=== PATIENT | male | born 1960 | race American Indian/Alaskan Native ===

== ENCOUNTER 2016-11-05 12:40 | Inpatient (IN) | payer OTHER ==
[2016-11-05 13:12] LABS: Eosinophils % (Auto) 2.8 % (0.0-4.3); Hematocrit 44.9 % (35.5-45.6); Hemoglobin 15.5 gm/dl (11.8-15.2); Mean Corpuscular HGB Conc 35 % (32-34); Mean Corpuscular Hemoglobin 35 pg (28-32); Mean Corpuscular Volume 101 fl (84-94); Platelet Count 139 K/mm3 (140-440); Red Blood Count 4.46 M/mm3 (3.65-5.03); Red Cell Distribution Width 11.9 % (13.2-15.2); White Blood Count 6.1 K/mm3 (4.5-11.0)
[2016-11-05 13:34] LABS: Blood Urea Nitrogen 5 mg/dL (9-20); Calcium 7.8 mg/dL (8.4-10.2); Carbon Dioxide 25 mmol/L (22-30); Chloride 99.2 mmol/L (98-107); Glucose 81 mg/dL (75-100); Potassium 4.5 mmol/L (3.6-5.0); Sodium 139 mmol/L (137-145)
[2016-11-05] MEDS ORDERED: NITRO-BID 2% TP ONE (13:55)
[2016-11-05] MEDS ORDERED: ZOFRAN IV ONE (13:55)
[2016-11-05] MEDS ORDERED: MORPHINE IV ONE (13:55)
[2016-11-05 13:56] LABS: Anion Gap 19 mmol/L
--- NOTE | 2016-11-05 14:02 | Emergency Department Report ---
HPI - General Chief Complaint: Chest Pain Time Seen by Provider: 11/05/16 13:47 - HPI HPI: Room 3 The patient is a 56-year-old male presenting with a chief complaint of chest pain. The patient states this afternoon he developed substernal chest pain that was sharp in nature. Patient denies shortness of breath, nausea/vomiting or diaphoresis. The patient gives his pain a score of 7/10. The patient states he never had a stress test or cardiac catheterization Location: Substernal chest Duration: Constant times hours Quality: Sharp Severity: 7/10 Modifying factors: [see above] Context: [see above] Mode of transportation: [not driving] ED Past Medical Hx - Past Medical History Previous Medical History?: Yes Hx COPD: Yes Additional medical history: snake bite - Surgical History Past Surgical History?: No Additional Surgical History: Right knee surgery/tendon repair - Family History Family history: no significant - Social History Smoking Status: Current Every Day Smoker Substance Use Type: None (denies illicit drug use), Alcohol (2-3 beers daily) - Medications Home Medications: Home Medications Medication Instructions Recorded Confirmed Last Taken Type ALBUTEROL Inhaler 2 inhalation PO DAILY PRN 11/05/16 11/05/16 Unknown History Combivent Inhaler 1 puff PO DAILY 11/05/16 11/05/16 Unknown History ED Review of Systems ROS: Stated complaint: CHEST PAIN Other details as noted in HPI Comment: All other systems reviewed and negative Constitutional: denies: chills, fever Eyes: denies: eye pain, eye discharge, vision change ENT: denies: ear pain, throat pain Respiratory: denies: cough, shortness of breath, wheezing Cardiovascular: chest pain. denies: palpitations Endocrine: no symptoms reported Gastrointestinal: denies: abdominal pain, nausea, diarrhea Genitourinary: denies: urgency, dysuria Musculoskeletal: denies: back pain, joint swelling, arthralgia Skin: denies: rash, lesions Neurological: denies: headache, weakness, paresthesias Psychiatric: denies: anxiety, depression Hematological/Lymphatic: denies: easy bleeding, easy bruising Physical Exam - Physical Exam Vital Signs: Vital Signs 11/05/16 11/05/16 12:49 13:13 Temperature 98.4 F Pulse Rate 98 H Respiratory 18 18 Rate Blood Pressure 128/84 O2 Sat by Pulse 99 91 Oximetry Physical Exam: GENERAL: The patient is well-developed male lying on stretcher not appear to be in acute distress. [] HEENT: Normocephalic. Atraumatic. Extraocular motions are intact. Patient has moist mucous membranes. NECK: Supple. Trachea midline CHEST/LUNGS: Clear to auscultation. There is no respiratory distress noted. HEART/CARDIOVASCULAR: Regular. There is no tachycardia. There is no gallop rub or murmur. ABDOMEN: Abdomen is soft, nontender. Patient has normal bowel sounds. There is no abdominal distention. SKIN: There is no rash. There is no edema. There is no diaphoresis. NEURO: The patient is awake, alert, and oriented. The patient is cooperative. The patient has normal speech MUSCULOSKELETAL: There is no evidence of acute injury. ED Course Vital Signs 11/05/16 11/05/16 12:49 13:13 Temperature 98.4 F Pulse Rate 98 H Respiratory 18 18 Rate Blood Pressure 128/84 O2 Sat by Pulse 99 91 Oximetry ED Medical Decision Making - Lab Data Result diagrams: 11/05/16 13:03 11/05/16 13:03 Laboratory Tests 11/05/16 11/05/16 11/05/16 13:03 13:03 13:03 WBC 6.1 RBC 4.46 Hgb 15.5 H Hct 44.9 MCV 101 H MCH 35 H MCHC 35 H RDW 11.9 L Plt Count 139 L Lymph % (Auto) 41.8 H [place] % (Auto) 8.4 H Eos % (Auto) 2.8 Baso % (Auto) 1.0 Lymph # 2.6 [place] # 0.5 Eos # 0.2 Baso # 0.1 Seg Neutrophils % 46.0 Seg Neutrophils # 2.8 Sodium 139 Potassium 4.5 Chloride 99.2 Carbon Dioxide 25 Anion Gap 19 BUN 5 L Creatinine 0.5 L Estimated GFR > 60 BUN/Creatinine Ratio 10.00 Glucose 81 Calcium 7.8 L Total Creatine Kinase 62 CK-MB (CK-2) < 1.0 CK-MB (CK-2) Rel Index 1.6 Troponin T < 0.010 11/05/16 15:44 WBC RBC Hgb Hct MCV MCH MCHC RDW Plt Count Lymph % (Auto) [place] % (Auto) Eos % (Auto) Baso % (Auto) Lymph # [place] # Eos # Baso # Seg Neutrophils % Seg Neutrophils # Sodium Potassium Chloride Carbon Dioxide Anion Gap BUN Creatinine Estimated GFR BUN/Creatinine Ratio Glucose Calcium Total Creatine Kinase CK-MB (CK-2) CK-MB (CK-2) Rel Index Troponin T < 0.010 - EKG Data -: EKG Interpreted by Me EKG shows normal: sinus rhythm Rate: normal - EKG Data When compared to previous EKG there are: previous EKG unavailable - Radiology Data Radiology results: image reviewed (chest x-ray) interpreted by me: Chest x-ray-no focal infiltrates, no pneumothorax - Differential Diagnosis ACS, GERD, pericarditis Critical care attestation.: If time is entered above; I have spent that time in minutes in the direct care of this critically ill patient, excluding procedure time. ED Disposition Clinical Impression: Chest pain Disposition: OP ADMITTED IP TO THIS HOSP Is pt being admited?: Yes Does the pt Need Aspirin: Yes Condition: Fair Instructions: Chest Pain (ED) Time of Disposition: 17:00
--- NOTE | 2016-11-05 14:06 | Admit Criteria Form ---
Admission Criteria Documentation: CHEST PAIN Clinical Indications for Admission to Inpatient Care (Place 'X' for any and all applicable criteria): Admission is indicated for chest pain and ANY ONE of the following(1)(2)(3)(4)(5 ): [ ]I. Angina with acute coronary syndrome (Also use Myocardial Infarction or Angina guideline) [ ]II. Hemodynamic instability [X ]III. Angina needing acute intervention as indicated by ALL of the following (11)(12): [X ]a) Unstable angina is present as indicated by angina that is ANY ONE of the following: [X ]i) New onset [ ]ii) Nocturnal [ ]iii) Prolonged at rest [ ]iv) Progressive [X ]b) Angina warrants acute intervention as indicated by ANY ONE of the following: [ ]i) Recurrent angina (e.g, not responding as previously to treatment) [X ]ii) Angina at rest or with low-level activities despite initial medical therapy [ ]iii) New or presumably new ST-segment depression on ECG [ ]iv) Signs or symptoms of heart failure (eg, dyspnea, pulmonary edema) [ ]v) New or worsening mitral regurgitation [ ]vi) Hemodynamic instability [ ]vii) Dangerous arrhythmia (eg, sustained ventricular tachycardia) [ ]viii) History of percutaneous coronary intervention within 6 months [ ]ix) History of coronary artery bypass graft surgery [ ]x) ANDREW risk score of 2 or greater[A] [ ]xi) History of Diabetes(14) [ ]xii) High-risk cardiac ischemia findings on noninvasive testing (e.g, echocardiogram, treadmill testing, nuclear scan) [ ]xiii) Chronic renal insufficiency (ie, estimated GFR less than 60 mL/min/1.732m) [ ]xiv) Left ventricular ejection fraction less than 40% [ ]IV. Evidence of CO (eg, cardiac biomarkers positive, ST-segment elevation on ECG) also use Myocardial Infarction Criteria Form. [ ]V. Pulmonary edema [ ]. Respiratory distress [ ]VII. Chest pain indicative of serious diagnosis other than coronary artery disease (eg, aortic dissection) [ ]VIII. Contraindications and/or Inappropriate clinical situations for Observational Care in patients with Chest Pain, when ANY ONE of the following is required: [ ]a) Patient with risk factor for pulmonary embolism, acute coronary syndrome and myocardial infarction (18) [ ]b) Patient with Pulmonary embolism require an average LOS of 4.3 days, therefore emergency department observation management is inappropriate 18,23 [ ]c) Painful condition/s in the elderly, have the highest rate of recidivism after emergency department observation management (10.8%) 20,21,22 [ ]d) Elevated cardiac biomarker requires intensive and exhaustive care (19) [ ]IX. General contraindications and/or Inappropriate clinical situations for Observational Care in patients with Chest Pain, when ANY ONE of the following is required: [ ]a) Prediction of prolongation of LOS based on ANY ONE of the following may be considered as a contraindication for observational care 2, 3, 4, 5, 6, 7, 8, 9, 10, 11 [ ]i) Age > 65 yrs. [ ]ii) Patient arriving by ambulance [ ]iii) Patient with high acuity [ ]iv) Patient requiring vital sign monitoring [ ]v) Patient on IV medication [ ]b) Systolic blood pressures 180mmHg 3,12 [ ]c) Patient with altered mental status including delirium and other alteration of consciousness, (3) [ ]d) Patient whose discharge disposition will be to a care home home or rehabilitation home should not be managed in Emergency Department Observation Unit. CMS rule requires 3 days hospital stay before such placement. 3,13 [ ]e) Patient with failure to thrive due to broad array of etiologies 3,16,17 [ ]f) Inability to ambulate 3,14 Extended stay beyond goal length of stay may be needed for (1)(28): [ ]a) Specific condition diagnosed after evaluation (eg, pulmonary embolism, aortic dissection) [ ]b) Unstable angina [ ]c) Continued suspicion of acute coronary syndrome with inability to complete needed cardiac evaluation (eg, patient clinically unable to undergo stress testing) [ ]d) Myocardial infarction (Contents from ANGINA and CHEST PAIN clinical indications for admission to inpatient care have been integrated in this form) The original [employer] content created by [employer] has been revised. The portions of the content which have been revised are identified through the use of italic text or in bold, and [facility] has neither reviewed nor approved the modified material. All other unmodified content is copyright [employer]. Please see references footnoted in the original [facility] edition 2016 Admission Criteria Met: Yes
--- NOTE | 2016-11-05 14:56 | XRay Report ---
AP CHEST: HISTORY: Chest pain. FINDINGS: There is mild hyperinflation. The lungs are clear, otherwise. No pleural effusion or pneumothorax. Normal heart and mediastinal structures. Normal bony thorax. IMPRESSION: Mild hyperinflation. No acute process.
[2016-11-05 15:00] LABS: Creatine Kinase MB < 1.0 ng/mL (0.0-4.0)
[2016-11-05 15:01] LABS: Creatine Kinase 62 units/L (55-170)
--- NOTE | 2016-11-05 17:36 | History and Physical Report ---
History of Present Illness Date of examination: 11/05/16 Date of admission: 11/05/16 Chief complaint: chest pain History of present illness: Patient is 56-year-old with history of COPD. He presents with chest pain for 1 day. Chest pain is midsternal, sharp pain, 8 out of 10 in intensity, with no radiation. Pain gets worse on exertion. He denies any shortness of breath. He had nausea yesterday but no vomiting. Emergency department initial troponin was normal. Will admit to rule out acute coronary syndrome. Also of note, he drinks 2-3 beers(24 Oz) a day and his last drink was this morning. Will order CIWA protocol in case he goes into alcohol withdrawal. Past History Past Medical History: COPD Past Surgical History: Other (right knee surgery, left foot surgery) Social history: single, smoking (Smokes 1 pack cigarettes a day), alcohol abuse (Drinks 2-3 beers a day(24 oz each)), full code Family history: diabetes Medications and Allergies Allergies Allergy/AdvReac Type Severity Reaction Status Date / Time Cephalosporins Allergy Anaphylaxis Verified 11/05/16 12:56 Home Medications Medication Instructions Recorded Confirmed Last Taken Type ALBUTEROL Inhaler 2 inhalation PO DAILY PRN 11/05/16 11/05/16 Unknown History Combivent Inhaler 1 puff PO DAILY 11/05/16 11/05/16 Unknown History Review of Systems All systems: negative (fever, no shortness of breath, no cough, no abdominal pain, no headaches. All other systems reviewed and are negative) Exam - Constitutional Vitals: Temp Pulse Resp BP Pulse Ox 98.4 F 98 H 18 128/84 91 11/05/16 12:49 11/05/16 12:49 11/05/16 13:13 11/05/16 12:49 11/05/16 13:13 General appearance: Present: no acute distress - EENT Eyes: Present: PERRL, EOM intact ENT: hearing intact, clear oral mucosa - Neck Neck: Present: supple, normal ROM - Respiratory Respiratory effort: normal Respiratory: bilateral: CTA, negative: diminished, rales, rhonchi, wheezing - Cardiovascular Rhythm: regular Heart Sounds: Present: S1 & S2 (S1 and S2 regular, no murmurs rubs or gallops) - Extremities Extremities: no ischemia, No edema, normal temperature, normal color - Abdominal General gastrointestinal: Present: soft, non-tender, non-distended, normal bowel sounds - Integumentary Integumentary: Present: clear, warm, dry - Musculoskeletal Musculoskeletal: strength equal bilaterally - Psychiatric Psychiatric: appropriate mood/affect - Neurologic Neurologic: moves all extremities, other (awake alert oriented 3, normal speech , no focal neurologic signs) Results - Labs CBC & Chem 7: 11/05/16 13:03 11/05/16 13:03 Labs: Abnormal lab results 11/05/16 11/05/16 Range/Units 13:03 13:03 Hgb 15.5 H (11.8-15.2) gm/dl MCV 101 H (84-94) fl MCH 35 H (28-32) pg MCHC 35 H (32-34) % RDW 11.9 L (13.2-15.2) % Plt Count 139 L (140-440) K/mm3 Lymph % (Auto) 41.8 H (13.4-35.0) % [place] % (Auto) 8.4 H (0.0-7.3) % BUN 5 L (9-20) mg/dL Creatinine 0.5 L (0.8-1.5) mg/dL Calcium 7.8 L (8.4-10.2) mg/dL Assessment and Plan Chest pain. Admit to telemetry to rule out acute coronary syndrome. Aspirin 325 mg by mouth daily. Initial Troponin negative. Obtain 2 more sets. Obtain stress test in the morning. COPD. This is stable. No shortness of breath, no acute exacerbation. Albuterol prn. Thrombocytopenia. Likely secondary to alcohol use Alcohol abuse. He drinks 2-3 beers a day. [place] protocol DVT prophylaxis with SCDs only. Chemical prophylaxis not done because of thrombocytopenia with platelets of 139.. Full CODE STATUS
[2016-11-05] MEDS ORDERED: ZOFRAN IV PRN (17:37)
[2016-11-05] MEDS ORDERED: MILK OF MAGNESIA PO PRN (17:37)
[2016-11-05] MEDS ORDERED: DULCOLAX PR PRN (17:37)
[2016-11-05] MEDS ORDERED: TYLENOL PO PRN (17:37)
[2016-11-05] MEDS ORDERED: SODIUM CHLORIDE FLUSH SYRINGE 10 ML IV PRN (17:41)
[2016-11-05] MEDS ORDERED: NITROSTAT SL PRN (17:41)
[2016-11-05] MEDS ORDERED: ASPIRIN PO ONE (17:42)
[2016-11-05] MEDS ORDERED: ATIVAN IV PRN (20:34)
[2016-11-05] MEDS ORDERED: PROVENTIL IH PRN (20:44)
[2016-11-05] MEDS ORDERED: COMBIVENT PO SCH (20:45)
[2016-11-05] MEDS: ATIVAN IV PRN (20:58)
[2016-11-05] MEDS ORDERED: HEPARIN SUB-Q SCH (22:00)
[2016-11-06] MEDS: ATIVAN IV PRN ×7 (02:16→22:34)
[2016-11-06] MEDS: DUONEB 0.5 MG-3 MG/3 ML SOLN IH SCH ×4 (02:40→20:22)
[2016-11-06 06:05] LABS: Eosinophils % (Auto) 1.6 % (0.0-4.3); Hematocrit 46.7 % (35.5-45.6); Mean Corpuscular HGB Conc 34 % (32-34); Mean Corpuscular Hemoglobin 34 pg (28-32); Mean Corpuscular Volume 99 fl (84-94); Platelet Count 125 K/mm3 (140-440); Red Blood Count 4.72 M/mm3 (3.65-5.03); Red Cell Distribution Width 12.2 % (13.2-15.2); White Blood Count 7.1 K/mm3 (4.5-11.0)
[2016-11-06 06:22] LABS: Blood Urea Nitrogen 6 mg/dL (9-20); Calcium 8.1 mg/dL (8.4-10.2); Carbon Dioxide 26 mmol/L (22-30); Chloride 96.5 mmol/L (98-107); Glucose 91 mg/dL (75-100); Potassium 4.1 mmol/L (3.6-5.0); Sodium 138 mmol/L (137-145)
[2016-11-06 06:55] LABS: Anion Gap 20 mmol/L
[2016-11-06] MEDS ORDERED: PROVENTIL IH PRN (07:18)
[2016-11-06] MEDS ORDERED: LEXISCAN IV ONE ×2 (09:46→09:47)
--- NOTE | 2016-11-06 11:31 | Progress Note ---
Assessment and Plan Assessment and plan: 1. Atypical chest pain- to r/o ACS; trop negative times 2; f/u stress test; cotn ASA; lipid panel 2. Alcohol abuse with alcohol withdrawal- will cont CIWA protocol; start IVF; thiamine; folic acid; MVT; start librium; counselled 3. Thrombocytopenia due to Alcohol -monitor; no signs of bleeding 4. DVT prophylaxis- SCD; no heparin / lovenox- thrombocytopenia History Interval history: f/u chest pain Patient seen at the bedside; no chest pain; drinks alcohol everyday 3-4 beers; last drink was this morning Hospitalist Physical - Constitutional Vitals: Temp Pulse Resp BP Pulse Ox 98.0 F 130 H 18 142/75 95 11/06/16 08:05 11/06/16 10:16 11/06/16 08:05 11/06/16 10:16 11/06/16 08:05 General appearance: Present: no acute distress, cachectic - EENT Eyes: Present: PERRL, EOM intact. Absent: scleral icterus, conjunctival injection ENT: hearing intact, clear oral mucosa, no oropharyngeal erythema, no poor dentition - Neck Neck: Present: supple, normal ROM. Absent: enlarged thyroid, masses or JVD - Respiratory Respiratory effort: normal Respiratory: negative: diminished, rales, rhonchi, wheezing - Cardiovascular Rhythm: regular Heart Sounds: Present: S1 & S2. Absent: gallop - Extremities Extremities: no ischemia, pulses intact, pulses symmetrical, No edema Peripheral Pulses: within normal limits - Abdominal General gastrointestinal: soft, non-tender, non-distended - Integumentary Integumentary: Present: clear - Psychiatric Psychiatric: appropriate mood/affect, intact judgment & insight, cooperative - Neurologic Neurologic: CNII-XII intact, moves all extremities, other (tremors) Results - Labs CBC & Chem 7: 11/06/16 05:09 11/06/16 05:09 Labs: Laboratory Last Values WBC 7.1 K/mm3 (4.5-11.0) 11/06/16 05:09 RBC 4.72 M/mm3 (3.65-5.03) 11/06/16 05:09 Hgb 16.0 gm/dl (11.8-15.2) H 11/06/16 05:09 Hct 46.7 % (35.5-45.6) H 11/06/16 05:09 MCV 99 fl (84-94) H 11/06/16 05:09 MCH 34 pg (28-32) H 11/06/16 05:09 MCHC 34 % (32-34) 11/06/16 05:09 RDW 12.2 % (13.2-15.2) L 11/06/16 05:09 Plt Count 125 K/mm3 (140-440) L 11/06/16 05:09 Lymph % (Auto) 16.3 % (13.4-35.0) 11/06/16 05:09 [place] % (Auto) 5.6 % (0.0-7.3) 11/06/16 05:09 Eos % (Auto) 1.6 % (0.0-4.3) 11/06/16 05:09 Baso % (Auto) 1.0 % (0.0-1.8) 11/06/16 05:09 Lymph # 1.2 K/mm3 (1.2-5.4) 11/06/16 05:09 [place] # 0.4 K/mm3 (0.0-0.8) 11/06/16 05:09 Eos # 0.1 K/mm3 (0.0-0.4) 11/06/16 05:09 Baso # 0.1 K/mm3 (0.0-0.1) 11/06/16 05:09 Seg Neutrophils % 75.5 % (40.0-70.0) H 11/06/16 05:09 Seg Neutrophils # 5.4 K/mm3 (1.8-7.7) 11/06/16 05:09 Sodium 138 mmol/L (137-145) 11/06/16 05:09 Potassium 4.1 mmol/L (3.6-5.0) 11/06/16 05:09 Chloride 96.5 mmol/L (98-107) L 11/06/16 05:09 Carbon Dioxide 26 mmol/L (22-30) 11/06/16 05:09 Anion Gap 20 mmol/L 11/06/16 05:09 BUN 6 mg/dL (9-20) L 11/06/16 05:09 Creatinine 0.6 mg/dL (0.8-1.5) L 11/06/16 05:09 Estimated GFR > 60 ml/min 11/06/16 05:09 BUN/Creatinine Ratio 10.00 % 11/06/16 05:09 Glucose 91 mg/dL (75-100) 11/06/16 05:09 Calcium 8.1 mg/dL (8.4-10.2) L 11/06/16 05:09 Total Creatine Kinase 62 units/L (55-170) 11/05/16 13:03 CK-MB (CK-2) < 1.0 ng/mL (0.0-4.0) 11/05/16 13:03 CK-MB (CK-2) Rel Index 1.6 (0-4) 11/05/16 13:03 Troponin T < 0.010 ng/mL (0.00-0.029) 11/05/16 19:16 stress test -negative
[2016-11-06] MEDS: VITAMIN B-1 PO SCH (11:43)
[2016-11-06] MEDS: ECOTRIN PO SCH (11:43)
[2016-11-06] MEDS: FOLVITE PO SCH (11:43)
[2016-11-06] MEDS: D5/0.45NS 1,000 ML IV SCH (11:45)
[2016-11-06] MEDS: LIBRIUM PO SCH ×3 (16:20→20:22)
[2016-11-06] MEDS: MORPHINE IV PRN (19:52)
[2016-11-06] MEDS: HABITROL TD SCH (20:44)
--- NOTE | 2016-11-06 22:41 | Treadmill Report ---
THALLIUM STRESS TEST LEFT VENTRICLE: Left ventricular chamber size is within normal. Perfusion study demonstrates homogeneous uptake of the tracer in all segments, no significant defects identified. Gated analysis demonstrates normal left ventricular systolic function, ejection fraction 62%. CONCLUSION: Normal myocardial perfusion study. JOB# [id number] CA/NTS
[2016-11-07] MEDS: ATIVAN IV PRN ×6 (00:31→23:37)
[2016-11-07] MEDS: DUONEB 0.5 MG-3 MG/3 ML SOLN IH SCH ×3 (08:46→19:41)
[2016-11-07] MEDS: LIBRIUM PO SCH ×3 (08:55→21:08)
[2016-11-07 09:35] LABS: Basophils % (Auto) 0.5 % (0.0-1.8); Eosinophils % (Auto) 2.5 % (0.0-4.3); Hematocrit 48.5 % (35.5-45.6); Hemoglobin 16.4 gm/dl (11.8-15.2); Mean Corpuscular HGB Conc 34 % (32-34); Mean Corpuscular Hemoglobin 34 pg (28-32); Mean Corpuscular Volume 100 fl (84-94); Red Blood Count 4.85 M/mm3 (3.65-5.03); Red Cell Distribution Width 11.9 % (13.2-15.2); White Blood Count 6.8 K/mm3 (4.5-11.0)
[2016-11-07 09:53] LABS: Platelet Count 126 K/mm3 (140-440)
[2016-11-07] MEDS: FOLVITE PO SCH (10:38)
[2016-11-07] MEDS: HABITROL TD SCH (10:38)
[2016-11-07] MEDS: VITAMIN B-1 PO SCH (10:38)
[2016-11-07] MEDS: ECOTRIN PO SCH (10:38)
--- NOTE | 2016-11-07 11:17 | Progress Note ---
Assessment and Plan Assessment and plan: 1. Atypical chest pain- to r/o ACS; trop negative times 2; f/u stress test; cotn ASA; lipid panel 2. Alcohol abuse with alcohol withdrawal- will cont CIWA protocol; start IVF; thiamine; folic acid; MVT; start librium; counselled 3. Thrombocytopenia due to Alcohol -monitor; no signs of bleeding 4. DVT prophylaxis- SCD; no heparin / lovenox- thrombocytopenia History Interval history: f/u chest pain Patient seen at the bedside; no chest pain; but continues to have tremors Hospitalist Physical - Constitutional Vitals: Temp Pulse Resp BP Pulse Ox 97.4 F L 107 H 20 144/84 95 11/07/16 09:27 11/07/16 09:27 11/07/16 09:27 11/07/16 09:27 11/07/16 08:47 General appearance: Present: no acute distress, cachectic - EENT Eyes: Present: PERRL, EOM intact. Absent: scleral icterus, conjunctival injection ENT: hearing intact, clear oral mucosa, no oropharyngeal erythema, no poor dentition - Neck Neck: Present: supple, normal ROM. Absent: enlarged thyroid, masses or JVD - Respiratory Respiratory effort: normal Respiratory: negative: diminished, rales, rhonchi, wheezing - Cardiovascular Rhythm: regular Heart Sounds: Present: S1 & S2. Absent: gallop - Extremities Extremities: no ischemia, pulses intact, pulses symmetrical, No edema Peripheral Pulses: within normal limits - Abdominal General gastrointestinal: soft, non-tender, non-distended, normal bowel sounds - Integumentary Integumentary: Present: clear - Psychiatric Psychiatric: appropriate mood/affect, intact judgment & insight, cooperative - Neurologic Neurologic: CNII-XII intact, moves all extremities, other (tremor) Results - Labs CBC & Chem 7: 11/07/16 08:05 11/06/16 05:09 Labs: Laboratory Last Values WBC 6.8 K/mm3 (4.5-11.0) 11/07/16 08:05 RBC 4.85 M/mm3 (3.65-5.03) 11/07/16 08:05 Hgb 16.4 gm/dl (11.8-15.2) H 11/07/16 08:05 Hct 48.5 % (35.5-45.6) H 11/07/16 08:05 MCV 100 fl (84-94) H 11/07/16 08:05 MCH 34 pg (28-32) H 11/07/16 08:05 MCHC 34 % (32-34) 11/07/16 08:05 RDW 11.9 % (13.2-15.2) L 11/07/16 08:05 Plt Count 126 K/mm3 (140-440) L 11/07/16 08:05 Lymph % (Auto) 24.5 % (13.4-35.0) 11/07/16 08:05 [place] % (Auto) 7.9 % (0.0-7.3) H 11/07/16 08:05 Eos % (Auto) 2.5 % (0.0-4.3) 11/07/16 08:05 Baso % (Auto) 0.5 % (0.0-1.8) 11/07/16 08:05 Lymph # 1.7 K/mm3 (1.2-5.4) 11/07/16 08:05 [place] # 0.5 K/mm3 (0.0-0.8) 11/07/16 08:05 Eos # 0.2 K/mm3 (0.0-0.4) 11/07/16 08:05 Baso # 0.0 K/mm3 (0.0-0.1) 11/07/16 08:05 Seg Neutrophils % 64.6 % (40.0-70.0) 11/07/16 08:05 Seg Neutrophils # 4.4 K/mm3 (1.8-7.7) 11/07/16 08:05 Sodium 138 mmol/L (137-145) 11/06/16 05:09 Potassium 4.1 mmol/L (3.6-5.0) 11/06/16 05:09 Chloride 96.5 mmol/L (98-107) L 11/06/16 05:09 Carbon Dioxide 26 mmol/L (22-30) 11/06/16 05:09 Anion Gap 20 mmol/L 11/06/16 05:09 BUN 6 mg/dL (9-20) L 11/06/16 05:09 Creatinine 0.6 mg/dL (0.8-1.5) L 11/06/16 05:09 Estimated GFR > 60 ml/min 11/06/16 05:09 BUN/Creatinine Ratio 10.00 % 11/06/16 05:09 Glucose 91 mg/dL (75-100) 11/06/16 05:09 Calcium 8.1 mg/dL (8.4-10.2) L 11/06/16 05:09 Total Creatine Kinase 62 units/L (55-170) 11/05/16 13:03 CK-MB (CK-2) < 1.0 ng/mL (0.0-4.0) 11/05/16 13:03 CK-MB (CK-2) Rel Index 1.6 (0-4) 11/05/16 13:03 Troponin T < 0.010 ng/mL (0.00-0.029) 11/05/16 19:16
[2016-11-08] MEDS: ATIVAN IV PRN ×3 (04:57→23:46)
[2016-11-08] MEDS: DUONEB 0.5 MG-3 MG/3 ML SOLN IH SCH ×3 (08:16→20:54)
[2016-11-08] MEDS: LIBRIUM PO SCH ×3 (08:38→20:46)
[2016-11-08] MEDS: ECOTRIN PO SCH (10:33)
[2016-11-08] MEDS: FOLVITE PO SCH (10:33)
[2016-11-08] MEDS: HABITROL TD SCH (10:33)
[2016-11-08] MEDS: VITAMIN B-1 PO SCH (10:35)
--- NOTE | 2016-11-08 11:23 | Progress Note ---
Assessment and Plan Assessment and plan: 1. Alcohol abuse with alcohol withdrawal- will cont CIWA protocol; cont IVF; thiamine; folic acid; MVT; cotn librium; counselled 2. Thrombocytopenia due to Alcohol -monitor; no signs of bleeding 3. DVT prophylaxis- SCD; no heparin / lovenox- thrombocytopenia History Interval history: f/u chest pain Patient seen at the bedside; no chest pain; but continues to have tremors Hospitalist Physical - Constitutional Vitals: Temp Pulse Resp BP Pulse Ox 97.9 F 112 H 20 125/85 98 11/08/16 07:29 11/08/16 10:00 11/08/16 08:26 11/08/16 07:29 11/08/16 08:16 General appearance: Present: no acute distress, cachectic - EENT Eyes: Present: PERRL, EOM intact. Absent: scleral icterus, conjunctival injection ENT: hearing intact, clear oral mucosa, no oropharyngeal erythema, no poor dentition - Neck Neck: Present: supple, normal ROM. Absent: enlarged thyroid, masses or JVD - Respiratory Respiratory effort: normal Respiratory: negative: diminished, rales, rhonchi, wheezing - Cardiovascular Rhythm: regular Heart Sounds: Present: S1 & S2. Absent: gallop - Extremities Extremities: no ischemia, pulses intact, pulses symmetrical, No edema Peripheral Pulses: within normal limits - Abdominal General gastrointestinal: soft, non-tender, non-distended, normal bowel sounds - Integumentary Integumentary: Present: clear - Psychiatric Psychiatric: appropriate mood/affect, intact judgment & insight, cooperative - Neurologic Neurologic: CNII-XII intact, moves all extremities Results - Labs CBC & Chem 7: 11/07/16 08:05 11/06/16 05:09 Labs: Laboratory Last Values WBC 6.8 K/mm3 (4.5-11.0) 11/07/16 08:05 RBC 4.85 M/mm3 (3.65-5.03) 11/07/16 08:05 Hgb 16.4 gm/dl (11.8-15.2) H 11/07/16 08:05 Hct 48.5 % (35.5-45.6) H 11/07/16 08:05 MCV 100 fl (84-94) H 11/07/16 08:05 MCH 34 pg (28-32) H 11/07/16 08:05 MCHC 34 % (32-34) 11/07/16 08:05 RDW 11.9 % (13.2-15.2) L 11/07/16 08:05 Plt Count 126 K/mm3 (140-440) L 11/07/16 08:05 Lymph % (Auto) 24.5 % (13.4-35.0) 11/07/16 08:05 [place] % (Auto) 7.9 % (0.0-7.3) H 11/07/16 08:05 Eos % (Auto) 2.5 % (0.0-4.3) 11/07/16 08:05 Baso % (Auto) 0.5 % (0.0-1.8) 11/07/16 08:05 Lymph # 1.7 K/mm3 (1.2-5.4) 11/07/16 08:05 [place] # 0.5 K/mm3 (0.0-0.8) 11/07/16 08:05 Eos # 0.2 K/mm3 (0.0-0.4) 11/07/16 08:05 Baso # 0.0 K/mm3 (0.0-0.1) 11/07/16 08:05 Seg Neutrophils % 64.6 % (40.0-70.0) 11/07/16 08:05 Seg Neutrophils # 4.4 K/mm3 (1.8-7.7) 11/07/16 08:05 Sodium 138 mmol/L (137-145) 11/06/16 05:09 Potassium 4.1 mmol/L (3.6-5.0) 11/06/16 05:09 Chloride 96.5 mmol/L (98-107) L 11/06/16 05:09 Carbon Dioxide 26 mmol/L (22-30) 11/06/16 05:09 Anion Gap 20 mmol/L 11/06/16 05:09 BUN 6 mg/dL (9-20) L 11/06/16 05:09 Creatinine 0.6 mg/dL (0.8-1.5) L 11/06/16 05:09 Estimated GFR > 60 ml/min 11/06/16 05:09 BUN/Creatinine Ratio 10.00 % 11/06/16 05:09 Glucose 91 mg/dL (75-100) 11/06/16 05:09 Calcium 8.1 mg/dL (8.4-10.2) L 11/06/16 05:09 Total Creatine Kinase 62 units/L (55-170) 11/05/16 13:03 CK-MB (CK-2) < 1.0 ng/mL (0.0-4.0) 11/05/16 13:03 CK-MB (CK-2) Rel Index 1.6 (0-4) 11/05/16 13:03 Troponin T < 0.010 ng/mL (0.00-0.029) 11/05/16 19:16
[2016-11-08] MEDS: D5/0.45NS 1,000 ML IV SCH ×2 (14:47→23:47)
[2016-11-09] MEDS: ATIVAN IV PRN ×4 (02:55→17:41)
[2016-11-09] MEDS ORDERED: LIBRIUM PO SCH (07:47)
[2016-11-09] MEDS: DUONEB 0.5 MG-3 MG/3 ML SOLN IH SCH ×3 (08:19→21:04)
[2016-11-09] MEDS: LIBRIUM PO SCH ×3 (08:37→20:10)
[2016-11-09] MEDS: ECOTRIN PO SCH (11:01)
[2016-11-09] MEDS: HABITROL TD SCH (11:01)
[2016-11-09] MEDS: D5/0.45NS 1,000 ML IV SCH (11:01)
[2016-11-09] MEDS: FOLVITE PO SCH (11:02)
[2016-11-09] MEDS: VITAMIN B-1 PO SCH (11:02)
--- NOTE | 2016-11-09 12:29 | Progress Note ---
Assessment and Plan Assessment and plan: 1. Alcohol abuse with alcohol withdrawal- will cont CIWA protocol; cont IVF; thiamine; folic acid; MVT; cotn librium at reduced dose; counselled 2. Thrombocytopenia due to Alcohol -monitor; no signs of bleeding 3. DVT prophylaxis- SCD; no heparin / lovenox- thrombocytopenia History Interval history: f/u chest pain Patient seen at the bedside; no chest pain; but continues to have tremors but improving Hospitalist Physical - Constitutional Vitals: Temp Pulse Resp BP Pulse Ox 98.1 F 111 H 20 134/77 100 11/09/16 10:36 11/09/16 11:19 11/09/16 10:36 11/09/16 10:36 11/09/16 10:36 General appearance: Present: no acute distress, cachectic - EENT Eyes: Present: PERRL, EOM intact. Absent: scleral icterus, conjunctival injection ENT: hearing intact, clear oral mucosa, no oropharyngeal erythema, no poor dentition - Neck Neck: Present: supple, normal ROM. Absent: enlarged thyroid, masses or JVD - Respiratory Respiratory effort: normal Respiratory: negative: diminished, rales, rhonchi, wheezing - Cardiovascular Rhythm: regular Heart Sounds: Present: S1 & S2. Absent: gallop - Extremities Extremities: no ischemia, pulses intact, pulses symmetrical, No edema, normal temperature Peripheral Pulses: within normal limits - Abdominal General gastrointestinal: soft, non-tender, non-distended - Integumentary Integumentary: Present: clear - Psychiatric Psychiatric: appropriate mood/affect, intact judgment & insight - Neurologic Neurologic: CNII-XII intact Results - Labs CBC & Chem 7: 11/07/16 08:05 11/06/16 05:09 Labs: Laboratory Last Values WBC 6.8 K/mm3 (4.5-11.0) 11/07/16 08:05 RBC 4.85 M/mm3 (3.65-5.03) 11/07/16 08:05 Hgb 16.4 gm/dl (11.8-15.2) H 11/07/16 08:05 Hct 48.5 % (35.5-45.6) H 11/07/16 08:05 MCV 100 fl (84-94) H 11/07/16 08:05 MCH 34 pg (28-32) H 11/07/16 08:05 MCHC 34 % (32-34) 11/07/16 08:05 RDW 11.9 % (13.2-15.2) L 11/07/16 08:05 Plt Count 126 K/mm3 (140-440) L 11/07/16 08:05 Lymph % (Auto) 24.5 % (13.4-35.0) 11/07/16 08:05 [place] % (Auto) 7.9 % (0.0-7.3) H 11/07/16 08:05 Eos % (Auto) 2.5 % (0.0-4.3) 11/07/16 08:05 Baso % (Auto) 0.5 % (0.0-1.8) 11/07/16 08:05 Lymph # 1.7 K/mm3 (1.2-5.4) 11/07/16 08:05 [place] # 0.5 K/mm3 (0.0-0.8) 11/07/16 08:05 Eos # 0.2 K/mm3 (0.0-0.4) 11/07/16 08:05 Baso # 0.0 K/mm3 (0.0-0.1) 11/07/16 08:05 Seg Neutrophils % 64.6 % (40.0-70.0) 11/07/16 08:05 Seg Neutrophils # 4.4 K/mm3 (1.8-7.7) 11/07/16 08:05 Sodium 138 mmol/L (137-145) 11/06/16 05:09 Potassium 4.1 mmol/L (3.6-5.0) 11/06/16 05:09 Chloride 96.5 mmol/L (98-107) L 11/06/16 05:09 Carbon Dioxide 26 mmol/L (22-30) 11/06/16 05:09 Anion Gap 20 mmol/L 11/06/16 05:09 BUN 6 mg/dL (9-20) L 11/06/16 05:09 Creatinine 0.6 mg/dL (0.8-1.5) L 11/06/16 05:09 Estimated GFR > 60 ml/min 11/06/16 05:09 BUN/Creatinine Ratio 10.00 % 11/06/16 05:09 Glucose 91 mg/dL (75-100) 11/06/16 05:09 Calcium 8.1 mg/dL (8.4-10.2) L 11/06/16 05:09 Total Creatine Kinase 62 units/L (55-170) 11/05/16 13:03 CK-MB (CK-2) < 1.0 ng/mL (0.0-4.0) 11/05/16 13:03 CK-MB (CK-2) Rel Index 1.6 (0-4) 11/05/16 13:03 Troponin T < 0.010 ng/mL (0.00-0.029) 11/05/16 19:16
[2016-11-10] MEDS: MORPHINE IV PRN (03:35)
[2016-11-10] MEDS: D5/0.45NS 1,000 ML IV SCH ×2 (03:36→14:51)
[2016-11-10] MEDS: DUONEB 0.5 MG-3 MG/3 ML SOLN IH SCH ×3 (09:54→20:34)
[2016-11-10] MEDS: HABITROL TD SCH (10:12)
[2016-11-10] MEDS: ECOTRIN PO SCH (10:12)
[2016-11-10] MEDS: VITAMIN B-1 PO SCH (10:12)
[2016-11-10] MEDS: LIBRIUM PO SCH ×3 (10:13→19:30)
[2016-11-10] MEDS: FOLVITE PO SCH (10:15)
--- NOTE | 2016-11-10 10:19 | Query- Chest Pain ---
Lucero Tinsley___Mir Date: 11/10/16 Cashier Wrapper/CDS:___Aristides Jolley Phone#:____[phone] Exercise your independent professional judgment when responding to query. Questions asked do not imply a particular answer is desired or expected. We greatly appreciate your clarification on this issue. Clinical Documentation States: 56 year old male was admitted on 11/05/16. The patient was diagnosed with alcohol abuse and withdrawal. The H&P states " Chest pain. Admit to telemetry to rule out acute coronary syndrome" The progress note (11/09/16) states " Patient seen at bedside; no chest pain; but continues to have tremors but improving " Clinical Findings Show: The exercise stress test states " Conclusion: normal myocardial perfusion study " Please document the etiology of Chest Pain: [ ] Myocardial Infarction [ ] Pneumonia [ ] Mediastinitis [ ] Costochondritis [ ] Pulmonary Embolism [ ] Coronary Artery Disease [x ] GERD [ ] Other: [ ] Comment/Explanation: [ ] Clinically undeterminable Present on Admission: [x ] Yes (Y) [ ] Clinically undeterminable (W) [ ] No(N) Please document response in your Progress Notes and/or Discharge Summary and indicate if the condition was present on admission. HERBERTH
--- NOTE | 2016-11-10 19:57 | Progress Note ---
Assessment and Plan Assessment and plan: 1. Alcohol abuse with alcohol withdrawal- will cont CIWA protocol; cont IVF; thiamine; folic acid; MVT; cotn librium at reduced dose; counselled 2. Metabolic encephalopathy-likely secondary to alcohol no evidence of DTs at this time. We'll continue to monitor closely. Patient has been on 4 point restraints will reevaluate in a.m. and discontinue this. 3. Thrombocytopenia due to Alcohol -monitor; no signs of bleeding 4. DVT prophylaxis- SCD; no heparin / lovenox- thrombocytopenia History Interval history: f/u chest pain, alcohol withdrawal Patient seen at the bedside; no chest pain; but continues to have tremors, some confusion, remains a 4 point restraints. No other adverse event noted by nursing staff. Hospitalist Physical - Physical exam Narrative exam: VITAL SIGNS: Reviewed. GENERAL: The patient appeared well cachectic. Vital signs as documented. HEAD: No signs of head trauma. EYES: Pupils are equal. Extraocular motions intact. EARS: Hearing grossly intact. MOUTH: Oropharynx is normal. NECK: No adenopathy, no JVD. CHEST: Chest with clear breath sounds bilaterally. No wheezes, rales, or rhonchi. CARDIAC: Regular rate and rhythm. S1 and S2, without murmurs, gallops, or rubs. VASCULAR: No Edema. Peripheral pulses normal and equal in all extremities. ABDOMEN: Soft, without detectable tenderness. No sign of distention. No rebound or guarding, and no masses palpated. Bowel Sounds normal. MUSCULOSKELETAL: Good range of motion of all major joints. Extremities without clubbing, cyanosis or edema. NEUROLOGIC EXAM: Alert and oriented x 3. No focal sensory or strength deficits. Speech normal. Follows commands. PSYCHIATRIC: Mood normal. SKIN: No rash or lesions. - Constitutional Vitals: Temp Pulse Resp BP Pulse Ox 98.4 F 104 H 18 115/71 96 11/10/16 16:07 11/10/16 16:07 11/10/16 16:07 11/10/16 16:07 11/10/16 16:07 General appearance: Present: no acute distress, cachectic Results - Labs CBC & Chem 7: 11/07/16 08:05 11/06/16 05:09 Labs: Laboratory Last Values WBC 6.8 K/mm3 (4.5-11.0) 11/07/16 08:05 RBC 4.85 M/mm3 (3.65-5.03) 11/07/16 08:05 Hgb 16.4 gm/dl (11.8-15.2) H 11/07/16 08:05 Hct 48.5 % (35.5-45.6) H 11/07/16 08:05 MCV 100 fl (84-94) H 11/07/16 08:05 MCH 34 pg (28-32) H 11/07/16 08:05 MCHC 34 % (32-34) 11/07/16 08:05 RDW 11.9 % (13.2-15.2) L 11/07/16 08:05 Plt Count 126 K/mm3 (140-440) L 11/07/16 08:05 Lymph % (Auto) 24.5 % (13.4-35.0) 11/07/16 08:05 [place] % (Auto) 7.9 % (0.0-7.3) H 11/07/16 08:05 Eos % (Auto) 2.5 % (0.0-4.3) 11/07/16 08:05 Baso % (Auto) 0.5 % (0.0-1.8) 11/07/16 08:05 Lymph # 1.7 K/mm3 (1.2-5.4) 11/07/16 08:05 [place] # 0.5 K/mm3 (0.0-0.8) 11/07/16 08:05 Eos # 0.2 K/mm3 (0.0-0.4) 11/07/16 08:05 Baso # 0.0 K/mm3 (0.0-0.1) 11/07/16 08:05 Seg Neutrophils % 64.6 % (40.0-70.0) 11/07/16 08:05 Seg Neutrophils # 4.4 K/mm3 (1.8-7.7) 11/07/16 08:05 Sodium 138 mmol/L (137-145) 11/06/16 05:09 Potassium 4.1 mmol/L (3.6-5.0) 11/06/16 05:09 Chloride 96.5 mmol/L (98-107) L 11/06/16 05:09 Carbon Dioxide 26 mmol/L (22-30) 11/06/16 05:09 Anion Gap 20 mmol/L 11/06/16 05:09 BUN 6 mg/dL (9-20) L 11/06/16 05:09 Creatinine 0.6 mg/dL (0.8-1.5) L 11/06/16 05:09 Estimated GFR > 60 ml/min 11/06/16 05:09 BUN/Creatinine Ratio 10.00 % 11/06/16 05:09 Glucose 91 mg/dL (75-100) 11/06/16 05:09 Calcium 8.1 mg/dL (8.4-10.2) L 11/06/16 05:09 Total Creatine Kinase 62 units/L (55-170) 11/05/16 13:03 CK-MB (CK-2) < 1.0 ng/mL (0.0-4.0) 11/05/16 13:03 CK-MB (CK-2) Rel Index 1.6 (0-4) 11/05/16 13:03 Troponin T < 0.010 ng/mL (0.00-0.029) 11/05/16 19:16 - Imaging and Cardiology Chest x-ray: image reviewed (no acute pathology noted)
[2016-11-10] MEDS: ATIVAN IV PRN (21:35)
[2016-11-11] MEDS: D5/0.45NS 1,000 ML IV SCH (01:20)
[2016-11-11 05:55] LABS: Hematocrit 42.7 % (35.5-45.6); Hemoglobin 14.8 gm/dl (11.8-15.2); Mean Corpuscular HGB Conc 35 % (32-34); Mean Corpuscular Hemoglobin 34 pg (28-32); Mean Corpuscular Volume 98 fl (84-94); Platelet Count 151 K/mm3 (140-440); Red Blood Count 4.34 M/mm3 (3.65-5.03); Red Cell Distribution Width 11.4 % (13.2-15.2); White Blood Count 6.4 K/mm3 (4.5-11.0)
[2016-11-11 06:20] LABS: Anion Gap 17 mmol/L; Blood Urea Nitrogen 8 mg/dL (9-20); Carbon Dioxide 21 mmol/L (22-30); Chloride 97.1 mmol/L (98-107); Glucose 106 mg/dL (75-100); Potassium 3.4 mmol/L (3.6-5.0); Sodium 132 mmol/L (137-145)
[2016-11-11] MEDS: DUONEB 0.5 MG-3 MG/3 ML SOLN IH SCH ×3 (08:00→20:08)
[2016-11-11] MEDS: HABITROL TD SCH (10:07)
[2016-11-11] MEDS: VITAMIN B-1 PO SCH (10:07)
[2016-11-11] MEDS: LIBRIUM PO SCH ×3 (10:07→22:52)
[2016-11-11] MEDS: ECOTRIN PO SCH (10:07)
[2016-11-11] MEDS: FOLVITE PO SCH (10:07)
[2016-11-11] MEDS: NEURONTIN PO SCH ×2 (15:03→22:52)
--- NOTE | 2016-11-11 15:18 | Progress Note ---
Assessment and Plan Assessment and plan: 1. Alcohol abuse with alcohol withdrawal- will cont CIWA protocol; cont IVF; thiamine; folic acid; MVT; cotn librium at reduced dose; counselled 2. Metabolic encephalopathy-likely secondary to alcohol no evidence of DTs at this time. We'll continue to monitor closely. 4 point restraints removed. We' ll monitor closely attempt physical therapy today In anticipation for discharge soon. 3. Thrombocytopenia due to Alcohol -resolved; no signs of bleeding 4. Hypokalemia-replace 5. Hyponatremia-stable we'll monitor 6. DVT prophylaxis- SCD; no heparin / lovenox- thrombocytopenia History Interval history: f/u chest pain, alcohol withdrawal Patient seen at the bedside; no chest pain; but continues to have tremors, this is improved. Previously noted confusion also improved.. No other adverse event noted by nursing staff. Hospitalist Physical - Physical exam Narrative exam: VITAL SIGNS: Reviewed. GENERAL: The patient appeared well cachectic, lethargic. Vital signs as documented. HEAD: No signs of head trauma. EYES: Pupils are equal. Extraocular motions intact. EARS: Hearing grossly intact. MOUTH: Oropharynx is normal. NECK: No adenopathy, no JVD. CHEST: Chest with clear breath sounds bilaterally. No wheezes, rales, or rhonchi. CARDIAC: Regular rate and rhythm. S1 and S2, without murmurs, gallops, or rubs. VASCULAR: No Edema. Peripheral pulses normal and equal in all extremities. ABDOMEN: Soft, without detectable tenderness. No sign of distention. No rebound or guarding, and no masses palpated. Bowel Sounds normal. MUSCULOSKELETAL: Good range of motion of all major joints. Extremities without clubbing, cyanosis or edema. NEUROLOGIC EXAM: Alert and oriented x 3. Lethargic although No focal sensory or strength deficits. Speech normal. Follows commands. PSYCHIATRIC: Mood normal. SKIN: No rash or lesions. - Constitutional Vitals: Temp Pulse Resp BP Pulse Ox 98.1 F 107 H 18 150/83 95 11/11/16 08:21 11/11/16 10:00 11/11/16 10:00 11/11/16 08:21 11/11/16 10:00 General appearance: Present: no acute distress, cachectic Results - Labs CBC & Chem 7: 11/11/16 05:29 11/11/16 05:29 Labs: Laboratory Last Values WBC 6.4 K/mm3 (4.5-11.0) 11/11/16 05:29 RBC 4.34 M/mm3 (3.65-5.03) 11/11/16 05:29 Hgb 14.8 gm/dl (11.8-15.2) 11/11/16 05:29 Hct 42.7 % (35.5-45.6) 11/11/16 05:29 MCV 98 fl (84-94) H 11/11/16 05:29 MCH 34 pg (28-32) H 11/11/16 05:29 MCHC 35 % (32-34) H 11/11/16 05:29 RDW 11.4 % (13.2-15.2) L 11/11/16 05:29 Plt Count 151 K/mm3 (140-440) 11/11/16 05:29 Lymph % (Auto) 24.5 % (13.4-35.0) 11/07/16 08:05 [place] % (Auto) 7.9 % (0.0-7.3) H 11/07/16 08:05 Eos % (Auto) 2.5 % (0.0-4.3) 11/07/16 08:05 Baso % (Auto) 0.5 % (0.0-1.8) 11/07/16 08:05 Lymph # 1.7 K/mm3 (1.2-5.4) 11/07/16 08:05 [place] # 0.5 K/mm3 (0.0-0.8) 11/07/16 08:05 Eos # 0.2 K/mm3 (0.0-0.4) 11/07/16 08:05 Baso # 0.0 K/mm3 (0.0-0.1) 11/07/16 08:05 Seg Neutrophils % 64.6 % (40.0-70.0) 11/07/16 08:05 Seg Neutrophils # 4.4 K/mm3 (1.8-7.7) 11/07/16 08:05 Sodium 132 mmol/L (137-145) L 11/11/16 05:29 Potassium 3.4 mmol/L (3.6-5.0) L 11/11/16 05:29 Chloride 97.1 mmol/L (98-107) L 11/11/16 05:29 Carbon Dioxide 21 mmol/L (22-30) L 11/11/16 05:29 Anion Gap 17 mmol/L 11/11/16 05:29 BUN 8 mg/dL (9-20) L 11/11/16 05:29 Creatinine 0.5 mg/dL (0.8-1.5) L 11/11/16 05:29 Estimated GFR > 60 ml/min 11/11/16 05:29 BUN/Creatinine Ratio 16.00 % 11/11/16 05:29 Glucose 106 mg/dL (75-100) H 11/11/16 05:29 Calcium 8.0 mg/dL (8.4-10.2) L 11/11/16 05:29 Total Creatine Kinase 62 units/L (55-170) 11/05/16 13:03 CK-MB (CK-2) < 1.0 ng/mL (0.0-4.0) 11/05/16 13:03 CK-MB (CK-2) Rel Index 1.6 (0-4) 11/05/16 13:03 Troponin T < 0.010 ng/mL (0.00-0.029) 11/05/16 19:16 Vitamin B12 406.4 pg/mL (211-911) 11/10/16 21:02
[2016-11-12] MEDS: NEURONTIN PO SCH ×3 (05:48→22:30)
[2016-11-12] MEDS: D5/0.45NS 1,000 ML IV SCH (08:22)
[2016-11-12] MEDS: FLEXERIL PO PRN (08:23)
[2016-11-12] MEDS: LIBRIUM PO SCH ×3 (08:30→22:30)
[2016-11-12] MEDS: DUONEB 0.5 MG-3 MG/3 ML SOLN IH SCH ×3 (09:01→20:56)
[2016-11-12] MEDS: FOLVITE PO SCH (12:42)
[2016-11-12] MEDS: HABITROL TD SCH (12:42)
[2016-11-12] MEDS: ECOTRIN PO SCH (12:42)
[2016-11-12] MEDS: VITAMIN B-1 PO SCH (12:43)
--- NOTE | 2016-11-12 13:22 | Progress Note ---
Assessment and Plan Assessment and plan: 1. Alcohol abuse with alcohol withdrawal- will cont CIWA protocol; cont IVF; thiamine; folic acid; MVT; cotn librium at reduced dose; counselled 2. Metabolic encephalopathy-likely secondary to alcohol no evidence of DTs at this time. We'll continue to monitor closely. continues to improve off 4 point restraints awaiting physical therapy In anticipation for discharge soon. 3. Thrombocytopenia due to Alcohol -resolved; no signs of bleeding 4. Hypokalemia-replace 5. Hyponatremia-stable we'll monitor 6. Low grade temp- monitor. no evidence of infection. check cbc. 6. DVT prophylaxis- SCD; no heparin / lovenox- thrombocytopenia History Interval history: f/u chest pain, alcohol withdrawal Patient seen at the bedside; no chest pain; tremor improved but somewhat lathergic more than normal today, more alert on reevaluation in the afternoon noadverse event noted by nursing staff. Hospitalist Physical - Physical exam Narrative exam: VITAL SIGNS: Reviewed. GENERAL: The patient appeared well cachectic, lethargic. Vital signs as documented. HEAD: No signs of head trauma. EYES: Pupils are equal. Extraocular motions intact. EARS: Hearing grossly intact. MOUTH: Oropharynx is normal. NECK: No adenopathy, no JVD. CHEST: Chest with clear breath sounds bilaterally. No wheezes, rales, or rhonchi. CARDIAC: Regular rate and rhythm. S1 and S2, without murmurs, gallops, or rubs. VASCULAR: No Edema. Peripheral pulses normal and equal in all extremities. ABDOMEN: Soft, without detectable tenderness. No sign of distention. No rebound or guarding, and no masses palpated. Bowel Sounds normal. MUSCULOSKELETAL: Good range of motion of all major joints. Extremities without clubbing, cyanosis or edema. NEUROLOGIC EXAM: lethargic and oriented x 3. Lethargic although No focal sensory or strength deficits. Speech normal. Follows commands. PSYCHIATRIC: Mood normal. SKIN: No rash or lesions. - Constitutional Vitals: Temp Pulse Resp BP Pulse Ox 98.5 F 103 H 18 132/72 97 11/12/16 12:45 11/12/16 12:45 11/12/16 12:45 11/12/16 12:45 11/12/16 12:45 General appearance: Present: no acute distress, cachectic Results - Labs CBC & Chem 7: 11/11/16 05:29 11/11/16 05:29 Labs: Laboratory Last Values WBC 6.4 K/mm3 (4.5-11.0) 11/11/16 05:29 RBC 4.34 M/mm3 (3.65-5.03) 11/11/16 05:29 Hgb 14.8 gm/dl (11.8-15.2) 11/11/16 05:29 Hct 42.7 % (35.5-45.6) 11/11/16 05:29 MCV 98 fl (84-94) H 11/11/16 05:29 MCH 34 pg (28-32) H 11/11/16 05:29 MCHC 35 % (32-34) H 11/11/16 05:29 RDW 11.4 % (13.2-15.2) L 11/11/16 05:29 Plt Count 151 K/mm3 (140-440) 11/11/16 05:29 Lymph % (Auto) 24.5 % (13.4-35.0) 11/07/16 08:05 [place] % (Auto) 7.9 % (0.0-7.3) H 11/07/16 08:05 Eos % (Auto) 2.5 % (0.0-4.3) 11/07/16 08:05 Baso % (Auto) 0.5 % (0.0-1.8) 11/07/16 08:05 Lymph # 1.7 K/mm3 (1.2-5.4) 11/07/16 08:05 [place] # 0.5 K/mm3 (0.0-0.8) 11/07/16 08:05 Eos # 0.2 K/mm3 (0.0-0.4) 11/07/16 08:05 Baso # 0.0 K/mm3 (0.0-0.1) 11/07/16 08:05 Seg Neutrophils % 64.6 % (40.0-70.0) 11/07/16 08:05 Seg Neutrophils # 4.4 K/mm3 (1.8-7.7) 11/07/16 08:05 Sodium 132 mmol/L (137-145) L 11/11/16 05:29 Potassium 3.4 mmol/L (3.6-5.0) L 11/11/16 05:29 Chloride 97.1 mmol/L (98-107) L 11/11/16 05:29 Carbon Dioxide 21 mmol/L (22-30) L 11/11/16 05:29 Anion Gap 17 mmol/L 11/11/16 05:29 BUN 8 mg/dL (9-20) L 11/11/16 05:29 Creatinine 0.5 mg/dL (0.8-1.5) L 11/11/16 05:29 Estimated GFR > 60 ml/min 11/11/16 05:29 BUN/Creatinine Ratio 16.00 % 11/11/16 05:29 Glucose 106 mg/dL (75-100) H 11/11/16 05:29 Calcium 8.0 mg/dL (8.4-10.2) L 11/11/16 05:29 Total Creatine Kinase 62 units/L (55-170) 11/05/16 13:03 CK-MB (CK-2) < 1.0 ng/mL (0.0-4.0) 11/05/16 13:03 CK-MB (CK-2) Rel Index 1.6 (0-4) 11/05/16 13:03 Troponin T < 0.010 ng/mL (0.00-0.029) 11/05/16 19:16 Vitamin B12 406.4 pg/mL (211-911) 11/10/16 21:02
[2016-11-12] MEDS: MORPHINE IV PRN (20:01)
[2016-11-13] MEDS: FLEXERIL PO PRN (06:46)
[2016-11-13 07:32] LABS: Hematocrit 42.7 % (35.5-45.6); Hemoglobin 14.5 gm/dl (11.8-15.2); Mean Corpuscular HGB Conc 34 % (32-34); Mean Corpuscular Hemoglobin 34 pg (28-32); Mean Corpuscular Volume 100 fl (84-94); Platelet Count 226 K/mm3 (140-440); Red Blood Count 4.29 M/mm3 (3.65-5.03); Red Cell Distribution Width 11.6 % (13.2-15.2)
[2016-11-13] MEDS: DUONEB 0.5 MG-3 MG/3 ML SOLN IH SCH ×3 (07:33→20:05)
[2016-11-13 07:52] LABS: Anion Gap 20 mmol/L; Blood Urea Nitrogen 10 mg/dL (9-20); Calcium 8.4 mg/dL (8.4-10.2); Carbon Dioxide 22 mmol/L (22-30); Chloride 96.2 mmol/L (98-107); Glucose 85 mg/dL (75-100); Sodium 134 mmol/L (137-145)
[2016-11-13 07:55] LABS: Potassium 4.2 mmol/L (3.6-5.0)
[2016-11-13] MEDS: LIBRIUM PO SCH ×3 (08:18→20:01)
[2016-11-13] MEDS: VITAMIN B-1 PO SCH (10:14)
[2016-11-13] MEDS: MORPHINE IV PRN ×2 (10:14→20:00)
[2016-11-13] MEDS: HABITROL TD SCH (10:14)
[2016-11-13] MEDS: FOLVITE PO SCH (10:14)
[2016-11-13] MEDS: ECOTRIN PO SCH (10:14)
--- NOTE | 2016-11-13 15:25 | Progress Note ---
Assessment and Plan Assessment and plan: 1. Alcohol abuse with alcohol withdrawal- will cont CIWA protocol; cont IVF; thiamine; folic acid; MVT; cotn librium at reduced dose; counselled 2. Metabolic encephalopathy-likely secondary to alcohol no evidence of DTs at this time. We'll continue to monitor closely. continues to improve off 4 point restraints. Attempts to ablate this physical therapy to eval successful aspiration significantly lethargic. We'll continue follow daily PT. Nursing staff assisting. 3. Thrombocytopenia due to Alcohol -resolved; no signs of bleeding 4. Hypokalemia-replace 5. Hyponatremia-stable we'll monitor 6. Low grade temp- monitor. no evidence of infection. check cbc. 7. DVT prophylaxis- SCD; no heparin / lovenox- thrombocytopenia 8. Patient can be transferred to medical surgical unit History Interval history: f/u chest pain, alcohol withdrawal Patient seen at the bedside; no chest pain; tremor improved but somewhat lathergic, no adverse event noted by nursing staff. Hospitalist Physical - Physical exam Narrative exam: VITAL SIGNS: Reviewed. GENERAL: The patient appeared well cachectic, lethargic. Vital signs as documented. HEAD: No signs of head trauma. EYES: Pupils are equal. Extraocular motions intact. EARS: Hearing grossly intact. MOUTH: Oropharynx is normal. NECK: No adenopathy, no JVD. CHEST: Chest with clear breath sounds bilaterally. No wheezes, rales, or rhonchi. CARDIAC: Regular rate and rhythm. S1 and S2, without murmurs, gallops, or rubs. VASCULAR: No Edema. Peripheral pulses normal and equal in all extremities. ABDOMEN: Soft, without detectable tenderness. No sign of distention. No rebound or guarding, and no masses palpated. Bowel Sounds normal. MUSCULOSKELETAL: Good range of motion of all major joints. Extremities without clubbing, cyanosis or edema. NEUROLOGIC EXAM: lethargic and oriented x 3. Lethargic although No focal sensory or strength deficits. Speech normal. Follows commands. PSYCHIATRIC: Mood normal. SKIN: No rash or lesions. - Constitutional Vitals: Temp Pulse Resp BP Pulse Ox 97.0 F L 98 H 20 108/68 98 11/13/16 12:42 11/13/16 14:15 11/13/16 14:15 11/13/16 12:42 11/13/16 12:42 General appearance: Present: no acute distress, cachectic Results - Labs CBC & Chem 7: 11/13/16 07:11 11/13/16 07:11 Labs: Laboratory Last Values WBC 7.0 K/mm3 (4.5-11.0) 11/13/16 07:11 RBC 4.29 M/mm3 (3.65-5.03) 11/13/16 07:11 Hgb 14.5 gm/dl (11.8-15.2) 11/13/16 07:11 Hct 42.7 % (35.5-45.6) 11/13/16 07:11 MCV 100 fl (84-94) H 11/13/16 07:11 MCH 34 pg (28-32) H 11/13/16 07:11 MCHC 34 % (32-34) 11/13/16 07:11 RDW 11.6 % (13.2-15.2) L 11/13/16 07:11 Plt Count 226 K/mm3 (140-440) 11/13/16 07:11 Lymph % (Auto) 24.5 % (13.4-35.0) 11/07/16 08:05 [place] % (Auto) 7.9 % (0.0-7.3) H 11/07/16 08:05 Eos % (Auto) 2.5 % (0.0-4.3) 11/07/16 08:05 Baso % (Auto) 0.5 % (0.0-1.8) 11/07/16 08:05 Lymph # 1.7 K/mm3 (1.2-5.4) 11/07/16 08:05 [place] # 0.5 K/mm3 (0.0-0.8) 11/07/16 08:05 Eos # 0.2 K/mm3 (0.0-0.4) 11/07/16 08:05 Baso # 0.0 K/mm3 (0.0-0.1) 11/07/16 08:05 Seg Neutrophils % 64.6 % (40.0-70.0) 11/07/16 08:05 Seg Neutrophils # 4.4 K/mm3 (1.8-7.7) 11/07/16 08:05 Sodium 134 mmol/L (137-145) L 11/13/16 07:11 Potassium 4.2 mmol/L (3.6-5.0) D 11/13/16 07:11 Chloride 96.2 mmol/L (98-107) L 11/13/16 07:11 Carbon Dioxide 22 mmol/L (22-30) 11/13/16 07:11 Anion Gap 20 mmol/L 11/13/16 07:11 BUN 10 mg/dL (9-20) 11/13/16 07:11 Creatinine 0.5 mg/dL (0.8-1.5) L 11/13/16 07:11 Estimated GFR > 60 ml/min 11/13/16 07:11 BUN/Creatinine Ratio 20.00 % 11/13/16 07:11 Glucose 85 mg/dL (75-100) 11/13/16 07:11 Calcium 8.4 mg/dL (8.4-10.2) 11/13/16 07:11 Total Creatine Kinase 62 units/L (55-170) 11/05/16 13:03 CK-MB (CK-2) < 1.0 ng/mL (0.0-4.0) 11/05/16 13:03 CK-MB (CK-2) Rel Index 1.6 (0-4) 11/05/16 13:03 Troponin T < 0.010 ng/mL (0.00-0.029) 11/05/16 19:16 Vitamin B12 406.4 pg/mL (211-911) 11/10/16 21:02
[2016-11-13] MEDS: NEURONTIN PO SCH (15:52)
[2016-11-14] MEDS: NEURONTIN PO SCH ×4 (05:57→21:07)
[2016-11-14] MEDS: DUONEB 0.5 MG-3 MG/3 ML SOLN IH SCH ×3 (08:37→20:22)
[2016-11-14] MEDS: LIBRIUM PO SCH ×3 (08:49→21:07)
[2016-11-14] MEDS: ECOTRIN PO SCH (09:48)
[2016-11-14] MEDS: FOLVITE PO SCH (09:48)
[2016-11-14] MEDS: ROBITUSSIN AC PO PRN ×2 (09:49→18:43)
[2016-11-14] MEDS: HABITROL TD SCH (09:49)
[2016-11-14] MEDS: VITAMIN B-1 PO SCH (09:49)
[2016-11-14] MEDS: MORPHINE IV PRN ×2 (09:49→14:25)
[2016-11-14] MEDS ORDERED: PROTONIX IV SCH (10:00)
--- NOTE | 2016-11-14 12:40 | Progress Note ---
Assessment and Plan Assessment and plan: 1. Alcohol abuse with alcohol withdrawal- will cont CIWA protocol; cont IVF; thiamine; folic acid; MVT; cotn librium at reduced dose; counselled 2. Metabolic encephalopathy-likely secondary to alcohol no evidence of DTs at this time. We'll continue to monitor closely. continues to improve off 4 point restraints. Attempts to ablate this physical therapy to eval successful aspiration significantly lethargic. We'll continue follow daily PT. Nursing staff assisting. 3. Thrombocytopenia due to Alcohol -resolved; no signs of bleeding 4. Hypokalemia-replace 5. Hyponatremia-stable we'll monitor 6. Low grade temp- monitor. no evidence of infection. check cbc. 7. DVT prophylaxis- SCD; no heparin / lovenox- thrombocytopenia 8. Disposition held secondary to ambulation issue. patient requiring 1 person assist In addition to walker. will continue inhouse PT and re-evaluate in AM. History Interval history: f/u chest pain, alcohol withdrawal Patient seen at the bedside; no chest pain; tremor improved but somewhat lathergic, unable to ambulate unassisted. still not safe for discharge home. no adverse event noted by nursing staff. Hospitalist Physical - Physical exam Narrative exam: VITAL SIGNS: Reviewed. GENERAL: The patient appeared well cachectic, lethargic. Vital signs as documented. HEAD: No signs of head trauma. EYES: Pupils are equal. Extraocular motions intact. EARS: Hearing grossly intact. MOUTH: Oropharynx is normal. NECK: No adenopathy, no JVD. CHEST: Chest with clear breath sounds bilaterally. No wheezes, rales, or rhonchi. CARDIAC: Regular rate and rhythm. S1 and S2, without murmurs, gallops, or rubs. VASCULAR: No Edema. Peripheral pulses normal and equal in all extremities. ABDOMEN: Soft, without detectable tenderness. No sign of distention. No rebound or guarding, and no masses palpated. Bowel Sounds normal. MUSCULOSKELETAL: Good range of motion of all major joints. Extremities without clubbing, cyanosis or edema. NEUROLOGIC EXAM: lethargic and oriented x 3. Lethargic although No focal sensory or strength deficits. Speech normal. Follows commands. unable to ambulate without a walker and 1 person assist. PSYCHIATRIC: Mood normal. SKIN: No rash or lesions. - Constitutional Vitals: Temp Pulse Resp BP Pulse Ox 97.3 F L 102 H 20 131/79 97 11/14/16 09:11 11/14/16 10:00 11/14/16 09:11 11/14/16 09:11 11/14/16 09:11 General appearance: Present: no acute distress, cachectic Results - Labs CBC & Chem 7: 11/13/16 07:11 11/13/16 07:11 Labs: Laboratory Last Values WBC 7.0 K/mm3 (4.5-11.0) 11/13/16 07:11 RBC 4.29 M/mm3 (3.65-5.03) 11/13/16 07:11 Hgb 14.5 gm/dl (11.8-15.2) 11/13/16 07:11 Hct 42.7 % (35.5-45.6) 11/13/16 07:11 MCV 100 fl (84-94) H 11/13/16 07:11 MCH 34 pg (28-32) H 11/13/16 07:11 MCHC 34 % (32-34) 11/13/16 07:11 RDW 11.6 % (13.2-15.2) L 11/13/16 07:11 Plt Count 226 K/mm3 (140-440) 11/13/16 07:11 Lymph % (Auto) 24.5 % (13.4-35.0) 11/07/16 08:05 [place] % (Auto) 7.9 % (0.0-7.3) H 11/07/16 08:05 Eos % (Auto) 2.5 % (0.0-4.3) 11/07/16 08:05 Baso % (Auto) 0.5 % (0.0-1.8) 11/07/16 08:05 Lymph # 1.7 K/mm3 (1.2-5.4) 11/07/16 08:05 [place] # 0.5 K/mm3 (0.0-0.8) 11/07/16 08:05 Eos # 0.2 K/mm3 (0.0-0.4) 11/07/16 08:05 Baso # 0.0 K/mm3 (0.0-0.1) 11/07/16 08:05 Seg Neutrophils % 64.6 % (40.0-70.0) 11/07/16 08:05 Seg Neutrophils # 4.4 K/mm3 (1.8-7.7) 11/07/16 08:05 Sodium 134 mmol/L (137-145) L 11/13/16 07:11 Potassium 4.2 mmol/L (3.6-5.0) D 11/13/16 07:11 Chloride 96.2 mmol/L (98-107) L 11/13/16 07:11 Carbon Dioxide 22 mmol/L (22-30) 11/13/16 07:11 Anion Gap 20 mmol/L 11/13/16 07:11 BUN 10 mg/dL (9-20) 11/13/16 07:11 Creatinine 0.5 mg/dL (0.8-1.5) L 11/13/16 07:11 Estimated GFR > 60 ml/min 11/13/16 07:11 BUN/Creatinine Ratio 20.00 % 11/13/16 07:11 Glucose 85 mg/dL (75-100) 11/13/16 07:11 Calcium 8.4 mg/dL (8.4-10.2) 11/13/16 07:11 Total Creatine Kinase 62 units/L (55-170) 11/05/16 13:03 CK-MB (CK-2) < 1.0 ng/mL (0.0-4.0) 11/05/16 13:03 CK-MB (CK-2) Rel Index 1.6 (0-4) 11/05/16 13:03 Troponin T < 0.010 ng/mL (0.00-0.029) 11/05/16 19:16 Vitamin B12 406.4 pg/mL (211-911) 11/10/16 21:02
[2016-11-15] MEDS: MORPHINE IV PRN ×3 (00:13→22:03)
[2016-11-15] MEDS: NEURONTIN PO SCH ×3 (06:16→22:02)
[2016-11-15 09:01] LABS: Hematocrit 39.7 % (35.5-45.6); Hemoglobin 13.7 gm/dl (11.8-15.2)
[2016-11-15] MEDS: DUONEB 0.5 MG-3 MG/3 ML SOLN IH SCH ×3 (09:05→21:26)
[2016-11-15] MEDS ORDERED: PROVENTIL IH PRN (09:10)
[2016-11-15] MEDS: VITAMIN B-1 PO SCH (09:52)
[2016-11-15] MEDS: LIBRIUM PO SCH ×3 (09:52→20:03)
[2016-11-15] MEDS: ECOTRIN PO SCH (09:52)
[2016-11-15] MEDS: PROTONIX PO SCH (09:52)
[2016-11-15] MEDS: FOLVITE PO SCH (09:53)
[2016-11-15] MEDS: HABITROL TD SCH (09:53)
--- NOTE | 2016-11-15 13:28 | Discharge Summary ---
Providers - Providers Date of Admission: 11/05/16 17:37 Date of discharge: 11/15/16 Attending physician: GEORGES NICHOLAS MD 11/05/16 Consult to Cardiac Rehabilitation [CONS] Routine Reason For Exam: Phase I 11/12/16 23:39 Occupational Therapy Evaluate and Treat [CONS] Routine Comment: Reason For Exam: debility Physical Therapy Evaluation and Treat [CONS] Routine Comment: Reason For Exam: debility 11/14/16 23:54 Consult to Wound/ET Nurse [CONS] Routine Reason For Exam: wound eval Primary care physician: REVENUE COLLECTOR Hospitalization Reason for admission: alcohol intoxication Condition: Stable Hospital course: Patient is 56-year-old with history of COPD. He presents with chest pain for 1 day. Chest pain is midsternal, sharp pain, 8 out of 10 in intensity, with no radiation. Pain gets worse on exertion. He denies any shortness of breath. He had nausea yesterday but no vomiting. Emergency department initial troponin was normal. he proceeded to have a stress test was negative during his hospitalization he did develop a little bit of DVT with encephalopathy and was treated appropriately. He was remarkably weak requiring 1 person assist which delayed his discharge has currently stable at this point to be discharged specific counseling was provided to the patient was also provided the patient information on alcohol anonymous he verbalizes understanding and is currently stable at this time. Also of note, he drinks 2-3 beers(24 Oz) a day and his last drink was this morning. Will order CIWA protocol in case he goes into alcohol withdrawal. Discharge diagnoses 1. Alcohol abuse with alcohol withdrawal 2. Metabolic encephalopathy 3. Thrombocytopenia due to Alcohol 4. Hypokalemia 5. Hyponatremia 6. Generalized weakness Disposition: DISCHARGED TO HOME OR SELFCARE Time spent for discharge: 35 mins Core Measure Documentation - Palliative Care Palliative Care/ Comfort Measures: Not Applicable - Core Measures Any of the following diagnoses?: none - VTE Discharge Requirements Deep Vein Thrombosis/Pulmonary Embolism Present on Admission: No Exam - Physical Exam Narrative exam: VITAL SIGNS: Reviewed. GENERAL: The patient appeared well cachectic. Vital signs as documented. HEAD: No signs of head trauma. EYES: Pupils are equal. Extraocular motions intact. EARS: Hearing grossly intact. MOUTH: Oropharynx is normal. NECK: No adenopathy, no JVD. CHEST: Chest with clear breath sounds bilaterally. No wheezes, rales, or rhonchi. CARDIAC: Regular rate and rhythm. S1 and S2, without murmurs, gallops, or rubs. VASCULAR: No Edema. Peripheral pulses normal and equal in all extremities. ABDOMEN: Soft, without detectable tenderness. No sign of distention. No rebound or guarding, and no masses palpated. Bowel Sounds normal. MUSCULOSKELETAL: Good range of motion of all major joints. Extremities without clubbing, cyanosis or edema. NEUROLOGIC EXAM: Awake and oriented x 3. Improved her lethargy No focal sensory or strength deficits. Speech normal. Follows commands. Ambulates with walker PSYCHIATRIC: Mood normal. SKIN: No rash or lesions. - Constitutional Vitals: Temp Pulse Resp BP Pulse Ox 97.8 F 90 14 136/74 94 11/15/16 12:00 11/15/16 12:00 11/15/16 12:00 11/15/16 12:00 11/15/16 09:07 Plan Activity: advance as tolerated, fall precautions Diet: low fat, other (avoid alcohol) Durable Medical Equipment Needed Upon Discharge: Walker-Rolling Follow up with: PRIMARY CARE, [Primary Care Provider] - 7 Days Prescriptions: Combivent Inhaler 1 puff PO DAILY #1 Folic Acid [Folvite] 1 mg PO QDAY #30 tablet Gabapentin [Neurontin] 300 mg PO BID #60 capsule Thiamine [Vitamin B-1] 100 mg PO QDAY #30 tablet
[2016-11-16] MEDS: NEURONTIN PO SCH (05:12)
[2016-11-16 09:13] VITALS: BP 131/80
[2016-11-16] MEDS: DUONEB 0.5 MG-3 MG/3 ML SOLN IH SCH (09:23)
[2016-11-16] MEDS: HABITROL TD SCH (09:49)
[2016-11-16] MEDS: ECOTRIN PO SCH (09:50)
[2016-11-16] MEDS: PROTONIX PO SCH (09:50)
[2016-11-16] MEDS: LIBRIUM PO SCH (09:50)
[2016-11-16] MEDS: VITAMIN B-1 PO SCH (09:50)
[2016-11-16] MEDS: FOLVITE PO SCH (09:50)
== END 2016-11-16 11:30 | disposition home or self-care (01) | DRG 896 ==
LOC: ED 12:40 → 4A 17:37
PROVIDERS: ADMIT Internal Medicine; ATTEND Internal Medicine
DX: F10.239 Alcohol dependence with withdrawal, unspecified (principal); G93.41 Metabolic encephalopathy; E87.1 Hypo-osmolality and hyponatremia; R07.89 Other chest pain; J44.9 Chronic obstructive pulmonary disease, unspecified; D69.6 Thrombocytopenia, unspecified; F17.200 Nicotine dependence, unspecified, uncomplicated; E87.6 Hypokalemia; Z88.1 Allergy status to other antibiotic agents; Z98.890 Other specified postprocedural states; Z83.3 Family history of diabetes mellitus
CPT/HCPCS: 36415; 71010; 78452; 80048; 82550; 82553; 82607; 84484; 85014; 85018; 85025; 85027; 87116; 93005; 93010; 93017; 94640; 94760; 96374; 96375; A9502; C9113; J2060; J2270; J2405; J2785

== ENCOUNTER 2016-11-28 16:18 | Inpatient (IN) | payer OTHER ==
--- NOTE | 2016-11-28 16:44 | Emergency Department Report ---
Chief Complaint: Chest Pain Stated Complaint: CHEST PAIN Time Seen by Provider: 11/28/16 16:39 - HPI History of Present Illness: 56-year-old past medical history of COPD male comes in for complaint of chest pain. He is also having left arm pain area he denies any trauma. Current meds Neurontin he takes Combivent and vitamin B1. He reports a pack of cigarettes a last in 2 days he smokes cigars. Last seen 2 weeks ago for the same issue. - Exam Vital Signs: Vital Signs 11/28/16 16:28 Temperature 98.7 F Pulse Rate 108 H Respiratory 16 Rate Blood Pressure 141/95 O2 Sat by Pulse 95 Oximetry Physical Exam: He is alert and oriented. Patient smells of heavy tobacco. Cardiovascular tachycardic respiratory clear abdomen soft nontender nondistended MSE screening note: Focused history and physical exam performed. Due to findings the following was ordered: Triage chest pain ordered patient be evaluated in main ER ED Disposition for MSE Condition: Stable
[2016-11-28 17:29] LABS: Basophils % (Auto) 1.3 % (0.0-1.8); Eosinophils % (Auto) 3.3 % (0.0-4.3); Hematocrit 47.3 % (35.5-45.6); Hemoglobin 15.8 gm/dl (11.8-15.2); Mean Corpuscular HGB Conc 34 % (32-34); Mean Corpuscular Hemoglobin 33 pg (28-32); Mean Corpuscular Volume 98 fl (84-94); Platelet Count 353 K/mm3 (140-440); Red Blood Count 4.83 M/mm3 (3.65-5.03); Red Cell Distribution Width 12.4 % (13.2-15.2); White Blood Count 7.1 K/mm3 (4.5-11.0)
[2016-11-28 17:36] LABS: BUN/Creatinine Ratio 8.33; Blood Urea Nitrogen 5 mg/dL (9-20); Carbon Dioxide 24 mmol/L (22-30); Creatine Kinase 39 units/L (55-170); Glucose 82 mg/dL (75-100); Potassium 4.3 mmol/L (3.6-5.0); Sodium 141 mmol/L (137-145)
[2016-11-28 17:41] LABS: Creatine Kinase MB < 1.0 ng/mL (0.0-4.0)
[2016-11-28 17:42] LABS: Anion Gap 19 mmol/L
[2016-11-29] MEDS ORDERED: DUONEB 0.5 MG-3 MG/3 ML SOLN IH ONE (02:59)
[2016-11-29] MEDS ORDERED: NITROSTAT SL ONE (02:59)
[2016-11-29] MEDS ORDERED: MORPHINE IV ONE (03:00)
[2016-11-29] MEDS ORDERED: NACL 0.9% 1000 ML 1,000 ML IV ONE (03:02)
--- NOTE | 2016-11-29 03:02 | Emergency Department Report ---
ED Chest Pain HPI - General Chief Complaint: Chest Pain Stated Complaint: CHEST PAIN Time Seen by Provider: 11/28/16 16:39 Source: patient Mode of arrival: Stretcher Limitations: No Limitations - History of Present Illness Initial Comments: 56M past medical history COPD, angina, smoker, alcohol abuse presents with complaint of sudden onset substernal chest pain radiating to the left side chest into left arm since noon yesterday. Pain is intermittent waxing and waning in intensity experiences it several times an hour for a few seconds at a time. Pain occurs at rest and with exertion. She states he was at work when this episode started at approximately 12 PM yesterday. States that he called EMS and they gave him an 81mg aspirin and brought him to the the emergency department. States pain is persistent, still feels pain now. Denies any associated nausea vomiting denies any fever or chills states he has been coughing but it is nonproductive, denies any diaphoresis associated with episodes of chest pain, states he does feel slightly more short of breath than usual. Denies any lower extremity swelling, chest pain not pleuritic in nature. She states that he was admitted approximately 2-1/2 weeks ago to [facility] for similar episode of chest pain. On exam patient appears uncomfortable, no audible stridor or wheezing, awake alert and oriented 3. 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 MD Complaint: chest pain Onset/Timin -: hour(s) Onset: during rest Pain Location: substernal, left chest Pain Radiation: LUE Severity: moderate Severity scale (0 -10): 6 Quality: sharp Improves With: nothing Other Symptoms: cough Treatments Prior to Arrival: aspirin Aspirin use within the Past 7 Days: (1) Yes - Related Data Home Medications Medication Instructions Recorded Confirmed Last Taken ALBUTEROL Inhaler 2 inhalation PO DAILY PRN 11/05/16 11/29/16 11/29/16 Previous Rx's Medication Instructions Recorded Last Taken Type Combivent Inhaler 1 puff PO DAILY #1 11/15/16 11/29/16 Rx Folic Acid [Folvite] 1 mg PO QDAY #30 tablet 11/15/16 11/29/16 Rx Gabapentin [Neurontin] 300 mg PO BID #60 capsule 11/15/16 11/29/16 Rx Thiamine [Vitamin B-1] 100 mg PO QDAY #30 tablet 11/15/16 11/29/16 Rx Allergies Allergy/AdvReac Type Severity Reaction Status Date / Time Cephalosporins Allergy Anaphylaxis Verified 11/05/16 12:56 ANDREW score - Andrew Score Age > 65: (0) No Aspirin use within the Past 7 Days: (1) Yes 3 or more CAD Risk Factors: (1) Yes 2 or more Angina events in past 24 hrs: (1) Yes Known CAD with more than 50% Stenosis: (0) No Elevated Cardiac Markers: (0) No ST Deviation Greater than 0.5mm: (1) Yes ANDREW Score: 4 ED Review of Systems ROS: Stated complaint: CHEST PAIN Other details as noted in HPI Constitutional: denies: chills, fever Eyes: denies: eye pain, eye discharge, vision change ENT: denies: ear pain, throat pain Respiratory: cough, shortness of breath (minor amount of shortness of breath and last several days as per patient). denies: wheezing Cardiovascular: chest pain (substernal chest pain radiating to left side). denies: palpitations Endocrine: no symptoms reported Gastrointestinal: denies: abdominal pain, nausea, diarrhea Genitourinary: denies: urgency, dysuria Musculoskeletal: denies: back pain, joint swelling, arthralgia Skin: denies: rash, lesions Neurological: denies: headache, weakness, paresthesias Psychiatric: denies: anxiety, depression Hematological/Lymphatic: denies: easy bleeding, easy bruising ED Past Medical Hx - Past Medical History Previous Medical History?: Yes Hx COPD: Yes Additional medical history: snake bite - Surgical History Past Surgical History?: Yes Additional Surgical History: Right knee surgery/tendon repair - Social History Smoking Status: Current Every Day Smoker Substance Use Type: Alcohol - Medications Home Medications: Home Medications Medication Instructions Recorded Confirmed Last Taken Type ALBUTEROL Inhaler 2 inhalation PO DAILY PRN 11/05/16 11/29/16 11/29/16 History Combivent Inhaler 1 puff PO DAILY #1 11/15/16 11/29/16 11/29/16 Rx Folic Acid [Folvite] 1 mg PO QDAY #30 tablet 11/15/16 11/29/16 11/29/16 Rx Gabapentin [Neurontin] 300 mg PO BID #60 capsule 11/15/16 11/29/1617 Rx Thiamine [Vitamin B-1] 100 mg PO QDAY #30 tablet 11/15/16 11/29/16 11/29/16 Rx ED Physical Exam - General Limitations: No Limitations General appearance: alert, in no apparent distress - Head Head exam: Present: atraumatic, normocephalic - Eye Eye exam: Present: normal appearance, PERRL, EOMI - ENT ENT exam: Present: mucous membranes moist - Neck Neck exam: Present: normal inspection - Respiratory Respiratory exam: Present: decreased breath sounds (decreased breath sounds bilaterally). Absent: respiratory distress - Cardiovascular Cardiovascular Exam: Present: regular rate, normal rhythm. Absent: systolic murmur, diastolic murmur, rubs, gallop - GI/Abdominal GI/Abdominal exam: Present: soft, normal bowel sounds - Rectal Rectal exam: Present: deferred - Extremities Exam Extremities exam: Present: normal inspection - Back Exam Back exam: Present: normal inspection - Neurological Exam Neurological exam: Present: alert, oriented X3 - Psychiatric Psychiatric exam: Present: normal affect, normal mood - Skin Skin exam: Present: warm, dry, intact, normal color. Absent: rash ED Course Vital Signs 11/28/16 11/29/16 11/29/16 16:28 01:50 01:55 Temperature 98.7 F 98.0 F Pulse Rate 108 H 91 H 98 H Pulse Rate [ Anterior Bilateral Throughout] Respiratory 16 13 16 Rate Respiratory Rate [Anterior Bilateral Throughout] Blood Pressure 141/95 Blood Pressure 156/90 [Left] O2 Sat by Pulse 95 98 98 Oximetry 11/29/16 11/29/16 11/29/16 02:00 03:00 03:26 Temperature Pulse Rate 99 H 102 H 116 H Pulse Rate [ Anterior Bilateral Throughout] Respiratory 11 L 17 20 Rate Respiratory Rate [Anterior Bilateral Throughout] Blood Pressure 156/90 166/99 163/94 Blood Pressure [Left] O2 Sat by Pulse 97 95 Oximetry 11/29/16 11/29/16 11/29/16 03:34 03:44 03:47 Temperature Pulse Rate Pulse Rate [ 103 H 106 H Anterior Bilateral Throughout] Respiratory 20 Rate Respiratory 14 14 Rate [Anterior Bilateral Throughout] Blood Pressure Blood Pressure [Left] O2 Sat by Pulse 98 Oximetry 11/29/16 04:00 Temperature Pulse Rate 104 H Pulse Rate [ Anterior Bilateral Throughout] Respiratory 18 Rate Respiratory Rate [Anterior Bilateral Throughout] Blood Pressure 131/74 Blood Pressure [Left] O2 Sat by Pulse 95 Oximetry - Reevaluation(s) Reevaluation #1: 11/29/16 03:[address] Tovar. As patient has multiple cardiac risk factors and HEART score of 5 points Moderate Score (4-6 points), risk of MACE of 12-16.6 % we'll obtain second troponin, treat patient dramatically, obtain chest x-ray then consult cardiology. Patient had recent negative nuclear stress test but currently presenting with anginal chest pain. Reassess after repeat labs and x- ray. We'll give patient doses of 2 mg morphine IV, 0.4 sublingual nitroglycerin , we'll hydrate patient with 1 L of normal saline, will give patient DuoNeb treatment. ED Medical Decision Making - Lab Data Result diagrams: 11/28/16 16:57 11/28/16 16:57 - Medical Decision Making A/P: Anginal chest pain 1-case discussed with hospitalist and hammersmith helper Dr. Lima, will admit patient as he has multiple cardiac risk factors heart score 6, MACE 16% risk stratification for possible urgent catheterization 2- Dr. Pacheco notified of admission and acceptance by hospitalist Critical care attestation.: If time is entered above; I have spent that time in minutes in the direct care of this critically ill patient, excluding procedure time. ED Disposition Clinical Impression: Chest pain Qualifiers: Chest pain type: precordial chest pain Qualified Code(s): R07.2 - Precordial pain Disposition: OP ADMITTED IP TO THIS HOSP Is pt being admited?: Yes Does the pt Need Aspirin: Yes Condition: Stable Instructions: Chest Pain (ED)
[2016-11-29] MEDS ORDERED: BABY ASPIRIN PO ONE (03:11)
--- NOTE | 2016-11-29 05:37 | History and Physical Report ---
History of Present Illness Date of examination: 11/29/16 Chief complaint: Chest pain History of present illness: 56-year-old CM with medical history significant for COPD presented to the emergency department complaining of recurrent chest pain that started yesterday around midday. Chest pain is left-sided, with radiation to the left arm, dull, 7 out of 10 in intensity. patient denied palpitation, diaphoresis but admitted for SOB which he attributed to COPD. patient was discharged from this hospital 2 weeks ago after he was worked up for chest pain. At that time stress test was done and was negative. Today cardiology Dr. Espinoza was consulted and he said he is going to do cath per ER physician. REVIEW OF SYSTEMS: GENERAL: no weight change, no fatigue, no fever HEAD: no head ache EYES: no blurry vision, no acute visual loss EARS: no hearing loss, no discharge, no earache NOSE: no stuffiness, no sneezing, no discharge MOUTH, THROAT AND NECK: no bleeding gums, no sore throat, no swollen neck CARDIAC: no palpitations, no dyspnea on exertion, no orthopnea, no PND, no edema RESPIRATORY: no wheeze, no cough, no sputum, no hemoptysis, no asthma GI: no decreased appetite, no nausea, no vomiting, no dysphagia, no diarrhea, no constipation, no abdominal pain URINARY: no change in frequency, no urgency, no polyuria, no hematuria, no incontinence MUSCULOSKELETAL: no muscle weakness, no pain, no joint stiffness NEUROLOGIC: no loss of sensation/numbness, no tingling, no tremors, no weakness/ paralysis HEMATOLOGIC: no anemia, no easy bruising SKIN: no rashes ENDOCRINE: no heat/cold intolerance, no polyuria, no polydipsia, no thyroid problems, no diabetes PSYCHIATRIC: no anxiety, no depression, no suicidal ideations Past History Past Medical History: COPD Past Surgical History: Other (left knee and foot surgery) Social history: smoking, alcohol abuse (1-2 beers a day), full code. denies: prescription drug abuse, IV drug use Family history: no significant family history Medications and Allergies Allergies Allergy/AdvReac Type Severity Reaction Status Date / Time Cephalosporins Allergy Anaphylaxis Verified 11/05/16 12:56 Home Medications Medication Instructions Recorded Confirmed Last Taken Type ALBUTEROL Inhaler 2 inhalation PO DAILY PRN 11/05/16 11/29/16 11/29/16 History Combivent Inhaler 1 puff PO DAILY #1 11/15/16 11/29/16 11/29/16 Rx Folic Acid [Folvite] 1 mg PO QDAY #30 tablet 11/15/16 11/29/16 11/29/16 Rx Gabapentin [Neurontin] 300 mg PO BID #60 capsule 11/15/16 11/29/16 11/29/16 Rx Thiamine [Vitamin B-1] 100 mg PO QDAY #30 tablet 11/15/16 11/29/16 11/29/16 Rx Exam - Physical Exam Narrative exam: Not in cardiopulmonary distress. Vital signs as documented. Head exam is unremarkable. No scleral icterus . Neck is without jugular venous distension, thyromegaly, or carotid bruits. Lungs are clear to auscultation. Cardiac exam reveals regular rate and Rhythm. First and second heart sounds normal. No murmurs, rubs or gallops. Abdominal exam reveals normal bowel sounds, no masses, no organomegaly and no aortic enlargement. Extremities are nonedematous and both femoral and pedal pulses are normal. 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 No focal weakness. - Constitutional Vitals: Temp Pulse Resp BP Pulse Ox 98.0 F 104 H 18 131/74 95 11/29/16 01:55 11/29/16 04:00 11/29/16 04:00 11/29/16 04:00 11/29/16 04:00 Results - Labs CBC & Chem 7: 11/28/16 16:57 11/28/16 16:57 Labs: Laboratory Last Values WBC 7.1 K/mm3 (4.5-11.0) 11/28/16 16:57 RBC 4.83 M/mm3 (3.65-5.03) 11/28/16 16:57 Hgb 15.8 gm/dl (11.8-15.2) H 11/28/16 16:57 Hct 47.3 % (35.5-45.6) H 11/28/16 16:57 MCV 98 fl (84-94) H 11/28/16 16:57 MCH 33 pg (28-32) H 11/28/16 16:57 MCHC 34 % (32-34) 11/28/16 16:57 RDW 12.4 % (13.2-15.2) L 11/28/16 16:57 Plt Count 353 K/mm3 (140-440) 11/28/16 16:57 Lymph % (Auto) 46.6 % (13.4-35.0) H 11/28/16 16:57 [place] % (Auto) 7.9 % (0.0-7.3) H 11/28/16 16:57 Eos % (Auto) 3.3 % (0.0-4.3) 11/28/16 16:57 Baso % (Auto) 1.3 % (0.0-1.8) 11/28/16 16:57 Lymph # 3.3 K/mm3 (1.2-5.4) 11/28/16 16:57 [place] # 0.6 K/mm3 (0.0-0.8) 11/28/16 16:57 Eos # 0.2 K/mm3 (0.0-0.4) 11/28/16 16:57 Baso # 0.1 K/mm3 (0.0-0.1) 11/28/16 16:57 Seg Neutrophils % 40.9 % (40.0-70.0) 11/28/16 16:57 Seg Neutrophils # 2.9 K/mm3 (1.8-7.7) 11/28/16 16:57 VBG pH 7.397 (7.320-7.420) 11/29/16 03:36 Sodium 141 mmol/L (137-145) 11/28/16 16:57 Potassium 4.3 mmol/L (3.6-5.0) 11/28/16 16:57 Chloride 102.0 mmol/L (98-107) 11/28/16 16:57 Carbon Dioxide 24 mmol/L (22-30) 11/28/16 16:57 Anion Gap 19 mmol/L 11/28/16 16:57 BUN 5 mg/dL (9-20) L 11/28/16 16:57 Creatinine 0.6 mg/dL (0.8-1.5) L 11/28/16 16:57 Estimated GFR > 60 ml/min 11/28/16 16:57 BUN/Creatinine Ratio 8.33 % 11/28/16 16:57 Glucose 82 mg/dL (75-100) 11/28/16 16:57 Calcium 8.0 mg/dL (8.4-10.2) L 11/28/16 16:57 Total Creatine Kinase 31 units/L (55-170) L 11/29/16 03:36 CK-MB (CK-2) < 1.0 ng/mL (0.0-4.0) 11/28/16 16:57 CK-MB (CK-2) Rel Index 2.5 (0-4) 11/28/16 16:57 Troponin T < 0.010 ng/mL (0.00-0.029) 11/29/16 03:21 NT-Pro-B Natriuret Pep 82.62 pg/mL (0-900) 11/29/16 03:36 - Imaging and Cardiology EKG: image reviewed (sinus tach) Chest x-ray: report reviewed, image reviewed Assessment and Plan Assessment and plan: Recurrent chest pain rule out ACS COPD - First set of cardiac enzymes were negative - EKG showed sinus tach - Aspirin - Cardiology Dr Espinoza was consulted and recommend to do Cardiac cath - Duonebs, breathing treatment DVT prophylaxis - Lovenox Disposition - Admit to telemetry unit Advance Directives: Yes VTE prophylaxis?: Chemical Plan of care discussed with patient/family: Yes
[2016-11-29] MEDS ORDERED: SODIUM CHLORIDE FLUSH SYRINGE 10 ML IV PRN (05:39)
[2016-11-29] MEDS: MORPHINE IV PRN ×2 (08:18→20:43)
[2016-11-29 08:48] LABS: Creatine Kinase 34 units/L (55-170)
[2016-11-29 09:12] LABS: Creatine Kinase MB < 1.0 ng/mL (0.0-4.0)
[2016-11-29] MEDS: DUONEB 0.5 MG-3 MG/3 ML SOLN IH SCH ×4 (09:22→20:39)
--- NOTE | 2016-11-29 09:47 | XRay Report ---
CHEST XRAY, 2 VIEWS: History: Chest pain. Findings: There is mild diffuse interstitial coarsening. The lungs are otherwise clear but hyperexpanded. The pleural spaces are clear. The cardiac silhouette and pulmonary vasculature are within normal limits for technique. IMPRESSION: Changes consistent with COPD. No evidence for an acute process.
[2016-11-29] MEDS: LOVENOX SUB-Q SCH (10:06)
[2016-11-29] MEDS: COLACE PO SCH ×2 (10:06→21:19)
[2016-11-29] MEDS: PEPCID PO SCH ×2 (10:06→21:19)
--- NOTE | 2016-11-29 11:37 | Consultation ---
History of Present Illness Consult date: 11/29/16 Consult reason: chest pain History of present illness: 56-year-old male with a history of chronic obstructive pulmonary disease and alcohol use as well as smoking presented with chest pain and precordial intense not associated with diaphoresis and nausea vomiting pain is nonexertional and patient states that it requires strong narcotics. He was recently in the hospital and had a Lexiscan thallium scan done which was negative for ischemic coronary artery disease. Past History Past Medical History: COPD, hypertension Past Surgical History: Other (left knee and foot surgery) Social history: smoking, alcohol abuse (1-2 beers a day), full code. denies: prescription drug abuse, IV drug use Family history: no significant family history Medications and Allergies Allergies Allergy/AdvReac Type Severity Reaction Status Date / Time Cephalosporins Allergy Anaphylaxis Verified 11/05/16 12:56 Home Medications Medication Instructions Recorded Confirmed Last Taken Type ALBUTEROL Inhaler 2 inhalation PO DAILY PRN 11/05/16 11/29/16 11/29/16 History Combivent Inhaler 1 puff PO DAILY #1 11/15/16 11/29/16 11/29/16 Rx Folic Acid [Folvite] 1 mg PO QDAY #30 tablet 11/15/16 11/29/16 11/29/16 Rx Gabapentin [Neurontin] 300 mg PO BID #60 capsule 11/15/16 11/29/16 11/29/16 Rx Thiamine [Vitamin B-1] 100 mg PO QDAY #30 tablet 11/15/16 11/29/16 11/29/16 Rx Active Meds: Active Medications Albuterol/Ipratropium (Duoneb 0.5 Mg-3 Mg/3 Ml Soln) 1 ampul IH QIDRT [facility] Last Admin: 11/29/16 09:22 Dose: Not Given Aspirin (Baby Aspirin) 81 mg PO QDAY [facility] Docusate Sodium (Colace) 100 mg PO BID [facility] Last Admin: 11/29/16 10:06 Dose: Not Given Enoxaparin Sodium (Lovenox) 40 mg SUB-Q QDAY [facility] Last Admin: 11/29/16 10:06 Dose: 40 mg Famotidine (Pepcid) 20 mg PO BID [facility] Last Admin: 11/29/16 10:06 Dose: 20 mg Morphine Sulfate (Morphine) 2 mg IV Q4H PRN PRN Reason: Chest Pain Last Admin: 11/29/16 08:18 Dose: 2 mg Sodium Chloride (Sodium Chloride Flush Syringe 10 Ml) 10 ml IV PRN PRN PRN Reason: LINE FLUSH Review of Systems Cardiovascular: chest pain, shortness of breath Physical Examination Vital Signs Temp Pulse Resp BP Pulse Ox 98.7 F 108 H 16 141/95 95 11/28/16 16:28 11/28/16 16:28 11/28/16 16:28 11/28/16 16:28 11/28/16 16:28 General appearance: no acute distress, well-nourished HEENT: Positive: PERRL, Mucus Membranes Moist Neck: Positive: neck supple, trachea midline Cardiac: Positive: Reg Rate and Rhythm, S1/S2. Negative: Audible Murmur Lungs: Positive: clear to auscultation, Normal Breath Sounds Neuro: Positive: Grossly Intact Abdomen: Positive: Soft, Active Bowel Sounds. Negative: Tender, Distended Male genitourinary: Positive: normal Skin: Positive: Clear Incision: Cardiac Cath Site Musculoskeletal: No Pain, Normal Range of Motion Extremities: Present: normal. Absent: edema Results 11/28/16 16:57 11/28/16 16:57 Cardiac Enzymes 11/29/16 Range/Units 08:12 CK-MB (CK-2) < 1.0 (0.0-4.0) ng/mL EKG interpretations - Telemetry EKG Rhythm: Sinus Rhythm Assessment and Plan 1. Chest pain atypical probably noncardiac 2. Chronic obstructive pulmonary disease 3. Abnormal EKG Plan. Obtain serial cardiac isoenzymes review previous cardiac or analgesics for chest pain as needed
--- NOTE | 2016-11-29 11:58 | Event Note ---
Date: 11/29/16 Patient seen and examined. This is a follow-up from an admission earlier this morning. Continue plan as outlined in H&P. Follow-up cardiac isoenzymes. Decisions for possible cardiac catheterization per cardiology.
[2016-11-29 16:06] LABS: Creatine Kinase 36 units/L (55-170)
[2016-11-29 16:32] LABS: Creatine Kinase MB < 1.0 ng/mL (0.0-4.0)
[2016-11-30] MEDS: DUONEB 0.5 MG-3 MG/3 ML SOLN IH SCH ×2 (08:21→14:14)
[2016-11-30] MEDS: MORPHINE IV PRN (08:30)
[2016-11-30] MEDS: PEPCID PO SCH (09:41)
[2016-11-30] MEDS: COLACE PO SCH (09:41)
[2016-11-30] MEDS: LOVENOX SUB-Q SCH (09:43)
[2016-11-30] MEDS ORDERED: BABY ASPIRIN PO SCH (10:00)
[2016-11-30] MEDS ORDERED: ATIVAN IV PRN (11:28)
[2016-11-30 11:29] VITALS: BP 139/77
--- NOTE | 2016-11-30 11:33 | Discharge Summary ---
Providers - Providers Date of Admission: 11/29/16 05:37 Date of discharge: 11/30/16 Attending physician: GEORGES NICHOLAS MD 11/29/16 Consult to Cardiac Rehabilitation [CONS] Routine Reason For Exam: Phase I 11/29/16 05:39 Consult to Physician [CONS] Routine Consulting Provider: LIZ COLUNGA Reason For Exam: Recurrent chest pain Place consult to:: Cardiology Notified:: y If yes, spoke with:: Primary care physician: LEGAL COMPLIANCE OFFICER Hospitalization Reason for admission: chest pain Condition: Stable Hospital course: Patient a 56-year-old male with history of alcohol abuse, COPD, recurrent chest pain which is atypical in nature and not exacerbated by ambulation or by any exertional activity. Intermittently on the arm also. Has had a recent stress test in the last month he had a hospital that was negative. Again the patient states that the pain is not exacerbated by exertion or by activity. He continues unfortunately to indulge in alcohol currently; mild withdrawal but no evidence of DVTs. I have provided extensive counseling to the patient resources have been provided to the patient including AA for alcohol abuse support. Is currently clinically stable for discharge electrolytes appear stable he was sent by cardiology yesterday. I'll start him on trial off PPI and recommended outpatient follow-up with PCP and also with cardiology. I have also given him a discount card for omeprazole,. Additional recommendation is to have PCP refer him to a GI physician to rule out GERD Disposition: DISCHARGED TO HOME OR SELFCARE Time spent for discharge: 35 mins - Discharge Diagnoses (1) Atypical chest pain Status: Resolved Comment: Likely secondary to GERD (2) Alcohol abuse Status: Acute (3) Alcohol withdrawal Status: Acute (4) COPD (chronic obstructive pulmonary disease) Status: Acute Core Measure Documentation - Palliative Care Palliative Care/ Comfort Measures: Not Applicable - Core Measures Any of the following diagnoses?: none - VTE Discharge Requirements Deep Vein Thrombosis/Pulmonary Embolism Present on Admission: No Exam - Physical Exam Narrative exam: VITAL SIGNS: Reviewed. GENERAL: The patient appeared disheveled, mild tremor.. Vital signs as documented. HEAD: No signs of head trauma. EYES: Pupils are equal. Extraocular motions intact. EARS: Hearing grossly intact. MOUTH: Oropharynx is normal. NECK: No adenopathy, no JVD. CHEST: Chest with clear breath sounds bilaterally. No wheezes, rales, or rhonchi. CARDIAC: Regular rate and rhythm. S1 and S2, without murmurs, gallops, or rubs. VASCULAR: No Edema. Peripheral pulses normal and equal in all extremities. ABDOMEN: Soft, without detectable tenderness. No sign of distention. No rebound or guarding, and no masses palpated. Bowel Sounds normal. MUSCULOSKELETAL: Good range of motion of all major joints. Extremities without clubbing, cyanosis or edema. NEUROLOGIC EXAM: Alert and oriented x 3. No focal sensory or strength deficits. Speech normal. Follows commands. PSYCHIATRIC: Mood normal. SKIN: No rash or lesions. - Constitutional Vitals: Temp Pulse Resp BP Pulse Ox 99.8 F H 96 H 18 149/86 95 11/30/16 07:24 11/30/16 08:37 11/30/16 08:37 11/30/16 07:24 11/30/16 07:24 Plan Activity: advance as tolerated, fall precautions Diet: low salt Special Instructions: smoking cessation, other (Alcohol cessation) Follow up with: PRIMARY CAREMD [Primary Care Provider] - 3-5 Days LIZ COLUNGA MD [Staff Physician] - 7 Days Prescriptions: Gabapentin [Neurontin] 300 mg PO BID #60 capsule Omeprazole Magnesium [PriLOSEC Otc] 20 mg PO QDAY #30 tablet.
--- NOTE | 2016-11-30 13:20 | Query- Chest Pain ---
paitient full course, how they did . Clinical Findings Show: [ ] EKG:_Tachycardia [ ] Imaging:__CXR no acute process [ ] Troponin:_neg Please document the etiology of Chest Pain: [ ] Myocardial Infarction [ ] Pneumonia [ ] Mediastinitis [ ] Costochondritis [ ] Pulmonary Embolism [ ] Coronary Artery Disease [x] GERD [ ] Other: [ ] Comment/Explanation: Present on Admission: [y ] Yes (Y) [ ] Clinically undeterminable (W) [ ] No(N) Please document response in your Progress Notes and/or Discharge Summary and indicate if the condition was present on admission. HERBERTH
--- NOTE | 2016-11-30 16:08 | Progress Note ---
<RAJENDRAJERALD - Last Filed: 11/30/16 16:06> Assessment and Plan Chest pain, atypical normal perfusion persantine stress thallium 10/2016 normal cardiac enzymes ETOH abuse Hx of COPD No further cardiac workup indicated. Stable, cardiac gomez, for discharge home. Subjective Date of service: 11/30/16 Interval history: Patient reports he is chest pain free. For planned discharge home today. Objective Vital Signs Temp Pulse Pulse Pulse Pulse Resp Resp 11/30/16 14:06 91 H 11/30/16 11:28 98.4 F 104 H 18 11/30/16 08:37 96 H 11/30/16 08:21 103 H 18 11/30/16 07:24 99.8 F H 100 H 18 11/30/16 06:00 98.6 F 98 H 20 11/30/16 00:00 98.4 F 111 H 20 11/29/16 22:00 103 H 11/29/16 21:00 98.7 F 93 H 20 11/29/16 20:35 95 H 16 11/29/16 17:21 96 H 20 11/29/16 16:44 97 H 11/29/16 16:36 Resp BP BP Pulse Ox 11/30/16 14:06 11/30/16 11:28 139/77 95 11/30/16 08:37 18 11/30/16 08:21 11/30/16 07:24 149/86 95 11/30/16 06:00 140/87 94 11/30/16 00:00 133/87 95 11/29/16 22:00 11/29/16 21:00 151/90 96 11/29/16 20:35 11/29/16 17:21 151/82 97 11/29/16 16:44 13 11/29/16 16:36 98 - Physical Examination General: No Apparent Distress HEENT: Positive: PERRL Neck: Positive: trachea midline Cardiac: Positive: Reg Rate and Rhythm Lungs: Positive: Decreased Breath Sounds Neuro: Positive: Grossly Intact Extremities: Absent: edema - Labs and Meds Cardiac Enzymes 11/29/16 Range/Units 15:29 CK-MB (CK-2) < 1.0 (0.0-4.0) ng/mL - Imaging and Cardiology EKG: image reviewed (sinus tach) <BRITTANY,CHITURU - Last Filed: 11/30/16 20:21> Assessment and Plan - Patient Problems (1) Atypical chest pain Status: Acute Plan to address problem: Patient has atypical chest pain. Last month, he underwent evaluation including a Persantin thallium stress test that was normal. His major problem at this time appears to be his chronic alcohol abuse and alcohol withdrawal, referred for management by the medical service. No further cardiac workup is indicated. Objective Vital Signs Temp Pulse Pulse Pulse Pulse Resp Resp 11/30/16 14:06 91 H 11/30/16 11:28 98.4 F 104 H 18 11/30/16 08:37 96 H 11/30/16 08:21 103 H 18 11/30/16 07:24 99.8 F H 100 H 18 11/30/16 06:00 98.6 F 98 H 20 11/30/16 00:00 98.4 F 111 H 20 11/29/16 22:00 103 H 11/29/16 21:00 98.7 F 93 H 20 11/29/16 20:35 95 H 16 Resp BP Pulse Ox 11/30/16 14:06 11/30/16 11:28 139/77 95 11/30/16 08:37 18 11/30/16 08:21 11/30/16 07:24 149/86 95 11/30/16 06:00 140/87 94 11/30/16 00:00 133/87 95 11/29/16 22:00 11/29/16 21:00 151/90 96 11/29/16 20:35
== END 2016-11-30 14:11 | disposition home or self-care (01) | DRG 392 ==
LOC: ED 16:18 → 4A 11-29 05:37
PROVIDERS: ADMIT Internal Medicine; ATTEND Internal Medicine
DX: K21.9 Gastro-esophageal reflux disease without esophagitis (principal); F10.239 Alcohol dependence with withdrawal, unspecified; R07.89 Other chest pain; J44.9 Chronic obstructive pulmonary disease, unspecified; F17.200 Nicotine dependence, unspecified, uncomplicated; I10 Essential (primary) hypertension; Z98.890 Other specified postprocedural states; Z88.1 Allergy status to other antibiotic agents
CPT/HCPCS: 36415; 71020; 80048; 82550; 82553; 82805; 83880; 84484; 85025; 93005; 93010; 94640; 99406; J1650; J2060; J2270; J7030

== ENCOUNTER 2016-11-30 18:54 | Emergency (ER) | payer SELFPAY ==
[2016-11-30 23:37] VITALS: BP 134/88
--- NOTE | 2016-12-01 00:22 | Emergency Department Report ---
ED Fall HPI - General Chief Complaint: Fall Stated Complaint: FALL Time Seen by Provider: 11/30/16 23:59 Source: EMS Mode of arrival: Ambulatory - History of Present Illness Initial Comments: Patient was just DC'd this morning for atypical chest pain, COPD, and alcohol abuse (see 11/29-11/30/16 reports for details). States chest pain improving. He presents today in ambulance after a fall in which he sustains cuts and bruises to b/l upper extremities. has unsteady gait and fell on concrete. wasn't using his walker. Denies felling weak, faint or dizzy, light-headed prior to passing out. Denies hitting his head, LOC, weakness, tingling, numbness. Denies other acute complaints today. - Related Data Home Medications Medication Instructions Recorded Confirmed Last Taken ALBUTEROL Inhaler 2 inhalation PO DAILY PRN 11/05/16 11/29/16 11/29/16 Previous Rx's Medication Instructions Recorded Last Taken Type Combivent Inhaler 1 puff PO DAILY #1 11/15/16 11/29/16 Rx Folic Acid [Folvite] 1 mg PO QDAY #30 tablet 11/15/16 11/29/16 Rx Thiamine [Vitamin B-1] 100 mg PO QDAY #30 tablet 11/15/16 11/29/16 Rx Gabapentin [Neurontin] 300 mg PO BID #60 capsule 11/30/16 Unknown Rx Omeprazole Magnesium [PriLOSEC Otc] 20 mg PO QDAY #30 tablet. 11/30/16 Unknown Rx Neomycn/Baci Zn/Pmyx Bs/Pramox 28 gm TP BID #1 oint...g. 12/01/16 Unknown Rx [Triple Antibioti-Pain Rlf Oint] Allergies Allergy/AdvReac Type Severity Reaction Status Date / Time Cephalosporins Allergy Anaphylaxis Verified 11/05/16 12:56 ED Review of Systems ROS: Stated complaint: FALL Other details as noted in HPI Cardiovascular: chest pain (improving.) ED Past Medical Hx - Past Medical History Hx Hypertension: Yes Hx Congestive Heart Failure: No Hx Diabetes: No Hx Asthma: No Hx COPD: Yes Additional medical history: snake bite - Surgical History Past Surgical History?: Yes Additional Surgical History: Right knee surgery/tendon repair - Social History Smoking Status: Current Every Day Smoker Substance Use Type: Alcohol - Medications Home Medications: Home Medications Medication Instructions Recorded Confirmed Last Taken Type ALBUTEROL Inhaler 2 inhalation PO DAILY PRN 11/05/16 11/29/16 11/29/16 History Combivent Inhaler 1 puff PO DAILY #1 11/15/16 11/29/16 11/29/16 Rx Folic Acid [Folvite] 1 mg PO QDAY #30 tablet 11/15/16 11/29/16 11/29/16 Rx Thiamine [Vitamin B-1] 100 mg PO QDAY #30 tablet 11/15/16 11/29/16 11/29/16 Rx Gabapentin [Neurontin] 300 mg PO BID #60 capsule 11/30/16 Unknown Rx Omeprazole Magnesium [PriLOSEC Otc] 20 mg PO QDAY #30 tablet. 11/30/16 Unknown Rx Neomycn/Baci Zn/Pmyx Bs/Pramox 28 gm TP BID #1 oint...g. 12/01/16 Unknown Rx [Triple Antibioti-Pain Rlf Oint] ED Physical Exam - General Limitations: No Limitations General appearance: alert, in no apparent distress, other (unkept-appearing) - Head Head exam: Present: atraumatic, normocephalic - Eye Eye exam: Present: normal appearance, PERRL, EOMI. Absent: scleral icterus, conjunctival injection, periorbital swelling, periorbital tenderness - ENT ENT exam: Present: normal exam, mucous membranes moist, TM's normal bilaterally , normal external ear exam - Neck Neck exam: Present: normal inspection, full ROM. Absent: tenderness, lymphadenopathy - Respiratory Respiratory exam: Present: normal lung sounds bilaterally. Absent: respiratory distress - Cardiovascular Cardiovascular Exam: Present: regular rate, normal rhythm - GI/Abdominal GI/Abdominal exam: Present: soft. Absent: tenderness - Extremities Exam Extremities exam: Present: full ROM, tenderness (left posterior forearm.), normal capillary refill. Absent: pedal edema, joint swelling, calf tenderness - Neurological Exam Neurological exam: Present: alert, oriented X3, reflexes normal. Absent: motor sensory deficit - Psychiatric Psychiatric exam: Present: normal affect, normal mood - Skin Skin exam: Present: warm, dry. Absent: intact (epidermal erosion of l posterior forearm, superficial abrasions of right palm and elbow. No active bleed.) ED Course Vital Signs 11/30/16 11/30/16 19:30 23:37 Temperature 97.7 F 97.2 F L Pulse Rate 123 H 120 H Respiratory 18 16 Rate Blood Pressure 120/81 134/88 [Right] O2 Sat by Pulse 97 95 Oximetry ED Medical Decision Making - EKG Data -: EKG Interpreted by Me Rate: tachycardia (No obvious acute ST changes.) - Medical Decision Making 56 YOM with multiple abrasions to b/l UE s/p fall. patient is stable. he will be DC'd on wound care instructions and follow up with his PCP. He is instructed to keep his other healthcare appointments to follow up for his DC for chest pain. patient instructed to use his walker to ambulate. He is aware to return to the ED for new or worsening condition. he verbalized understanding and is agreeable to plan. Critical care attestation.: If time is entered above; I have spent that time in minutes in the direct care of this critically ill patient, excluding procedure time. ED Disposition Clinical Impression: Alcohol abuse, Atypical chest pain, Abrasion, multiple sites COPD (chronic obstructive pulmonary disease) Qualifiers: COPD type: unspecified COPD Qualified Code(s): J44.9 - Chronic obstructive pulmonary disease, unspecified Disposition: DISCHARGED TO HOME OR SELFCARE Is pt being admited?: No Does the pt Need Aspirin: No Condition: Stable Instructions: Chest Pain (ED), Chronic Obstructive Pulmonary Disease (ED), Acute Wound Care (ED) Additional Instructions: Follow instructions for care. Use walker to ambulate at all times. remember wound care instructions. Keep all healthcare related appointments. Follow up with your PCP in 2-3 days for wound check and follow up. Return to ED as needed. Prescriptions: Neomycn/Baci Zn/Pmyx Bs/Pramox [Triple Antibioti-Pain Rlf Oint] 28 gm TP BID #1 oint...g. Referrals: PRIMARY CARE [Primary Care Provider] - 12/03/16
== END 2016-12-01 01:09 | disposition home or self-care (01) ==
LOC: ED 18:54
DX: S60.511A Abrasion of right hand, initial encounter (principal); S50.311A Abrasion of right elbow, initial encounter; R07.89 Other chest pain; J44.9 Chronic obstructive pulmonary disease, unspecified; F10.10 Alcohol abuse, uncomplicated; I10 Essential (primary) hypertension; F17.200 Nicotine dependence, unspecified, uncomplicated; Z88.0 Allergy status to penicillin; W19.XXXA Unspecified fall, initial encounter; Y93.9 Activity, unspecified; Y99.9 Unspecified external cause status; Y92.89 Other specified places as the place of occurrence of the external cause
CPT/HCPCS: 93005; 93010; 99283

== ENCOUNTER 2017-02-04 11:00 | Emergency (ER) | payer SELFPAY ==
[2017-02-04 11:40] LABS: Urine Drugs of Abuse Note Disclamer
[2017-02-04 11:52] LABS: Basophils % (Auto) 0.3 % (0.0-1.8); Eosinophils % (Auto) 3.3 % (0.0-4.3); Hematocrit 50.6 % (35.5-45.6); Hemoglobin 17.2 gm/dl (11.8-15.2); Mean Corpuscular HGB Conc 34 % (32-34); Mean Corpuscular Hemoglobin 34 pg (28-32); Mean Corpuscular Volume 100 fl (84-94); Red Blood Count 5.08 M/mm3 (3.65-5.03); Red Cell Distribution Width 14.9 % (13.2-15.2); White Blood Count 7.6 K/mm3 (4.5-11.0)
[2017-02-04 11:55] LABS: Platelet Count 139 K/mm3 (140-440)
[2017-02-04 12:01] LABS: Bilirubin,Urine NEG (Negative); Blood,Urine NEG (Negative); Ketones,Urine NEG (Negative); Leukocyte Esterase,Urine NEG (Negative); Mucus,Urine FEW /HPF; Nitrite,Urine NEG (Negative); Protein,Urine <15 mg/dL mg/dL (Negative); RBC,Urine < 1.0 /HPF (0.0-6.0); Urobilinogen,Urine < 2.0 mg/dL (<2.0); WBC,Urine < 1.0 /HPF (0.0-6.0)
[2017-02-04 12:13] LABS: Anion Gap 22 mmol/L; Blood Urea Nitrogen 4 mg/dL (9-20); Carbon Dioxide 22 mmol/L (22-30); Chloride 95.8 mmol/L (98-107); Glucose 78 mg/dL (75-100); Potassium 4.4 mmol/L (3.6-5.0); Sodium 135 mmol/L (137-145)
[2017-02-04] MEDS ORDERED: MOTRIN PO ONE (12:30)
--- NOTE | 2017-02-04 12:40 | Emergency Department Report ---
HPI - General Chief Complaint: Fall Time Seen by Provider: 02/04/17 12:15 - HPI HPI: Room 9 The patient is a 56-year-old male presenting with chief complaint of fall. Patient states today while getting that he fell to the ground. Patient denies losing consciousness. The patient states since the fall he has had pain in his right lower extremity above his knee and in his neck. Patient admits to consuming alcohol this morning the patient states his friend came into his home and picked him up off the floor and called 911 Location: [see above] Duration: Constant since this morning Quality: Pain Severity: 06/24 Modifying factors: [see above] Context: [see above] Mode of transportation: [not driving] ED Past Medical Hx - Past Medical History Previous Medical History?: Yes Hx Hypertension: Yes Hx Arthritis: Yes Hx COPD: Yes (no home O2) Additional medical history: snake bite - Surgical History Past Surgical History?: Yes Additional Surgical History: Right knee surgery/tendon repair - Family History Family history: no significant - Social History Smoking Status: Current Every Day Smoker (cigars) Substance Use Type: None (denies illicit drug use), Alcohol (24-48 ounces of beer daily) - Medications Home Medications: Home Medications Medication Instructions Recorded Confirmed Last Taken Type ALBUTEROL Inhaler 2 inhalation PO DAILY PRN 11/05/16 12/16/16 11/29/16 History Combivent Inhaler 1 puff PO DAILY #1 11/15/16 12/16/16 11/29/16 Rx Naproxen [Naprosyn] 500 mg PO BID #14 tablet 02/04/17 Unknown Rx ED Review of Systems ROS: Stated complaint: FALL Other details as noted in HPI Comment: All other systems reviewed and negative Constitutional: denies: chills, fever Eyes: denies: eye pain, eye discharge, vision change ENT: denies: ear pain, throat pain Respiratory: denies: cough, shortness of breath, wheezing Cardiovascular: denies: chest pain, palpitations Endocrine: no symptoms reported Gastrointestinal: denies: abdominal pain, nausea, diarrhea Genitourinary: denies: urgency, dysuria Musculoskeletal: arthralgia, myalgia Skin: denies: rash, lesions Neurological: denies: headache, weakness, paresthesias Psychiatric: denies: anxiety, depression Hematological/Lymphatic: denies: easy bleeding, easy bruising Physical Exam - Physical Exam Vital Signs: Vital Signs 02/04/17 11:14 Temperature 98.2 F Pulse Rate 91 H Respiratory 20 Rate Blood Pressure 129/86 O2 Sat by Pulse 94 Oximetry Physical Exam: GENERAL: The patient is well-developed well-nourished male lying on stretcher not appearing to be in acute distress. [] HEENT: Normocephalic. Atraumatic. Extraocular motions are intact. Patient has moist mucous membranes. NECK: Supple. Axial cervical tenderness to palpation but no step offs CHEST/LUNGS: Clear to auscultation. There is no respiratory distress noted. HEART/CARDIOVASCULAR: Regular. There is no tachycardia. There is no gallop rub or murmur. ABDOMEN: Abdomen is soft, nontender. Patient has normal bowel sounds. There is no abdominal distention. SKIN: There is no rash. There is no edema. There is no diaphoresis. NEURO: The patient is awake, alert, and oriented. The patient is cooperative. The patient has no focal neurologic deficits. The patient has normal speech. 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 Patient able to flex bilateral lower extremities at the knees and hips MUSCULOSKELETAL: There is mild tenderness to palpation of the right distal femur. There is no evidence of acute injury. ED Course Vital Signs 02/04/17 11:14 Temperature 98.2 F Pulse Rate 91 H Respiratory 20 Rate Blood Pressure 129/86 O2 Sat by Pulse 94 Oximetry ED Medical Decision Making - Lab Data Result diagrams: 02/04/17 Unknown 02/04/17 11:19 Laboratory Tests 02/04/17 02/04/17 02/04/17 11:19 11:19 11:20 WBC RBC Hgb Hct MCV MCH MCHC RDW Plt Count Lymph % (Auto) [place] % (Auto) Eos % (Auto) Baso % (Auto) Lymph # [place] # Eos # Baso # Seg Neutrophils % Seg Neutrophils # Sodium 135 L Potassium 4.4 Chloride 95.8 L Carbon Dioxide 22 Anion Gap 22 BUN 4 L Creatinine 0.5 L Estimated GFR > 60 BUN/Creatinine Ratio 8.00 Glucose 78 Calcium 8.0 L Urine Color Yellow Urine Turbidity Clear Urine pH 5.0 Ur Specific [place] 1.006 Urine Protein <15 mg/dl Urine Glucose (UA) Neg Urine Ketones Neg Urine Blood Neg Urine Nitrite Neg Urine Bilirubin Neg Urine Urobilinogen < 2.0 Ur Leukocyte Esterase Neg Urine WBC (Auto) < 1.0 Urine RBC (Auto) < 1.0 U Epithel Cells (Auto) < 1.0 Urine Mucus Few Urine Opiates Screen Urine Methadone Screen Ur Barbiturates Screen Ur Phencyclidine Scrn Ur Amphetamines Screen U Benzodiazepines Scrn Urine Cocaine Screen U Marijuana (THC) Screen Drugs of Abuse Note Plasma/Serum Alcohol 0.32 H 02/04/17 02/04/17 11:20 Unknown WBC 7.6 RBC 5.08 H Hgb 17.2 H Hct 50.6 H MCV 100 H MCH 34 H MCHC 34 RDW 14.9 Plt Count 139 L Lymph % (Auto) 47.6 H [place] % (Auto) 8.0 H Eos % (Auto) 3.3 Baso % (Auto) 0.3 Lymph # 3.6 [place] # 0.6 Eos # 0.2 Baso # 0.0 Seg Neutrophils % 40.8 Seg Neutrophils # 3.1 Sodium Potassium Chloride Carbon Dioxide Anion Gap BUN Creatinine Estimated GFR BUN/Creatinine Ratio Glucose Calcium Urine Color Urine Turbidity Urine pH Ur Specific [place] Urine Protein Urine Glucose (UA) Urine Ketones Urine Blood Urine Nitrite Urine Bilirubin Urine Urobilinogen Ur Leukocyte Esterase Urine WBC (Auto) Urine RBC (Auto) U Epithel Cells (Auto) Urine Mucus Urine Opiates Screen Presumptive negative Urine Methadone Screen Presumptive negative Ur Barbiturates Screen Presumptive negative Ur Phencyclidine Scrn Presumptive negative Ur Amphetamines Screen Presumptive negative U Benzodiazepines Scrn Presumptive negative Urine Cocaine Screen Presumptive negative U Marijuana (THC) Screen Presumptive negative Drugs of Abuse Note Disclamer Plasma/Serum Alcohol Serum alcohol 0.32 - Radiology Data Radiology results: report reviewed (CT head, CT cervical spine), image reviewed (CT head, CT cervical spine, right hip x-ray, right knee x-ray) interpreted by me: Right hip x-ray-no acute fracture Right knee x-ray-no acute fracture CT head (read by radiologist)- no acute intracranial abnormality CT cervical spine (read by radiologist)-no evidence of acute fracture. Severe cervical spondylosis C5-C6 - Differential Diagnosis alcoholism, femur fracture, cervical fracture, cervical sprain, knee contus Critical care attestation.: If time is entered above; I have spent that time in minutes in the direct care of this critically ill patient, excluding procedure time. ED Disposition Clinical Impression: Contusion of right knee, Acute cervical myofascial strain, Alcohol intoxication Disposition: DISCHARGED TO HOME OR SELFCARE Is pt being admited?: No Does the pt Need Aspirin: No Condition: Stable Instructions: Muscle Strain (ED), Alcohol Intoxication (ED), Abuse of Alcohol ( ED), At-Risk Alcohol Use (ED) Additional Instructions: Return to the emergency department immediately should you develop worsening symptoms, fever, inability to tolerate food or liquid or any other concerns. Prescriptions: Naproxen [Naprosyn] 500 mg PO BID #14 tablet Referrals: PRIMARY CARE, [Primary Care Provider] - 3-5 Days SUKUMAR SERRANO MD [Staff Physician] - 3-5 Days (Dr. Serrano is an orthopedic surgeon. Please follow up with him for further evaluation) Time of Disposition: 14:30 (d/c to family or when ETOH < 0.08)
--- NOTE | 2017-02-04 13:14 | Cat Scan Report ---
CT scan cervical spine: History: Pain after fall. Findings: The odontoid process and lateral mass appears intact. Again posterior arch of atlas and the occipital condyle appears normal. Normal height of vertebral bodies. Decrease in height of C5-C6. Severe degenerative changes in the adjacent endplates. Normal prevertebral soft tissue. No fracture. Impression: No evidence of acute fracture. Severe cervical spondylosis C5-C6.
--- NOTE | 2017-02-04 13:15 | Cat Scan Report ---
CT scan of head without contrast: History: Pain after fall. Findings: Ventricles are normal in size and midline in location. No evidence of acute ischemia, hemorrhage or mass. No extra-axial fluid collection. Normal brainstem and cerebellum. Normal sinuses and mastoid air cells. Impression: No acute intracranial abnormality.
--- NOTE | 2017-02-04 13:29 | XRay Report ---
Right hip 2 views: History: Pain after fall. Findings: No bony or articular abnormality. No fracture or dislocation. Impression: Essentially negative right hip.
--- NOTE | 2017-02-04 13:29 | XRay Report ---
Right knee 3 views: History: Pain after fall. Findings: No bony or articular abnormality. No fracture dislocation. Calcification of both uterine vessels without aneurysm. Impression: No acute knee changes.
[2017-02-04] MEDS ORDERED: VITAMIN B-1 100 MG, FOLVITE 1 MG, INFUVITE 10 ML, MAGNESIUM SULFATE 2 GM in NACL 0.9% 1... IV ONE (13:30)
[2017-02-04] MEDS ORDERED: D50W (25GM) IV ONE (13:51)
[2017-02-04 18:53] VITALS: BP 144/81
== END 2017-02-04 19:21 | disposition home or self-care (01) ==
LOC: ED 11:00
DX: S80.01XA Contusion of right knee, initial encounter (principal); S16.1XXA Strain of muscle, fascia and tendon at neck level, initial encounter; F10.129 Alcohol abuse with intoxication, unspecified; I10 Essential (primary) hypertension; J44.9 Chronic obstructive pulmonary disease, unspecified; F17.200 Nicotine dependence, unspecified, uncomplicated; W18.30XA Fall on same level, unspecified, initial encounter; Y93.9 Activity, unspecified; Y92.9 Unspecified place or not applicable; Y99.9 Unspecified external cause status
CPT/HCPCS: 36415; 70450; 72125; 73502; 73562; 80048; 80307; 81001; 85025; 93005; 93010; 96365; 96366; 99285; G0480; J3411; J3475; J7030; 80320

== ENCOUNTER 2017-02-15 11:53 | Emergency (ER) | payer SELFPAY ==
[2017-02-15] MEDS ORDERED: NACL 0.9% 1000 ML 1,000 ML IV ONE (12:36)
[2017-02-15] MEDS ORDERED: PEPCID IV ONE (12:36)
[2017-02-15] MEDS ORDERED: ZOFRAN IV ONE (12:36)
--- NOTE | 2017-02-15 12:38 | Emergency Department Report ---
ED General Adult HPI - General Chief complaint: Chest Pain Stated complaint: PASSED OUT Time Seen by Provider: 02/15/17 12:14 Source: patient, EMS (ems notes not available at time of chart dictation), RN notes reviewed, old records reviewed Mode of arrival: Stretcher Limitations: Other (patient appears to be intoxicated) - History of Present Illness Initial comments: This is a 57-year-old male. He is previously unknown to me. Patient has a history of alcohol abuse, probable gastritis, COPD. Patient is brought to the hospital by EMS with complaint of an unknown problems/ man down. As per EMS documentation, patient was consuming alcohol overnight. Patient presents to the ER complaining of syncope. Patient can't recall syncope. He has no headache or neck pain. To me he does not complain of chest pain or shortness of breath. He did complain of nonspecific epigastric and right upper quadrant pain, cannot describe exacerbating or relieving factors. He is not homicidal. He is not suicidal. He cannot comment on recent trips or hospital admissions, there is no leg pain or leg swelling, patient recently admitted to this hospital October 2016, had a negative nuclear stress test. At the close of his interview today, patient asks for something to eat. -: Gradual Radiation: abdomen Severity scale (0 -10): 4 Consistency: intermittent Improves with: none Worsens with: none Associated Symptoms: confusion, syncope - Related Data Home Medications Medication Instructions Recorded Confirmed Last Taken ALBUTEROL Inhaler 2 inhalation PO DAILY PRN 11/05/16 02/15/17 11/29/16 Previous Rx's Medication Instructions Recorded Last Taken Type Combivent Inhaler 1 puff PO DAILY #1 11/15/16 11/29/16 Rx Albuterol Sulfate [Proair 90 mcg IH Q4HR PRN #2 aer.[email or web address] 02/15/17 Unknown Rx Respiclick] Ondansetron [Zofran Odt] 4 mg PO QID PRN #20 tab.rapdis 02/15/17 Unknown Rx chlordiazePOXIDE [Librium] 25 mg PO Q8H PRN #20 capsule 02/15/17 Unknown Rx Allergies Allergy/AdvReac Type Severity Reaction Status Date / Time Cephalosporins Allergy Anaphylaxis Verified 11/05/16 12:56 ED Review of Systems ROS: Stated complaint: PASSED OUT Other details as noted in HPI Constitutional: denies: malaise Eyes: denies: vision change ENT: denies: epistaxis Respiratory: see HPI Cardiovascular: syncope Gastrointestinal: abdominal pain Genitourinary: as per HPI Musculoskeletal: as per HPI Skin: as per HPI Neurological: as per HPI Psychiatric: denies: depression, homicidal thoughts, suicidal thoughts ED Past Medical Hx - Past Medical History Hx Hypertension: Yes Hx Congestive Heart Failure: No Hx Diabetes: No Hx Arthritis: Yes Hx Asthma: No Hx COPD: Yes (no home O2) Hx Tuberculosis: No Hx HIV: No Additional medical history: snake bite - Surgical History Additional Surgical History: Right knee surgery/tendon repair - Social History Smoking Status: Current Every Day Smoker Substance Use Type: Alcohol - Medications Home Medications: Home Medications Medication Instructions Recorded Confirmed Last Taken Type ALBUTEROL Inhaler 2 inhalation PO DAILY PRN 11/05/16 02/15/17 11/29/16 History Combivent Inhaler 1 puff PO DAILY #1 11/15/16 02/15/17 11/29/16 Rx Albuterol Sulfate [Proair 90 mcg IH Q4HR PRN #2 aer.[email or web address] 02/15/17 Unknown Rx Respiclick] Ondansetron [Zofran Odt] 4 mg PO QID PRN #20 tab.rapdis 02/15/17 Unknown Rx chlordiazePOXIDE [Librium] 25 mg PO Q8H PRN #20 capsule 02/15/17 Unknown Rx ED Physical Exam - General Limitations: Other (patient is intoxicated) General appearance: in no apparent distress - Head Head exam: Present: atraumatic, normocephalic - Eye Eye exam: Present: normal appearance, EOMI. Absent: nystagmus - ENT ENT exam: Present: normal exam, normal orophraynx, mucous membranes moist, normal external ear exam - Neck Neck exam: Present: normal inspection, full ROM. Absent: tenderness, meningismus - Respiratory Respiratory exam: Present: normal lung sounds bilaterally. Absent: respiratory distress, wheezes, rales, rhonchi, stridor, decreased breath sounds - Cardiovascular Cardiovascular Exam: Present: regular rate, normal rhythm, normal heart sounds. Absent: bradycardia, tachycardia, irregular rhythm, systolic murmur, diastolic murmur, rubs, gallop - GI/Abdominal GI/Abdominal exam: Present: soft, tenderness, normal bowel sounds, other (there is minimal epigastric and right upper quadrant tenderness. There is a negative Rodriguez sign.). Absent: distended, guarding, rebound, rigid, pulsatile mass - Rectal Rectal exam: Present: deferred - Extremities Exam Extremities exam: Present: normal inspection, full ROM, normal capillary refill. Absent: tenderness, pedal edema, joint swelling, calf tenderness - Back Exam Back exam: Present: normal inspection, full ROM. Absent: tenderness, CVA tenderness (R), CVA tenderness (L), muscle spasm, paraspinal tenderness, vertebral tenderness - Neurological Exam Neurological exam: Present: alert, oriented X3, other (Extraocular movements intact. Tongue midline. No facial droop. Facial sensation intact to light touch in the V1, V2, V3 distribution bilaterally. 5 and 5 strength in 4 extremities.. Sensation is intact to light touch in 4 extremities.). Absent: motor sensory deficit - Psychiatric Psychiatric exam: Absent: homicidal ideation, suicidal ideation - Skin Skin exam: Present: warm, dry, intact, normal color. Absent: rash ED Course Vital Signs 02/15/17 02/15/17 02/15/17 12:00 14:06 16:06 Temperature 98.7 F 98.7 F 98.5 F Pulse Rate 87 87 88 Respiratory 17 16 16 Rate Blood Pressure 113/83 Blood Pressure 113/83 123/80 107/60 [Left] O2 Sat by Pulse 92 98 98 Oximetry 02/15/17 02/15/17 02/15/17 18:06 19:15 19:21 Temperature 98.6 F Pulse Rate 88 Respiratory 14 Rate Blood Pressure 111/78 Blood Pressure 112/64 [Left] O2 Sat by Pulse 98 93 92 Oximetry 02/15/17 02/15/17 02/15/17 19:23 19:30 19:41 Temperature 98.6 F Pulse Rate 91 H 101 H Respiratory 22 13 Rate Blood Pressure 120/73 120/73 Blood Pressure 120/75 [Left] O2 Sat by Pulse 92 92 92 Oximetry 02/15/17 02/15/17 02/15/17 19:51 20:00 20:11 Temperature Pulse Rate 99 H 97 H 95 H Respiratory 17 17 12 Rate Blood Pressure 111/78 138/77 138/77 Blood Pressure [Left] O2 Sat by Pulse 92 92 93 Oximetry 02/15/17 02/15/17 02/15/17 20:21 20:30 20:41 Temperature Pulse Rate 98 H 97 H 96 H Respiratory 15 16 21 Rate Blood Pressure 138/77 135/80 135/80 Blood Pressure [Left] O2 Sat by Pulse 96 94 91 Oximetry 02/15/17 02/15/17 02/15/17 20:51 21:00 21:11 Temperature Pulse Rate 93 H 95 H 90 Respiratory 12 15 17 Rate Blood Pressure 119/65 134/82 134/82 Blood Pressure [Left] O2 Sat by Pulse 94 92 91 Oximetry 02/15/17 02/15/17 02/15/17 21:21 21:30 21:41 Temperature Pulse Rate 89 85 89 Respiratory 12 18 15 Rate Blood Pressure 142/84 134/79 134/79 Blood Pressure [Left] O2 Sat by Pulse 95 92 95 Oximetry 02/15/17 02/15/17 02/15/17 21:51 22:00 22:11 Temperature Pulse Rate 93 H 95 H 102 H Respiratory 21 26 H 21 Rate Blood Pressure 145/82 150/91 150/91 Blood Pressure [Left] O2 Sat by Pulse 91 91 92 Oximetry 02/15/17 02/15/17 02/15/17 22:21 22:30 22:33 Temperature Pulse Rate 92 H 93 H 96 H Respiratory 18 22 22 Rate Blood Pressure 150/86 159/91 159/91 Blood Pressure [Left] O2 Sat by Pulse 93 90 90 Oximetry 02/15/17 02/15/17 02/15/17 22:41 22:51 23:00 Temperature Pulse Rate 96 H 96 H 94 H Respiratory 21 22 23 Rate Blood Pressure 159/91 175/88 159/91 Blood Pressure [Left] O2 Sat by Pulse 92 91 91 Oximetry 02/15/17 02/15/17 02/15/17 23:11 23:21 23:30 Temperature Pulse Rate 105 H 90 96 H Respiratory 23 21 16 Rate Blood Pressure 159/91 155/93 160/93 Blood Pressure [Left] O2 Sat by Pulse 97 93 92 Oximetry 02/15/17 02/15/17 02/16/17 23:41 23:51 00:00 Temperature Pulse Rate 96 H 83 91 H Respiratory 19 18 20 Rate Blood Pressure 160/93 157/78 162/91 Blood Pressure [Left] O2 Sat by Pulse 93 94 90 Oximetry 02/16/17 02/16/17 02/16/17 00:11 00:21 00:30 Temperature Pulse Rate 92 H 99 H 109 H Respiratory 14 19 15 Rate Blood Pressure 162/91 163/94 170/108 Blood Pressure [Left] O2 Sat by Pulse 93 93 93 Oximetry 02/16/17 02/16/17 02/16/17 00:41 00:51 01:00 Temperature Pulse Rate 95 H 114 H 96 H Respiratory 20 20 16 Rate Blood Pressure 170/108 164/97 153/92 Blood Pressure [Left] O2 Sat by Pulse 92 93 92 Oximetry 02/16/17 02/16/17 02/16/17 01:11 01:21 01:30 Temperature Pulse Rate 95 H 100 H 97 H Respiratory 13 20 18 Rate Blood Pressure 153/92 155/89 157/88 Blood Pressure [Left] O2 Sat by Pulse 94 94 92 Oximetry 02/16/17 02/16/17 01:41 01:51 Temperature Pulse Rate 98 H 98 H Respiratory 17 20 Rate Blood Pressure 157/88 154/90 Blood Pressure [Left] O2 Sat by Pulse 93 92 Oximetry - Reevaluation(s) Reevaluation #1: 02/15/17 14:25 Differential diagnosis: Intracranial injury, cervical spine injury, GERD, gastritis, biliary colic, alcohol-induced hepatitis, pulmonary embolus Assessment and plan: 57-year-old male who presents with a primary complaint of epigastric pain and syncope. He is afebrile with reassuring vital signs, had a negative nuclear stress test, has a nonspecific transaminitis today, but is noted to be eating without difficulty. He is clinically intoxicated, blood alcohol level is pending, CT scan of the brain and cervical spine were negative. Has no pulmonary embolus or DVT risk factors, low risk by well's criteria, but the d-dimer is elevated. A CT angiogram of the chest is ordered. CT scan of the abdomen and pelvis is ordered. Given that patient recently had an ACS risk stratification, and that his primary issue appears to be alcohol intoxication, I don't believe he reports recent admission to the hospital for repeat ACS risk stratification. His EKG is morphologically abnormal, but unchanged from prior EKG. We will reassess after initial data points. Reevaluation #2: 02/15/17 15:39 CT scan of the head, cervical spine negative for acute traumatic disease. CT scan of the chest, abdomen, pelvis negative for acute disease. Patient markedly intoxicated, with a blood alcohol level of 0.36. Troponin negative 2 , recently had an ACS risk stratification this hospital, low risk by ANDREW score , low risk by heart score. Patient most likely had a syncopal event secondary to alcohol intoxication. He will be observed in the ER pending clinical sobriety. care is transferred to Dr Monroy pending clinical sobriety 02/15/17 16:07 ED Medical Decision Making - Lab Data Result diagrams: 02/15/17 12:43 02/15/17 12:43 Vital Signs 02/15/17 12:00 Temperature 98.7 F Pulse Rate 87 Respiratory 17 Rate Blood Pressure 113/83 Blood Pressure 113/83 [Left] O2 Sat by Pulse 92 Oximetry Lab Results 02/15/17 02/15/17 02/15/17 Range/Units 12:43 12:43 12:43 WBC 6.3 (4.5-11.0) K/mm3 RBC 5.08 H (3.65-5.03) M/mm3 Hgb 17.5 H (11.8-15.2) gm/dl Hct 51.5 H (35.5-45.6) % MCV 101 H (84-94) fl MCH 35 H (28-32) pg MCHC 34 (32-34) % RDW 14.1 (13.2-15.2) % Plt Count 120 L (140-440) K/mm3 Lymph % (Auto) 43.7 H (13.4-35.0) % [place] % (Auto) 10.5 H (0.0-7.3) % Eos % (Auto) 2.0 (0.0-4.3) % Baso % (Auto) 1.8 (0.0-1.8) % Lymph # 2.7 (1.2-5.4) K/mm3 [place] # 0.7 (0.0-0.8) K/mm3 Eos # 0.1 (0.0-0.4) K/mm3 Baso # 0.1 (0.0-0.1) K/mm3 Seg Neutrophils % 42.0 (40.0-70.0) % Seg Neutrophils # 2.6 (1.8-7.7) K/mm3 PT 11.4 L (12.2-14.9) Sec. INR 0.84 L (0.87-1.13) D-Dimer 447.85 H (0-234) ng/mlDDU Sodium 137 (137-145) mmol/L Potassium 4.0 (3.6-5.0) mmol/L Chloride 98.2 (98-107) mmol/L Carbon Dioxide 20 L (22-30) mmol/L Anion Gap 23 mmol/L BUN 5 L (9-20) mg/dL Creatinine 0.5 L (0.8-1.5) mg/dL Estimated GFR > 60 ml/min BUN/Creatinine Ratio 10.00 % Glucose 82 (75-100) mg/dL Calcium 8.4 (8.4-10.2) mg/dL Magnesium (1.7-2.3) mg/dL Total Bilirubin 0.7 (0.1-1.2) mg/dL AST 184 H (5-40) units/L ALT 141 H (7-56) units/L Alkaline Phosphatase 66 (35-129) units/L Total Creatine Kinase (55-170) units/L Troponin T < 0.010 (0.00-0.029) ng/mL Total Protein 7.5 (6.3-8.2) g/dL Albumin 4.0 (3.9-5) g/dL Albumin/Globulin Ratio 1.1 % 02/15/17 02/15/17 Range/Units 12:43 12:43 WBC (4.5-11.0) K/mm3 RBC (3.65-5.03) M/mm3 Hgb (11.8-15.2) gm/dl Hct (35.5-45.6) % MCV (84-94) fl MCH (28-32) pg MCHC (32-34) % RDW (13.2-15.2) % Plt Count (140-440) K/mm3 Lymph % (Auto) (13.4-35.0) % [place] % (Auto) (0.0-7.3) % Eos % (Auto) (0.0-4.3) % Baso % (Auto) (0.0-1.8) % Lymph # (1.2-5.4) K/mm3 [place] # (0.0-0.8) K/mm3 Eos # (0.0-0.4) K/mm3 Baso # (0.0-0.1) K/mm3 Seg Neutrophils % (40.0-70.0) % Seg Neutrophils # (1.8-7.7) K/mm3 PT (12.2-14.9) Sec. INR (0.87-1.13) D-Dimer (0-234) ng/mlDDU Sodium (137-145) mmol/L Potassium (3.6-5.0) mmol/L Chloride (98-107) mmol/L Carbon Dioxide (22-30) mmol/L Anion Gap mmol/L BUN (9-20) mg/dL Creatinine (0.8-1.5) mg/dL Estimated GFR ml/min BUN/Creatinine Ratio % Glucose (75-100) mg/dL Calcium (8.4-10.2) mg/dL Magnesium 2.3 (1.7-2.3) mg/dL Total Bilirubin (0.1-1.2) mg/dL AST (5-40) units/L ALT (7-56) units/L Alkaline Phosphatase (35-129) units/L Total Creatine Kinase 47 L (55-170) units/L Troponin T (0.00-0.029) ng/mL Total Protein (6.3-8.2) g/dL Albumin (3.9-5) g/dL Albumin/Globulin Ratio % - EKG Data -: EKG Interpreted by Ct EKG shows normal: sinus rhythm - EKG Data When compared to previous EKG there are: no significant change Interpretation: unchanged when compared t 02/15/17 14:27 Normal sinus, 88 bpm, borderline rightward axis deviation, T-wave inversion in aVL, poor R-wave progression, not consistent with STEMI, appears unchanged when compared to prior EKG from 02/04/2017. - Radiology Data Radiology results: report reviewed, image reviewed Noncontrast CT scan of the brain and cervical spine negative for acute disease. There is a faint ill-defined density measuring 5 mm in diameter noted in the right lower chest, most likely scarring, possibility of nodule cannot be excluded. Not noted in the previous study. CT scan of the chest negative for pulmonary embolus and pneumonia. CT scan of the abdomen and pelvis is negative. CT scan of the chest demonstrates nonspecific discoid atelectasis of the right lower lobe with a suspicion of nodule/pleural scarring. Pulmonary hypertension is suggested. Critical care attestation.: If time is entered above; I have spent that time in minutes in the direct care of this critically ill patient, excluding procedure time. ED Disposition Clinical Impression: Alcohol intoxication Disposition: DISCHARGED TO HOME OR SELFCARE Is pt being admited?: No Does the pt Need Aspirin: No Condition: Good Instructions: Alcohol Intoxication (ED), Abuse of Alcohol (ED) Additional Instructions: Discontinue consumption of alcohol. It is bad for your health. Laboratory studies indicated nonspecific elevation of the liver function tests. This is most likely secondary to alcohol consumption. Follow-up with the primary care doctor for this within the next month. CT scan of the chest demonstrated a potential nodule/scarring in the right lower lobe of the lung. This should be followed up by primary care doctor within the next month. Not following up for this may result in undiagnosed tumor/cancer/malignancy. Please return to the ER right away with new pain, worsened pain, migration of pain, recurrent event, intractable nausea or vomiting, inability to tolerate liquid feeds. Take the Zofran as needed for nausea. Take the albuterol as needed for cough and shortness of breath and wheezing. Take the Librium as needed for sensation of alcohol withdrawal. Prescriptions: Albuterol Sulfate [Proair Respiclick] 90 mcg IH Q4HR PRN #2 aer.[email or web address] PRN Reason: Wheezing chlordiazePOXIDE [Librium] 25 mg PO Q8H PRN #20 capsule PRN Reason: Alcohol Withdrawal Ondansetron [Zofran Odt] 4 mg PO QID PRN #20 tab.rapdis PRN Reason: Nausea Referrals: PRIMARY MD MADONNA [Primary Care Provider] - 3-5 Days ICNDY MADRIGAL MD [Staff Physician] - 3-5 Days Time of Disposition: 16:06 (discharge to family if they can pick him up or when clinically sober and blood alcohol level less than 0.08)
[2017-02-15 13:11] LABS: Basophils % (Auto) 1.8 % (0.0-1.8); Hematocrit 51.5 % (35.5-45.6); Hemoglobin 17.5 gm/dl (11.8-15.2); Mean Corpuscular HGB Conc 34 % (32-34); Mean Corpuscular Hemoglobin 35 pg (28-32); Mean Corpuscular Volume 101 fl (84-94); Platelet Count 120 K/mm3 (140-440); Red Blood Count 5.08 M/mm3 (3.65-5.03); Red Cell Distribution Width 14.1 % (13.2-15.2); White Blood Count 6.3 K/mm3 (4.5-11.0)
[2017-02-15 13:19] LABS: INR 0.84 (0.87-1.13)
--- NOTE | 2017-02-15 13:28 | XRay Report ---
Single view chest: Compared to 12/16/16. History: Chest pain. Findings: Normal cardiomediastinal silhouette. Trachea is midline. No consolidation, pneumothorax or pleural effusion. Faint ill-defined density measuring 5 mm in diameter noted the right lower chest is probably from scarring , possibility of nodule or cannot be entirely excluded. Nausea in the previous study. Recommend CT scan for further evaluation. Impression: Findings as detailed above.
[2017-02-15 13:42] LABS: Alanine Aminotransferase 141 units/L (7-56); Albumin/Globulin Ratio 1.1 %; Alkaline Phosphatase 66 units/L (35-129); Anion Gap 23 mmol/L; Bilirubin,Total 0.7 mg/dL (0.1-1.2); Blood Urea Nitrogen 5 mg/dL (9-20); Calcium 8.4 mg/dL (8.4-10.2); Carbon Dioxide 20 mmol/L (22-30); Chloride 98.2 mmol/L (98-107); Glucose 82 mg/dL (75-100); Sodium 137 mmol/L (137-145); Total Protein 7.5 g/dL (6.3-8.2)
--- NOTE | 2017-02-15 13:53 | Cat Scan Report ---
CT HEAD WITHOUT CONTRAST INDICATION: EtOH, syncope. COMPARISON: 02/04/2017. FINDINGS: Noncontrast head CT demonstrates age-appropriate ventricles and slightly enlarged sulci without acute or recent infarct, hemorrhage, mass effect or midline shift. No abnormal extra-axial fluid collections. Posterior fossa structures and basilar cisterns appear within normal limits. Symmetric eye globes. Rightward nasal septal deviation incompletely imaged. Hypoplastic left frontal sinus. Clear remainder imaged paranasal sinuses and mastoid air cells. Atherosclerotic internal carotid artery calcifications. Intact calvarium. Normal overlying scalp soft tissues. Few radiopaque dental material incidentally noted. CONCLUSION: No acute intracranial CT abnormality, as described. Thank you for the opportunity to participate in this patient's care.
--- NOTE | 2017-02-15 13:58 | Cat Scan Report ---
CT CERVICAL SPINE WITHOUT CONTRAST INDICATION: EtOH, syncope. COMPARISON: 02/04/2017. FINDINGS: Noncontrast axial, sagittal and coronal CT reconstructions of the cervical spine demonstrate normal visualized intracranial appearance. Streak artifact from few radiopaque dental material noted. Assessment of the spinal canal from C7 inferiorly also compromised due to artifact from shoulder soft tissues. Clear included sinuses and mastoid air cells. Symmetric occipital condyles. Normal anterior and posterior arches of C1. Intact craniocervical articulation with normal predental space, prevertebral soft tissues, vertebral body stature, alignment and posterior elements. Normal included thyroid. Atherosclerotic carotid calcifications, greatest about the bulbs. Right greater than left upper lobe emphysematous changes. On the obtained axial images: C2-C3 is unremarkable. C3-C4 demonstrates mild right uncovertebral spurring. C4-C5 demonstrates slight facet arthropathy. C5-C6 again demonstrates moderate to severe disc narrowing and diffuse spurring. Moderate right and mild left neural foraminal narrowing suspected. C6-C7 and C7-T1 grossly unremarkable. CONCLUSION: No acute CT abnormality with few degenerative changes and other findings, as described. Please correlate. Thank you for the opportunity to participate in this patient's care.
[2017-02-15] MEDS ORDERED: NACL ONE (14:11)
--- NOTE | 2017-02-15 15:04 | Cat Scan Report ---
CT chest: History: See Findings: The ascending aortic diameter 3.5 cm the descending thoracic diameter 2.3 cm. No evidence of pulmonary embolism. Dilated main and right and left pulmonary arteries suggestive of pulmonary arterial hypertension. No pleural or pericardial effusion. Linear densities right lower lobe suggestive discoid atelectasis. Pleural based nodule/scarring right lower lobe series 2 image 189. Impression: No evidence of pulmonary embolism. Findings suggestive of pulmonary arterial hypertension. Areas of discoid atelectasis right lower lobe with suspicion of a nodule/pleural scarring right lower lobe.
--- NOTE | 2017-02-15 15:19 | Cat Scan Report ---
CT scan of abdomen and pelvis with IV contrast: History: Abdominal pain. Findings: Fatty liver. No intrahepatic or extra hepatic duct dilatation or mass. Normal gallbladder. Normal pancreas. Normal spleen. Normal adrenals kidney parenchyma and bladder. No free fluid or free air. No evidence of adenopathy. Atherosclerotic calcified abdominal aorta without evidence of aneurysm. No evidence of appendicitis or diverticulitis. Diverticulosis sigmoid colon. No bowel distention or wall thickening. Impression: Fatty liver. Diverticulosis colon.
[2017-02-16 02:23] VITALS: BP 154/90
== END 2017-02-16 02:00 | disposition home or self-care (01) ==
LOC: ED 11:53
DX: F10.129 Alcohol abuse with intoxication, unspecified (principal); I10 Essential (primary) hypertension; M19.90 Unspecified osteoarthritis, unspecified site; F17.200 Nicotine dependence, unspecified, uncomplicated; Z88.8 Allergy status to other drugs, medicaments and biological substances
CPT/HCPCS: 36415; 70450; 71010; 71275; 72125; 74177; 80053; 82550; 83690; 83735; 84484; 85025; 85379; 85610; 93005; 93010; 96361; 96374; 96375; 99285; G0480; J2405; J7030; Q9967; 80320

== ENCOUNTER 2017-02-23 19:15 | Emergency (ER) | payer SELFPAY ==
[2017-02-23 21:33] LABS: Basophils % (Auto) 2.2 % (0.0-1.8); Eosinophils % (Auto) 3.5 % (0.0-4.3); Hematocrit 47.5 % (35.5-45.6); Mean Corpuscular HGB Conc 34 % (32-34); Mean Corpuscular Hemoglobin 34 pg (28-32); Mean Corpuscular Volume 102 fl (84-94); Platelet Count 155 K/mm3 (140-440); Red Blood Count 4.67 M/mm3 (3.65-5.03); Red Cell Distribution Width 14.2 % (13.2-15.2); White Blood Count 5.6 K/mm3 (4.5-11.0)
[2017-02-23 21:45] LABS: Anion Gap 22 mmol/L; Blood Urea Nitrogen 10 mg/dL (9-20); Calcium 8.2 mg/dL (8.4-10.2); Carbon Dioxide 23 mmol/L (22-30); Chloride 98.6 mmol/L (98-107); Glucose 81 mg/dL (75-100); Potassium 4.2 mmol/L (3.6-5.0); Sodium 139 mmol/L (137-145)
[2017-02-24] MEDS ORDERED: VITAMIN B-1 100 MG, FOLVITE 1 MG, INFUVITE 10 ML in NACL 0.9% 1000 ML 1,000 ML IV ONE (04:58)
[2017-02-24] MEDS ORDERED: PEPCID IV ONE (04:59)
--- NOTE | 2017-02-24 05:03 | Emergency Department Report ---
ED General Adult HPI - General Chief complaint: Chest Pain Stated complaint: CHEST PAIN Time Seen by Provider: 02/24/17 04:58 Source: EMS, RN notes reviewed Mode of arrival: Wheelchair Limitations: Other (patient is somewhat intoxicated) - History of Present Illness Initial comments: This is a 57-year-old male. I evaluated him in the past. He is brought to the hospital by EMS. As per EMS documentation, 911 was contacted because of chest pain. As per EMS documentation, upon arrival patient advised that "the pain started about 1 hour prior to EMS arrival." The chest pain is epigastric, does not radiate to the back, arms and neck. There is no vomiting diaphoresis. There is no shortness of breath. There is no posterior leg pain. There is no leg swelling. No recent trips greater than 4 hours. No recent hospital admissions. The patient is not homicidal. He is not suicidal. I recently evaluated the patient for chest pain and syncope, he had extensive ER workup while he was here. Please see the records from his previous visit for greater details. Essentially, the patient had multiple negative cardiac enzymes, negative CAT scan of the head, negative CT and a gram of chest. -: Gradual Location: chest Radiation: non-radiation Severity scale (0 -10): 10 Quality: aching Consistency: intermittent Improves with: none Worsens with: none Associated Symptoms: chest pain - Related Data Home Medications Medication Instructions Recorded Confirmed Last Taken ALBUTEROL Inhaler 2 inhalation PO DAILY PRN 11/05/16 02/15/17 11/29/16 Previous Rx's Medication Instructions Recorded Last Taken Type Combivent Inhaler 1 puff PO DAILY #1 11/15/16 11/29/16 Rx Albuterol Sulfate [Proair 90 mcg IH Q4HR PRN #2 aer.[email or web address] 02/24/17 Unknown Rx Respiclick] Ondansetron [Zofran Odt] 4 mg PO QID PRN #20 tab.rapdis 02/24/17 Unknown Rx chlordiazePOXIDE [Librium] 25 mg PO Q8H PRN #20 capsule 02/24/17 Unknown Rx Allergies Allergy/AdvReac Type Severity Reaction Status Date / Time Cephalosporins Allergy Anaphylaxis Verified 11/05/16 12:56 ED Review of Systems ROS: Stated complaint: CHEST PAIN Other details as noted in HPI Constitutional: denies: malaise Eyes: denies: vision change ENT: denies: epistaxis Respiratory: cough Cardiovascular: chest pain Gastrointestinal: denies: abdominal pain Genitourinary: denies: dysuria Musculoskeletal: denies: back pain Skin: denies: lesions Psychiatric: denies: homicidal thoughts, suicidal thoughts ED Past Medical Hx - Past Medical History Hx Hypertension: Yes Hx Congestive Heart Failure: No Hx Diabetes: No Hx Arthritis: Yes Hx Asthma: No Hx COPD: Yes (no home O2) Hx Tuberculosis: No Hx HIV: No Additional medical history: snake bite - Surgical History Additional Surgical History: Right knee surgery/tendon repair - Social History Smoking Status: Unknown if ever smoked Substance Use Type: None - Medications Home Medications: Home Medications Medication Instructions Recorded Confirmed Last Taken Type ALBUTEROL Inhaler 2 inhalation PO DAILY PRN 11/05/16 02/15/17 11/29/16 History Combivent Inhaler 1 puff PO DAILY #1 11/15/16 02/15/17 11/29/16 Rx Albuterol Sulfate [Proair 90 mcg IH Q4HR PRN #2 aer.[email or web address] 02/24/17 Unknown Rx Respiclick] Ondansetron [Zofran Odt] 4 mg PO QID PRN #20 tab.rapdis 02/24/17 Unknown Rx chlordiazePOXIDE [Librium] 25 mg PO Q8H PRN #20 capsule 02/24/17 Unknown Rx ED Physical Exam - General Limitations: Other (patient is clinically intoxicated) General appearance: alert, in no apparent distress - Head Head exam: Present: atraumatic, normocephalic - Eye Eye exam: Present: normal appearance, EOMI - ENT ENT exam: Present: normal exam, normal orophraynx, mucous membranes moist, normal external ear exam - Neck Neck exam: Present: normal inspection, full ROM. Absent: tenderness, meningismus - Respiratory Respiratory exam: Present: normal lung sounds bilaterally. Absent: respiratory distress, wheezes, rales, rhonchi, stridor, decreased breath sounds - Cardiovascular Cardiovascular Exam: Present: regular rate, normal rhythm, normal heart sounds. Absent: bradycardia, tachycardia, irregular rhythm, systolic murmur, diastolic murmur, rubs, gallop - GI/Abdominal GI/Abdominal exam: Present: soft, normal bowel sounds. Absent: distended, tenderness, guarding, rebound, rigid, pulsatile mass - Rectal Rectal exam: Present: deferred - Extremities Exam Extremities exam: Present: normal inspection, full ROM, normal capillary refill. Absent: tenderness, pedal edema, joint swelling, calf tenderness - Back Exam Back exam: Present: normal inspection, full ROM. Absent: tenderness, CVA tenderness (R), CVA tenderness (L), muscle spasm, paraspinal tenderness, vertebral tenderness - Neurological Exam Neurological exam: Present: alert, oriented X3, other (Extraocular movements intact. Tongue midline. No facial droop. Facial sensation intact to light touch in the V1, V2, V3 distribution bilaterally. 5 and 5 strength in 4 extremities.. Sensation is intact to light touch in 4 extremities.). Absent: motor sensory deficit - Psychiatric Psychiatric exam: Present: normal affect, normal mood. Absent: homicidal ideation, suicidal ideation - Skin Skin exam: Present: warm, dry, intact, normal color. Absent: rash ED Course Vital Signs 02/24/17 02/24/17 02/24/17 01:42 03:57 06:46 Temperature 97.5 F L 98.3 F Pulse Rate 94 H 90 Respiratory 18 24 Rate Blood Pressure 150/96 Blood Pressure 153/87 [Left] O2 Sat by Pulse 96 95 93 Oximetry 02/24/17 02/24/17 02/24/17 06:50 06:52 06:54 Temperature 97.8 F Pulse Rate 93 H Respiratory 20 20 Rate Blood Pressure Blood Pressure 153/4 [Left] O2 Sat by Pulse 94 96 Oximetry 02/24/17 02/24/17 02/24/17 07:00 07:10 07:20 Temperature Pulse Rate Respiratory Rate Blood Pressure Blood Pressure [Left] O2 Sat by Pulse 93 94 92 Oximetry 02/24/17 02/24/17 02/24/17 07:30 07:40 07:50 Temperature Pulse Rate Respiratory Rate Blood Pressure Blood Pressure [Left] O2 Sat by Pulse 92 94 94 Oximetry 02/24/17 02/24/17 02/24/17 08:00 08:10 08:20 Temperature Pulse Rate Respiratory Rate Blood Pressure Blood Pressure [Left] O2 Sat by Pulse 94 93 95 Oximetry 02/24/17 02/24/17 02/24/17 08:30 08:40 08:50 Temperature Pulse Rate Respiratory Rate Blood Pressure 163/78 163/78 163/78 Blood Pressure [Left] O2 Sat by Pulse 91 92 92 Oximetry 02/24/17 02/24/17 02/24/17 09:00 09:10 09:20 Temperature Pulse Rate Respiratory Rate Blood Pressure 163/78 163/78 163/78 Blood Pressure [Left] O2 Sat by Pulse 93 93 94 Oximetry 02/24/17 02/24/17 02/24/17 09:30 09:40 09:50 Temperature Pulse Rate Respiratory Rate Blood Pressure 163/78 163/78 163/78 Blood Pressure [Left] O2 Sat by Pulse 94 93 94 Oximetry 02/24/17 02/24/17 10:00 10:19 Temperature Pulse Rate 106 H Respiratory 16 Rate Blood Pressure 163/78 Blood Pressure 166/85 [Left] O2 Sat by Pulse 95 94 Oximetry - Reevaluation(s) Reevaluation #1: 02/24/17 05:01 differential diagnosis: Alcohol dependency, pneumonia, acute coronary syndrome, GERD/gastritis, alcohol intoxication Assessment and plan: 57-year-old male whom I have evaluated in the past who is currently intoxicated with chest pain. His EKG is morphologically unchanged from his prior EKG, he was recently ruled out for pulmonary embolus, he is low risk by well's criteria, troponins are negative 3, low risk by ANDREW score, low risk by heart score. Still intoxicated, banana bag ordered, Pepcid ordered, patient will remain in the ER pending clinical sobriety. He does not require 1013 at this time. Reevaluation #2: 02/24/17 06:[address] Pacheco pending clinical sobriety and final dispo ED Medical Decision Making - Lab Data Result diagrams: 02/23/17 21:02 02/23/17 21:02 Vital Signs 02/24/17 02/24/17 01:42 03:57 Temperature 97.5 F L 98.3 F Pulse Rate 94 H 90 Respiratory 18 24 Rate Blood Pressure 150/96 Blood Pressure 153/87 [Left] O2 Sat by Pulse 96 95 Oximetry Lab Results 02/23/17 02/23/17 02/23/17 Range/Units 21:02 21:02 21:02 WBC 5.6 (4.5-11.0) K/mm3 RBC 4.67 (3.65-5.03) M/mm3 Hgb 16.0 H (11.8-15.2) gm/dl Hct 47.5 H (35.5-45.6) % MCV 102 H (84-94) fl MCH 34 H (28-32) pg MCHC 34 (32-34) % RDW 14.2 (13.2-15.2) % Plt Count 155 (140-440) K/mm3 Lymph % (Auto) 42.8 H (13.4-35.0) % Lander % (Auto) 9.8 H (0.0-7.3) % Eos % (Auto) 3.5 (0.0-4.3) % Baso % (Auto) 2.2 H (0.0-1.8) % Lymph # 2.4 (1.2-5.4) K/mm3 Lander # 0.6 (0.0-0.8) K/mm3 Eos # 0.2 (0.0-0.4) K/mm3 Baso # 0.1 (0.0-0.1) K/mm3 Seg Neutrophils % 41.7 (40.0-70.0) % Seg Neutrophils # 2.4 (1.8-7.7) K/mm3 Sodium 139 (137-145) mmol/L Potassium 4.2 (3.6-5.0) mmol/L Chloride 98.6 (98-107) mmol/L Carbon Dioxide 23 (22-30) mmol/L Anion Gap 22 mmol/L BUN 10 (9-20) mg/dL Creatinine 0.5 L (0.8-1.5) mg/dL Estimated GFR > 60 ml/min BUN/Creatinine Ratio 20.00 % Glucose 81 (75-100) mg/dL Calcium 8.2 L (8.4-10.2) mg/dL Troponin T < 0.010 < 0.010 (0.00-0.029) ng/mL Plasma/Serum Alcohol (0-0.07) gm% 02/24/17 02/24/17 Range/Units 03:24 04:02 WBC (4.5-11.0) K/mm3 RBC (3.65-5.03) M/mm3 Hgb (11.8-15.2) gm/dl Hct (35.5-45.6) % MCV (84-94) fl MCH (28-32) pg MCHC (32-34) % RDW (13.2-15.2) % Plt Count (140-440) K/mm3 Lymph % (Auto) (13.4-35.0) % Lander % (Auto) (0.0-7.3) % Eos % (Auto) (0.0-4.3) % Baso % (Auto) (0.0-1.8) % Lymph # (1.2-5.4) K/mm3 Lander # (0.0-0.8) K/mm3 Eos # (0.0-0.4) K/mm3 Baso # (0.0-0.1) K/mm3 Seg Neutrophils % (40.0-70.0) % Seg Neutrophils # (1.8-7.7) K/mm3 Sodium (137-145) mmol/L Potassium (3.6-5.0) mmol/L Chloride (98-107) mmol/L Carbon Dioxide (22-30) mmol/L Anion Gap mmol/L BUN (9-20) mg/dL Creatinine (0.8-1.5) mg/dL Estimated GFR ml/min BUN/Creatinine Ratio % Glucose (75-100) mg/dL Calcium (8.4-10.2) mg/dL Troponin T < 0.010 (0.00-0.029) ng/mL Plasma/Serum Alcohol 0.15 H (0-0.07) gm% - EKG Data Interpretation: unchanged when compared t 02/24/17 05:03 normal sinus, 86 bpm, QTC 445 ms, poor R wave progression, not morphologically consistent with STEMI, appears unchanged when compared to prior EKG from 02/15/2017. - Radiology Data Radiology results: image reviewed interpreted by me: X-ray of the chest demonstrates chronic changes, no acute disease Critical care attestation.: If time is entered above; I have spent that time in minutes in the direct care of this critically ill patient, excluding procedure time. ED Disposition Clinical Impression: Alcohol intoxication, Chest pain Disposition: DISCHARGED TO HOME OR SELFCARE Is pt being admited?: No Does the pt Need Aspirin: No Condition: Stable Instructions: Chest Pain (ED) Additional Instructions: Discontinue consumption of alcohol. It is bad for your health. Take the medications as needed/directed. Dr. Jethro King is a local primary care doctor. The [facility] is a local medical clinic. Return to the ER right away with new pain, worsened pain, migration of pain, fevers or chills, intractable nausea or vomiting, inability to tolerate liquid feeds. Dr. Oseguera is a local orthopedic cast specialist. I recommend that he follow-up with a primary care doctor or public welfare director within the next 3-5 days. Prescriptions: Albuterol Sulfate [Proair Respiclick] 90 mcg IH Q4HR PRN #2 aer.[email or web address] PRN Reason: Wheezing chlordiazePOXIDE [Librium] 25 mg PO Q8H PRN #20 capsule PRN Reason: Alcohol Withdrawal Ondansetron [Zofran Odt] 4 mg PO QID PRN #20 tab.rapdis PRN Reason: Nausea Referrals: PRIMARY CARE, [Primary Care Provider] - 3-5 Days JETHRO KING MD [Staff Physician] - 3-5 Days [facility] [Provider Group] - 3-5 Days EDGARDO OSEGUERA MD [Staff Physician] - 3-5 Days Time of Disposition: 08:00 (d/c when clinically sober, walking with a steady gait, and a and o x 3)
--- NOTE | 2017-02-24 07:34 | XRay Report ---
AP CHEST: HISTORY: chest pain The lungs are hyperinflated but clear. Normal heart and mediastinal structures. Normal bony thorax. No change since 02/15/17. IMPRESSION: Hyperinflated lungs. No acute process.
[2017-02-24 10:20] VITALS: BP 166/85
== END 2017-02-24 10:22 | disposition home or self-care (01) ==
LOC: ED 19:15
DX: R07.9 Chest pain, unspecified (principal); F10.129 Alcohol abuse with intoxication, unspecified; J44.9 Chronic obstructive pulmonary disease, unspecified; M19.90 Unspecified osteoarthritis, unspecified site; I10 Essential (primary) hypertension; Z88.8 Allergy status to other drugs, medicaments and biological substances
CPT/HCPCS: 36415; 71010; 80048; 84484; 85025; 93005; 93010; 96365; 96366; 96375; 99285; G0480; J3411; J7030; 80320

== ENCOUNTER 2017-04-02 16:54 | Emergency (ER) | payer SELFPAY ==
[2017-04-02] MEDS ORDERED: NACL 0.9% 1000 ML 1,000 ML ONE (18:45)
--- NOTE | 2017-04-02 18:57 | Emergency Department Report ---
HPI - General Chief Complaint: Fall Time Seen by Provider: 04/02/17 18:38 - HPI HPI: Room 7 The patient is a 57-year-old male presenting with a chief complaint of fall. The patient knowledges he consumed alcohol this morning and today he tripped and fell also landing on concrete. Patient denies loss of consciousness. The patient complains of pain to the left and posterior neck. The patient states she is up-to-date with tetanus. The patient gives his pain a score of 6-7/10 Location: Neck Duration: [see above] Quality: Pain Severity: 6-7/10 Modifying factors: Unknown Context: [see above] Mode of transportation: [not driving] ED Past Medical Hx - Past Medical History Hx Hypertension: Yes Hx Arthritis: Yes Hx COPD: Yes (no home O2) Additional medical history: snake bite - Surgical History Past Surgical History?: Yes Additional Surgical History: Right knee surgery/tendon repair - Family History Family history: no significant - Social History Smoking Status: Light Tobacco Smoker Substance Use Type: None (denies illicit drug use), Alcohol (approximately 48 ounces of beer daily) - Medications Home Medications: Home Medications Medication Instructions Recorded Confirmed Last Taken Type ALBUTEROL Inhaler [ProAir HFA 2 inhalation PO DAILY PRN #0 11/05/16 04/02/17 History Inhaler] Albuterol Sulfate [Proair 90 mcg IH Q4HR PRN #2 aer.[email or web address] 02/24/17 04/02/17 Unknown Rx Respiclick] Ondansetron [Zofran Odt] 4 mg PO QID PRN #20 tab.rapdis 02/24/17 04/02/17 Unknown Rx chlordiazePOXIDE [Librium] 25 mg PO Q8H PRN #20 capsule 02/24/17 04/02/17 Unknown Rx Ipratropium/Albuter (Nf) 1 puff PO QDAY 04/02/17 04/02/17 Unknown History [Combivent Inhaler] traMADol [Ultram] 50 mg PO Q6HR PRN #10 tablet 04/03/17 Unknown Rx ED Review of Systems ROS: Stated complaint: FALL/DAVISON AND NECK PAIN Other details as noted in HPI Comment: All other systems reviewed and negative Constitutional: denies: chills, fever Eyes: denies: eye pain, eye discharge, vision change ENT: denies: ear pain, throat pain Respiratory: denies: cough, shortness of breath, wheezing Cardiovascular: denies: chest pain, palpitations Endocrine: no symptoms reported Gastrointestinal: denies: abdominal pain, nausea, diarrhea Genitourinary: denies: urgency, dysuria Musculoskeletal: arthralgia, myalgia Skin: lesions Neurological: denies: headache, weakness, paresthesias Psychiatric: denies: anxiety, depression Hematological/Lymphatic: denies: easy bleeding, easy bruising Physical Exam - Physical Exam Vital Signs: Vital Signs 04/02/17 17:44 Temperature 99 F Pulse Rate 119 H Respiratory 18 Rate Blood Pressure 101/76 O2 Sat by Pulse 92 Oximetry Vital Signs - 24 hr 04/02/17 04/02/17 04/02/17 17:31 17:44 17:45 Temperature 99 F Pulse Rate 119 H Respiratory 18 Rate Blood Pressure 101/76 101/76 O2 Sat by Pulse 89 92 92 Oximetry 04/02/17 04/02/17 04/02/17 18:00 18:33 18:45 Temperature Pulse Rate Respiratory Rate Blood Pressure 105/77 105/77 105/77 O2 Sat by Pulse 93 95 94 Oximetry 04/02/17 04/02/17 04/02/17 19:00 19:15 19:30 Temperature Pulse Rate 102 H Respiratory 13 Rate Blood Pressure 117/76 105/77 121/80 O2 Sat by Pulse 94 94 96 Oximetry 04/02/17 04/02/17 04/02/17 19:45 20:00 20:15 Temperature Pulse Rate 96 H 98 H 96 H Respiratory 19 23 22 Rate Blood Pressure 121/80 129/82 121/80 O2 Sat by Pulse 97 96 95 Oximetry 04/02/17 04/02/17 04/02/17 20:30 20:45 21:00 Temperature Pulse Rate 99 H 105 H 95 H Respiratory 19 18 20 Rate Blood Pressure 131/80 129/82 139/80 O2 Sat by Pulse 96 95 97 Oximetry 04/02/17 04/02/17 04/02/17 21:15 21:30 21:45 Temperature Pulse Rate 93 H 93 H 92 H Respiratory 27 H 22 19 Rate Blood Pressure 131/80 131/77 139/80 O2 Sat by Pulse 96 96 94 Oximetry 04/02/17 04/02/17 04/02/17 22:00 22:15 22:30 Temperature Pulse Rate 95 H 99 H 93 H Respiratory 21 21 19 Rate Blood Pressure 124/74 131/77 132/75 O2 Sat by Pulse 96 94 93 Oximetry 04/02/17 04/02/17 04/02/17 22:45 23:00 23:15 Temperature Pulse Rate 94 H 95 H 95 H Respiratory 22 20 23 Rate Blood Pressure 132/75 132/80 132/80 O2 Sat by Pulse 94 94 93 Oximetry Physical Exam: GENERAL: The patient is well-developed well-nourished male lying on stretcher with cervical collar in place obvious signs facial trauma. [] HEENT: Normocephalic. Ecchymosis to the left cheek and left superior orbital ridge. Extraocular motions are intact. Patient has moist mucous membranes. NECK: Supple. Trachea midline. Pain to the left lateral and axial cervical spine CHEST/LUNGS: Clear to auscultation. There is no respiratory distress noted. HEART/CARDIOVASCULAR: Regular. There is no tachycardia. There is no gallop rub or murmur. ABDOMEN: Abdomen is soft, nontender. Patient has normal bowel sounds. There is no abdominal distention. SKIN: There is no rash. There is no edema. There is no diaphoresis. NEURO: The patient is awake, alert, and oriented. The patient is cooperative. The patient has no focal neurologic deficits. The patient has normal speech. Cranial nerves II through XII grossly intact, no drift MUSCULOSKELETAL: There is evidence of ecchymosis to the left cheek/face. Patient moves all extremities well, there are no bony deformities appreciated. ED Course Vital Signs 04/02/17 17:44 Temperature 99 F Pulse Rate 119 H Respiratory 18 Rate Blood Pressure 101/76 O2 Sat by Pulse 92 Oximetry ED Medical Decision Making - Lab Data Result diagrams: 04/02/17 18:54 04/02/17 18:54 Laboratory Tests 04/02/17 04/02/17 04/02/17 18:54 18:54 18:54 WBC 8.9 RBC 4.54 Hgb 16.0 H Hct 45.7 H MCV 101 H MCH 35 H MCHC 35 H RDW 12.5 L Plt Count 125 L Lymph % (Auto) 27.0 Kimball % (Auto) 7.2 Eos % (Auto) 1.8 Baso % (Auto) 0.8 Lymph # 2.4 Kimball # 0.6 Eos # 0.2 Baso # 0.1 Seg Neutrophils % 63.2 Seg Neutrophils # 5.6 PT 12.4 INR 0.93 APTT 23.7 L Sodium 132 L Potassium 3.8 Chloride 91.3 L Carbon Dioxide 23 Anion Gap 22 BUN 10 Creatinine 0.5 L Estimated GFR > 60 BUN/Creatinine Ratio 20.00 Glucose 85 Calcium 8.4 Total Bilirubin 1.60 H AST 194 H ALT 110 H Alkaline Phosphatase 60 Total Protein 7.2 Albumin 3.9 Albumin/Globulin Ratio 1.2 Plasma/Serum Alcohol 04/02/17 18:54 WBC RBC Hgb Hct MCV MCH MCHC RDW Plt Count Lymph % (Auto) Kimball % (Auto) Eos % (Auto) Baso % (Auto) Lymph # Kimball # Eos # Baso # Seg Neutrophils % Seg Neutrophils # PT INR APTT Sodium Potassium Chloride Carbon Dioxide Anion Gap BUN Creatinine Estimated GFR BUN/Creatinine Ratio Glucose Calcium Total Bilirubin AST ALT Alkaline Phosphatase Total Protein Albumin Albumin/Globulin Ratio Plasma/Serum Alcohol 0.16 H Laboratory Tests 04/02/17 04/02/17 04/02/17 18:54 18:54 18:54 WBC 8.9 RBC 4.54 Hgb 16.0 H Hct 45.7 H MCV 101 H MCH 35 H MCHC 35 H RDW 12.5 L Plt Count 125 L Lymph % (Auto) 27.0 Kimball % (Auto) 7.2 Eos % (Auto) 1.8 Baso % (Auto) 0.8 Lymph # 2.4 Kimball # 0.6 Eos # 0.2 Baso # 0.1 Seg Neutrophils % 63.2 Seg Neutrophils # 5.6 PT 12.4 INR 0.93 APTT 23.7 L Sodium 132 L Potassium 3.8 Chloride 91.3 L Carbon Dioxide 23 Anion Gap 22 BUN 10 Creatinine 0.5 L Estimated GFR > 60 BUN/Creatinine Ratio 20.00 Glucose 85 Calcium 8.4 Total Bilirubin 1.60 H AST 194 H ALT 110 H Alkaline Phosphatase 60 Total Protein 7.2 Albumin 3.9 Albumin/Globulin Ratio 1.2 Plasma/Serum Alcohol 04/02/17 04/03/17 18:54 00:08 WBC RBC Hgb Hct MCV MCH MCHC RDW Plt Count Lymph % (Auto) Kimball % (Auto) Eos % (Auto) Baso % (Auto) Lymph # Kimball # Eos # Baso # Seg Neutrophils % Seg Neutrophils # PT INR APTT Sodium Potassium Chloride Carbon Dioxide Anion Gap BUN Creatinine Estimated GFR BUN/Creatinine Ratio Glucose Calcium Total Bilirubin AST ALT Alkaline Phosphatase Total Protein Albumin Albumin/Globulin Ratio Plasma/Serum Alcohol 0.16 H 0.04 - EKG Data -: EKG Interpreted by Me EKG shows normal: sinus rhythm Rate: tachycardia (109 beats per minutes) - EKG Data When compared to previous EKG there are: previous EKG unavailable Interpretation: other (no ischemic changes seen) - Radiology Data Radiology results: report reviewed (CT head, CT cervical spine), image reviewed (CT head, CT cervical spine) CT cervical spine (read by radiologist)-no acute cervical spine fracture identified. Correlate with physical exam and follow-up is warranted. Nodular biapical pulmonary scarring and centrilobular emphysema. Pulmonary follow-up is suggested not overly established. If there are not additional CT examination documented biapical pulmonary findings, additional follow-up CT in 3 -6 months is recommended. - Differential Diagnosis ICH, cervical fracture, closed head injury, alcohol intoxication Critical care attestation.: If time is entered above; I have spent that time in minutes in the direct care of this critically ill patient, excluding procedure time. ED Disposition Clinical Impression: Closed head injury, Acute cervical myofascial strain, Alcohol intoxication Disposition: DISCHARGED TO HOME OR SELFCARE Is pt being admited?: No Does the pt Need Aspirin: No Condition: Stable Instructions: Muscle Strain (ED) Additional Instructions: Return to the emergency department immediately should you develop worsening symptoms, fever, inability to tolerate food or liquid or any other concerns. Prescriptions: traMADol [Ultram] 50 mg PO Q6HR PRN #10 tablet PRN Reason: Pain Referrals: PRIMARY CARE, [Primary Care Provider] - 3-5 Days MADINA SIDDIQUI MD [Staff Physician] - 3-5 Days (Dr Siddiqui is a etl manager. Please follow up with him for further evaluation of your biapical pulmonary scarring and COPD) Time of Disposition: 20:32 (d/c to family or when etoh <0.08)
[2017-04-02] MEDS ORDERED: VITAMIN B-1 100 MG, FOLVITE 1 MG, INFUVITE 10 ML, MAGNESIUM SULFATE 2 GM in NACL 0.9% 1... IV ONE (18:59)
[2017-04-02] MEDS ORDERED: NACL 0.9% 1000 ML 1,000 ML IV ONE (18:59)
[2017-04-02 19:08] LABS: Basophils % (Auto) 0.8 % (0.0-1.8); Eosinophils % (Auto) 1.8 % (0.0-4.3); Hematocrit 45.7 % (35.5-45.6); Mean Corpuscular HGB Conc 35 % (32-34); Mean Corpuscular Hemoglobin 35 pg (28-32); Mean Corpuscular Volume 101 fl (84-94); Platelet Count 125 K/mm3 (140-440); Red Blood Count 4.54 M/mm3 (3.65-5.03); Red Cell Distribution Width 12.5 % (13.2-15.2); White Blood Count 8.9 K/mm3 (4.5-11.0)
--- NOTE | 2017-04-02 19:11 | Cat Scan Report ---
FINAL REPORT EXAM: CT HEAD/BRAIN WO CON HISTORY: glf c/o pain in head and neck TECHNIQUE: CT imaging is acquired through the brain without contrast. Transaxial reformations are provided. PRIORS: 02/15/2017 FINDINGS: Ventricles and CSF spaces are proportionately enlarged, consistent with parenchymal atrophy. Scattered deep and subcortical white matter hypodense foci are confluent in some areas and are compatible with microvascular angiopathy. No acute intracranial hemorrhage or mass effect. Calvarium and superficial scalp are intact. Partially visualized paranasal sinuses are clear. Mastoids are clear. IMPRESSION: No acute intracranial abnormality. 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
--- NOTE | 2017-04-02 19:16 | Cat Scan Report ---
FINAL REPORT EXAM: CT CERVICAL SPINE WO CON HISTORY: glf c/o pain in head and neck TECHNIQUE: CT imaging is acquired through the cervical spine without contrast. Transaxial, coronal and sagittal reformations are provided. PRIORS: 02/15/2017 FINDINGS: A cervical collar is present. The cervical spine is intact. Vertebral body heights are preserved. No acute fracture or listhesis. Atlanto-dens interval and odontoid process are intact. Intervertebral disc spaces are mildly and moderately narrowed with associated endplate spondylosis at C4-C5 and C5-C6, respectively. No perivertebral soft tissue swelling or hematoma identified. Limited soft tissue exam of the visualized neck is remarkable for carotid calcifications. Nodular biapical scarring is unchanged. IMPRESSION: No acute cervical spine fracture identified. Correlate with physical exam and follow up as warranted. Nodular biapical pulmonary scarring and centrilobular emphysema. Pulmonary follow-up is suggested if not already established. If there are not additional CT examinations documenting biapical pulmonary findings, additional follow-up CT in 3-6 months is recommended.
[2017-04-02 19:23] LABS: INR 0.93 (0.87-1.13)
[2017-04-02 19:24] LABS: Partial Thromboplastin Time 23.7 Sec. (24.2-36.6)
[2017-04-02 19:46] LABS: Alanine Aminotransferase 110 units/L (7-56); Albumin 3.9 g/dL (3.9-5); Albumin/Globulin Ratio 1.2 %; Alkaline Phosphatase 60 units/L (35-129); Anion Gap 22 mmol/L; Blood Urea Nitrogen 10 mg/dL (9-20); Calcium 8.4 mg/dL (8.4-10.2); Carbon Dioxide 23 mmol/L (22-30); Chloride 91.3 mmol/L (98-107); Glucose 85 mg/dL (75-100); Potassium 3.8 mmol/L (3.6-5.0); Sodium 132 mmol/L (137-145); Total Protein 7.2 g/dL (6.3-8.2)
[2017-04-03 00:55] VITALS: BP 132/84
== END 2017-04-03 01:00 | disposition home or self-care (01) ==
LOC: ED 16:54
DX: S09.90XA Unspecified injury of head, initial encounter (principal); S16.1XXA Strain of muscle, fascia and tendon at neck level, initial encounter; F10.129 Alcohol abuse with intoxication, unspecified; I10 Essential (primary) hypertension; M19.90 Unspecified osteoarthritis, unspecified site; J44.9 Chronic obstructive pulmonary disease, unspecified; F17.200 Nicotine dependence, unspecified, uncomplicated; Z88.8 Allergy status to other drugs, medicaments and biological substances
CPT/HCPCS: 36415; 70450; 72125; 80053; 85025; 85610; 85730; 93005; 93010; 96365; 96366; 99284; G0480; J3411; J3475; J7030; 80320

== ENCOUNTER 2017-06-17 17:49 | Emergency (ER) | payer SELFPAY ==
[2017-06-17 22:49] LABS: Basophils % (Auto) 0.9 % (0.0-1.8); Eosinophils % (Auto) 4.9 % (0.0-4.3); Hematocrit 47.3 % (35.5-45.6); Hemoglobin 15.9 gm/dl (11.8-15.2); Mean Corpuscular HGB Conc 34 % (32-34); Mean Corpuscular Hemoglobin 35 pg (28-32); Mean Corpuscular Volume 103 fl (84-94); Platelet Count 338 K/mm3 (140-440); Red Blood Count 4.59 M/mm3 (3.65-5.03); Red Cell Distribution Width 12.4 % (13.2-15.2)
[2017-06-17 23:16] LABS: Alanine Aminotransferase 62 units/L (7-56); Albumin 3.5 g/dL (3.9-5); Albumin/Globulin Ratio 0.9 %; Alkaline Phosphatase 97 units/L (35-129); Anion Gap 22 mmol/L; Blood Urea Nitrogen 6 mg/dL (9-20); Calcium 8.3 mg/dL (8.4-10.2); Carbon Dioxide 22 mmol/L (22-30); Chloride 100.3 mmol/L (98-107); Glucose 71 mg/dL (75-100); Potassium 4.3 mmol/L (3.6-5.0); Sodium 140 mmol/L (137-145); Total Protein 7.6 g/dL (6.3-8.2)
--- NOTE | 2017-06-18 00:57 | Emergency Department Report ---
ED Alcohol HPI - General Chief Complaint: Alcohol Stated Complaint: DIFFICULTY WALKING Time Seen by Provider: 06/17/17 22:58 Source: patient Mode of arrival: Wheelchair Limitations: No Limitations - History of Present Illness MD Complaint: alcohol intoxication Last Drink: just [employer] Chronic Alcohol Use: Yes Previous Visits for Alcohol Intoxication?: Yes Recent Trauma: Yes (fall with back pain) Associated Symptoms: other (difficulty ambulating) Treatments Prior to Arrival: none - Related Data Home Medications Medication Instructions Recorded Confirmed Last Taken ALBUTEROL Inhaler [ProAir HFA 2 inhalation PO DAILY PRN #0 11/05/16 04/02/17 Inhaler] Ipratropium/Albuter (Nf) 1 puff PO QDAY 04/02/17 04/02/17 Unknown [Combivent Inhaler] Previous Rx's Medication Instructions Recorded Last Taken Type Albuterol Sulfate [Proair 90 mcg IH Q4HR PRN #2 aer.[email or web address] 02/24/17 Unknown Rx Respiclick] Ondansetron [Zofran Odt] 4 mg PO QID PRN #20 tab.rapdis 02/24/17 Unknown Rx chlordiazePOXIDE [Librium] 25 mg PO Q8H PRN #20 capsule 02/24/17 Unknown Rx traMADol [Ultram] 50 mg PO Q6HR PRN #10 tablet 04/03/17 Unknown Rx Gabapentin [Neurontin] 100 mg PO Q8HR #30 capsule 06/18/17 Unknown Rx methylPREDNISolone [Medrol] 4 mg PO QAM #1 tab.ds.pk 06/18/17 Unknown Rx Allergies Allergy/AdvReac Type Severity Reaction Status Date / Time Cephalosporins Allergy Anaphylaxis Verified 06/17/17 18:14 ED Review of Systems ROS: Stated complaint: DIFFICULTY WALKING Other details as noted in HPI Comment: All other systems reviewed and negative Cardiovascular: as per HPI Gastrointestinal: nausea ED Past Medical Hx - Past Medical History Hx Hypertension: Yes Hx Congestive Heart Failure: No Hx Diabetes: No Hx Arthritis: Yes Hx Asthma: No Hx COPD: Yes (no home O2) Hx Tuberculosis: No Hx HIV: No Additional medical history: snake bite - Surgical History Additional Surgical History: Right knee surgery/tendon repair - Social History Smoking Status: Current Every Day Smoker Substance Use Type: Alcohol - Medications Home Medications: Home Medications Medication Instructions Recorded Confirmed Last Taken Type ALBUTEROL Inhaler [ProAir HFA 2 inhalation PO DAILY PRN #0 11/05/16 04/02/17 History Inhaler] Albuterol Sulfate [Proair 90 mcg IH Q4HR PRN #2 aer.pow.ba 02/24/17 04/02/17 Unknown Rx Respiclick] Ondansetron [Zofran Odt] 4 mg PO QID PRN #20 tab.rapdis 02/24/17 04/02/17 Unknown Rx chlordiazePOXIDE [Librium] 25 mg PO Q8H PRN #20 capsule 02/24/17 04/02/17 Unknown Rx Ipratropium/Albuter (Nf) 1 puff PO QDAY 04/02/17 04/02/17 Unknown History [Combivent Inhaler] traMADol [Ultram] 50 mg PO Q6HR PRN #10 tablet 04/03/17 Unknown Rx Gabapentin [Neurontin] 100 mg PO Q8HR #30 capsule 06/18/17 Unknown Rx methylPREDNISolone [Medrol] 4 mg PO QAM #1 tab.ds.pk 06/18/17 Unknown Rx ED Physical Exam - General Limitations: No Limitations General appearance: alert - Head Head exam: Present: atraumatic - Eye Eye exam: Present: normal appearance - ENT ENT exam: Present: normal exam - Neck Neck exam: Present: normal inspection - Respiratory Respiratory exam: Present: normal lung sounds bilaterally - Cardiovascular Cardiovascular Exam: Present: regular rate - GI/Abdominal GI/Abdominal exam: Present: soft, normal bowel sounds - Rectal Rectal exam: Present: deferred - Extremities Exam Extremities exam: Present: normal inspection, full ROM - Back Exam Back exam: Present: normal inspection - Neurological Exam Neurological exam: Present: alert, oriented X3 ED Course Vital Signs 06/17/17 06/17/17 06/17/17 18:15 21:58 22:00 Temperature 98.0 F Pulse Rate 107 H 100 H 101 H Respiratory 20 15 16 Rate Blood Pressure 112/75 134/89 Blood Pressure [Left] O2 Sat by Pulse 92 90 90 Oximetry 06/17/17 06/17/17 06/17/17 22:11 22:12 22:15 Temperature Pulse Rate 94 H Respiratory 14 Rate Blood Pressure 134/89 Blood Pressure 134/89 [Left] O2 Sat by Pulse 99 92 Oximetry 06/17/17 06/17/17 06/17/17 22:21 22:31 22:41 Temperature Pulse Rate 94 H 97 H 95 H Respiratory 16 14 17 Rate Blood Pressure 134/89 134/89 159/89 Blood Pressure [Left] O2 Sat by Pulse 100 100 100 Oximetry 06/17/17 06/17/17 06/17/17 22:51 23:00 23:11 Temperature Pulse Rate 93 H 94 H 93 H Respiratory 19 18 15 Rate Blood Pressure 147/96 147/87 147/87 Blood Pressure [Left] O2 Sat by Pulse 100 100 100 Oximetry 06/17/17 06/17/17 06/17/17 23:21 23:30 23:55 Temperature Pulse Rate 100 H 92 H 101 H Respiratory 15 17 Rate Blood Pressure 143/83 152/90 152/90 Blood Pressure [Left] O2 Sat by Pulse 100 100 Oximetry 06/18/17 00:00 Temperature Pulse Rate 96 H Respiratory 16 Rate Blood Pressure 161/92 Blood Pressure [Left] O2 Sat by Pulse 100 Oximetry ED Medical Decision Making - Lab Data Result diagrams: 06/17/17 22:22 06/17/17 22:22 Critical care attestation.: If time is entered above; I have spent that time in minutes in the direct care of this critically ill patient, excluding procedure time. ED Disposition Clinical Impression: Alcohol intoxication, Functional gait abnormality, Back pain Disposition: DC-01 TO HOME OR SELFCARE Is pt being admited?: No Does the pt Need Aspirin: No Condition: Stable Prescriptions: Gabapentin [Neurontin] 100 mg PO Q8HR #30 capsule methylPREDNISolone [Medrol] 4 mg PO QAM #1 tab.ds.pk Referrals: PRIMARY CAREMD [Primary Care Provider] - 3-5 Days MANUELA ROSENBERG MD [Referring] - 3-5 Days
--- NOTE | 2017-06-18 00:57 | Cat Scan Report ---
FINAL REPORT EXAM: CT LUMBAR SPINE WO CON HISTORY: back pain s/p fall COMPARISON: None available. TECHNIQUE: Contiguous axial images were obtained. Additional sagittal and coronal reformatted images were obtained. FINDINGS: Lumbar vertebral body heights are preserved. No acute fracture or traumatic subluxation of the lumbar spine. Moderate loss of disc height L5-S1 level. Remaining disc heights are grossly preserved. Mild broad-based disc bulges at the L3-L4 and L4-L5 level mild facet changes causing mild canal stenosis and foraminal narrowing. At the L5-S1 level, there is mild broad-based disc bulge and [id number] bilateral facet changes. Mild canal stenosis. Mild to moderate left and mild right foraminal narrowing. Visualized portions of the SI joints are preserved. Visualized aorta is normal in caliber with moderate calcification. IMPRESSION: No acute fracture or traumatic subluxation of the lumbar spine. Mild to moderate degenerative changes of the lower lumbar spine.
[2017-06-18 01:07] VITALS: BP 145/88
== END 2017-06-18 01:05 | disposition home or self-care (01) ==
LOC: ED 17:49
DX: F10.129 Alcohol abuse with intoxication, unspecified (principal); M54.9 Dorsalgia, unspecified; R26.9 Unspecified abnormalities of gait and mobility; I10 Essential (primary) hypertension; F17.200 Nicotine dependence, unspecified, uncomplicated
CPT/HCPCS: 36415; 72131; 80053; 85025; 93005; 93010; 99285; G0480; 80320

== ENCOUNTER 2018-03-20 23:29 | Inpatient (IN) | payer OTHER ==
[2018-03-21] MEDS ORDERED: ASPIRIN PO ONE (01:06)
--- NOTE | 2018-03-21 01:55 | XRay Report ---
FINAL REPORT EXAM: XR CHEST ROUTINE 2V HISTORY: Dull ache left chest. TECHNIQUE: Frontal and lateral radiographs of the chest were obtained. No prior studies are available for comparison FINDINGS: The cardiac silhouette and mediastinum are within normal limits. There is minimal biapical pleural thickening/scarring. The lungs are otherwise clear bilaterally, without focal infiltrate or effusion. There is no pneumothorax. No significant osseous abnormalities are identified. IMPRESSION: No active disease seen in the chest.
--- NOTE | 2018-03-21 02:42 | Cat Scan Report ---
FINAL REPORT EXAM: CT HEAD/BRAIN WO CON HISTORY: Fall with LOC. TECHNIQUE: Unenhanced axial CT images of the brain were obtained. Comparison is made with prior study 04/02/2017. FINDINGS: There is mild diffuse generalized volume loss, appropriate for patient's age. Chronic appearing cystic foci are seen in the left basal ganglia, representing prior lacunar infarctions versus prominent perivascular spaces, stable. There are mild patchy foci of low attenuation in the periventricular and subcortical white matter, nonspecific but most likely chronic small vessel ischemic disease. The gonzalez-white differentiation is maintained. There is no extra-axial fluid collection, mass, mass effect, midline shift, hydrocephalus, or acute intracranial hemorrhage. The overall appearance of the brain is not significantly changed compared to prior exam. There is mild sinus mucosal thickening in the bilateral ethmoid air cells. The remainder of the visualized paranasal sinuses and mastoid air cells are clear. There is no skull fracture or other osseous abnormality. The visualized orbits and globes are grossly unremarkable. IMPRESSION: No fracture or acute intracranial abnormality. Chronic small vessel ischemic disease, overall stable compared to 04/02/2017.
--- NOTE | 2018-03-21 02:44 | XRay Report ---
FINAL REPORT EXAM: XR WRIST 3+V LT HISTORY: Left wrist swollen after fall. TECHNIQUE: Three radiographs of the left wrist were obtained. No prior studies are available for comparison. FINDINGS: Note that no true lateral radiograph of the wrist was obtained. There is no fracture or dislocation. No other discrete osseous abnormality is seen. There is mild diffuse soft tissue swelling at the wrist. If pain persists, follow-up radiographs and/or MRI is recommended. IMPRESSION: Somewhat limited exam, with no true lateral radiograph obtained. No fracture or dislocation. Mild diffuse soft tissue swelling.
--- NOTE | 2018-03-21 02:47 | XRay Report ---
FINAL REPORT EXAM: XR SHOULDER 2+V LT HISTORY: Left shoulder pain after fall. TECHNIQUE: Three radiographs of the left shoulder were obtained. No prior studies are available for comparison. FINDINGS: There is no fracture or dislocation. No other discrete osseous abnormality is seen. No significant soft tissue abnormality is identified. IMPRESSION: No fracture, dislocation, or other osseous abnormality.
[2018-03-21 03:13] LABS: Basophils # (Auto) 0.1 K/mm3 (0.0-0.1); Basophils % (Auto) 1.2 % (0.0-1.8); Eosinophils # (Auto) 0.1 K/mm3 (0.0-0.4); Eosinophils % (Auto) 1.1 % (0.0-4.3); Hematocrit 46.3 % (35.5-45.6); Lymphocytes # (Auto) 2.2 K/mm3 (1.2-5.4); Lymphocytes % (Auto) 36.1 % (13.4-35.0); Mean Corpuscular HGB Conc 35 % (32-34); Mean Corpuscular Hemoglobin 34 pg (28-32); Mean Corpuscular Volume 97 fl (84-94); Monocytes # (Auto) 0.6 K/mm3 (0.0-0.8); Monocytes % (Auto) 9.8 % (0.0-7.3); Platelet Count 102 K/mm3 (140-440); Red Blood Count 4.77 M/mm3 (3.65-5.03); Red Cell Distribution Width 14.6 % (13.2-15.2)
[2018-03-21 03:42] LABS: BUN/Creatinine Ratio 10; Blood Urea Nitrogen 4 mg/dL (9-20); Calcium 7.9 mg/dL (8.4-10.2); Hemolysis Index 15
[2018-03-21] MEDS ORDERED: BOOSTRIX IM ONE ×2 (08:35→09:32)
[2018-03-21] MEDS ORDERED: ATROVENT IH ONE (08:35)
[2018-03-21] MEDS ORDERED: PROVENTIL IH ONE (08:35)
[2018-03-21] MEDS ORDERED: VALIUM IV ONE (08:41)
--- NOTE | 2018-03-21 08:41 | Emergency Department Report ---
ED General Adult HPI - General Chief complaint: Fall Stated complaint: FALL Time Seen by Provider: 03/21/18 08:22 Source: patient, EMS (ems notes not available at time of chart dictation), RN notes reviewed, old records reviewed Mode of arrival: Wheelchair Limitations: No Limitations - History of Present Illness Initial comments: This is a 58-year-old male. The patient is previously evaluated by this provider in the past. He has a past medical history of COPD, not on home oxygen. I patient also reports a history of alcohol abuse. Patient presents to the ER complaining of generalized weakness. He's had a number of mechanical falls. He has been consuming alcohol. His last drink was over 24 hours ago. He reports that he feels shaky and tremulous. He complains of right shoulder pain , and left thumb and left wrist pain. He is not homicidal or suicidal. He denies urinary symptoms. He feels weak and tremulous. He denies chest pain. He has chronic shortness of breath. He has a dry cough. He is not sure if he is producing mucus. Patient can't recall how he fell. He may of had a loss of consciousness. He indicated he does not know how long he was out "because no one was around." -: Gradual Location: left (left upper extremity), right (when upper extremity) Severity scale (0 -10): 5 Quality: burning, stabbing, aching Consistency: intermittent Improves with: rest Worsens with: movement Associated Symptoms: confusion, cough, fever/chills, loss of appetite, malaise, weakness. denies: chest pain, diaphoresis - Related Data Home Medications Medication Instructions Recorded Confirmed Last Taken ALBUTEROL Inhaler [ProAir HFA 2 inhalation PO DAILY PRN #0 11/05/16 04/02/17 Inhaler] Ipratropium/Albuter (Nf) 1 puff PO QDAY 04/02/17 04/02/17 Unknown [Combivent Inhaler] Previous Rx's Medication Instructions Recorded Last Taken Type Albuterol Sulfate [Proair 90 mcg IH Q4HR PRN #2 [email or web address] 02/24/17 Unknown Rx Respiclick] Ondansetron [Zofran Odt] 4 mg PO QID PRN #20 tab.rapdis 02/24/17 Unknown Rx chlordiazePOXIDE [Librium] 25 mg PO Q8H PRN #20 capsule 02/24/17 Unknown Rx traMADol [Ultram] 50 mg PO Q6HR PRN #10 tablet 04/03/17 Unknown Rx Gabapentin [Neurontin] 100 mg PO Q8HR #30 capsule 06/18/17 Unknown Rx methylPREDNISolone [Medrol] 4 mg PO QAM #1 tab.ds.pk 06/18/17 Unknown Rx Allergies Allergy/AdvReac Type Severity Reaction Status Date / Time Cephalosporins Allergy Anaphylaxis Verified 06/17/17 18:14 ED Review of Systems ROS: Stated complaint: FALL Other details as noted in HPI Constitutional: malaise. denies: fever Eyes: denies: vision change ENT: denies: epistaxis Respiratory: shortness of breath Cardiovascular: denies: syncope Gastrointestinal: denies: vomiting Genitourinary: as per HPI. denies: dysuria Musculoskeletal: arthralgia, myalgia Skin: lesions Neurological: weakness Psychiatric: denies: homicidal thoughts, suicidal thoughts ED Past Medical Hx - Past Medical History Previous Medical History?: Yes Hx Hypertension: Yes Hx Congestive Heart Failure: No Hx Diabetes: No Hx Arthritis: Yes Hx Asthma: No Hx COPD: Yes (no home O2) Hx Tuberculosis: No Hx HIV: No Additional medical history: snake bite - Surgical History Additional Surgical History: Right knee surgery/tendon repair - Social History Smoking Status: Current Every Day Smoker - Medications Home Medications: Home Medications Medication Instructions Recorded Confirmed Last Taken Type ALBUTEROL Inhaler [ProAir HFA 2 inhalation PO DAILY PRN #0 11/05/16 04/02/17 History Inhaler] Albuterol Sulfate [Proair 90 mcg IH Q4HR PRN #2 aer.[email or web address] 02/24/17 04/02/17 Unknown Rx Respiclick] Ondansetron [Zofran Odt] 4 mg PO QID PRN #20 tab.rapdis 02/24/17 04/02/17 Unknown Rx chlordiazePOXIDE [Librium] 25 mg PO Q8H PRN #20 capsule 02/24/17 04/02/17 Unknown Rx Ipratropium/Albuter (Nf) 1 puff PO QDAY 04/02/17 04/02/17 Unknown History [Combivent Inhaler] traMADol [Ultram] 50 mg PO Q6HR PRN #10 tablet 04/03/17 Unknown Rx Gabapentin [Neurontin] 100 mg PO Q8HR #30 capsule 06/18/17 Unknown Rx methylPREDNISolone [Medrol] 4 mg PO QAM #1 tab.ds.pk 06/18/17 Unknown Rx ED Physical Exam - General Limitations: Physical Limitation General appearance: alert, in distress, other (patient has active tongue fasciculations) - Head Head exam: Present: atraumatic, normocephalic - Eye Eye exam: Present: normal appearance, EOMI, other (visual acuity intact to finger counting, color perception, reading at a close distance). Absent: nystagmus - ENT ENT exam: Present: normal exam, mucous membranes dry, other (tongue fasciculations noted) - Neck Neck exam: Present: normal inspection, full ROM, other (there is no midline cervical spine pain or tenderness). Absent: tenderness, meningismus - Respiratory Respiratory exam: Present: decreased breath sounds. Absent: respiratory distress, wheezes, rales, rhonchi - Cardiovascular Cardiovascular Exam: Present: normal rhythm, tachycardia, normal heart sounds. Absent: systolic murmur, diastolic murmur, rubs, gallop - GI/Abdominal GI/Abdominal exam: Present: soft, normal bowel sounds. Absent: distended, tenderness, guarding, rebound, rigid, pulsatile mass - Rectal Rectal exam: Present: deferred - Extremities Exam Extremities exam: Present: normal inspection, tenderness, other (the left wrist is tender. The right anterior shoulder is tender with an abrasion. Numerous abrasions and ecchymoses noted in the upper and lower extremities. The pelvis is stable. There is no long bony tenderness. 2+ pulses noted in the upper and lower extremities). Absent: pedal edema, joint swelling, calf tenderness - Back Exam Back exam: Present: normal inspection, full ROM. Absent: paraspinal tenderness , vertebral tenderness - Neurological Exam Neurological exam: Present: alert, oriented X3, CN II-XII intact, other ( Extraocular movements intact. Tongue midline. No facial droop. Facial sensation intact to light touch in the V1, V2, V3 distribution bilaterally. 5 and 5 strength in 4 extremities.. Sensation is intact to light touch in 4 extremities.). Absent: motor sensory deficit - Psychiatric Psychiatric exam: Present: anxious. Absent: homicidal ideation, suicidal ideation - Skin Skin exam: Present: warm, dry, intact, normal color. Absent: rash ED Course Vital Signs 03/21/18 03/21/18 03/21/18 00:48 07:48 08:23 Temperature 98.5 F 97.9 F Pulse Rate 102 H 114 H 112 H Respiratory 20 16 16 Rate Blood Pressure 134/79 147/88 Blood Pressure 152/106 [Right] O2 Sat by Pulse 92 91 91 Oximetry 03/21/18 08:39 Temperature 99.0 F Pulse Rate 103 H Respiratory 20 Rate Blood Pressure Blood Pressure 115/88 [Right] O2 Sat by Pulse 91 Oximetry ED Medical Decision Making - Lab Data Result diagrams: 03/21/18 02:59 03/21/18 02:59 Vital Signs 03/21/18 03/21/18 03/21/18 00:48 07:48 08:23 Temperature 98.5 F 97.9 F Pulse Rate 102 H 114 H 112 H Respiratory 20 16 16 Rate Blood Pressure 134/79 147/88 Blood Pressure 152/106 [Right] O2 Sat by Pulse 92 91 91 Oximetry 03/21/18 08:39 Temperature 99.0 F Pulse Rate 103 H Respiratory 20 Rate Blood Pressure Blood Pressure 115/88 [Right] O2 Sat by Pulse 91 Oximetry Lab Results 03/21/18 03/21/18 03/21/18 Range/Units 02:59 02:59 04:56 WBC 6.2 (4.5-11.0) K/mm3 RBC 4.77 (3.65-5.03) M/mm3 Hgb 16.0 H (11.8-15.2) gm/dl Hct 46.3 H (35.5-45.6) % MCV 97 H (84-94) fl MCH 34 H (28-32) pg MCHC 35 H (32-34) % RDW 14.6 (13.2-15.2) % Plt Count 102 L (140-440) K/mm3 Lymph % (Auto) 36.1 H (13.4-35.0) % Spink % (Auto) 9.8 H (0.0-7.3) % Eos % (Auto) 1.1 (0.0-4.3) % Baso % (Auto) 1.2 (0.0-1.8) % Lymph # 2.2 (1.2-5.4) K/mm3 Spink # 0.6 (0.0-0.8) K/mm3 Eos # 0.1 (0.0-0.4) K/mm3 Baso # 0.1 (0.0-0.1) K/mm3 Seg Neutrophils % 51.8 (40.0-70.0) % Seg Neutrophils # 3.2 (1.8-7.7) K/mm3 POC ABG pH (7.35-7.45) POC ABG pCO2 (35-45) POC ABG pO2 (80-105) POC ABG HCO3 POC ABG Total CO2 POC ABG O2 Sat POC ABG Base Excess FiO2 % Sodium 135 L (137-145) mmol/L Potassium 4.0 (3.6-5.0) mmol/L Chloride 94.9 L (98-107) mmol/L Carbon Dioxide 25 (22-30) mmol/L Anion Gap 19 mmol/L BUN 4 L (9-20) mg/dL Creatinine 0.4 L (0.8-1.5) mg/dL Estimated GFR > 60 ml/min BUN/Creatinine Ratio 10 % Glucose 81 (75-100) mg/dL Lactic Acid (0.7-2.0) mmol/L Calcium 7.9 L (8.4-10.2) mg/dL Magnesium (1.7-2.3) mg/dL Total Bilirubin (0.1-1.2) mg/dL Direct Bilirubin (0-0.2) mg/dL Indirect Bilirubin mg/dL AST (5-40) units/L ALT (7-56) units/L Alkaline Phosphatase (35-129) units/L Ammonia (25-60) umol/L Total Creatine Kinase (55-170) units/L Troponin T < 0.010 < 0.010 (0.00-0.029) ng/mL Total Protein (6.3-8.2) g/dL Albumin (3.9-5) g/dL Albumin/Globulin Ratio % Salicylates (2.8-20.0) mg/dL Acetaminophen (10.0-30.0) ug/mL Plasma/Serum Alcohol (0-0.07) % 03/21/18 03/21/18 03/21/18 Range/Units 06:59 08:46 08:46 WBC (4.5-11.0) K/mm3 RBC (3.65-5.03) M/mm3 Hgb (11.8-15.2) gm/dl Hct (35.5-45.6) % MCV (84-94) fl MCH (28-32) pg MCHC (32-34) % RDW (13.2-15.2) % Plt Count (140-440) K/mm3 Lymph % (Auto) (13.4-35.0) % Spink % (Auto) (0.0-7.3) % Eos % (Auto) (0.0-4.3) % Baso % (Auto) (0.0-1.8) % Lymph # (1.2-5.4) K/mm3 Spink # (0.0-0.8) K/mm3 Eos # (0.0-0.4) K/mm3 Baso # (0.0-0.1) K/mm3 Seg Neutrophils % (40.0-70.0) % Seg Neutrophils # (1.8-7.7) K/mm3 POC ABG pH (7.35-7.45) POC ABG pCO2 (35-45) POC ABG pO2 (80-105) POC ABG HCO3 POC ABG Total CO2 POC ABG O2 Sat POC ABG Base Excess FiO2 % Sodium (137-145) mmol/L Potassium (3.6-5.0) mmol/L Chloride (98-107) mmol/L Carbon Dioxide (22-30) mmol/L Anion Gap mmol/L BUN (9-20) mg/dL Creatinine (0.8-1.5) mg/dL Estimated GFR ml/min BUN/Creatinine Ratio % Glucose (75-100) mg/dL Lactic Acid 2.30 H* (0.7-2.0) mmol/L Calcium (8.4-10.2) mg/dL Magnesium 2.00 (1.7-2.3) mg/dL Total Bilirubin 1.20 (0.1-1.2) mg/dL Direct Bilirubin 0.4 H (0-0.2) mg/dL Indirect Bilirubin 0.8 mg/dL AST 138 H (5-40) units/L ALT 69 H (7-56) units/L Alkaline Phosphatase 103 (35-129) units/L Ammonia (25-60) umol/L Total Creatine Kinase 316 H (55-170) units/L Troponin T < 0.010 (0.00-0.029) ng/mL Total Protein 7.2 (6.3-8.2) g/dL Albumin 3.4 L (3.9-5) g/dL Albumin/Globulin Ratio 0.9 % Salicylates (2.8-20.0) mg/dL Acetaminophen (10.0-30.0) ug/mL Plasma/Serum Alcohol (0-0.07) % 03/21/18 03/21/18 03/21/18 Range/Units 08:46 08:46 08:46 WBC (4.5-11.0) K/mm3 RBC (3.65-5.03) M/mm3 Hgb (11.8-15.2) gm/dl Hct (35.5-45.6) % MCV (84-94) fl MCH (28-32) pg MCHC (32-34) % RDW (13.2-15.2) % Plt Count (140-440) K/mm3 Lymph % (Auto) (13.4-35.0) % Spink % (Auto) (0.0-7.3) % Eos % (Auto) (0.0-4.3) % Baso % (Auto) (0.0-1.8) % Lymph # (1.2-5.4) K/mm3 Spink # (0.0-0.8) K/mm3 Eos # (0.0-0.4) K/mm3 Baso # (0.0-0.1) K/mm3 Seg Neutrophils % (40.0-70.0) % Seg Neutrophils # (1.8-7.7) K/mm3 POC ABG pH (7.35-7.45) POC ABG pCO2 (35-45) POC ABG pO2 (80-105) POC ABG HCO3 POC ABG Total CO2 POC ABG O2 Sat POC ABG Base Excess FiO2 % Sodium (137-145) mmol/L Potassium (3.6-5.0) mmol/L Chloride (98-107) mmol/L Carbon Dioxide (22-30) mmol/L Anion Gap mmol/L BUN (9-20) mg/dL Creatinine (0.8-1.5) mg/dL Estimated GFR ml/min BUN/Creatinine Ratio % Glucose (75-100) mg/dL Lactic Acid (0.7-2.0) mmol/L Calcium (8.4-10.2) mg/dL Magnesium (1.7-2.3) mg/dL Total Bilirubin (0.1-1.2) mg/dL Direct Bilirubin (0-0.2) mg/dL Indirect Bilirubin mg/dL AST (5-40) units/L ALT (7-56) units/L Alkaline Phosphatase (35-129) units/L Ammonia 38.0 (25-60) umol/L Total Creatine Kinase (55-170) units/L Troponin T (0.00-0.029) ng/mL Total Protein (6.3-8.2) g/dL Albumin (3.9-5) g/dL Albumin/Globulin Ratio % Salicylates < 0.3 L (2.8-20.0) mg/dL Acetaminophen < 5.0 L (10.0-30.0) ug/mL Plasma/Serum Alcohol (0-0.07) % 03/21/18 03/21/18 Range/Units 08:46 08:51 WBC (4.5-11.0) K/mm3 RBC (3.65-5.03) M/mm3 Hgb (11.8-15.2) gm/dl Hct (35.5-45.6) % MCV (84-94) fl MCH (28-32) pg MCHC (32-34) % RDW (13.2-15.2) % Plt Count (140-440) K/mm3 Lymph % (Auto) (13.4-35.0) % Spink % (Auto) (0.0-7.3) % Eos % (Auto) (0.0-4.3) % Baso % (Auto) (0.0-1.8) % Lymph # (1.2-5.4) K/mm3 Spink # (0.0-0.8) K/mm3 Eos # (0.0-0.4) K/mm3 Baso # (0.0-0.1) K/mm3 Seg Neutrophils % (40.0-70.0) % Seg Neutrophils # (1.8-7.7) K/mm3 POC ABG pH 7.409 (7.35-7.45) POC ABG pCO2 38.8 (35-45) POC ABG pO2 52 L (80-105) POC ABG HCO3 24.5 POC ABG Total CO2 26 POC ABG O2 Sat 87 POC ABG Base Excess 0 FiO2 21 % Sodium (137-145) mmol/L Potassium (3.6-5.0) mmol/L Chloride (98-107) mmol/L Carbon Dioxide (22-30) mmol/L Anion Gap mmol/L BUN (9-20) mg/dL Creatinine (0.8-1.5) mg/dL Estimated GFR ml/min BUN/Creatinine Ratio % Glucose (75-100) mg/dL Lactic Acid (0.7-2.0) mmol/L Calcium (8.4-10.2) mg/dL Magnesium (1.7-2.3) mg/dL Total Bilirubin (0.1-1.2) mg/dL Direct Bilirubin (0-0.2) mg/dL Indirect Bilirubin mg/dL AST (5-40) units/L ALT (7-56) units/L Alkaline Phosphatase (35-129) units/L Ammonia (25-60) umol/L Total Creatine Kinase (55-170) units/L Troponin T (0.00-0.029) ng/mL Total Protein (6.3-8.2) g/dL Albumin (3.9-5) g/dL Albumin/Globulin Ratio % Salicylates (2.8-20.0) mg/dL Acetaminophen (10.0-30.0) ug/mL Plasma/Serum Alcohol 0.14 H (0-0.07) % - EKG Data -: EKG Interpreted by Wi EKG shows normal: axis Rate: tachycardia - EKG Data Interpretation: unchanged when compared t 03/21/18 09:19 Sinus tachycardia, 100 bpm, motion artifact, inverted QRS complex and aVL, poor R-wave progression, abnormal EKG, not consistent with a STEMI, unchanged from prior EKG from June 2017. - Radiology Data Radiology results: report reviewed, image reviewed CT scan of the brain is negative. X-ray of the chest is negative. X-ray of the shoulder is neg ative. x-ray of the left wrist is negative, although limited - Medical Decision Making Differential diagnosis, including but not limited to: Intracranial injury, alcohol withdrawal, respiratory failure, multiple abrasions, debility, electrolyte derangement wrist injury Assessment and plan: 58-year-old male who is tachycardic and tremulous with active tongue fasciculations. Patient in active alcohol withdrawal. He does not have delirium tremens yet. He is clinically sober at this time, does not require a 1013. Patient will be started on alcohol withdrawal protocol, ciwa protocol. Patient very orthostatic when he goes from a supine to sitting position his heart rate increases to 120 bpm. His arterial blood gas demonstrated hypoxemic respiratory failure. The patient is not on home oxygen. Patient will be medicated with Valium, IV fluids, banana bag, he requires hospital admission for medical optimization. His left wrist is tender and will be placed in a left thumb spica splint. He is to follow-up with orthopedics for this as an outpatient. He is also given a tetanus vaccination. Case was presented to the Hospital physician, Dr. Childers, who accepted the patient to the medical service on behalf of Dr. Beverly Critical care attestation.: If time is entered above; I have spent that time in minutes in the direct care of this critically ill patient, excluding procedure time. ED Disposition Clinical Impression: Alcohol withdrawal, Hypoxemic respiratory failure, chronic Disposition: 09 OP ADMIT IP TO THIS HOSP Is pt being admited?: Yes Condition: Fair Referrals: PRIMARY CARE, [Primary Care Provider] - 3-5 Days
[2018-03-21 09:15] LABS: Albumin 3.4 g/dL (3.9-5); Bilirubin,Direct 0.4 mg/dL (0-0.2)
[2018-03-21] MEDS ORDERED: VITAMIN B-1 100 MG, FOLVITE 1 MG, INFUVITE 10 ML in NACL 0.9% 1000 ML 1,000 ML IV ONE ×2 (09:37→09:41)
--- NOTE | 2018-03-21 09:41 | History and Physical Report ---
History of Present Illness Date of examination: 03/21/18 Date of admission: 03/21/18 08:47 Chief complaint: shortness of breath History of present illness: This is a 58-year-old male who is homeless, with a history of COPD, alcohol abuse, presnted to the ED on account of shortness of breath, syncope and generalized weakness. He's had a number of mechanical falls. He has been consuming alcohol. His last drink was over 24 hours ago. He reports that he feels shaky and tremulous. He complains of right shoulder pain, and left thumb and left wrist pain. He is not homicidal or suicidal. He denies urinary symptoms. He feels weak and tremulous. He denies chest pain. He has chronic shortness of breath. He has a dry nonproductive cough. Patient can't recall how he fell. He may of had a loss of consciousness. He indicated he does not know how long he was out. On admission to the Ed, Pt has elevated BUN, creatinine and total CK. Xray of the shoulder and left wrist showed no fracture of dislocation. Past History Past Medical History: COPD Medications and Allergies Allergies Allergy/AdvReac Type Severity Reaction Status Date / Time Cephalosporins Allergy Anaphylaxis Verified 06/17/17 18:14 Home Medications Medication Instructions Recorded Confirmed Last Taken Type ALBUTEROL Inhaler [ProAir HFA 2 puff IH Q4-6H PRN #0 11/05/16 03/21/18 11/29/16 History Inhaler] Active Meds: Active Medications Diazepam (Valium) 5 mg IV ONCE ONE Stop: 03/21/18 08:42 Lorazepam (Ativan) 2 mg IV Q1HR PRN PRN Reason: CIWA-Ar 8-15 Lorazepam (Ativan) 4 mg IV Q1HR PRN PRN Reason: CIWA-Ar 16-25 Review of Systems Constitutional: no weight loss, no weight gain, no fever Cardiovascular: no chest pain, no orthopnea, no palpitations Respiratory: cough, no cough with sputum, no excessive sputum Gastrointestinal: no abdominal pain, no nausea, no vomiting Genitourinary Male: no dysuria, no hematuria, no flank pain, no discharge Rectal: no pain, no incontinence Musculoskeletal: no neck stiffness, no neck pain Neurological: no head injury, no transient paralysis, no paralysis Psychiatric: no anxiety, no memory loss, no change in sleep habits Endocrine: no cold intolerance, no heat intolerance, no polyphagia, no excessive thirst Hematologic/Lymphatic: no easy bruising, no easy bleeding Allergic/Immunologic: no urticaria, no allergic rhinitis Exam - Constitutional Vitals: Temp Pulse Resp BP Pulse Ox 99.0 F 103 H 20 115/88 91 03/21/18 08:39 03/21/18 08:39 03/21/18 08:39 03/21/18 08:39 03/21/18 08:39 General appearance: Present: no acute distress, well-nourished - EENT Eyes: Present: PERRL - Neck Neck: Present: supple, normal ROM - Respiratory Respiratory effort: normal Respiratory: bilateral: diminished - Cardiovascular Heart Sounds: Present: S1 & S2. Absent: rub, click - Extremities Extremities: pulses symmetrical, No edema Peripheral Pulses: within normal limits - Abdominal General gastrointestinal: Present: soft, non-tender, non-distended, normal bowel sounds Male genitourinary: Present: normal - Integumentary Integumentary: Present: clear, warm, dry - Musculoskeletal Musculoskeletal: gait normal, strength equal bilaterally - Psychiatric Psychiatric: appropriate mood/affect, intact judgment & insight - Neurologic Neurologic: CNII-XII intact, moves all extremities Results - Labs CBC & Chem 7: 03/22/18 05:39 03/22/18 05:39 Labs: Abnormal lab results 03/21/18 03/21/18 03/21/18 Range/Units 02:59 02:59 08:46 Hgb 16.0 H (11.8-15.2) gm/dl Hct 46.3 H (35.5-45.6) % MCV 97 H (84-94) fl MCH 34 H (28-32) pg MCHC 35 H (32-34) % Plt Count 102 L (140-440) K/mm3 Lymph % (Auto) 36.1 H (13.4-35.0) % Garza % (Auto) 9.8 H (0.0-7.3) % POC ABG pO2 (80-105) Sodium 135 L (137-145) mmol/L Chloride 94.9 L (98-107) mmol/L BUN 4 L (9-20) mg/dL Creatinine 0.4 L (0.8-1.5) mg/dL Lactic Acid (0.7-2.0) mmol/L Calcium 7.9 L (8.4-10.2) mg/dL Direct Bilirubin 0.4 H (0-0.2) mg/dL AST 138 H (5-40) units/L ALT 69 H (7-56) units/L Total Creatine Kinase 316 H (55-170) units/L Albumin 3.4 L (3.9-5) g/dL Salicylates (2.8-20.0) mg/dL Acetaminophen (10.0-30.0) ug/mL Plasma/Serum Alcohol (0-0.07) % 03/21/18 03/21/18 03/21/18 Range/Units 08:46 08:46 08:46 Hgb (11.8-15.2) gm/dl Hct (35.5-45.6) % MCV (84-94) fl MCH (28-32) pg MCHC (32-34) % Plt Count (140-440) K/mm3 Lymph % (Auto) (13.4-35.0) % Garza % (Auto) (0.0-7.3) % POC ABG pO2 (80-105) Sodium (137-145) mmol/L Chloride (98-107) mmol/L BUN (9-20) mg/dL Creatinine (0.8-1.5) mg/dL Lactic Acid 2.30 H* (0.7-2.0) mmol/L Calcium (8.4-10.2) mg/dL Direct Bilirubin (0-0.2) mg/dL AST (5-40) units/L ALT (7-56) units/L Total Creatine Kinase (55-170) units/L Albumin (3.9-5) g/dL Salicylates < 0.3 L (2.8-20.0) mg/dL Acetaminophen < 5.0 L (10.0-30.0) ug/mL Plasma/Serum Alcohol (0-0.07) % 03/21/18 03/21/18 Range/Units 08:46 08:51 Hgb (11.8-15.2) gm/dl Hct (35.5-45.6) % MCV (84-94) fl MCH (28-32) pg MCHC (32-34) % Plt Count (140-440) K/mm3 Lymph % (Auto) (13.4-35.0) % Garza % (Auto) (0.0-7.3) % POC ABG pO2 52 L (80-105) Sodium (137-145) mmol/L Chloride (98-107) mmol/L BUN (9-20) mg/dL Creatinine (0.8-1.5) mg/dL Lactic Acid (0.7-2.0) mmol/L Calcium (8.4-10.2) mg/dL Direct Bilirubin (0-0.2) mg/dL AST (5-40) units/L ALT (7-56) units/L Total Creatine Kinase (55-170) units/L Albumin (3.9-5) g/dL Salicylates (2.8-20.0) mg/dL Acetaminophen (10.0-30.0) ug/mL Plasma/Serum Alcohol 0.14 H (0-0.07) % Assessment and Plan Admit tele - COPD exercebation Oxygen bronchodilator IV solumedrol iv antibiotic - Acute renal failure from ATN IV hydration and serial BUN and CR UN, Renal US - ETOH abuse DT prcaution CIWA protocol with ativan iv Banana bag Thiamine and folic acid - Rhabdomyelysis iv Hydration Daily Total CK -Right and left shoulder pain secondry to fall Jorge shoulder Xray were normal - left wrist strain Xray showed no Fx or dislocation -Hyperglycemia Get A1c monitor glucose - DVT PPx with lovenox and GI with pepcid Spent 35 min during admission process
[2018-03-21] MEDS ORDERED: ATIVAN ONE (09:58)
[2018-03-21] MEDS: ATIVAN IV PRN ×3 (10:08→20:38)
[2018-03-21] MEDS ORDERED: CALCIUM GLUCONATE 1,000 MG in NACL 0.9% 100 ML IV ONE (10:30)
[2018-03-21] MEDS ORDERED: PROVENTIL IH PRN (10:52)
[2018-03-21] MEDS: 1: FOLVITE 1 MG, INFUVITE 10 ML, VITAMIN B-1 100 MG in NACL 0.9% 1000 ML 988.8 ML 2: NA IV SCH ×2 (12:00→20:29)
[2018-03-21] MEDS: DUONEB *Not for PRN Use IH SCH ×3 (14:33→20:00)
--- NOTE | 2018-03-21 14:58 | XRay Report ---
RIGHT SHOULDER, 3 VIEWS: HISTORY: right shoulder pain. Normal bone mineralization. No acute osseous injury or joint pathology is detected. The soft tissues are unremarkable. IMPRESSION: Right shoulder within normal limits.
[2018-03-21] MEDS: BROVANA NEBU IH SCH (20:01)
[2018-03-21] MEDS: PULMICORT IH SCH (20:01)
[2018-03-21] MEDS ORDERED: NACL 0.9% 1000 ML 1,000 ML ONE (20:24)
[2018-03-21] MEDS: LOVENOX SUB-Q SCH (22:34)
[2018-03-22] MEDS: DUONEB *Not for PRN Use IH SCH ×5 (02:13→22:18)
[2018-03-22] MEDS: PULMICORT IH SCH ×3 (02:13→22:18)
[2018-03-22] MEDS: BROVANA NEBU IH SCH ×3 (02:14→22:18)
[2018-03-22 06:21] LABS: Hematocrit 45.3 % (35.5-45.6); Hemoglobin 15.5 gm/dl (11.8-15.2); Mean Corpuscular HGB Conc 34 % (32-34); Mean Corpuscular Hemoglobin 33 pg (28-32); Mean Corpuscular Volume 96 fl (84-94); Red Cell Distribution Width 14.5 % (13.2-15.2)
[2018-03-22 06:49] LABS: Alanine Aminotransferase 57 units/L (7-56); Albumin 3.1 g/dL (3.9-5); BUN/Creatinine Ratio 16; Blood Urea Nitrogen 8 mg/dL (9-20); Calcium 7.4 mg/dL (8.4-10.2); Hemolysis Index 39
[2018-03-22 06:50] LABS: Platelet Count 99 K/mm3 (140-440)
[2018-03-22 08:24] LABS: Total Cells Counted 100
[2018-03-22 08:25] LABS: Basophils % (Manual) 0 % (0.0-1.8); Eosinophils % (Manual) 0 % (0.0-4.3); Large Platelets Few; Platelet Estimate Cons; RBC Morphology Normal
--- NOTE | 2018-03-22 14:01 | Progress Note ---
Assessment and Plan Assessment and plan: This is a 58-year-old male. The patient is previously evaluated by this provider in the past. He has a past medical history of COPD, not on home oxygen. I 58-year-old man with history of alcohol abuse. His answer with generalized weakness and multiple falls. He had not had a drink in over 24 hours. - COPD exercebation Continue medical treatment - Acute renal failure ruled out, normal creatinine - ETOH abuse DT precaution CIWA protocol with ativan, added Librium around the clock iv Banana bag Thiamine and folic acid - Rhabdomyelysis iv Hydration Daily Total CK -Right and left shoulder pain secondry to fall Jorge shoulder Xray were normal - left wrist strain Xray showed no Fx or dislocation -Hyperglycemia Get A1c monitor glucose - DVT PPx with lovenox and GI with pepcid History Interval history: he has been confused, tachycardic, tremulous, feels nervous, denies sob Hospitalist Physical - Physical exam Narrative exam: General.: Appears ill, thin HEENT: Moist mucous membranes, extraocular muscles intact, no lymphadenopathy Neck: supple Cardiac: S1-S2 heard Lungs: Diminished air entry, mild wheezing Abdomen: soft , nontender, nondistended, bowel sounds positive Extremities: no edema clubbing or cyanosis Skin: no rash or lesions Neurologic: Patient is confused, tremulous all over Psych: appropriate behavior, appropriate mood, corporative, judgment intact - Constitutional Vitals: Temp Pulse Resp BP Pulse Ox 98.7 F 110 H 18 132/76 88 03/22/18 08:24 03/22/18 11:00 03/22/18 08:24 03/22/18 08:24 03/22/18 08:24 General appearance: Present: no acute distress, well-nourished Results - Labs CBC & Chem 7: 03/22/18 05:39 03/22/18 05:39 Labs: Laboratory Last Values WBC 2.3 K/mm3 (4.5-11.0) L 03/22/18 05:39 RBC 4.70 M/mm3 (3.65-5.03) 03/22/18 05:39 Hgb 15.5 gm/dl (11.8-15.2) H 03/22/18 05:39 Hct 45.3 % (35.5-45.6) 03/22/18 05:39 MCV 96 fl (84-94) H 03/22/18 05:39 MCH 33 pg (28-32) H 03/22/18 05:39 MCHC 34 % (32-34) 03/22/18 05:39 RDW 14.5 % (13.2-15.2) 03/22/18 05:39 Plt Count 99 K/mm3 (140-440) L 03/22/18 05:39 Lymph % (Auto) 36.1 % (13.4-35.0) H 03/21/18 02:59 [place] % (Auto) 9.8 % (0.0-7.3) H 03/21/18 02:59 Eos % (Auto) 1.1 % (0.0-4.3) 03/21/18 02:59 Baso % (Auto) 1.2 % (0.0-1.8) 03/21/18 02:59 Lymph # 2.2 K/mm3 (1.2-5.4) 03/21/18 02:59 [place] # 0.6 K/mm3 (0.0-0.8) 03/21/18 02:59 Eos # 0.1 K/mm3 (0.0-0.4) 03/21/18 02:59 Baso # 0.1 K/mm3 (0.0-0.1) 03/21/18 02:59 Add Manual Diff Complete 03/22/18 05:39 Total Counted 100 03/22/18 05:39 Seg Neutrophils % 51.8 % (40.0-70.0) 03/21/18 02:59 Seg Neuts % (Manual) 89.0 % (40.0-70.0) H 03/22/18 05:39 Band Neutrophils % 0 % 03/22/18 05:39 Lymphocytes % (Manual) 9.0 % (13.4-35.0) L 03/22/18 05:39 Reactive Lymphs % (Man) 0 % 03/22/18 05:39 Monocytes % (Manual) 2.0 % (0.0-7.3) 03/22/18 05:39 Eosinophils % (Manual) 0 % (0.0-4.3) 03/22/18 05:39 Basophils % (Manual) 0 % (0.0-1.8) 03/22/18 05:39 Metamyelocytes % 0 % 03/22/18 05:39 Myelocytes % 0 % 03/22/18 05:39 Promyelocytes % 0 % 03/22/18 05:39 Blast Cells % 0 % 03/22/18 05:39 Nucleated RBC % Not Reportable 03/22/18 05:39 Seg Neutrophils # 3.2 K/mm3 (1.8-7.7) 03/21/18 02:59 Seg Neutrophils # Man 2.0 K/mm3 (1.8-7.7) 03/22/18 05:39 Band Neutrophils # 0.0 K/mm3 03/22/18 05:39 Lymphocytes # (Manual) 0.2 K/mm3 (1.2-5.4) L 03/22/18 05:39 Abs React Lymphs (Man) 0.0 K/mm3 03/22/18 05:39 Monocytes # (Manual) 0.0 K/mm3 (0.0-0.8) 03/22/18 05:39 Eosinophils # (Manual) 0.0 K/mm3 (0.0-0.4) 03/22/18 05:39 Basophils # (Manual) 0.0 K/mm3 (0.0-0.1) 03/22/18 05:39 Metamyelocytes # 0.0 K/mm3 03/22/18 05:39 Myelocytes # 0.0 K/mm3 03/22/18 05:39 Promyelocytes # 0.0 K/mm3 03/22/18 05:39 Blast Cells # 0.0 K/mm3 03/22/18 05:39 WBC Morphology Not Reportable 03/22/18 05:39 Hypersegmented Neuts Not Reportable 03/22/18 05:39 Hyposegmented Neuts Not Reportable 03/22/18 05:39 Hypogranular Neuts Not Reportable 03/22/18 05:39 Smudge Cells Not Reportable 03/22/18 05:39 Toxic Granulation Not Reportable 03/22/18 05:39 Toxic Vacuolation Not Reportable 03/22/18 05:39 Dohle Bodies Not Reportable 03/22/18 05:39 Pelger-Huet Anomaly Not Reportable 03/22/18 05:39 Octavio Rods Not Reportable 03/22/18 05:39 Platelet Estimate Cons 03/22/18 05:39 Clumped Platelets Not Reportable 03/22/18 05:39 Plt Clumps, EDTA Not Reportable 03/22/18 05:39 Large Platelets Few 03/22/18 05:39 Giant Platelets Not Reportable 03/22/18 05:39 Platelet Satelliting Not Reportable 03/22/18 05:39 Plt Morphology Comment Not Reportable 03/22/18 05:39 RBC Morphology Normal 03/22/18 05:39 Dimorphic RBCs Not Reportable 03/22/18 05:39 Polychromasia Not Reportable 03/22/18 05:39 Hypochromasia Not Reportable 03/22/18 05:39 Poikilocytosis Not Reportable 03/22/18 05:39 Anisocytosis Not Reportable 03/22/18 05:39 Microcytosis Not Reportable 03/22/18 05:39 Macrocytosis Not Reportable 03/22/18 05:39 Spherocytes Not Reportable 03/22/18 05:39 Pappenheimer Bodies Not Reportable 03/22/18 05:39 Sickle Cells Not Reportable 03/22/18 05:39 Target Cells Not Reportable 03/22/18 05:39 Tear Drop Cells Not Reportable 03/22/18 05:39 Ovalocytes Not Reportable 03/22/18 05:39 Helmet Cells Not Reportable 03/22/18 05:39 [place] Bodies Not Reportable 03/22/18 05:39 [place] Rings Not Reportable 03/22/18 05:39 [place] Cells Not Reportable 03/22/18 05:39 Bite Cells Not Reportable 03/22/18 05:39 Crenated Cell Not Reportable 03/22/18 05:39 Elliptocytes Not Reportable 03/22/18 05:39 Acanthocytes (Spur) Not Reportable 03/22/18 05:39 Rouleaux Not Reportable 03/22/18 05:39 Hemoglobin C Crystals Not Reportable 03/22/18 05:39 Schistocytes Not Reportable 03/22/18 05:39 Malaria parasites Not Reportable 03/22/18 05:39 Valentin Bodies Not Reportable 03/22/18 05:39 Hem Pathologist Commnt No 03/22/18 05:39 POC ABG pH 7.424 (7.35-7.45) 03/21/18 12:54 POC ABG pCO2 36.5 (35-45) 03/21/18 12:54 POC ABG pO2 82 (80-105) 03/21/18 12:54 POC ABG HCO3 23.9 03/21/18 12:54 POC ABG Total CO2 25 03/21/18 12:54 POC ABG O2 Sat 96 03/21/18 12:54 POC ABG Base Excess -1 03/21/18 12:54 FiO2 28 % 03/21/18 12:54 Sodium 134 mmol/L (137-145) L 03/22/18 05:39 Potassium 3.8 mmol/L (3.6-5.0) 03/22/18 05:39 Chloride 95.0 mmol/L (98-107) L 03/22/18 05:39 Carbon Dioxide 22 mmol/L (22-30) 03/22/18 05:39 Anion Gap 21 mmol/L 03/22/18 05:39 BUN 8 mg/dL (9-20) L 03/22/18 05:39 Creatinine 0.5 mg/dL (0.8-1.5) L 03/22/18 05:39 Estimated GFR > 60 ml/min 03/22/18 05:39 BUN/Creatinine Ratio 16 % 03/22/18 05:39 Glucose 251 mg/dL (75-100) H 03/22/18 05:39 Lactic Acid 2.30 mmol/L (0.7-2.0) H* 03/21/18 08:46 Calcium 7.4 mg/dL (8.4-10.2) L 03/22/18 05:39 Magnesium 2.00 mg/dL (1.7-2.3) 03/21/18 08:46 Total Bilirubin 1.40 mg/dL (0.1-1.2) H 03/22/18 05:39 Direct Bilirubin 0.4 mg/dL (0-0.2) H 03/21/18 08:46 Indirect Bilirubin 0.8 mg/dL 03/21/18 08:46 AST 91 units/L (5-40) H 03/22/18 05:39 ALT 57 units/L (7-56) H 03/22/18 05:39 Alkaline Phosphatase 97 units/L (35-129) 03/22/18 05:39 Ammonia 38.0 umol/L (25-60) 03/21/18 08:46 Total Creatine Kinase 316 units/L (55-170) H 03/21/18 08:46 Troponin T < 0.010 ng/mL (0.00-0.029) 03/21/18 06:59 Total Protein 6.8 g/dL (6.3-8.2) 03/22/18 05:39 Albumin 3.1 g/dL (3.9-5) L 03/22/18 05:39 Albumin/Globulin Ratio 0.8 % 03/22/18 05:39 Salicylates < 0.3 mg/dL (2.8-20.0) L 03/21/18 08:46 Acetaminophen < 5.0 ug/mL (10.0-30.0) L 03/21/18 08:46 Plasma/Serum Alcohol 0.14 % (0-0.07) H 03/21/18 08:46
[2018-03-22] MEDS: HABITROL TD SCH (15:18)
[2018-03-22] MEDS: LIBRIUM PO SCH ×2 (15:19→21:56)
[2018-03-22] MEDS: 1: FOLVITE 1 MG, INFUVITE 10 ML, VITAMIN B-1 100 MG in NACL 0.9% 1000 ML 988.8 ML 2: NA IV SCH ×2 (15:49→15:51)
[2018-03-22] MEDS: LOVENOX SUB-Q SCH (21:50)
[2018-03-23] MEDS: DUONEB *Not for PRN Use IH SCH ×4 (02:29→20:08)
[2018-03-23] MEDS: LIBRIUM PO SCH ×4 (04:59→21:35)
[2018-03-23] MEDS: PULMICORT IH SCH ×2 (08:45→20:08)
[2018-03-23] MEDS: BROVANA NEBU IH SCH ×2 (08:45→20:08)
[2018-03-23] MEDS: HABITROL TD SCH (10:08)
[2018-03-23] MEDS: VITAMIN B-1 PO SCH (10:09)
[2018-03-23] MEDS: FOLVITE PO SCH (10:09)
[2018-03-23] MEDS: THERAGRAN Tab PO SCH (10:09)
[2018-03-23] MEDS: NACL 0.9% 1000 ML 1,000 ML IV SCH (10:17)
[2018-03-23] MEDS: ATIVAN IV PRN (18:56)
[2018-03-23] MEDS: 1: FOLVITE 1 MG, INFUVITE 10 ML, VITAMIN B-1 100 MG in NACL 0.9% 1000 ML 988.8 ML 2: NA IV SCH ×2 (19:54→19:56)
[2018-03-23] MEDS: LOVENOX SUB-Q SCH (21:39)
[2018-03-24] MEDS: ATIVAN IV PRN ×4 (01:25→23:30)
[2018-03-24] MEDS: NACL 0.9% 1000 ML 1,000 ML IV SCH ×3 (01:25→19:17)
[2018-03-24] MEDS: DUONEB *Not for PRN Use IH SCH ×4 (02:07→20:29)
[2018-03-24] MEDS: LIBRIUM PO SCH ×4 (03:43→21:39)
--- NOTE | 2018-03-24 07:18 | Progress Note ---
Assessment and Plan Assessment and plan: This is a 58-year-old male. The patient is previously evaluated by this provider in the past. He has a past medical history of COPD, not on home oxygen. I 58-year-old man with history of alcohol abuse. His answer with generalized weakness and multiple falls. He had not had a drink in over 24 hours. - COPD exercebation Continue medical treatment - Acute renal failure ruled out, normal creatinine - ETOH abuse DT precaution CIWA protocol with ativan, added Librium around the clock iv Banana bag Thiamine and folic acid - Rhabdomyelysis iv Hydration Daily Total CK -Right and left shoulder pain secondry to fall Jorge shoulder Xray were normal - left wrist strain Xray showed no Fx or dislocation -Hyperglycemia Get A1c monitor glucose - DVT PPx with lovenox and GI with pepcid History Interval history: he has been confused, tachycardic, tremulous, feels nervous, denies sob No cough, no vomiting, no focal weakness Hospitalist Physical - Physical exam Narrative exam: General.: Appears ill, thin HEENT: Moist mucous membranes, extraocular muscles intact, no lymphadenopathy Neck: supple Cardiac: S1-S2 heard Lungs: Diminished air entry, mild wheezing Abdomen: soft , nontender, nondistended, bowel sounds positive Extremities: no edema clubbing or cyanosis Skin: no rash or lesions Neurologic: Patient is confused, tremulous all over Psych: appropriate behavior, appropriate mood, corporative, judgment intact - Constitutional Vitals: Temp Pulse Resp BP Pulse Ox 98.3 F 103 H 16 142/76 93 03/23/18 21:05 03/24/18 02:18 03/24/18 02:18 03/23/18 21:05 03/23/18 21:05 General appearance: Present: no acute distress, well-nourished Results - Labs CBC & Chem 7: 03/22/18 05:39 03/22/18 05:39 Labs: Laboratory Last Values WBC 2.3 K/mm3 (4.5-11.0) L 03/22/18 05:39 RBC 4.70 M/mm3 (3.65-5.03) 03/22/18 05:39 Hgb 15.5 gm/dl (11.8-15.2) H 03/22/18 05:39 Hct 45.3 % (35.5-45.6) 03/22/18 05:39 MCV 96 fl (84-94) H 03/22/18 05:39 MCH 33 pg (28-32) H 03/22/18 05:39 MCHC 34 % (32-34) 03/22/18 05:39 RDW 14.5 % (13.2-15.2) 03/22/18 05:39 Plt Count 99 K/mm3 (140-440) L 03/22/18 05:39 Lymph % (Auto) 36.1 % (13.4-35.0) H 03/21/18 02:59 [place] % (Auto) 9.8 % (0.0-7.3) H 03/21/18 02:59 Eos % (Auto) 1.1 % (0.0-4.3) 03/21/18 02:59 Baso % (Auto) 1.2 % (0.0-1.8) 03/21/18 02:59 Lymph # 2.2 K/mm3 (1.2-5.4) 03/21/18 02:59 [place] # 0.6 K/mm3 (0.0-0.8) 03/21/18 02:59 Eos # 0.1 K/mm3 (0.0-0.4) 03/21/18 02:59 Baso # 0.1 K/mm3 (0.0-0.1) 03/21/18 02:59 Add Manual Diff Complete 03/22/18 05:39 Total Counted 100 03/22/18 05:39 Seg Neutrophils % 51.8 % (40.0-70.0) 03/21/18 02:59 Seg Neuts % (Manual) 89.0 % (40.0-70.0) H 03/22/18 05:39 Band Neutrophils % 0 % 03/22/18 05:39 Lymphocytes % (Manual) 9.0 % (13.4-35.0) L 03/22/18 05:39 Reactive Lymphs % (Man) 0 % 03/22/18 05:39 Monocytes % (Manual) 2.0 % (0.0-7.3) 03/22/18 05:39 Eosinophils % (Manual) 0 % (0.0-4.3) 03/22/18 05:39 Basophils % (Manual) 0 % (0.0-1.8) 03/22/18 05:39 Metamyelocytes % 0 % 03/22/18 05:39 Myelocytes % 0 % 03/22/18 05:39 Promyelocytes % 0 % 03/22/18 05:39 Blast Cells % 0 % 03/22/18 05:39 Nucleated RBC % Not Reportable 03/22/18 05:39 Seg Neutrophils # 3.2 K/mm3 (1.8-7.7) 03/21/18 02:59 Seg Neutrophils # Man 2.0 K/mm3 (1.8-7.7) 03/22/18 05:39 Band Neutrophils # 0.0 K/mm3 03/22/18 05:39 Lymphocytes # (Manual) 0.2 K/mm3 (1.2-5.4) L 03/22/18 05:39 Abs React Lymphs (Man) 0.0 K/mm3 03/22/18 05:39 Monocytes # (Manual) 0.0 K/mm3 (0.0-0.8) 03/22/18 05:39 Eosinophils # (Manual) 0.0 K/mm3 (0.0-0.4) 03/22/18 05:39 Basophils # (Manual) 0.0 K/mm3 (0.0-0.1) 03/22/18 05:39 Metamyelocytes # 0.0 K/mm3 03/22/18 05:39 Myelocytes # 0.0 K/mm3 03/22/18 05:39 Promyelocytes # 0.0 K/mm3 03/22/18 05:39 Blast Cells # 0.0 K/mm3 03/22/18 05:39 WBC Morphology Not Reportable 03/22/18 05:39 Hypersegmented Neuts Not Reportable 03/22/18 05:39 Hyposegmented Neuts Not Reportable 03/22/18 05:39 Hypogranular Neuts Not Reportable 03/22/18 05:39 Smudge Cells Not Reportable 03/22/18 05:39 Toxic Granulation Not Reportable 03/22/18 05:39 Toxic Vacuolation Not Reportable 03/22/18 05:39 Dohle Bodies Not Reportable 03/22/18 05:39 Pelger-Huet Anomaly Not Reportable 03/22/18 05:39 Octavio Rods Not Reportable 03/22/18 05:39 Platelet Estimate Cons 03/22/18 05:39 Clumped Platelets Not Reportable 03/22/18 05:39 Plt Clumps, EDTA Not Reportable 03/22/18 05:39 Large Platelets Few 03/22/18 05:39 Giant Platelets Not Reportable 03/22/18 05:39 Platelet Satelliting Not Reportable 03/22/18 05:39 Plt Morphology Comment Not Reportable 03/22/18 05:39 RBC Morphology Normal 03/22/18 05:39 Dimorphic RBCs Not Reportable 03/22/18 05:39 Polychromasia Not Reportable 03/22/18 05:39 Hypochromasia Not Reportable 03/22/18 05:39 Poikilocytosis Not Reportable 03/22/18 05:39 Anisocytosis Not Reportable 03/22/18 05:39 Microcytosis Not Reportable 03/22/18 05:39 Macrocytosis Not Reportable 03/22/18 05:39 Spherocytes Not Reportable 03/22/18 05:39 Pappenheimer Bodies Not Reportable 03/22/18 05:39 Sickle Cells Not Reportable 03/22/18 05:39 Target Cells Not Reportable 03/22/18 05:39 Tear Drop Cells Not Reportable 03/22/18 05:39 Ovalocytes Not Reportable 03/22/18 05:39 Helmet Cells Not Reportable 03/22/18 05:39 [place] Bodies Not Reportable 03/22/18 05:39 [place] Rings Not Reportable 03/22/18 05:39 [place] Cells Not Reportable 03/22/18 05:39 Bite Cells Not Reportable 03/22/18 05:39 Crenated Cell Not Reportable 03/22/18 05:39 Elliptocytes Not Reportable 03/22/18 05:39 Acanthocytes (Spur) Not Reportable 03/22/18 05:39 Rouleaux Not Reportable 03/22/18 05:39 Hemoglobin C Crystals Not Reportable 03/22/18 05:39 Schistocytes Not Reportable 03/22/18 05:39 Malaria parasites Not Reportable 03/22/18 05:39 Valentin Bodies Not Reportable 03/22/18 05:39 Hem Pathologist Commnt No 03/22/18 05:39 POC ABG pH 7.424 (7.35-7.45) 03/21/18 12:54 POC ABG pCO2 36.5 (35-45) 03/21/18 12:54 POC ABG pO2 82 (80-105) 03/21/18 12:54 POC ABG HCO3 23.9 03/21/18 12:54 POC ABG Total CO2 25 03/21/18 12:54 POC ABG O2 Sat 96 03/21/18 12:54 POC ABG Base Excess -1 03/21/18 12:54 FiO2 28 % 03/21/18 12:54 Sodium 134 mmol/L (137-145) L 03/22/18 05:39 Potassium 3.8 mmol/L (3.6-5.0) 03/22/18 05:39 Chloride 95.0 mmol/L (98-107) L 03/22/18 05:39 Carbon Dioxide 22 mmol/L (22-30) 03/22/18 05:39 Anion Gap 21 mmol/L 03/22/18 05:39 BUN 8 mg/dL (9-20) L 03/22/18 05:39 Creatinine 0.5 mg/dL (0.8-1.5) L 03/22/18 05:39 Estimated GFR > 60 ml/min 03/22/18 05:39 BUN/Creatinine Ratio 16 % 03/22/18 05:39 Glucose 251 mg/dL (75-100) H 03/22/18 05:39 Lactic Acid 2.30 mmol/L (0.7-2.0) H* 03/21/18 08:46 Calcium 7.4 mg/dL (8.4-10.2) L 03/22/18 05:39 Magnesium 2.00 mg/dL (1.7-2.3) 03/21/18 08:46 Total Bilirubin 1.40 mg/dL (0.1-1.2) H 03/22/18 05:39 Direct Bilirubin 0.4 mg/dL (0-0.2) H 03/21/18 08:46 Indirect Bilirubin 0.8 mg/dL 03/21/18 08:46 AST 91 units/L (5-40) H 03/22/18 05:39 ALT 57 units/L (7-56) H 03/22/18 05:39 Alkaline Phosphatase 97 units/L (35-129) 03/22/18 05:39 Ammonia 38.0 umol/L (25-60) 03/21/18 08:46 Total Creatine Kinase 316 units/L (55-170) H 03/21/18 08:46 Troponin T < 0.010 ng/mL (0.00-0.029) 03/21/18 06:59 Total Protein 6.8 g/dL (6.3-8.2) 03/22/18 05:39 Albumin 3.1 g/dL (3.9-5) L 03/22/18 05:39 Albumin/Globulin Ratio 0.8 % 03/22/18 05:39 Salicylates < 0.3 mg/dL (2.8-20.0) L 03/21/18 08:46 Acetaminophen < 5.0 ug/mL (10.0-30.0) L 03/21/18 08:46 Plasma/Serum Alcohol 0.14 % (0-0.07) H 03/21/18 08:46
[2018-03-24] MEDS: HABITROL TD SCH (09:59)
[2018-03-24] MEDS: FOLVITE PO SCH (10:00)
[2018-03-24] MEDS: THERAGRAN Tab PO SCH (10:00)
[2018-03-24] MEDS: VITAMIN B-1 PO SCH (10:00)
[2018-03-24] MEDS: PULMICORT IH SCH ×2 (10:47→20:15)
[2018-03-24] MEDS: BROVANA NEBU IH SCH ×2 (10:48→20:15)
[2018-03-24] MEDS: LOVENOX SUB-Q SCH (21:39)
[2018-03-25] MEDS: DUONEB *Not for PRN Use IH SCH ×4 (02:02→20:04)
[2018-03-25] MEDS: NACL 0.9% 1000 ML 1,000 ML IV SCH (03:34)
[2018-03-25] MEDS: LIBRIUM PO SCH ×4 (03:57→23:01)
[2018-03-25] MEDS: BROVANA NEBU IH SCH ×2 (07:54→20:03)
[2018-03-25] MEDS: PULMICORT IH SCH ×2 (07:54→20:03)
--- NOTE | 2018-03-25 10:10 | Progress Note ---
Assessment and Plan Assessment and plan: This is a 58-year-old male. The patient is previously evaluated by this provider in the past. He has a past medical history of COPD, not on home oxygen. I 58-year-old man with history of alcohol abuse. His answer with generalized weakness and multiple falls. He had not had a drink in over 24 hours. - COPD exercebation Continue medical treatment, taper steroids - Acute renal failure ruled out, normal creatinine - ETOH abuse DT precaution CIWA protocol with ativan, added Librium around the clock iv Banana bag Thiamine and folic acid - Rhabdomyelysis iv Hydration Daily Total CK -Right and left shoulder pain secondry to fall Jorge shoulder Xray were normal - left wrist strain Xray showed no Fx or dislocation -Hyperglycemia Get A1c monitor glucose - DVT PPx with lovenox and GI with pepcid History Interval history: he has been confused, tachycardic, tremulous, feels nervous, denies sob No cough, no vomiting, no focal weakness Hospitalist Physical - Physical exam Narrative exam: General.: Appears ill, thin HEENT: Moist mucous membranes, extraocular muscles intact, no lymphadenopathy Neck: supple Cardiac: S1-S2 heard Lungs: Diminished air entry, mild wheezing Abdomen: soft , nontender, nondistended, bowel sounds positive Extremities: no edema clubbing or cyanosis Skin: no rash or lesions Neurologic: Patient is confused, tremulous all over Psych: appropriate behavior, appropriate mood, corporative, judgment intact - Constitutional Vitals: Temp Pulse Resp BP Pulse Ox 97.9 F 96 H 12 158/91 95 03/25/18 07:44 03/25/18 08:04 03/25/18 08:04 03/25/18 07:44 03/25/18 07:54 General appearance: Present: no acute distress, well-nourished Results - Labs CBC & Chem 7: 03/22/18 05:39 03/22/18 05:39 Labs: Laboratory Last Values WBC 2.3 K/mm3 (4.5-11.0) L 03/22/18 05:39 RBC 4.70 M/mm3 (3.65-5.03) 03/22/18 05:39 Hgb 15.5 gm/dl (11.8-15.2) H 03/22/18 05:39 Hct 45.3 % (35.5-45.6) 03/22/18 05:39 MCV 96 fl (84-94) H 03/22/18 05:39 MCH 33 pg (28-32) H 03/22/18 05:39 MCHC 34 % (32-34) 03/22/18 05:39 RDW 14.5 % (13.2-15.2) 03/22/18 05:39 Plt Count 99 K/mm3 (140-440) L 03/22/18 05:39 Lymph % (Auto) 36.1 % (13.4-35.0) H 03/21/18 02:59 [place] % (Auto) 9.8 % (0.0-7.3) H 03/21/18 02:59 Eos % (Auto) 1.1 % (0.0-4.3) 03/21/18 02:59 Baso % (Auto) 1.2 % (0.0-1.8) 03/21/18 02:59 Lymph # 2.2 K/mm3 (1.2-5.4) 03/21/18 02:59 [place] # 0.6 K/mm3 (0.0-0.8) 03/21/18 02:59 Eos # 0.1 K/mm3 (0.0-0.4) 03/21/18 02:59 Baso # 0.1 K/mm3 (0.0-0.1) 03/21/18 02:59 Add Manual Diff Complete 03/22/18 05:39 Total Counted 100 03/22/18 05:39 Seg Neutrophils % 51.8 % (40.0-70.0) 03/21/18 02:59 Seg Neuts % (Manual) 89.0 % (40.0-70.0) H 03/22/18 05:39 Band Neutrophils % 0 % 03/22/18 05:39 Lymphocytes % (Manual) 9.0 % (13.4-35.0) L 03/22/18 05:39 Reactive Lymphs % (Man) 0 % 03/22/18 05:39 Monocytes % (Manual) 2.0 % (0.0-7.3) 03/22/18 05:39 Eosinophils % (Manual) 0 % (0.0-4.3) 03/22/18 05:39 Basophils % (Manual) 0 % (0.0-1.8) 03/22/18 05:39 Metamyelocytes % 0 % 03/22/18 05:39 Myelocytes % 0 % 03/22/18 05:39 Promyelocytes % 0 % 03/22/18 05:39 Blast Cells % 0 % 03/22/18 05:39 Nucleated RBC % Not Reportable 03/22/18 05:39 Seg Neutrophils # 3.2 K/mm3 (1.8-7.7) 03/21/18 02:59 Seg Neutrophils # Man 2.0 K/mm3 (1.8-7.7) 03/22/18 05:39 Band Neutrophils # 0.0 K/mm3 03/22/18 05:39 Lymphocytes # (Manual) 0.2 K/mm3 (1.2-5.4) L 03/22/18 05:39 Abs React Lymphs (Man) 0.0 K/mm3 03/22/18 05:39 Monocytes # (Manual) 0.0 K/mm3 (0.0-0.8) 03/22/18 05:39 Eosinophils # (Manual) 0.0 K/mm3 (0.0-0.4) 03/22/18 05:39 Basophils # (Manual) 0.0 K/mm3 (0.0-0.1) 03/22/18 05:39 Metamyelocytes # 0.0 K/mm3 03/22/18 05:39 Myelocytes # 0.0 K/mm3 03/22/18 05:39 Promyelocytes # 0.0 K/mm3 03/22/18 05:39 Blast Cells # 0.0 K/mm3 03/22/18 05:39 WBC Morphology Not Reportable 03/22/18 05:39 Hypersegmented Neuts Not Reportable 03/22/18 05:39 Hyposegmented Neuts Not Reportable 03/22/18 05:39 Hypogranular Neuts Not Reportable 03/22/18 05:39 Smudge Cells Not Reportable 03/22/18 05:39 Toxic Granulation Not Reportable 03/22/18 05:39 Toxic Vacuolation Not Reportable 03/22/18 05:39 Dohle Bodies Not Reportable 03/22/18 05:39 Pelger-Huet Anomaly Not Reportable 03/22/18 05:39 Octavio Rods Not Reportable 03/22/18 05:39 Platelet Estimate Cons 03/22/18 05:39 Clumped Platelets Not Reportable 03/22/18 05:39 Plt Clumps, EDTA Not Reportable 03/22/18 05:39 Large Platelets Few 03/22/18 05:39 Giant Platelets Not Reportable 03/22/18 05:39 Platelet Satelliting Not Reportable 03/22/18 05:39 Plt Morphology Comment Not Reportable 03/22/18 05:39 RBC Morphology Normal 03/22/18 05:39 Dimorphic RBCs Not Reportable 03/22/18 05:39 Polychromasia Not Reportable 03/22/18 05:39 Hypochromasia Not Reportable 03/22/18 05:39 Poikilocytosis Not Reportable 03/22/18 05:39 Anisocytosis Not Reportable 03/22/18 05:39 Microcytosis Not Reportable 03/22/18 05:39 Macrocytosis Not Reportable 03/22/18 05:39 Spherocytes Not Reportable 03/22/18 05:39 Pappenheimer Bodies Not Reportable 03/22/18 05:39 Sickle Cells Not Reportable 03/22/18 05:39 Target Cells Not Reportable 03/22/18 05:39 Tear Drop Cells Not Reportable 03/22/18 05:39 Ovalocytes Not Reportable 03/22/18 05:39 Helmet Cells Not Reportable 03/22/18 05:39 [place] Bodies Not Reportable 03/22/18 05:39 [place] Rings Not Reportable 03/22/18 05:39 [place] Cells Not Reportable 03/22/18 05:39 Bite Cells Not Reportable 03/22/18 05:39 Crenated Cell Not Reportable 03/22/18 05:39 Elliptocytes Not Reportable 03/22/18 05:39 Acanthocytes (Spur) Not Reportable 03/22/18 05:39 Rouleaux Not Reportable 03/22/18 05:39 Hemoglobin C Crystals Not Reportable 03/22/18 05:39 Schistocytes Not Reportable 03/22/18 05:39 Malaria parasites Not Reportable 03/22/18 05:39 Valentin Bodies Not Reportable 03/22/18 05:39 Hem Pathologist Commnt No 03/22/18 05:39 POC ABG pH 7.424 (7.35-7.45) 03/21/18 12:54 POC ABG pCO2 36.5 (35-45) 03/21/18 12:54 POC ABG pO2 82 (80-105) 03/21/18 12:54 POC ABG HCO3 23.9 03/21/18 12:54 POC ABG Total CO2 25 03/21/18 12:54 POC ABG O2 Sat 96 03/21/18 12:54 POC ABG Base Excess -1 03/21/18 12:54 FiO2 28 % 03/21/18 12:54 Sodium 134 mmol/L (137-145) L 03/22/18 05:39 Potassium 3.8 mmol/L (3.6-5.0) 03/22/18 05:39 Chloride 95.0 mmol/L (98-107) L 03/22/18 05:39 Carbon Dioxide 22 mmol/L (22-30) 03/22/18 05:39 Anion Gap 21 mmol/L 03/22/18 05:39 BUN 8 mg/dL (9-20) L 03/22/18 05:39 Creatinine 0.5 mg/dL (0.8-1.5) L 03/22/18 05:39 Estimated GFR > 60 ml/min 03/22/18 05:39 BUN/Creatinine Ratio 16 % 03/22/18 05:39 Glucose 251 mg/dL (75-100) H 03/22/18 05:39 Lactic Acid 2.30 mmol/L (0.7-2.0) H* 03/21/18 08:46 Calcium 7.4 mg/dL (8.4-10.2) L 03/22/18 05:39 Magnesium 2.00 mg/dL (1.7-2.3) 03/21/18 08:46 Total Bilirubin 1.40 mg/dL (0.1-1.2) H 03/22/18 05:39 Direct Bilirubin 0.4 mg/dL (0-0.2) H 03/21/18 08:46 Indirect Bilirubin 0.8 mg/dL 03/21/18 08:46 AST 91 units/L (5-40) H 03/22/18 05:39 ALT 57 units/L (7-56) H 03/22/18 05:39 Alkaline Phosphatase 97 units/L (35-129) 03/22/18 05:39 Ammonia 38.0 umol/L (25-60) 03/21/18 08:46 Total Creatine Kinase 316 units/L (55-170) H 03/21/18 08:46 Troponin T < 0.010 ng/mL (0.00-0.029) 03/21/18 06:59 Total Protein 6.8 g/dL (6.3-8.2) 03/22/18 05:39 Albumin 3.1 g/dL (3.9-5) L 03/22/18 05:39 Albumin/Globulin Ratio 0.8 % 03/22/18 05:39 Salicylates < 0.3 mg/dL (2.8-20.0) L 03/21/18 08:46 Acetaminophen < 5.0 ug/mL (10.0-30.0) L 03/21/18 08:46 Plasma/Serum Alcohol 0.14 % (0-0.07) H 03/21/18 08:46
[2018-03-25 11:03] LABS: Hematocrit 40.8 % (35.5-45.6); Hemoglobin 13.9 gm/dl (11.8-15.2); Mean Corpuscular HGB Conc 34 % (32-34); Mean Corpuscular Hemoglobin 33 pg (28-32); Mean Corpuscular Volume 97 fl (84-94); Platelet Count 130 K/mm3 (140-440); Red Blood Count 4.19 M/mm3 (3.65-5.03); Red Cell Distribution Width 14.1 % (13.2-15.2)
[2018-03-25 11:13] LABS: BUN/Creatinine Ratio 24; Blood Urea Nitrogen 12 mg/dL (9-20); Calcium 7.7 mg/dL (8.4-10.2); Hemolysis Index 11
[2018-03-25] MEDS: THERAGRAN Tab PO SCH (12:09)
[2018-03-25] MEDS: HABITROL TD SCH (12:10)
[2018-03-25] MEDS: FOLVITE PO SCH (12:10)
[2018-03-25] MEDS: VITAMIN B-1 PO SCH (12:10)
[2018-03-25] MEDS: LOVENOX SUB-Q SCH (22:58)
[2018-03-25] MEDS: ATIVAN IV PRN (22:59)
[2018-03-26] MEDS: DUONEB *Not for PRN Use IH SCH ×4 (01:55→20:21)
[2018-03-26] MEDS: NACL 0.9% 1000 ML 1,000 ML IV SCH ×3 (03:21→17:58)
[2018-03-26] MEDS: LIBRIUM PO SCH ×4 (03:23→23:30)
[2018-03-26] MEDS: PULMICORT IH SCH ×2 (08:15→20:07)
[2018-03-26] MEDS: BROVANA NEBU IH SCH ×2 (08:15→20:07)
[2018-03-26] MEDS: HABITROL TD SCH (09:55)
[2018-03-26] MEDS: VITAMIN B-1 PO SCH (09:55)
[2018-03-26] MEDS: THERAGRAN Tab PO SCH (09:56)
[2018-03-26] MEDS: FOLVITE PO SCH (09:56)
--- NOTE | 2018-03-26 10:29 | Progress Note ---
Assessment and Plan Assessment and plan: This is a 58-year-old male. The patient is previously evaluated by this provider in the past. He has a past medical history of COPD, not on home oxygen. I 58-year-old man with history of alcohol abuse. His answer with generalized weakness and multiple falls. He had not had a drink in over 24 hours. - COPD exercebation Continue medical treatment, taper steroids - Acute renal failure ruled out, normal creatinine - ETOH abuse DT precaution CIWA protocol with ativan, added Librium around the clock iv Banana bag Thiamine and folic acid - Rhabdomyelysis iv Hydration Daily Total CK -Right and left shoulder pain secondry to fall Jorge shoulder Xray were normal - left wrist strain Xray showed no Fx or dislocation -Hyperglycemia Get A1c monitor glucose - DVT PPx with lovenox and GI with pepcid History Interval history: he has been confused, tachycardic, tremulous, feels nervous, denies sob No cough, no vomiting, no focal weakness Hospitalist Physical - Physical exam Narrative exam: General.: Appears ill, thin HEENT: Moist mucous membranes, extraocular muscles intact, no lymphadenopathy Neck: supple Cardiac: S1-S2 heard Lungs: Diminished air entry, mild wheezing Abdomen: soft , nontender, nondistended, bowel sounds positive Extremities: no edema clubbing or cyanosis Skin: no rash or lesions Neurologic: Patient is confused, tremulous all over Psych: appropriate behavior, appropriate mood, corporative, judgment intact - Constitutional Vitals: Temp Pulse Resp BP Pulse Ox 98.6 F 98 H 19 154/88 96 03/26/18 07:45 03/26/18 07:45 03/26/18 07:45 03/26/18 07:45 03/26/18 07:45 General appearance: Present: no acute distress, well-nourished Results - Labs CBC & Chem 7: 03/25/18 10:18 03/26/18 13:29 Labs: Laboratory Last Values WBC 4.6 K/mm3 (4.5-11.0) 03/25/18 10:18 RBC 4.19 M/mm3 (3.65-5.03) 03/25/18 10:18 Hgb 13.9 gm/dl (11.8-15.2) 03/25/18 10:18 Hct 40.8 % (35.5-45.6) 03/25/18 10:18 MCV 97 fl (84-94) H 03/25/18 10:18 MCH 33 pg (28-32) H 03/25/18 10:18 MCHC 34 % (32-34) 03/25/18 10:18 RDW 14.1 % (13.2-15.2) 03/25/18 10:18 Plt Count 130 K/mm3 (140-440) L 03/25/18 10:18 Lymph % (Auto) 36.1 % (13.4-35.0) H 03/21/18 02:59 [place] % (Auto) 9.8 % (0.0-7.3) H 03/21/18 02:59 Eos % (Auto) 1.1 % (0.0-4.3) 03/21/18 02:59 Baso % (Auto) 1.2 % (0.0-1.8) 03/21/18 02:59 Lymph # 2.2 K/mm3 (1.2-5.4) 03/21/18 02:59 [place] # 0.6 K/mm3 (0.0-0.8) 03/21/18 02:59 Eos # 0.1 K/mm3 (0.0-0.4) 03/21/18 02:59 Baso # 0.1 K/mm3 (0.0-0.1) 03/21/18 02:59 Add Manual Diff Complete 03/22/18 05:39 Total Counted 100 03/22/18 05:39 Seg Neutrophils % 51.8 % (40.0-70.0) 03/21/18 02:59 Seg Neuts % (Manual) 89.0 % (40.0-70.0) H 03/22/18 05:39 Band Neutrophils % 0 % 03/22/18 05:39 Lymphocytes % (Manual) 9.0 % (13.4-35.0) L 03/22/18 05:39 Reactive Lymphs % (Man) 0 % 03/22/18 05:39 Monocytes % (Manual) 2.0 % (0.0-7.3) 03/22/18 05:39 Eosinophils % (Manual) 0 % (0.0-4.3) 03/22/18 05:39 Basophils % (Manual) 0 % (0.0-1.8) 03/22/18 05:39 Metamyelocytes % 0 % 03/22/18 05:39 Myelocytes % 0 % 03/22/18 05:39 Promyelocytes % 0 % 03/22/18 05:39 Blast Cells % 0 % 03/22/18 05:39 Nucleated RBC % Not Reportable 03/22/18 05:39 Seg Neutrophils # 3.2 K/mm3 (1.8-7.7) 03/21/18 02:59 Seg Neutrophils # Man 2.0 K/mm3 (1.8-7.7) 03/22/18 05:39 Band Neutrophils # 0.0 K/mm3 03/22/18 05:39 Lymphocytes # (Manual) 0.2 K/mm3 (1.2-5.4) L 03/22/18 05:39 Abs React Lymphs (Man) 0.0 K/mm3 03/22/18 05:39 Monocytes # (Manual) 0.0 K/mm3 (0.0-0.8) 03/22/18 05:39 Eosinophils # (Manual) 0.0 K/mm3 (0.0-0.4) 03/22/18 05:39 Basophils # (Manual) 0.0 K/mm3 (0.0-0.1) 03/22/18 05:39 Metamyelocytes # 0.0 K/mm3 03/22/18 05:39 Myelocytes # 0.0 K/mm3 03/22/18 05:39 Promyelocytes # 0.0 K/mm3 03/22/18 05:39 Blast Cells # 0.0 K/mm3 03/22/18 05:39 WBC Morphology Not Reportable 03/22/18 05:39 Hypersegmented Neuts Not Reportable 03/22/18 05:39 Hyposegmented Neuts Not Reportable 03/22/18 05:39 Hypogranular Neuts Not Reportable 03/22/18 05:39 Smudge Cells Not Reportable 03/22/18 05:39 Toxic Granulation Not Reportable 03/22/18 05:39 Toxic Vacuolation Not Reportable 03/22/18 05:39 Dohle Bodies Not Reportable 03/22/18 05:39 Pelger-Huet Anomaly Not Reportable 03/22/18 05:39 Octavio Rods Not Reportable 03/22/18 05:39 Platelet Estimate Cons 03/22/18 05:39 Clumped Platelets Not Reportable 03/22/18 05:39 Plt Clumps, EDTA Not Reportable 03/22/18 05:39 Large Platelets Few 03/22/18 05:39 Giant Platelets Not Reportable 03/22/18 05:39 Platelet Satelliting Not Reportable 03/22/18 05:39 Plt Morphology Comment Not Reportable 03/22/18 05:39 RBC Morphology Normal 03/22/18 05:39 Dimorphic RBCs Not Reportable 03/22/18 05:39 Polychromasia Not Reportable 03/22/18 05:39 Hypochromasia Not Reportable 03/22/18 05:39 Poikilocytosis Not Reportable 03/22/18 05:39 Anisocytosis Not Reportable 03/22/18 05:39 Microcytosis Not Reportable 03/22/18 05:39 Macrocytosis Not Reportable 03/22/18 05:39 Spherocytes Not Reportable 03/22/18 05:39 Pappenheimer Bodies Not Reportable 03/22/18 05:39 Sickle Cells Not Reportable 03/22/18 05:39 Target Cells Not Reportable 03/22/18 05:39 Tear Drop Cells Not Reportable 03/22/18 05:39 Ovalocytes Not Reportable 03/22/18 05:39 Helmet Cells Not Reportable 03/22/18 05:39 Vicente[place] Bodies Not Reportable 03/22/18 05:39 [place] Rings Not Reportable 03/22/18 05:39 [place] Cells Not Reportable 03/22/18 05:39 Bite Cells Not Reportable 03/22/18 05:39 Crenated Cell Not Reportable 03/22/18 05:39 Elliptocytes Not Reportable 03/22/18 05:39 Acanthocytes (Spur) Not Reportable 03/22/18 05:39 Rouleaux Not Reportable 03/22/18 05:39 Hemoglobin C Crystals Not Reportable 03/22/18 05:39 Schistocytes Not Reportable 03/22/18 05:39 Malaria parasites Not Reportable 03/22/18 05:39 Valentin Bodies Not Reportable 03/22/18 05:39 Hem Pathologist Commnt No 03/22/18 05:39 POC ABG pH 7.424 (7.35-7.45) 03/21/18 12:54 POC ABG pCO2 36.5 (35-45) 03/21/18 12:54 POC ABG pO2 82 (80-105) 03/21/18 12:54 POC ABG HCO3 23.9 03/21/18 12:54 POC ABG Total CO2 25 03/21/18 12:54 POC ABG O2 Sat 96 03/21/18 12:54 POC ABG Base Excess -1 03/21/18 12:54 FiO2 28 % 03/21/18 12:54 Sodium 136 mmol/L (137-145) L 03/25/18 10:18 Potassium 3.2 mmol/L (3.6-5.0) L 03/25/18 10:18 Chloride 101.5 mmol/L (98-107) 03/25/18 10:18 Carbon Dioxide 22 mmol/L (22-30) 03/25/18 10:18 Anion Gap 16 mmol/L 03/25/18 10:18 BUN 12 mg/dL (9-20) 03/25/18 10:18 Creatinine 0.5 mg/dL (0.8-1.5) L 03/25/18 10:18 Estimated GFR > 60 ml/min 03/25/18 10:18 BUN/Creatinine Ratio 24 % 03/25/18 10:18 Glucose 174 mg/dL (75-100) H 03/25/18 10:18 Hemoglobin A1c 4.8 % (4-6) 03/25/18 10:18 Lactic Acid 2.30 mmol/L (0.7-2.0) H* 03/21/18 08:46 Calcium 7.7 mg/dL (8.4-10.2) L 03/25/18 10:18 Phosphorus 2.90 mg/dL (2.5-4.5) 03/25/18 10:18 Magnesium 1.90 mg/dL (1.7-2.3) 03/25/18 10:18 Total Bilirubin 1.40 mg/dL (0.1-1.2) H 03/22/18 05:39 Direct Bilirubin 0.4 mg/dL (0-0.2) H 03/21/18 08:46 Indirect Bilirubin 0.8 mg/dL 03/21/18 08:46 AST 91 units/L (5-40) H 03/22/18 05:39 ALT 57 units/L (7-56) H 03/22/18 05:39 Alkaline Phosphatase 97 units/L (35-129) 03/22/18 05:39 Ammonia 38.0 umol/L (25-60) 03/21/18 08:46 Total Creatine Kinase 316 units/L (55-170) H 03/21/18 08:46 Troponin T < 0.010 ng/mL (0.00-0.029) 03/21/18 06:59 Total Protein 6.8 g/dL (6.3-8.2) 03/22/18 05:39 Albumin 3.1 g/dL (3.9-5) L 03/22/18 05:39 Albumin/Globulin Ratio 0.8 % 03/22/18 05:39 Salicylates < 0.3 mg/dL (2.8-20.0) L 03/21/18 08:46 Acetaminophen < 5.0 ug/mL (10.0-30.0) L 03/21/18 08:46 Plasma/Serum Alcohol 0.14 % (0-0.07) H 03/21/18 08:46
[2018-03-26 14:03] LABS: BUN/Creatinine Ratio 22; Blood Urea Nitrogen 11 mg/dL (9-20); Calcium 7.7 mg/dL (8.4-10.2); Hemolysis Index 10
[2018-03-26] MEDS: LOVENOX SUB-Q SCH (22:24)
[2018-03-27] MEDS: NACL 0.9% 1000 ML 1,000 ML IV SCH ×3 (01:48→17:46)
[2018-03-27] MEDS: DUONEB *Not for PRN Use IH SCH ×4 (02:33→21:53)
[2018-03-27] MEDS: LIBRIUM PO SCH ×3 (04:18→22:34)
[2018-03-27] MEDS: BROVANA NEBU IH SCH ×2 (08:07→20:09)
[2018-03-27] MEDS: PULMICORT IH SCH ×2 (08:15→20:09)
[2018-03-27] MEDS: THERAGRAN Tab PO SCH (09:49)
[2018-03-27] MEDS: FOLVITE PO SCH (09:49)
[2018-03-27] MEDS: VITAMIN B-1 PO SCH (09:49)
[2018-03-27] MEDS: HABITROL TD SCH (09:49)
--- NOTE | 2018-03-27 13:40 | Progress Note ---
Assessment and Plan Assessment and plan: This is a 58-year-old male. The patient is previously evaluated by this provider in the past. He has a past medical history of COPD, not on home oxygen. I 58-year-old man with history of alcohol abuse. His answer with generalized weakness and multiple falls. He had not had a drink in over 24 hours. - COPD exercebation Continue medical treatment, taper steroids - Acute renal failure ruled out, normal creatinine - ETOH abuse DT precaution CIWA protocol with ativan, taper librium dose iv Banana bag Thiamine and folic acid - Rhabdomyelysis iv Hydration Daily Total CK -Right and left shoulder pain secondary to fall Jorge shoulder Xray were normal - left wrist strain Xray showed no Fx or dislocation -Hyperglycemia Get A1c monitor glucose - DVT PPx with lovenox and GI with pepcid Debility: pt has recommended subacute rehab. History Interval history: he has been confused, no longer tremulous, but drowsy No cough, no vomiting, no focal weakness Hospitalist Physical - Physical exam Narrative exam: General.: Appears ill, thin HEENT: Moist mucous membranes, extraocular muscles intact, no lymphadenopathy Neck: supple Cardiac: S1-S2 heard Lungs: Diminished air entry, mild wheezing Abdomen: soft , nontender, nondistended, bowel sounds positive Extremities: no edema clubbing or cyanosis Skin: no rash or lesions Neurologic: Patient is confused, but calm Psych: appropriate behavior, appropriate mood, corporative, judgment intact - Constitutional Vitals: Temp Pulse Resp BP Pulse Ox 97.5 F L 88 19 160/90 94 03/27/18 07:47 03/27/18 08:09 03/27/18 08:09 03/27/18 07:47 03/27/18 08:10 General appearance: Present: no acute distress, well-nourished Results - Labs CBC & Chem 7: 03/25/18 10:18 03/26/18 13:29 Labs: Laboratory Last Values WBC 4.6 K/mm3 (4.5-11.0) 03/25/18 10:18 RBC 4.19 M/mm3 (3.65-5.03) 03/25/18 10:18 Hgb 13.9 gm/dl (11.8-15.2) 03/25/18 10:18 Hct 40.8 % (35.5-45.6) 03/25/18 10:18 MCV 97 fl (84-94) H 03/25/18 10:18 MCH 33 pg (28-32) H 03/25/18 10:18 MCHC 34 % (32-34) 03/25/18 10:18 RDW 14.1 % (13.2-15.2) 03/25/18 10:18 Plt Count 130 K/mm3 (140-440) L 03/25/18 10:18 Lymph % (Auto) 36.1 % (13.4-35.0) H 03/21/18 02:59 [place] % (Auto) 9.8 % (0.0-7.3) H 03/21/18 02:59 Eos % (Auto) 1.1 % (0.0-4.3) 03/21/18 02:59 Baso % (Auto) 1.2 % (0.0-1.8) 03/21/18 02:59 Lymph # 2.2 K/mm3 (1.2-5.4) 03/21/18 02:59 [place] # 0.6 K/mm3 (0.0-0.8) 03/21/18 02:59 Eos # 0.1 K/mm3 (0.0-0.4) 03/21/18 02:59 Baso # 0.1 K/mm3 (0.0-0.1) 03/21/18 02:59 Add Manual Diff Complete 03/22/18 05:39 Total Counted 100 03/22/18 05:39 Seg Neutrophils % 51.8 % (40.0-70.0) 03/21/18 02:59 Seg Neuts % (Manual) 89.0 % (40.0-70.0) H 03/22/18 05:39 Band Neutrophils % 0 % 03/22/18 05:39 Lymphocytes % (Manual) 9.0 % (13.4-35.0) L 03/22/18 05:39 Reactive Lymphs % (Man) 0 % 03/22/18 05:39 Monocytes % (Manual) 2.0 % (0.0-7.3) 03/22/18 05:39 Eosinophils % (Manual) 0 % (0.0-4.3) 03/22/18 05:39 Basophils % (Manual) 0 % (0.0-1.8) 03/22/18 05:39 Metamyelocytes % 0 % 03/22/18 05:39 Myelocytes % 0 % 03/22/18 05:39 Promyelocytes % 0 % 03/22/18 05:39 Blast Cells % 0 % 03/22/18 05:39 Nucleated RBC % Not Reportable 03/22/18 05:39 Seg Neutrophils # 3.2 K/mm3 (1.8-7.7) 03/21/18 02:59 Seg Neutrophils # Man 2.0 K/mm3 (1.8-7.7) 03/22/18 05:39 Band Neutrophils # 0.0 K/mm3 03/22/18 05:39 Lymphocytes # (Manual) 0.2 K/mm3 (1.2-5.4) L 03/22/18 05:39 Abs React Lymphs (Man) 0.0 K/mm3 03/22/18 05:39 Monocytes # (Manual) 0.0 K/mm3 (0.0-0.8) 03/22/18 05:39 Eosinophils # (Manual) 0.0 K/mm3 (0.0-0.4) 03/22/18 05:39 Basophils # (Manual) 0.0 K/mm3 (0.0-0.1) 03/22/18 05:39 Metamyelocytes # 0.0 K/mm3 03/22/18 05:39 Myelocytes # 0.0 K/mm3 03/22/18 05:39 Promyelocytes # 0.0 K/mm3 03/22/18 05:39 Blast Cells # 0.0 K/mm3 03/22/18 05:39 WBC Morphology Not Reportable 03/22/18 05:39 Hypersegmented Neuts Not Reportable 03/22/18 05:39 Hyposegmented Neuts Not Reportable 03/22/18 05:39 Hypogranular Neuts Not Reportable 03/22/18 05:39 Smudge Cells Not Reportable 03/22/18 05:39 Toxic Granulation Not Reportable 03/22/18 05:39 Toxic Vacuolation Not Reportable 03/22/18 05:39 Dohle Bodies Not Reportable 03/22/18 05:39 Pelger-Huet Anomaly Not Reportable 03/22/18 05:39 Octavio Rods Not Reportable 03/22/18 05:39 Platelet Estimate Cons 03/22/18 05:39 Clumped Platelets Not Reportable 03/22/18 05:39 Plt Clumps, EDTA Not Reportable 03/22/18 05:39 Large Platelets Few 03/22/18 05:39 Giant Platelets Not Reportable 03/22/18 05:39 Platelet Satelliting Not Reportable 03/22/18 05:39 Plt Morphology Comment Not Reportable 03/22/18 05:39 RBC Morphology Normal 03/22/18 05:39 Dimorphic RBCs Not Reportable 03/22/18 05:39 Polychromasia Not Reportable 03/22/18 05:39 Hypochromasia Not Reportable 03/22/18 05:39 Poikilocytosis Not Reportable 03/22/18 05:39 Anisocytosis Not Reportable 03/22/18 05:39 Microcytosis Not Reportable 03/22/18 05:39 Macrocytosis Not Reportable 03/22/18 05:39 Spherocytes Not Reportable 03/22/18 05:39 Pappenheimer Bodies Not Reportable 03/22/18 05:39 Sickle Cells Not Reportable 03/22/18 05:39 Target Cells Not Reportable 03/22/18 05:39 Tear Drop Cells Not Reportable 03/22/18 05:39 Ovalocytes Not Reportable 03/22/18 05:39 Helmet Cells Not Reportable 03/22/18 05:39 Vicente-[place] Bodies Not Reportable 03/22/18 05:39 [place] Rings Not Reportable 03/22/18 05:39 [place] Cells Not Reportable 03/22/18 05:39 Bite Cells Not Reportable 03/22/18 05:39 Crenated Cell Not Reportable 03/22/18 05:39 Elliptocytes Not Reportable 03/22/18 05:39 Acanthocytes (Spur) Not Reportable 03/22/18 05:39 Rouleaux Not Reportable 03/22/18 05:39 Hemoglobin C Crystals Not Reportable 03/22/18 05:39 Schistocytes Not Reportable 03/22/18 05:39 Malaria parasites Not Reportable 03/22/18 05:39 Valentin Bodies Not Reportable 03/22/18 05:39 Hem Pathologist Commnt No 03/22/18 05:39 POC ABG pH 7.424 (7.35-7.45) 03/21/18 12:54 POC ABG pCO2 36.5 (35-45) 03/21/18 12:54 POC ABG pO2 82 (80-105) 03/21/18 12:54 POC ABG HCO3 23.9 03/21/18 12:54 POC ABG Total CO2 25 03/21/18 12:54 POC ABG O2 Sat 96 03/21/18 12:54 POC ABG Base Excess -1 03/21/18 12:54 FiO2 28 % 03/21/18 12:54 Sodium 140 mmol/L (137-145) 03/26/18 13:29 Potassium 3.3 mmol/L (3.6-5.0) L 03/26/18 13:29 Chloride 104.4 mmol/L (98-107) 03/26/18 13:29 Carbon Dioxide 25 mmol/L (22-30) 03/26/18 13:29 Anion Gap 14 mmol/L 03/26/18 13:29 BUN 11 mg/dL (9-20) 03/26/18 13:29 Creatinine 0.5 mg/dL (0.8-1.5) L 03/26/18 13:29 Estimated GFR > 60 ml/min 03/26/18 13:29 BUN/Creatinine Ratio 22 % 03/26/18 13:29 Glucose 173 mg/dL (75-100) H 03/26/18 13:29 POC Glucose 91 (70-105) 03/26/18 15:15 Hemoglobin A1c 4.8 % (4-6) 03/25/18 10:18 Lactic Acid 2.30 mmol/L (0.7-2.0) H* 03/21/18 08:46 Calcium 7.7 mg/dL (8.4-10.2) L 03/26/18 13:29 Phosphorus 2.90 mg/dL (2.5-4.5) 03/25/18 10:18 Magnesium 1.90 mg/dL (1.7-2.3) 03/25/18 10:18 Total Bilirubin 1.40 mg/dL (0.1-1.2) H 03/22/18 05:39 Direct Bilirubin 0.4 mg/dL (0-0.2) H 03/21/18 08:46 Indirect Bilirubin 0.8 mg/dL 03/21/18 08:46 AST 91 units/L (5-40) H 03/22/18 05:39 ALT 57 units/L (7-56) H 03/22/18 05:39 Alkaline Phosphatase 97 units/L (35-129) 03/22/18 05:39 Ammonia 38.0 umol/L (25-60) 03/21/18 08:46 Total Creatine Kinase 316 units/L (55-170) H 03/21/18 08:46 Troponin T < 0.010 ng/mL (0.00-0.029) 03/21/18 06:59 Total Protein 6.8 g/dL (6.3-8.2) 03/22/18 05:39 Albumin 3.1 g/dL (3.9-5) L 03/22/18 05:39 Albumin/Globulin Ratio 0.8 % 03/22/18 05:39 Salicylates < 0.3 mg/dL (2.8-20.0) L 03/21/18 08:46 Acetaminophen < 5.0 ug/mL (10.0-30.0) L 03/21/18 08:46 Plasma/Serum Alcohol 0.14 % (0-0.07) H 03/21/18 08:46
[2018-03-27] MEDS ORDERED: APRESOLINE IV PRN (18:41)
[2018-03-27] MEDS: LOVENOX SUB-Q SCH (22:34)
[2018-03-28] MEDS: NACL 0.9% 1000 ML 1,000 ML IV SCH ×2 (01:37→10:08)
[2018-03-28] MEDS: DUONEB *Not for PRN Use IH SCH ×5 (01:55→20:47)
[2018-03-28] MEDS: BROVANA NEBU IH SCH ×2 (08:50→21:11)
[2018-03-28] MEDS: PULMICORT IH SCH ×2 (08:51→20:47)
[2018-03-28] MEDS: HABITROL TD SCH (10:08)
[2018-03-28] MEDS: VITAMIN B-1 PO SCH (10:09)
[2018-03-28] MEDS: LIBRIUM PO SCH ×2 (10:09→22:42)
[2018-03-28] MEDS: FOLVITE PO SCH (10:09)
[2018-03-28] MEDS: THERAGRAN Tab PO SCH (10:09)
--- NOTE | 2018-03-28 10:14 | Progress Note ---
Assessment and Plan COPD exacerbation: On oxygen, bronchodilators, IV antibiotics, taper solu-medrol Multiple joint pain: X-ray of shoulder and wrist were normal. Pt still unable to ambulate. PT/OT. Alcohol abuse: CIWA protocol with Ativan, Thiamin and folic acid. Rhabdomyolysis: IV hydration, daily total CK. Hypokalemia: Will replete. Hyperglycemia: A1c is 4.8%, likely secondary to steroid. Disposition: PT to evaluate and will discharge to [facility] once able to ambulate. - DVT PPx with lovenox and GI with pepcid Spent 35 min during admission process Subjective Date of service: 03/28/18 Principal diagnosis: COPD exacerbation Interval history: Still unable to ambulate Objective - Constitutional Vitals: Vital Signs - 12hr 03/28/18 03/28/18 03/28/18 08:28 08:51 08:54 Temperature 97.8 F Pulse Rate 87 Pulse Rate [ Anterior Bilateral Throughout] Pulse Rate [ 89 Posterior Bilateral Throughout] Respiratory 18 Rate Respiratory Rate [Anterior Bilateral Throughout] Respiratory 18 Rate [Posterior Bilateral Throughout] Blood Pressure 145/86 O2 Sat by Pulse 95 95 Oximetry 03/28/18 03/28/18 09:11 09:13 Temperature Pulse Rate Pulse Rate [ 96 H Anterior Bilateral Throughout] Pulse Rate [ Posterior Bilateral Throughout] Respiratory Rate Respiratory 18 Rate [Anterior Bilateral Throughout] Respiratory Rate [Posterior Bilateral Throughout] Blood Pressure O2 Sat by Pulse 95 Oximetry General appearance: Present: no acute distress, well-nourished - EENT Eyes: PERRL, EOM intact ENT: hearing intact, clear oral mucosa Ears: bilateral: normal - Neck Neck: supple, normal ROM - Respiratory Respiratory effort: normal Respiratory: bilateral: CTA - Breasts Breasts: deferred - Cardiovascular Rhythm: regular Heart Sounds: Present: S1 & S2. Absent: gallop, rub Extremities: pulses intact, No edema, normal color - Gastrointestinal General gastrointestinal: Present: soft, non-tender, non-distended, normal bowel sounds - Genitourinary Male genitourinary: deferred - Integumentary Integumentary: clear, warm, dry - Musculoskeletal Musculoskeletal: other (unable to ambulate) - Neurologic Neurologic: CNII-XII intact - Psychiatric Psychiatric: cooperative - Labs CBC & Chem 7: 03/25/18 10:18 03/26/18 13:29
--- NOTE | 2018-03-28 11:50 | Progress Note ---
Assessment and Plan Assessment and plan: This is a 58-year-old male. The patient is previously evaluated by this provider in the past. He has a past medical history of COPD, not on home oxygen. I 58-year-old man with history of alcohol abuse. His answer with generalized weakness and multiple falls. He had not had a drink in over 24 hours. - COPD exercebation Continue medical treatment, taper steroids - Acute renal failure ruled out, normal creatinine - ETOH abuse DT precaution CIWA protocol with ativan, taper librium dose iv Banana bag Thiamine and folic acid - Rhabdomyelysis iv Hydration Daily Total CK -Right and left shoulder pain secondary to fall Jorge shoulder Xray were normal - left wrist strain Xray showed no Fx or dislocation -Hyperglycemia a1c 4.8, from steroids for copd monitor glucose - DVT PPx with lovenox and GI with pepcid Debility: pt has recommended subacute rehab. unsteady gait and is a fall risk has no pay source for rehab placement, continue inpatient PT until safe to go to correction History Interval history: no longer confused, no longer tremulous No cough, no vomiting, no focal weakness Hospitalist Physical - Physical exam Narrative exam: General.: Appears ill, thin HEENT: Moist mucous membranes, extraocular muscles intact, no lymphadenopathy Neck: supple Cardiac: S1-S2 heard Lungs: Diminished air entry, mild wheezing Abdomen: soft , nontender, nondistended, bowel sounds positive Extremities: no edema clubbing or cyanosis Skin: no rash or lesions Neurologic: Patient is confused, but calm Psych: appropriate behavior, appropriate mood, corporative, judgment intact - Constitutional Vitals: Temp Pulse Resp BP Pulse Ox 97.8 F 96 H 18 145/86 95 03/28/18 08:28 03/28/18 09:11 03/28/18 09:11 03/28/18 08:28 03/28/18 09:13 General appearance: Present: no acute distress, well-nourished Results - Labs CBC & Chem 7: 03/25/18 10:18 03/28/18 12:43 Labs: Laboratory Last Values WBC 4.6 K/mm3 (4.5-11.0) 03/25/18 10:18 RBC 4.19 M/mm3 (3.65-5.03) 03/25/18 10:18 Hgb 13.9 gm/dl (11.8-15.2) 03/25/18 10:18 Hct 40.8 % (35.5-45.6) 03/25/18 10:18 MCV 97 fl (84-94) H 03/25/18 10:18 MCH 33 pg (28-32) H 03/25/18 10:18 MCHC 34 % (32-34) 03/25/18 10:18 RDW 14.1 % (13.2-15.2) 03/25/18 10:18 Plt Count 130 K/mm3 (140-440) L 03/25/18 10:18 Lymph % (Auto) 36.1 % (13.4-35.0) H 03/21/18 02:59 [place] % (Auto) 9.8 % (0.0-7.3) H 03/21/18 02:59 Eos % (Auto) 1.1 % (0.0-4.3) 03/21/18 02:59 Baso % (Auto) 1.2 % (0.0-1.8) 03/21/18 02:59 Lymph # 2.2 K/mm3 (1.2-5.4) 03/21/18 02:59 [place] # 0.6 K/mm3 (0.0-0.8) 03/21/18 02:59 Eos # 0.1 K/mm3 (0.0-0.4) 03/21/18 02:59 Baso # 0.1 K/mm3 (0.0-0.1) 03/21/18 02:59 Add Manual Diff Complete 03/22/18 05:39 Total Counted 100 03/22/18 05:39 Seg Neutrophils % 51.8 % (40.0-70.0) 03/21/18 02:59 Seg Neuts % (Manual) 89.0 % (40.0-70.0) H 03/22/18 05:39 Band Neutrophils % 0 % 03/22/18 05:39 Lymphocytes % (Manual) 9.0 % (13.4-35.0) L 03/22/18 05:39 Reactive Lymphs % (Man) 0 % 03/22/18 05:39 Monocytes % (Manual) 2.0 % (0.0-7.3) 03/22/18 05:39 Eosinophils % (Manual) 0 % (0.0-4.3) 03/22/18 05:39 Basophils % (Manual) 0 % (0.0-1.8) 03/22/18 05:39 Metamyelocytes % 0 % 03/22/18 05:39 Myelocytes % 0 % 03/22/18 05:39 Promyelocytes % 0 % 03/22/18 05:39 Blast Cells % 0 % 03/22/18 05:39 Nucleated RBC % Not Reportable 03/22/18 05:39 Seg Neutrophils # 3.2 K/mm3 (1.8-7.7) 03/21/18 02:59 Seg Neutrophils # Man 2.0 K/mm3 (1.8-7.7) 03/22/18 05:39 Band Neutrophils # 0.0 K/mm3 03/22/18 05:39 Lymphocytes # (Manual) 0.2 K/mm3 (1.2-5.4) L 03/22/18 05:39 Abs React Lymphs (Man) 0.0 K/mm3 03/22/18 05:39 Monocytes # (Manual) 0.0 K/mm3 (0.0-0.8) 03/22/18 05:39 Eosinophils # (Manual) 0.0 K/mm3 (0.0-0.4) 03/22/18 05:39 Basophils # (Manual) 0.0 K/mm3 (0.0-0.1) 03/22/18 05:39 Metamyelocytes # 0.0 K/mm3 03/22/18 05:39 Myelocytes # 0.0 K/mm3 03/22/18 05:39 Promyelocytes # 0.0 K/mm3 03/22/18 05:39 Blast Cells # 0.0 K/mm3 03/22/18 05:39 WBC Morphology Not Reportable 03/22/18 05:39 Hypersegmented Neuts Not Reportable 03/22/18 05:39 Hyposegmented Neuts Not Reportable 03/22/18 05:39 Hypogranular Neuts Not Reportable 03/22/18 05:39 Smudge Cells Not Reportable 03/22/18 05:39 Toxic Granulation Not Reportable 03/22/18 05:39 Toxic Vacuolation Not Reportable 03/22/18 05:39 Dohle Bodies Not Reportable 03/22/18 05:39 Pelger-Huet Anomaly Not Reportable 03/22/18 05:39 Octavio Rods Not Reportable 03/22/18 05:39 Platelet Estimate Cons 03/22/18 05:39 Clumped Platelets Not Reportable 03/22/18 05:39 Plt Clumps, EDTA Not Reportable 03/22/18 05:39 Large Platelets Few 03/22/18 05:39 Giant Platelets Not Reportable 03/22/18 05:39 Platelet Satelliting Not Reportable 03/22/18 05:39 Plt Morphology Comment Not Reportable 03/22/18 05:39 RBC Morphology Normal 03/22/18 05:39 Dimorphic RBCs Not Reportable 03/22/18 05:39 Polychromasia Not Reportable 03/22/18 05:39 Hypochromasia Not Reportable 03/22/18 05:39 Poikilocytosis Not Reportable 03/22/18 05:39 Anisocytosis Not Reportable 03/22/18 05:39 Microcytosis Not Reportable 03/22/18 05:39 Macrocytosis Not Reportable 03/22/18 05:39 Spherocytes Not Reportable 03/22/18 05:39 Pappenheimer Bodies Not Reportable 03/22/18 05:39 Sickle Cells Not Reportable 03/22/18 05:39 Target Cells Not Reportable 03/22/18 05:39 Tear Drop Cells Not Reportable 03/22/18 05:39 Ovalocytes Not Reportable 03/22/18 05:39 Helmet Cells Not Reportable 03/22/18 05:39 Vic[place] Bodies Not Reportable 03/22/18 05:39 [place] Rings Not Reportable 03/22/18 05:39 [place] Cells Not Reportable 03/22/18 05:39 Bite Cells Not Reportable 03/22/18 05:39 Crenated Cell Not Reportable 03/22/18 05:39 Elliptocytes Not Reportable 03/22/18 05:39 Acanthocytes (Spur) Not Reportable 03/22/18 05:39 Rouleaux Not Reportable 03/22/18 05:39 Hemoglobin C Crystals Not Reportable 03/22/18 05:39 Schistocytes Not Reportable 03/22/18 05:39 Malaria parasites Not Reportable 03/22/18 05:39 Valentin Bodies Not Reportable 03/22/18 05:39 Hem Pathologist Commnt No 03/22/18 05:39 POC ABG pH 7.424 (7.35-7.45) 03/21/18 12:54 POC ABG pCO2 36.5 (35-45) 03/21/18 12:54 POC ABG pO2 82 (80-105) 03/21/18 12:54 POC ABG HCO3 23.9 03/21/18 12:54 POC ABG Total CO2 25 03/21/18 12:54 POC ABG O2 Sat 96 03/21/18 12:54 POC ABG Base Excess -1 03/21/18 12:54 FiO2 28 % 03/21/18 12:54 Sodium 140 mmol/L (137-145) 03/26/18 13:29 Potassium 3.3 mmol/L (3.6-5.0) L 03/26/18 13:29 Chloride 104.4 mmol/L (98-107) 03/26/18 13:29 Carbon Dioxide 25 mmol/L (22-30) 03/26/18 13:29 Anion Gap 14 mmol/L 03/26/18 13:29 BUN 11 mg/dL (9-20) 03/26/18 13:29 Creatinine 0.5 mg/dL (0.8-1.5) L 03/26/18 13:29 Estimated GFR > 60 ml/min 03/26/18 13:29 BUN/Creatinine Ratio 22 % 03/26/18 13:29 Glucose 173 mg/dL (75-100) H 03/26/18 13:29 POC Glucose 91 (70-105) 03/26/18 15:15 Hemoglobin A1c 4.8 % (4-6) 03/25/18 10:18 Lactic Acid 2.30 mmol/L (0.7-2.0) H* 03/21/18 08:46 Calcium 7.7 mg/dL (8.4-10.2) L 03/26/18 13:29 Phosphorus 2.90 mg/dL (2.5-4.5) 03/25/18 10:18 Magnesium 1.90 mg/dL (1.7-2.3) 03/25/18 10:18 Total Bilirubin 1.40 mg/dL (0.1-1.2) H 03/22/18 05:39 Direct Bilirubin 0.4 mg/dL (0-0.2) H 03/21/18 08:46 Indirect Bilirubin 0.8 mg/dL 03/21/18 08:46 AST 91 units/L (5-40) H 03/22/18 05:39 ALT 57 units/L (7-56) H 03/22/18 05:39 Alkaline Phosphatase 97 units/L (35-129) 03/22/18 05:39 Ammonia 38.0 umol/L (25-60) 03/21/18 08:46 Total Creatine Kinase 316 units/L (55-170) H 03/21/18 08:46 Troponin T < 0.010 ng/mL (0.00-0.029) 03/21/18 06:59 Total Protein 6.8 g/dL (6.3-8.2) 03/22/18 05:39 Albumin 3.1 g/dL (3.9-5) L 03/22/18 05:39 Albumin/Globulin Ratio 0.8 % 03/22/18 05:39 Salicylates < 0.3 mg/dL (2.8-20.0) L 03/21/18 08:46 Acetaminophen < 5.0 ug/mL (10.0-30.0) L 03/21/18 08:46 Plasma/Serum Alcohol 0.14 % (0-0.07) H 03/21/18 08:46
[2018-03-28 13:12] LABS: BUN/Creatinine Ratio 28; Blood Urea Nitrogen 11 mg/dL (9-20); Hemolysis Index 19
[2018-03-28] MEDS: K-DUR PO SCH (13:34)
[2018-03-28] MEDS: TYLENOL PO PRN (18:44)
[2018-03-28] MEDS: LOVENOX SUB-Q SCH (22:42)
[2018-03-28] MEDS: ATIVAN IV PRN (22:42)
[2018-03-29] MEDS: BROVANA NEBU IH SCH ×2 (08:13→20:35)
[2018-03-29] MEDS: PULMICORT IH SCH ×2 (08:13→20:35)
[2018-03-29] MEDS: DUONEB *Not for PRN Use IH SCH ×3 (08:14→20:35)
[2018-03-29] MEDS: HABITROL TD SCH (10:08)
[2018-03-29] MEDS: VITAMIN B-1 PO SCH (10:09)
[2018-03-29] MEDS: K-DUR PO SCH (10:09)
[2018-03-29] MEDS: FOLVITE PO SCH (10:10)
[2018-03-29] MEDS: THERAGRAN Tab PO SCH (10:10)
[2018-03-29] MEDS: LIBRIUM PO SCH ×2 (10:10→21:06)
--- NOTE | 2018-03-29 11:59 | Progress Note ---
Assessment and Plan - COPD exercebation Continue bronchodilators, oxygen, taper solu-medrol -ETOH abuse CIWA protocol with ativan Thiamin, folic acid -Rhabdomyolysis IV fluids -Bilateral shoulder pain 2/2 fall X-ray b/l shoulder showed no fracture or dislocationl -Left wrist pain 2/2 fall X-ray of the wrist showed no dislocation or fracture Hyperglycemia A1c is 4.8%, secondary to steroids Unsteady gait: PT following and recommended subacute rehab but pt is homeless and has no insurance. Will discharge to [facility] once stable DVT prophylaxis with Lovenox, GI prophylaxis with pepcid Subjective Date of service: 03/29/18 Principal diagnosis: COPD exacerbation Interval history: Still unable to ambulate Objective - Constitutional Vitals: Vital Signs - 12hr 03/29/18 07:55 Temperature 97.9 F Pulse Rate 98 H Respiratory 18 Rate Blood Pressure 150/87 O2 Sat by Pulse 96 Oximetry General appearance: Present: no acute distress, well-nourished - EENT Eyes: PERRL, EOM intact ENT: hearing intact, clear oral mucosa Ears: bilateral: normal - Neck Neck: supple, normal ROM - Respiratory Respiratory effort: normal Respiratory: bilateral: CTA - Breasts Breasts: deferred - Cardiovascular Rhythm: regular Heart Sounds: Present: S1 & S2. Absent: gallop, rub Extremities: pulses intact, No edema, normal color, Full ROM - Gastrointestinal General gastrointestinal: Present: soft, non-tender, non-distended, normal bowel sounds Rectal Exam: deferred - Genitourinary Male genitourinary: deferred - Integumentary Integumentary: clear, warm, dry - Musculoskeletal Musculoskeletal: generalized weakness - Neurologic Neurologic: other (unsteady gait) - Labs CBC & Chem 7: 03/25/18 10:18 03/28/18 12:43 Labs: Abnormal lab results 03/28/18 Range/Units 12:43 Creatinine 0.4 L (0.8-1.5) mg/dL Calcium 8.0 L (8.4-10.2) mg/dL
[2018-03-29] MEDS: LOVENOX SUB-Q SCH (21:06)
[2018-03-29] MEDS: TYLENOL PO PRN (21:06)
[2018-03-30] MEDS: BROVANA NEBU IH SCH ×2 (08:20→20:34)
[2018-03-30] MEDS: PULMICORT IH SCH ×2 (08:20→20:35)
[2018-03-30] MEDS: HABITROL TD SCH (11:56)
[2018-03-30] MEDS: VITAMIN B-1 PO SCH (11:57)
[2018-03-30] MEDS: THERAGRAN Tab PO SCH (11:57)
[2018-03-30] MEDS: LIBRIUM PO SCH ×2 (11:57→22:29)
[2018-03-30] MEDS: FOLVITE PO SCH (11:57)
[2018-03-30] MEDS: K-DUR PO SCH (11:57)
[2018-03-30] MEDS: DUONEB *Not for PRN Use IH SCH ×3 (13:25→23:54)
--- NOTE | 2018-03-30 14:08 | Progress Note ---
Assessment and Plan - COPD exercebation Continue bronchodilators, oxygen, taper solu-medrol -ETOH abuse CIWA protocol with ativan, change to librium Thiamin, folic acid -Rhabdomyolysis cont IV fluids -Bilateral shoulder pain 2/2 fall X-ray b/l shoulder showed no fracture or dislocation -Left wrist pain 2/2 fall X-ray of the wrist showed no dislocation or fracture Hyperglycemia A1c is 4.8%, secondary to steroids Unsteady gait: PT following and recommended subacute rehab but pt is homeless and has no insurance. Will discharge to care home once stable DVT prophylaxis with Lovenox, GI prophylaxis with pepcid Physical exam: General appearance: Present: no acute distress, well-nourished - EENT Eyes: PERRL, EOM intact ENT: hearing intact, clear oral mucosa Ears: bilateral: normal - Neck Neck: supple, normal ROM - Respiratory Respiratory effort: normal Respiratory: bilateral: CTA - Breasts Breasts: deferred - Cardiovascular Rhythm: regular Heart Sounds: Present: S1 & S2. Absent: gallop, rub Extremities: pulses intact, No edema, normal color, Full ROM - Gastrointestinal General gastrointestinal: Present: soft, non-tender, non-distended, normal bowel sounds Rectal Exam: deferred - Genitourinary Male genitourinary: deferred - Integumentary Integumentary: clear, warm, dry - Musculoskeletal Musculoskeletal: generalized weakness - Neurologic Neurologic: other (unsteady gait) Subjective Date of service: 03/29/18 Principal diagnosis: COPD exacerbation Interval history: Pt seen and examined Still unable to ambulate Objective - Constitutional Vitals: Vital Signs - 12hr 03/30/18 03/30/18 03/30/18 05:16 05:28 07:46 Temperature 98.6 F 97.4 F L Pulse Rate 106 H 101 H 99 H Pulse Rate [ Posterior Bilateral Throughout] Respiratory 20 18 20 Rate Respiratory Rate [Posterior Bilateral Throughout] Blood Pressure 155/121 154/84 168/89 O2 Sat by Pulse 93 95 96 Oximetry 03/30/18 03/30/18 13:26 13:34 Temperature Pulse Rate Pulse Rate [ 94 H 98 H Posterior Bilateral Throughout] Respiratory Rate Respiratory 20 20 Rate [Posterior Bilateral Throughout] Blood Pressure O2 Sat by Pulse Oximetry - Labs CBC & Chem 7: 03/25/18 10:18 03/28/18 12:43
--- NOTE | 2018-03-30 16:24 | Progress Note ---
Assessment and Plan - COPD exercebation Continue bronchodilators, oxygen, taper solu-medrol -ETOH abuse CIWA protocol with ativan, change to librium Thiamin, folic acid -Rhabdomyolysis cont IV fluids -Bilateral shoulder pain 2/2 fall X-ray b/l shoulder showed no fracture or dislocation -Left wrist pain 2/2 fall X-ray of the wrist showed no dislocation or fracture Hyperglycemia A1c is 4.8%, secondary to steroids Unsteady gait: PT following and recommended subacute rehab but pt is homeless and has no insurance. Will discharge to senior care once stable DVT prophylaxis with Lovenox, GI prophylaxis with pepcid Physical exam: General appearance: Present: no acute distress, well-nourished - EENT Eyes: PERRL, EOM intact ENT: hearing intact, clear oral mucosa Ears: bilateral: normal - Neck Neck: supple, normal ROM - Respiratory Respiratory effort: normal Respiratory: bilateral: CTA - Breasts Breasts: deferred - Cardiovascular Rhythm: regular Heart Sounds: Present: S1 & S2. Absent: gallop, rub Extremities: pulses intact, No edema, normal color, Full ROM - Gastrointestinal General gastrointestinal: Present: soft, non-tender, non-distended, normal bowel sounds Rectal Exam: deferred - Genitourinary Male genitourinary: deferred - Integumentary Integumentary: clear, warm, dry - Musculoskeletal Musculoskeletal: generalized weakness - Neurologic Neurologic: other (unsteady gait) Subjective Date of service: 03/30/18 Principal diagnosis: COPD exacerbation Interval history: Pt seen and examined Still unable to ambulate Objective - Constitutional Vitals: Vital Signs - 12hr 03/30/18 03/30/18 03/30/18 05:16 05:28 07:46 Temperature 98.6 F 97.4 F L Pulse Rate 106 H 101 H 99 H Pulse Rate [ Posterior Bilateral Throughout] Respiratory 20 18 20 Rate Respiratory Rate [Posterior Bilateral Throughout] Blood Pressure 155/121 154/84 168/89 O2 Sat by Pulse 93 95 96 Oximetry 03/30/18 03/30/18 03/30/18 08:15 08:30 13:26 Temperature Pulse Rate Pulse Rate [ 94 H 90 94 H Posterior Bilateral Throughout] Respiratory Rate Respiratory 20 18 20 Rate [Posterior Bilateral Throughout] Blood Pressure O2 Sat by Pulse Oximetry 03/30/18 13:34 Temperature Pulse Rate Pulse Rate [ 98 H Posterior Bilateral Throughout] Respiratory Rate Respiratory 20 Rate [Posterior Bilateral Throughout] Blood Pressure O2 Sat by Pulse Oximetry - Labs CBC & Chem 7: 03/25/18 10:18 03/28/18 12:43
[2018-03-30] MEDS: LOVENOX SUB-Q SCH (22:29)
--- NOTE | 2018-03-31 00:29 | XRay Report ---
FINAL REPORT EXAM: XR CHEST 1V AP HISTORY: cough TECHNIQUE: AP portable view of the chest. PRIORS: 03/20/2018 FINDINGS: The cardiomediastinal silhouette appears normal. The lungs are clear. The bones and soft tissues are unremarkable. IMPRESSION: No evidence of acute cardiopulmonary disease.
[2018-03-31] MEDS: TESSALON PERLES PO SCH ×4 (00:53→23:05)
[2018-03-31] MEDS: BROVANA NEBU IH SCH ×2 (07:59→20:01)
[2018-03-31] MEDS: DUONEB *Not for PRN Use IH SCH ×2 (08:00→14:34)
[2018-03-31] MEDS: THERAGRAN Tab PO SCH (10:43)
[2018-03-31] MEDS: VITAMIN B-1 PO SCH (10:43)
[2018-03-31] MEDS: K-DUR PO SCH (10:43)
[2018-03-31] MEDS: FOLVITE PO SCH (10:44)
[2018-03-31] MEDS: HABITROL TD SCH (10:44)
[2018-03-31] MEDS: LIBRIUM PO SCH ×2 (10:48→23:05)
[2018-03-31] MEDS: PULMICORT IH SCH ×2 (11:33→20:01)
--- NOTE | 2018-03-31 13:56 | Progress Note ---
Assessment and Plan - COPD exercebation Continue bronchodilators, oxygen, taper solu-medrol -ETOH abuse CIWA protocol with tapering librium Thiamin, folic acid -Rhabdomyolysis cont IV fluids -Bilateral shoulder pain 2/2 fall X-ray b/l shoulder showed no fracture or dislocation -Left wrist pain 2/2 fall X-ray of the wrist showed no dislocation or fracture Hyperglycemia A1c is 4.8%, secondary to steroids Unsteady gait: PT following and recommended subacute rehab but pt is homeless and has no insurance. Will discharge to [facility] once stable DVT prophylaxis with Lovenox, GI prophylaxis with pepcid Physical exam: General appearance: Present: no acute distress, well-nourished - EENT Eyes: PERRL, EOM intact ENT: hearing intact, clear oral mucosa Ears: bilateral: normal - Neck Neck: supple, normal ROM - Respiratory Respiratory effort: normal Respiratory: bilateral: CTA - Breasts Breasts: deferred - Cardiovascular Rhythm: regular Heart Sounds: Present: S1 & S2. Absent: gallop, rub Extremities: pulses intact, No edema, normal color, Full ROM - Gastrointestinal General gastrointestinal: Present: soft, non-tender, non-distended, normal bowel sounds Rectal Exam: deferred - Genitourinary Male genitourinary: deferred - Integumentary Integumentary: clear, warm, dry - Musculoskeletal Musculoskeletal: generalized weakness - Neurologic Neurologic: other (unsteady gait) Subjective Date of service: 03/31/18 Principal diagnosis: COPD exacerbation Interval history: Pt seen and examined Still unable to ambulate and unsteady Objective - Constitutional Vitals: Vital Signs - 12hr 03/31/18 03/31/18 03/31/18 07:29 08:01 08:12 Temperature 99.7 F H Pulse Rate 100 H Pulse Rate [ 94 H 98 H Posterior Bilateral Throughout] Respiratory 32 H Rate Respiratory 18 18 Rate [Posterior Bilateral Throughout] Blood Pressure 132/83 O2 Sat by Pulse 96 Oximetry 03/31/18 11:09 Temperature Pulse Rate Pulse Rate [ Posterior Bilateral Throughout] Respiratory Rate Respiratory Rate [Posterior Bilateral Throughout] Blood Pressure O2 Sat by Pulse 98 Oximetry - Labs CBC & Chem 7: 03/25/18 10:18 03/28/18 12:43
[2018-03-31] MEDS: LOVENOX SUB-Q SCH (23:05)
[2018-04-01] MEDS: DUONEB *Not for PRN Use IH SCH ×4 (04:50→19:14)
[2018-04-01] MEDS: TESSALON PERLES PO SCH ×3 (05:46→22:16)
[2018-04-01] MEDS: PULMICORT IH SCH ×2 (08:27→19:14)
[2018-04-01] MEDS: BROVANA NEBU IH SCH ×2 (08:27→19:14)
[2018-04-01] MEDS: THERAGRAN Tab PO SCH (09:27)
[2018-04-01] MEDS: VITAMIN B-1 PO SCH (09:27)
[2018-04-01] MEDS: HABITROL TD SCH (09:28)
[2018-04-01] MEDS: FOLVITE PO SCH (09:28)
[2018-04-01] MEDS: K-DUR PO SCH (09:28)
[2018-04-01] MEDS: LIBRIUM PO SCH (10:49)
[2018-04-01 12:09] LABS: BUN/Creatinine Ratio 25; Blood Urea Nitrogen 15 mg/dL (9-20); Calcium 8.6 mg/dL (8.4-10.2); Hemolysis Index 22
--- NOTE | 2018-04-01 17:50 | Progress Note ---
Assessment and Plan - COPD exercebation Continue bronchodilators, oxygen, taper solu-medrol -ETOH abuse CIWA protocol with tapering librium Thiamin, folic acid -Rhabdomyolysis cont IV fluids -Bilateral shoulder pain 2/2 fall X-ray b/l shoulder showed no fracture or dislocation -Left wrist pain 2/2 fall X-ray of the wrist showed no dislocation or fracture Hyperglycemia A1c is 4.8%, secondary to steroids Unsteady gait: PT following and recommended subacute rehab but pt is homeless and has no insurance. [facility] once stable DVT prophylaxis with Lovenox, GI prophylaxis with pepcid Physical exam: General appearance: Present: no acute distress, well-nourished - EENT Eyes: PERRL, EOM intact ENT: hearing intact, clear oral mucosa Ears: bilateral: normal - Neck Neck: supple, normal ROM - Respiratory Respiratory effort: normal Respiratory: bilateral: CTA - Breasts Breasts: deferred - Cardiovascular Rhythm: regular Heart Sounds: Present: S1 & S2. Absent: gallop, rub Extremities: pulses intact, No edema, normal color, Full ROM - Gastrointestinal General gastrointestinal: Present: soft, non-tender, non-distended, normal bowel sounds Rectal Exam: deferred - Genitourinary Male genitourinary: deferred - Integumentary Integumentary: clear, warm, dry - Musculoskeletal Musculoskeletal: generalized weakness - Neurologic Neurologic: other (unsteady gait) Subjective Date of service: 04/01/18 Principal diagnosis: COPD exacerbation Interval history: Pt seen and examined Still unable to ambulate and unsteady Objective - Constitutional Vitals: Vital Signs - 12hr 04/01/18 04/01/18 04/01/18 07:56 08:27 08:37 Temperature 98.6 F Pulse Rate 99 H Pulse Rate [ 108 H 117 H Anterior Bilateral Throughout] Respiratory 18 Rate Respiratory 20 20 Rate [Anterior Bilateral Throughout] Blood Pressure 126/78 O2 Sat by Pulse 93 Oximetry 04/01/18 04/01/18 04/01/18 10:00 14:16 14:26 Temperature Pulse Rate Pulse Rate [ 101 H 102 H Anterior Bilateral Throughout] Respiratory Rate Respiratory 18 20 Rate [Anterior Bilateral Throughout] Blood Pressure O2 Sat by Pulse 99 Oximetry 04/01/18 04/01/18 16:17 16:21 Temperature 98.4 F 98.4 F Pulse Rate 105 H Pulse Rate [ Anterior Bilateral Throughout] Respiratory 18 18 Rate Respiratory Rate [Anterior Bilateral Throughout] Blood Pressure 102/56 109/60 O2 Sat by Pulse 96 Oximetry - Labs CBC & Chem 7: 03/25/18 10:18 04/01/18 10:55 Labs: Abnormal lab results 04/01/18 Range/Units 10:55 Sodium 132 L D (137-145) mmol/L Chloride 97.1 L (98-107) mmol/L Creatinine 0.6 L (0.8-1.5) mg/dL Glucose 72 L (75-100) mg/dL Total Creatine Kinase 18 L (55-170) units/L
[2018-04-01] MEDS: LOVENOX SUB-Q SCH (22:16)
[2018-04-02] MEDS: TYLENOL PO PRN (01:04)
[2018-04-02] MEDS: TESSALON PERLES PO SCH ×3 (05:43→22:20)
[2018-04-02] MEDS: BROVANA NEBU IH SCH ×2 (08:20→20:14)
[2018-04-02] MEDS: DUONEB *Not for PRN Use IH SCH ×3 (08:21→20:14)
[2018-04-02] MEDS: PULMICORT IH SCH ×2 (08:21→20:14)
[2018-04-02] MEDS: HABITROL TD SCH (09:12)
[2018-04-02] MEDS: VITAMIN B-1 PO SCH (09:12)
[2018-04-02] MEDS: FOLVITE PO SCH (09:13)
[2018-04-02] MEDS: THERAGRAN Tab PO SCH (09:13)
[2018-04-02] MEDS: K-DUR PO SCH (09:13)
[2018-04-02] MEDS: LIBRIUM PO SCH (09:13)
--- NOTE | 2018-04-02 17:05 | Progress Note ---
Assessment and Plan - COPD exercebation Continue bronchodilators, oxygen, taper solu-medrol -ETOH abuse CIWA protocol with ativan Thiamin, folic acid -Rhabdomyolysis IV fluids -Bilateral shoulder pain 2/2 fall - imporved X-ray b/l shoulder showed no fracture or dislocationl -Left wrist pain 2/2 fall X-ray of the wrist showed no dislocation or fracture Hyperglycemia secondary to steroids A1c is 4.8% Unsteady gait: PT following and recommended subacute rehab but pt is homeless and has no insurance. Will [facility] to [facility] once stable DVT prophylaxis with Lovenox, GI prophylaxis with pepcid Subjective Date of service: 04/02/18 Principal diagnosis: COPD exacerbation Interval history: sittign in his chair and having his meal. c/o urinary frequncy. no dysuria Objective - Constitutional Vitals: Vital Signs - 12hr 04/02/18 04/02/18 04/02/18 07:54 08:00 08:22 Temperature 97.8 F Pulse Rate 90 Pulse Rate [ 93 H 93 H Anterior Left Upper Lobe] Respiratory 22 Rate Respiratory 18 19 Rate [Anterior Left Upper Lobe ] Blood Pressure 109/65 O2 Sat by Pulse 93 95 Oximetry General appearance: Present: no acute distress, well-nourished - EENT Eyes: PERRL, EOM intact Ears: left: obstructed by cerumen - Neck Neck: supple, normal ROM - Respiratory Respiratory effort: normal Respiratory: bilateral: diminished - Cardiovascular Rhythm: regular Heart Sounds: Present: S1 & S2. Absent: gallop, rub Extremities: pulses intact, No edema, normal color, Full ROM - Gastrointestinal General gastrointestinal: Present: soft, non-tender, non-distended, normal bowel sounds - Integumentary Integumentary: clear, warm, dry - Musculoskeletal Musculoskeletal: 1, strength equal bilaterally - Neurologic Neurologic: moves all extremities - Psychiatric Psychiatric: memory intact, appropriate mood/affect, intact judgment & insight - Labs CBC & Chem 7: 03/25/18 10:18 04/01/18 10:55
[2018-04-02] MEDS: LOVENOX SUB-Q SCH (22:20)
[2018-04-03] MEDS: TESSALON PERLES PO SCH ×3 (05:59→21:38)
[2018-04-03] MEDS: BROVANA NEBU IH SCH (07:56)
[2018-04-03] MEDS: DUONEB *Not for PRN Use IH SCH ×3 (07:56→21:10)
[2018-04-03] MEDS: PULMICORT IH SCH ×2 (07:59→21:10)
[2018-04-03] MEDS: LIBRIUM PO SCH ×2 (09:52→11:35)
[2018-04-03] MEDS: FOLVITE PO SCH (09:52)
[2018-04-03] MEDS: VITAMIN B-1 PO SCH (09:52)
[2018-04-03] MEDS: HABITROL TD SCH (09:52)
[2018-04-03] MEDS: K-DUR PO SCH (09:52)
[2018-04-03] MEDS: THERAGRAN Tab PO SCH (09:52)
[2018-04-03] MEDS ORDERED: LIBRIUM PO SCH (10:45)
--- NOTE | 2018-04-03 10:49 | Progress Note ---
Assessment and Plan - COPD exercebation, resolved Continue bronchodilators, oxygen, off solu-medrol now -ETOH abuse CIWA protocol with tapering librium cont Thiamin, folic acid -Rhabdomyolysis, resolved off IV fluids -Bilateral shoulder pain 2/2 fall X-ray b/l shoulder showed no fracture or dislocation -Left wrist pain 2/2 fall X-ray of the wrist showed no dislocation or fracture Hyperglycemia A1c is 4.8%, secondary to steroids Unsteady gait: PT following and recommended subacute rehab but pt is homeless and has no insurance. Will discharge to [facility] once stable DVT prophylaxis with Lovenox, GI prophylaxis with pepcid Physical exam: General appearance: Present: no acute distress, well-nourished - EENT Eyes: PERRL, EOM intact ENT: hearing intact, clear oral mucosa Ears: bilateral: normal - Neck Neck: supple, normal ROM - Respiratory Respiratory effort: normal Respiratory: bilateral: CTA - Breasts Breasts: deferred - Cardiovascular Rhythm: regular Heart Sounds: Present: S1 & S2. Absent: gallop, rub Extremities: pulses intact, No edema, normal color, Full ROM - Gastrointestinal General gastrointestinal: Present: soft, non-tender, non-distended, normal bowel sounds Rectal Exam: deferred - Genitourinary Male genitourinary: deferred - Integumentary Integumentary: clear, warm, dry - Musculoskeletal Musculoskeletal: generalized weakness - Neurologic Neurologic: other (unsteady gait) Subjective Date of service: 04/03/18 Principal diagnosis: COPD exacerbation Interval history: Pt seen and examined States that he is Still unable to ambulate and unsteady Discussed with RN, will ambulate the pt with assistance daily Objective - Constitutional Vitals: Vital Signs - 12hr 04/03/18 04/03/18 00:00 07:16 Temperature 97.7 F 99.2 F Pulse Rate 95 H 102 H Respiratory 16 28 H Rate Blood Pressure 105/50 120/72 O2 Sat by Pulse 94 93 Oximetry - Labs CBC & Chem 7: 03/25/18 10:18 04/01/18 10:55
[2018-04-03] MEDS: LOVENOX SUB-Q SCH (21:38)
[2018-04-04] MEDS: BROVANA NEBU IH SCH ×3 (02:12→20:32)
[2018-04-04] MEDS: TESSALON PERLES PO SCH ×3 (05:26→22:25)
[2018-04-04 06:54] LABS: Creatine Kinase MB < 1.0 ng/mL (0.0-4.0)
[2018-04-04] MEDS: PULMICORT IH SCH ×2 (07:45→20:32)
[2018-04-04] MEDS: DUONEB *Not for PRN Use IH SCH ×2 (07:46→13:07)
[2018-04-04] MEDS: HABITROL TD SCH (10:05)
[2018-04-04] MEDS: FOLVITE PO SCH (10:06)
[2018-04-04] MEDS: LIBRIUM PO SCH (10:06)
[2018-04-04] MEDS: THERAGRAN Tab PO SCH (10:06)
[2018-04-04] MEDS: VITAMIN B-1 PO SCH (10:06)
[2018-04-04 14:50] LABS: Creatine Kinase MB < 1.0 ng/mL (0.0-4.0)
--- NOTE | 2018-04-04 19:06 | Progress Note ---
Assessment and Plan -Chest pain, complained today ordered CE, negative ordered stress test and 2d echo - COPD exercebation, resolved Continue bronchodilators, oxygen, off solu-medrol now -ETOH abuse CIWA protocol with tapering librium cont Thiamin, folic acid -Rhabdomyolysis, resolved off IV fluids -Bilateral shoulder pain 2/2 fall X-ray b/l shoulder showed no fracture or dislocation -Left wrist pain 2/2 fall X-ray of the wrist showed no dislocation or fracture Hyperglycemia A1c is 4.8%, secondary to steroids Unsteady gait: PT following and recommended subacute rehab but pt is homeless and has no insurance. Will discharge to longterm once stable. Also need walker and wheel chair on discharge DVT prophylaxis with Lovenox, GI prophylaxis with pepcid Physical exam: General appearance: Present: no acute distress, elderly male - EENT Eyes: PERRL, EOM intact ENT: hearing intact, clear oral mucosa Ears: bilateral: normal - Neck Neck: supple, normal ROM - Respiratory Respiratory effort: normal Respiratory: bilateral: CTA - Breasts Breasts: deferred - Cardiovascular Rhythm: regular Heart Sounds: Present: S1 & S2. Absent: gallop, rub Extremities: pulses intact, No edema, normal color, Full ROM - Gastrointestinal General gastrointestinal: Present: soft, non-tender, non-distended, normal bowel sounds Rectal Exam: deferred - Genitourinary Male genitourinary: deferred - Integumentary Integumentary: clear, warm, dry - Musculoskeletal Musculoskeletal: generalized weakness - Neurologic Neurologic: other (unsteady gait) Subjective Date of service: 04/04/18 Principal diagnosis: COPD exacerbation Interval history: Pt seen and examined States that he is Still unable to ambulate and unsteady Discussed with RN, c/o chest pain Objective - Constitutional Vitals: Vital Signs - 12hr 04/04/18 04/04/18 04/04/18 07:47 07:55 09:15 Temperature 98.6 F Pulse Rate 102 H Pulse Rate [ 99 H 102 H Anterior Left Upper Lobe] Respiratory 16 Rate Respiratory 18 18 Rate [Anterior Left Upper Lobe ] Blood Pressure 112/65 O2 Sat by Pulse 94 99 Oximetry 04/04/18 04/04/18 13:08 13:13 Temperature Pulse Rate Pulse Rate [ 99 H 102 H Anterior Left Upper Lobe] Respiratory Rate Respiratory 18 18 Rate [Anterior Left Upper Lobe ] Blood Pressure O2 Sat by Pulse Oximetry - Labs CBC & Chem 7: 03/25/18 10:18 04/01/18 10:55 Labs: Abnormal lab results 04/04/18 04/04/18 Range/Units 06:11 13:45 Total Creatine Kinase 18 L 21 L (55-170) units/L CK-MB (CK-2) Rel Index 5.5 H 4.7 H (0-4)
[2018-04-04] MEDS: LOVENOX SUB-Q SCH (22:26)
[2018-04-05] MEDS: DUONEB *Not for PRN Use IH SCH ×4 (00:38→20:13)
[2018-04-05] MEDS: BROVANA NEBU IH SCH ×2 (07:48→20:13)
[2018-04-05] MEDS: TESSALON PERLES PO SCH ×3 (07:57→22:01)
[2018-04-05] MEDS ORDERED: LEXISCAN IV ONE (09:16)
[2018-04-05] MEDS: THERAGRAN Tab PO SCH (10:40)
[2018-04-05] MEDS: FOLVITE PO SCH (10:40)
[2018-04-05] MEDS: HABITROL TD SCH (10:40)
[2018-04-05] MEDS: BABY ASPIRIN PO SCH (10:40)
[2018-04-05] MEDS: VITAMIN B-1 PO SCH (10:41)
--- NOTE | 2018-04-05 13:36 | Progress Note ---
Assessment and Plan Assessment and plan: Chest pain, ordered CE, negative ordered stress test and 2d echo COPD exercebation, resolved Continue bronchodilators, oxygen, off solu-medrol now ETOH abuse CIWA protocol with tapering librium cont Thiamin, folic acid Rhabdomyolysis, resolved off IV fluids Bilateral shoulder pain 2/2 fall X-ray b/l shoulder showed no fracture or dislocation Left wrist pain 2/2 fall X-ray of the wrist showed no dislocation or fracture Hyperglycemia A1c is 4.8%, secondary to steroids Unsteady gait: PT following and recommended subacute rehab but pt is homeless and has no insurance. Will discharge to [facility] once stable. Also need walker and wheel chair on discharge DVT prophylaxis with Lovenox, GI prophylaxis with pepcid Awaiting placement. he is homeless History Interval history: Chest pain Less shortness of breath Hospitalist Physical - Physical exam Narrative exam: General: Not in acute distress, lying in bed HEENT:Normocephalic, atraumatic Neck:supple,no JVD Lungs: Clear to auscultation bilaterally, no crackles, no wheeze Heart:S1 and S2 regular, no murmurs, rubs or gallop Abd: soft, non tender,non distended, normal bowel sounds Ext: No edema, no clubbing, no cyanosis Neuro: Awake,alert , moves all extremitiies. - Constitutional Vitals: Temp Pulse Resp BP Pulse Ox 98.4 F 105 H 18 107/61 94 04/05/18 08:52 04/05/18 10:36 04/05/18 08:30 04/05/18 10:36 04/05/18 10:00 General appearance: Present: no acute distress, well-nourished Results - Labs CBC & Chem 7: 03/25/18 10:18 04/01/18 10:55 Labs: Laboratory Last Values WBC 4.6 K/mm3 (4.5-11.0) 03/25/18 10:18 RBC 4.19 M/mm3 (3.65-5.03) 03/25/18 10:18 Hgb 13.9 gm/dl (11.8-15.2) 03/25/18 10:18 Hct 40.8 % (35.5-45.6) 03/25/18 10:18 MCV 97 fl (84-94) H 03/25/18 10:18 MCH 33 pg (28-32) H 03/25/18 10:18 MCHC 34 % (32-34) 03/25/18 10:18 RDW 14.1 % (13.2-15.2) 03/25/18 10:18 Plt Count 130 K/mm3 (140-440) L 03/25/18 10:18 Lymph % (Auto) 36.1 % (13.4-35.0) H 03/21/18 02:59 [place] % (Auto) 9.8 % (0.0-7.3) H 03/21/18 02:59 Eos % (Auto) 1.1 % (0.0-4.3) 03/21/18 02:59 Baso % (Auto) 1.2 % (0.0-1.8) 03/21/18 02:59 Lymph # 2.2 K/mm3 (1.2-5.4) 03/21/18 02:59 [place] # 0.6 K/mm3 (0.0-0.8) 03/21/18 02:59 Eos # 0.1 K/mm3 (0.0-0.4) 03/21/18 02:59 Baso # 0.1 K/mm3 (0.0-0.1) 03/21/18 02:59 Add Manual Diff Complete 03/22/18 05:39 Total Counted 100 03/22/18 05:39 Seg Neutrophils % 51.8 % (40.0-70.0) 03/21/18 02:59 Seg Neuts % (Manual) 89.0 % (40.0-70.0) H 03/22/18 05:39 Band Neutrophils % 0 % 03/22/18 05:39 Lymphocytes % (Manual) 9.0 % (13.4-35.0) L 03/22/18 05:39 Reactive Lymphs % (Man) 0 % 03/22/18 05:39 Monocytes % (Manual) 2.0 % (0.0-7.3) 03/22/18 05:39 Eosinophils % (Manual) 0 % (0.0-4.3) 03/22/18 05:39 Basophils % (Manual) 0 % (0.0-1.8) 03/22/18 05:39 Metamyelocytes % 0 % 03/22/18 05:39 Myelocytes % 0 % 03/22/18 05:39 Promyelocytes % 0 % 03/22/18 05:39 Blast Cells % 0 % 03/22/18 05:39 Nucleated RBC % Not Reportable 03/22/18 05:39 Seg Neutrophils # 3.2 K/mm3 (1.8-7.7) 03/21/18 02:59 Seg Neutrophils # Man 2.0 K/mm3 (1.8-7.7) 03/22/18 05:39 Band Neutrophils # 0.0 K/mm3 03/22/18 05:39 Lymphocytes # (Manual) 0.2 K/mm3 (1.2-5.4) L 03/22/18 05:39 Abs React Lymphs (Man) 0.0 K/mm3 03/22/18 05:39 Monocytes # (Manual) 0.0 K/mm3 (0.0-0.8) 03/22/18 05:39 Eosinophils # (Manual) 0.0 K/mm3 (0.0-0.4) 03/22/18 05:39 Basophils # (Manual) 0.0 K/mm3 (0.0-0.1) 03/22/18 05:39 Metamyelocytes # 0.0 K/mm3 03/22/18 05:39 Myelocytes # 0.0 K/mm3 03/22/18 05:39 Promyelocytes # 0.0 K/mm3 03/22/18 05:39 Blast Cells # 0.0 K/mm3 03/22/18 05:39 WBC Morphology Not Reportable 03/22/18 05:39 Hypersegmented Neuts Not Reportable 03/22/18 05:39 Hyposegmented Neuts Not Reportable 03/22/18 05:39 Hypogranular Neuts Not Reportable 03/22/18 05:39 Smudge Cells Not Reportable 03/22/18 05:39 Toxic Granulation Not Reportable 03/22/18 05:39 Toxic Vacuolation Not Reportable 03/22/18 05:39 Dohle Bodies Not Reportable 03/22/18 05:39 Pelger-Huet Anomaly Not Reportable 03/22/18 05:39 Octavio Rods Not Reportable 03/22/18 05:39 Platelet Estimate Cons 03/22/18 05:39 Clumped Platelets Not Reportable 03/22/18 05:39 Plt Clumps, EDTA Not Reportable 03/22/18 05:39 Large Platelets Few 03/22/18 05:39 Giant Platelets Not Reportable 03/22/18 05:39 Platelet Satelliting Not Reportable 03/22/18 05:39 Plt Morphology Comment Not Reportable 03/22/18 05:39 RBC Morphology Normal 03/22/18 05:39 Dimorphic RBCs Not Reportable 03/22/18 05:39 Polychromasia Not Reportable 03/22/18 05:39 Hypochromasia Not Reportable 03/22/18 05:39 Poikilocytosis Not Reportable 03/22/18 05:39 Anisocytosis Not Reportable 03/22/18 05:39 Microcytosis Not Reportable 03/22/18 05:39 Macrocytosis Not Reportable 03/22/18 05:39 Spherocytes Not Reportable 03/22/18 05:39 Pappenheimer Bodies Not Reportable 03/22/18 05:39 Sickle Cells Not Reportable 03/22/18 05:39 Target Cells Not Reportable 03/22/18 05:39 Tear Drop Cells Not Reportable 03/22/18 05:39 Ovalocytes Not Reportable 03/22/18 05:39 Helmet Cells Not Reportable 03/22/18 05:39 Vicente-[place] Bodies Not Reportable 03/22/18 05:39 [place] Rings Not Reportable 03/22/18 05:39 [place] Cells Not Reportable 03/22/18 05:39 Bite Cells Not Reportable 03/22/18 05:39 Crenated Cell Not Reportable 03/22/18 05:39 Elliptocytes Not Reportable 03/22/18 05:39 Acanthocytes (Spur) Not Reportable 03/22/18 05:39 Rouleaux Not Reportable 03/22/18 05:39 Hemoglobin C Crystals Not Reportable 03/22/18 05:39 Schistocytes Not Reportable 03/22/18 05:39 Malaria parasites Not Reportable 03/22/18 05:39 Valentin Bodies Not Reportable 03/22/18 05:39 Hem Pathologist Commnt No 03/22/18 05:39 POC ABG pH 7.424 (7.35-7.45) 03/21/18 12:54 POC ABG pCO2 36.5 (35-45) 03/21/18 12:54 POC ABG pO2 82 (80-105) 03/21/18 12:54 POC ABG HCO3 23.9 03/21/18 12:54 POC ABG Total CO2 25 03/21/18 12:54 POC ABG O2 Sat 96 03/21/18 12:54 POC ABG Base Excess -1 03/21/18 12:54 FiO2 28 % 03/21/18 12:54 Sodium 132 mmol/L (137-145) L D 04/01/18 10:55 Potassium 4.8 mmol/L (3.6-5.0) D 04/01/18 10:55 Chloride 97.1 mmol/L (98-107) L 04/01/18 10:55 Carbon Dioxide 26 mmol/L (22-30) 04/01/18 10:55 Anion Gap 14 mmol/L 04/01/18 10:55 BUN 15 mg/dL (9-20) 04/01/18 10:55 Creatinine 0.6 mg/dL (0.8-1.5) L 04/01/18 10:55 Estimated GFR > 60 ml/min 04/01/18 10:55 BUN/Creatinine Ratio 25 % 04/01/18 10:55 Glucose 72 mg/dL (75-100) L 04/01/18 10:55 POC Glucose 91 (70-105) 03/26/18 15:15 Hemoglobin A1c 4.8 % (4-6) 03/25/18 10:18 Lactic Acid 2.30 mmol/L (0.7-2.0) H* 03/21/18 08:46 Calcium 8.6 mg/dL (8.4-10.2) 04/01/18 10:55 Phosphorus 2.90 mg/dL (2.5-4.5) 03/25/18 10:18 Magnesium 1.90 mg/dL (1.7-2.3) 03/25/18 10:18 Total Bilirubin 1.40 mg/dL (0.1-1.2) H 03/22/18 05:39 Direct Bilirubin 0.4 mg/dL (0-0.2) H 03/21/18 08:46 Indirect Bilirubin 0.8 mg/dL 03/21/18 08:46 AST 91 units/L (5-40) H 03/22/18 05:39 ALT 57 units/L (7-56) H 03/22/18 05:39 Alkaline Phosphatase 97 units/L (35-129) 03/22/18 05:39 Ammonia 38.0 umol/L (25-60) 03/21/18 08:46 Total Creatine Kinase 20 units/L (55-170) L 04/04/18 18:33 CK-MB (CK-2) 1.0 ng/mL (0.0-4.0) 04/04/18 18:33 CK-MB (CK-2) Rel Index 5.0 (0-4) H 04/04/18 18:33 Troponin T < 0.010 ng/mL (0.00-0.029) 04/04/18 18:33 Total Protein 6.8 g/dL (6.3-8.2) 03/22/18 05:39 Albumin 3.1 g/dL (3.9-5) L 03/22/18 05:39 Albumin/Globulin Ratio 0.8 % 03/22/18 05:39 Salicylates < 0.3 mg/dL (2.8-20.0) L 03/21/18 08:46 Acetaminophen < 5.0 ug/mL (10.0-30.0) L 03/21/18 08:46 Plasma/Serum Alcohol 0.14 % (0-0.07) H 03/21/18 08:46
[2018-04-05] MEDS: PULMICORT IH SCH ×2 (14:51→20:13)
--- NOTE | 2018-04-05 20:44 | Treadmill Report ---
THALLIUM STRESS TEST FINDINGS: Left ventricular chamber size is within normal spread. Perfusion study demonstrated normal apical thinning. Otherwise homogeneous uptake of the tracer in all segments, no significant perfusion defects identified. Gated analysis demonstrates normal left ventricular systolic function, ejection fraction 61%. CONCLUSION: Normal myocardial perfusion study. JOB# [id number] CA/NTS
[2018-04-05] MEDS: LOVENOX SUB-Q SCH (22:01)
[2018-04-06] MEDS: TESSALON PERLES PO SCH ×3 (06:03→23:23)
[2018-04-06 06:34] LABS: Hematocrit 38.1 % (35.5-45.6); Hemoglobin 13.6 gm/dl (11.8-15.2); Mean Corpuscular HGB Conc 36 % (32-34); Mean Corpuscular Hemoglobin 35 pg (28-32); Mean Corpuscular Volume 97 fl (84-94); Platelet Count 379 K/mm3 (140-440); Red Blood Count 3.93 M/mm3 (3.65-5.03); Red Cell Distribution Width 13.1 % (13.2-15.2)
[2018-04-06 06:50] LABS: BUN/Creatinine Ratio 22; Blood Urea Nitrogen 11 mg/dL (9-20); Calcium 8.6 mg/dL (8.4-10.2); Hemolysis Index 2
[2018-04-06] MEDS: DUONEB *Not for PRN Use IH SCH ×3 (09:31→21:26)
[2018-04-06] MEDS: PULMICORT IH SCH ×2 (09:32→21:11)
[2018-04-06] MEDS: BROVANA NEBU IH SCH ×2 (09:32→21:11)
--- NOTE | 2018-04-06 09:45 | Progress Note ---
Assessment and Plan Assessment and plan: Chest pain, ordered CE, negative ordered stress test and 2d echo COPD exercebation, resolved Continue bronchodilators, oxygen, off solu-medrol now ETOH abuse CIWA protocol with tapering librium cont Thiamin, folic acid Rhabdomyolysis, resolved off IV fluids Bilateral shoulder pain 2/2 fall X-ray b/l shoulder showed no fracture or dislocation Left wrist pain 2/2 fall X-ray of the wrist showed no dislocation or fracture Hyperglycemia A1c is 4.8%, secondary to steroids Unsteady gait: PT following and recommended subacute rehab but pt is homeless and has no insurance. Will discharge to [facility] once stable. Also need walker and wheel chair on discharge DVT prophylaxis with Lovenox, GI prophylaxis with pepcid Awaiting placement. He is homeless History Interval history: Chest pain Less shortness of breath Hospitalist Physical - Physical exam Narrative exam: General: Not in acute distress, lying in bed HEENT:Normocephalic, atraumatic Neck:supple,no JVD Lungs: Clear to auscultation bilaterally, no crackles, no wheeze Heart:S1 and S2 regular, no murmurs, rubs or gallop Abd: soft, non tender,non distended, normal bowel sounds Ext: No edema, no clubbing, no cyanosis Neuro: Awake,alert , moves all extremitiies. - Constitutional Vitals: Temp Pulse Resp BP Pulse Ox 98.3 F 104 H 18 110/69 96 04/06/18 08:27 04/06/18 09:28 04/06/18 09:28 04/06/18 08:27 04/06/18 09:36 General appearance: Present: no acute distress Results - Labs CBC & Chem 7: 04/06/18 06:16 04/06/18 06:16 Labs: Laboratory Last Values WBC 10.3 K/mm3 (4.5-11.0) 04/06/18 06:16 RBC 3.93 M/mm3 (3.65-5.03) 04/06/18 06:16 Hgb 13.6 gm/dl (11.8-15.2) 04/06/18 06:16 Hct 38.1 % (35.5-45.6) 04/06/18 06:16 MCV 97 fl (84-94) H 04/06/18 06:16 MCH 35 pg (28-32) H 04/06/18 06:16 MCHC 36 % (32-34) H 04/06/18 06:16 RDW 13.1 % (13.2-15.2) L 04/06/18 06:16 Plt Count 379 K/mm3 (140-440) 04/06/18 06:16 Lymph % (Auto) 36.1 % (13.4-35.0) H 03/21/18 02:59 [place] % (Auto) 9.8 % (0.0-7.3) H 03/21/18 02:59 Eos % (Auto) 1.1 % (0.0-4.3) 03/21/18 02:59 Baso % (Auto) 1.2 % (0.0-1.8) 03/21/18 02:59 Lymph # 2.2 K/mm3 (1.2-5.4) 03/21/18 02:59 [place] # 0.6 K/mm3 (0.0-0.8) 03/21/18 02:59 Eos # 0.1 K/mm3 (0.0-0.4) 03/21/18 02:59 Baso # 0.1 K/mm3 (0.0-0.1) 03/21/18 02:59 Add Manual Diff Complete 03/22/18 05:39 Total Counted 100 03/22/18 05:39 Seg Neutrophils % 51.8 % (40.0-70.0) 03/21/18 02:59 Seg Neuts % (Manual) 89.0 % (40.0-70.0) H 03/22/18 05:39 Band Neutrophils % 0 % 03/22/18 05:39 Lymphocytes % (Manual) 9.0 % (13.4-35.0) L 03/22/18 05:39 Reactive Lymphs % (Man) 0 % 03/22/18 05:39 Monocytes % (Manual) 2.0 % (0.0-7.3) 03/22/18 05:39 Eosinophils % (Manual) 0 % (0.0-4.3) 03/22/18 05:39 Basophils % (Manual) 0 % (0.0-1.8) 03/22/18 05:39 Metamyelocytes % 0 % 03/22/18 05:39 Myelocytes % 0 % 03/22/18 05:39 Promyelocytes % 0 % 03/22/18 05:39 Blast Cells % 0 % 03/22/18 05:39 Nucleated RBC % Not Reportable 03/22/18 05:39 Seg Neutrophils # 3.2 K/mm3 (1.8-7.7) 03/21/18 02:59 Seg Neutrophils # Man 2.0 K/mm3 (1.8-7.7) 03/22/18 05:39 Band Neutrophils # 0.0 K/mm3 03/22/18 05:39 Lymphocytes # (Manual) 0.2 K/mm3 (1.2-5.4) L 03/22/18 05:39 Abs React Lymphs (Man) 0.0 K/mm3 03/22/18 05:39 Monocytes # (Manual) 0.0 K/mm3 (0.0-0.8) 03/22/18 05:39 Eosinophils # (Manual) 0.0 K/mm3 (0.0-0.4) 03/22/18 05:39 Basophils # (Manual) 0.0 K/mm3 (0.0-0.1) 03/22/18 05:39 Metamyelocytes # 0.0 K/mm3 03/22/18 05:39 Myelocytes # 0.0 K/mm3 03/22/18 05:39 Promyelocytes # 0.0 K/mm3 03/22/18 05:39 Blast Cells # 0.0 K/mm3 03/22/18 05:39 WBC Morphology Not Reportable 03/22/18 05:39 Hypersegmented Neuts Not Reportable 03/22/18 05:39 Hyposegmented Neuts Not Reportable 03/22/18 05:39 Hypogranular Neuts Not Reportable 03/22/18 05:39 Smudge Cells Not Reportable 03/22/18 05:39 Toxic Granulation Not Reportable 03/22/18 05:39 Toxic Vacuolation Not Reportable 03/22/18 05:39 Dohle Bodies Not Reportable 03/22/18 05:39 Pelger-Huet Anomaly Not Reportable 03/22/18 05:39 Octavio Rods Not Reportable 03/22/18 05:39 Platelet Estimate Cons 03/22/18 05:39 Clumped Platelets Not Reportable 03/22/18 05:39 Plt Clumps, EDTA Not Reportable 03/22/18 05:39 Large Platelets Few 03/22/18 05:39 Giant Platelets Not Reportable 03/22/18 05:39 Platelet Satelliting Not Reportable 03/22/18 05:39 Plt Morphology Comment Not Reportable 03/22/18 05:39 RBC Morphology Normal 03/22/18 05:39 Dimorphic RBCs Not Reportable 03/22/18 05:39 Polychromasia Not Reportable 03/22/18 05:39 Hypochromasia Not Reportable 03/22/18 05:39 Poikilocytosis Not Reportable 03/22/18 05:39 Anisocytosis Not Reportable 03/22/18 05:39 Microcytosis Not Reportable 03/22/18 05:39 Macrocytosis Not Reportable 03/22/18 05:39 Spherocytes Not Reportable 03/22/18 05:39 Pappenheimer Bodies Not Reportable 03/22/18 05:39 Sickle Cells Not Reportable 03/22/18 05:39 Target Cells Not Reportable 03/22/18 05:39 Tear Drop Cells Not Reportable 03/22/18 05:39 Ovalocytes Not Reportable 03/22/18 05:39 Helmet Cells Not Reportable 03/22/18 05:39 [place] Bodies Not Reportable 03/22/18 05:39 [place] Rings Not Reportable 03/22/18 05:39 [place] Cells Not Reportable 03/22/18 05:39 Bite Cells Not Reportable 03/22/18 05:39 Crenated Cell Not Reportable 03/22/18 05:39 Elliptocytes Not Reportable 03/22/18 05:39 Acanthocytes (Spur) Not Reportable 03/22/18 05:39 Rouleaux Not Reportable 03/22/18 05:39 Hemoglobin C Crystals Not Reportable 03/22/18 05:39 Schistocytes Not Reportable 03/22/18 05:39 Malaria parasites Not Reportable 03/22/18 05:39 Valentin Bodies Not Reportable 03/22/18 05:39 Hem Pathologist Commnt No 03/22/18 05:39 POC ABG pH 7.424 (7.35-7.45) 03/21/18 12:54 POC ABG pCO2 36.5 (35-45) 03/21/18 12:54 POC ABG pO2 82 (80-105) 03/21/18 12:54 POC ABG HCO3 23.9 03/21/18 12:54 POC ABG Total CO2 25 03/21/18 12:54 POC ABG O2 Sat 96 03/21/18 12:54 POC ABG Base Excess -1 03/21/18 12:54 FiO2 28 % 03/21/18 12:54 Sodium 134 mmol/L (137-145) L 04/06/18 06:16 Potassium 4.1 mmol/L (3.6-5.0) 04/06/18 06:16 Chloride 96.9 mmol/L (98-107) L 04/06/18 06:16 Carbon Dioxide 24 mmol/L (22-30) 04/06/18 06:16 Anion Gap 17 mmol/L 04/06/18 06:16 BUN 11 mg/dL (9-20) 04/06/18 06:16 Creatinine 0.5 mg/dL (0.8-1.5) L 04/06/18 06:16 Estimated GFR > 60 ml/min 04/06/18 06:16 BUN/Creatinine Ratio 22 % 04/06/18 06:16 Glucose 84 mg/dL (75-100) 04/06/18 06:16 POC Glucose 91 (70-105) 03/26/18 15:15 Hemoglobin A1c 4.8 % (4-6) 03/25/18 10:18 Lactic Acid 2.30 mmol/L (0.7-2.0) H* 03/21/18 08:46 Calcium 8.6 mg/dL (8.4-10.2) 04/06/18 06:16 Phosphorus 2.90 mg/dL (2.5-4.5) 03/25/18 10:18 Magnesium 1.90 mg/dL (1.7-2.3) 03/25/18 10:18 Total Bilirubin 1.40 mg/dL (0.1-1.2) H 03/22/18 05:39 Direct Bilirubin 0.4 mg/dL (0-0.2) H 03/21/18 08:46 Indirect Bilirubin 0.8 mg/dL 03/21/18 08:46 AST 91 units/L (5-40) H 03/22/18 05:39 ALT 57 units/L (7-56) H 03/22/18 05:39 Alkaline Phosphatase 97 units/L (35-129) 03/22/18 05:39 Ammonia 38.0 umol/L (25-60) 03/21/18 08:46 Total Creatine Kinase 20 units/L (55-170) L 04/04/18 18:33 CK-MB (CK-2) 1.0 ng/mL (0.0-4.0) 04/04/18 18:33 CK-MB (CK-2) Rel Index 5.0 (0-4) H 04/04/18 18:33 Troponin T < 0.010 ng/mL (0.00-0.029) 04/04/18 18:33 Total Protein 6.8 g/dL (6.3-8.2) 03/22/18 05:39 Albumin 3.1 g/dL (3.9-5) L 03/22/18 05:39 Albumin/Globulin Ratio 0.8 % 03/22/18 05:39 Salicylates < 0.3 mg/dL (2.8-20.0) L 03/21/18 08:46 Acetaminophen < 5.0 ug/mL (10.0-30.0) L 03/21/18 08:46 Plasma/Serum Alcohol 0.14 % (0-0.07) H 03/21/18 08:46
[2018-04-06] MEDS: FOLVITE PO SCH (10:29)
[2018-04-06] MEDS: VITAMIN B-1 PO SCH (10:29)
[2018-04-06] MEDS: BABY ASPIRIN PO SCH (10:29)
[2018-04-06] MEDS: THERAGRAN Tab PO SCH (10:29)
[2018-04-06] MEDS: HABITROL TD SCH (10:30)
[2018-04-06] MEDS: LOVENOX SUB-Q SCH (23:23)
[2018-04-06] MEDS ORDERED: ATIVAN PO ONE (23:30)
[2018-04-07] MEDS: TESSALON PERLES PO SCH ×3 (06:48→22:12)
[2018-04-07] MEDS: DUONEB *Not for PRN Use IH SCH ×3 (08:26→19:55)
[2018-04-07] MEDS: BROVANA NEBU IH SCH ×2 (08:27→19:51)
[2018-04-07] MEDS: PULMICORT IH SCH ×2 (08:27→19:52)
--- NOTE | 2018-04-07 09:01 | Progress Note ---
Assessment and Plan Assessment and plan: Chest pain, Non cardiac. Stress test negative COPD exercebation, resolved Continue bronchodilators, oxygen, off solu-medrol now ETOH abuse CIWA protocol with tapering librium cont Thiamin, folic acid Rhabdomyolysis, resolved off IV fluids Bilateral shoulder pain 2/2 fall X-ray b/l shoulder showed no fracture or dislocation Left wrist pain 2/2 fall X-ray of the wrist showed no dislocation or fracture Hyperglycemia A1c is 4.8%, secondary to steroids Unsteady gait: PT following and recommended subacute rehab but pt is homeless and has no insurance. Will discharge to long-term once stable. DVT prophylaxis with Lovenox, GI prophylaxis with pepcid Awaiting placement. He is homeless History Interval history: Feels better Gen weakness No more Chest pain No more shortness of breath Hospitalist Physical - Physical exam Narrative exam: General: Not in acute distress, lying in bed HEENT:Normocephalic, atraumatic Neck:supple,no JVD Lungs: Clear to auscultation bilaterally, no crackles, no wheeze Heart:S1 and S2 regular, no murmurs, rubs or gallop Abd: soft, non tender,non distended, normal bowel sounds Ext: No edema, no clubbing, no cyanosis Neuro: Awake,alert , moves all extremities. - Constitutional Vitals: Temp Pulse Resp BP Pulse Ox 98.6 F 82 16 106/69 92 04/07/18 07:31 04/07/18 08:20 04/07/18 08:20 04/07/18 07:31 04/07/18 07:31 General appearance: Present: no acute distress Results - Labs CBC & Chem 7: 04/06/18 06:16 04/06/18 06:16 Labs: Laboratory Last Values WBC 10.3 K/mm3 (4.5-11.0) 04/06/18 06:16 RBC 3.93 M/mm3 (3.65-5.03) 04/06/18 06:16 Hgb 13.6 gm/dl (11.8-15.2) 04/06/18 06:16 Hct 38.1 % (35.5-45.6) 04/06/18 06:16 MCV 97 fl (84-94) H 04/06/18 06:16 MCH 35 pg (28-32) H 04/06/18 06:16 MCHC 36 % (32-34) H 04/06/18 06:16 RDW 13.1 % (13.2-15.2) L 04/06/18 06:16 Plt Count 379 K/mm3 (140-440) 04/06/18 06:16 Lymph % (Auto) 36.1 % (13.4-35.0) H 03/21/18 02:59 Corson % (Auto) 9.8 % (0.0-7.3) H 03/21/18 02:59 Eos % (Auto) 1.1 % (0.0-4.3) 03/21/18 02:59 Baso % (Auto) 1.2 % (0.0-1.8) 03/21/18 02:59 Lymph # 2.2 K/mm3 (1.2-5.4) 03/21/18 02:59 Corson # 0.6 K/mm3 (0.0-0.8) 03/21/18 02:59 Eos # 0.1 K/mm3 (0.0-0.4) 03/21/18 02:59 Baso # 0.1 K/mm3 (0.0-0.1) 03/21/18 02:59 Add Manual Diff Complete 03/22/18 05:39 Total Counted 100 03/22/18 05:39 Seg Neutrophils % 51.8 % (40.0-70.0) 03/21/18 02:59 Seg Neuts % (Manual) 89.0 % (40.0-70.0) H 03/22/18 05:39 Band Neutrophils % 0 % 03/22/18 05:39 Lymphocytes % (Manual) 9.0 % (13.4-35.0) L 03/22/18 05:39 Reactive Lymphs % (Man) 0 % 03/22/18 05:39 Monocytes % (Manual) 2.0 % (0.0-7.3) 03/22/18 05:39 Eosinophils % (Manual) 0 % (0.0-4.3) 03/22/18 05:39 Basophils % (Manual) 0 % (0.0-1.8) 03/22/18 05:39 Metamyelocytes % 0 % 03/22/18 05:39 Myelocytes % 0 % 03/22/18 05:39 Promyelocytes % 0 % 03/22/18 05:39 Blast Cells % 0 % 03/22/18 05:39 Nucleated RBC % Not Reportable 03/22/18 05:39 Seg Neutrophils # 3.2 K/mm3 (1.8-7.7) 03/21/18 02:59 Seg Neutrophils # Man 2.0 K/mm3 (1.8-7.7) 03/22/18 05:39 Band Neutrophils # 0.0 K/mm3 03/22/18 05:39 Lymphocytes # (Manual) 0.2 K/mm3 (1.2-5.4) L 03/22/18 05:39 Abs React Lymphs (Man) 0.0 K/mm3 03/22/18 05:39 Monocytes # (Manual) 0.0 K/mm3 (0.0-0.8) 03/22/18 05:39 Eosinophils # (Manual) 0.0 K/mm3 (0.0-0.4) 03/22/18 05:39 Basophils # (Manual) 0.0 K/mm3 (0.0-0.1) 03/22/18 05:39 Metamyelocytes # 0.0 K/mm3 03/22/18 05:39 Myelocytes # 0.0 K/mm3 03/22/18 05:39 Promyelocytes # 0.0 K/mm3 03/22/18 05:39 Blast Cells # 0.0 K/mm3 03/22/18 05:39 WBC Morphology Not Reportable 03/22/18 05:39 Hypersegmented Neuts Not Reportable 03/22/18 05:39 Hyposegmented Neuts Not Reportable 03/22/18 05:39 Hypogranular Neuts Not Reportable 03/22/18 05:39 Smudge Cells Not Reportable 03/22/18 05:39 Toxic Granulation Not Reportable 03/22/18 05:39 Toxic Vacuolation Not Reportable 03/22/18 05:39 Dohle Bodies Not Reportable 03/22/18 05:39 Pelger-Huet Anomaly Not Reportable 03/22/18 05:39 Octavio Rods Not Reportable 03/22/18 05:39 Platelet Estimate Cons 03/22/18 05:39 Clumped Platelets Not Reportable 03/22/18 05:39 Plt Clumps, EDTA Not Reportable 03/22/18 05:39 Large Platelets Few 03/22/18 05:39 Giant Platelets Not Reportable 03/22/18 05:39 Platelet Satelliting Not Reportable 03/22/18 05:39 Plt Morphology Comment Not Reportable 03/22/18 05:39 RBC Morphology Normal 03/22/18 05:39 Dimorphic RBCs Not Reportable 03/22/18 05:39 Polychromasia Not Reportable 03/22/18 05:39 Hypochromasia Not Reportable 03/22/18 05:39 Poikilocytosis Not Reportable 03/22/18 05:39 Anisocytosis Not Reportable 03/22/18 05:39 Microcytosis Not Reportable 03/22/18 05:39 Macrocytosis Not Reportable 03/22/18 05:39 Spherocytes Not Reportable 03/22/18 05:39 Pappenheimer Bodies Not Reportable 03/22/18 05:39 Sickle Cells Not Reportable 03/22/18 05:39 Target Cells Not Reportable 03/22/18 05:39 Tear Drop Cells Not Reportable 03/22/18 05:39 Ovalocytes Not Reportable 03/22/18 05:39 Helmet Cells Not Reportable 03/22/18 05:39 Vicente-Mcfarlan Bodies Not Reportable 03/22/18 05:39 Elkhorn Rings Not Reportable 03/22/18 05:39 [place] Cells Not Reportable 03/22/18 05:39 Bite Cells Not Reportable 03/22/18 05:39 Crenated Cell Not Reportable 03/22/18 05:39 Elliptocytes Not Reportable 03/22/18 05:39 Acanthocytes (Spur) Not Reportable 03/22/18 05:39 Rouleaux Not Reportable 03/22/18 05:39 Hemoglobin C Crystals Not Reportable 03/22/18 05:39 Schistocytes Not Reportable 03/22/18 05:39 Malaria parasites Not Reportable 03/22/18 05:39 Valentin Bodies Not Reportable 03/22/18 05:39 Hem Pathologist Commnt No 03/22/18 05:39 POC ABG pH 7.424 (7.35-7.45) 03/21/18 12:54 POC ABG pCO2 36.5 (35-45) 03/21/18 12:54 POC ABG pO2 82 (80-105) 03/21/18 12:54 POC ABG HCO3 23.9 03/21/18 12:54 POC ABG Total CO2 25 03/21/18 12:54 POC ABG O2 Sat 96 03/21/18 12:54 POC ABG Base Excess -1 03/21/18 12:54 FiO2 28 % 03/21/18 12:54 Sodium 134 mmol/L (137-145) L 04/06/18 06:16 Potassium 4.1 mmol/L (3.6-5.0) 04/06/18 06:16 Chloride 96.9 mmol/L (98-107) L 04/06/18 06:16 Carbon Dioxide 24 mmol/L (22-30) 04/06/18 06:16 Anion Gap 17 mmol/L 04/06/18 06:16 BUN 11 mg/dL (9-20) 04/06/18 06:16 Creatinine 0.5 mg/dL (0.8-1.5) L 04/06/18 06:16 Estimated GFR > 60 ml/min 04/06/18 06:16 BUN/Creatinine Ratio 22 % 04/06/18 06:16 Glucose 84 mg/dL (75-100) 04/06/18 06:16 POC Glucose 91 (70-105) 03/26/18 15:15 Hemoglobin A1c 4.8 % (4-6) 03/25/18 10:18 Lactic Acid 2.30 mmol/L (0.7-2.0) H* 03/21/18 08:46 Calcium 8.6 mg/dL (8.4-10.2) 04/06/18 06:16 Phosphorus 2.90 mg/dL (2.5-4.5) 03/25/18 10:18 Magnesium 1.90 mg/dL (1.7-2.3) 03/25/18 10:18 Total Bilirubin 1.40 mg/dL (0.1-1.2) H 03/22/18 05:39 Direct Bilirubin 0.4 mg/dL (0-0.2) H 03/21/18 08:46 Indirect Bilirubin 0.8 mg/dL 03/21/18 08:46 AST 91 units/L (5-40) H 03/22/18 05:39 ALT 57 units/L (7-56) H 03/22/18 05:39 Alkaline Phosphatase 97 units/L (35-129) 03/22/18 05:39 Ammonia 38.0 umol/L (25-60) 03/21/18 08:46 Total Creatine Kinase 20 units/L (55-170) L 04/04/18 18:33 CK-MB (CK-2) 1.0 ng/mL (0.0-4.0) 04/04/18 18:33 CK-MB (CK-2) Rel Index 5.0 (0-4) H 04/04/18 18:33 Troponin T < 0.010 ng/mL (0.00-0.029) 04/04/18 18:33 Total Protein 6.8 g/dL (6.3-8.2) 03/22/18 05:39 Albumin 3.1 g/dL (3.9-5) L 03/22/18 05:39 Albumin/Globulin Ratio 0.8 % 03/22/18 05:39 Salicylates < 0.3 mg/dL (2.8-20.0) L 03/21/18 08:46 Acetaminophen < 5.0 ug/mL (10.0-30.0) L 03/21/18 08:46 Plasma/Serum Alcohol 0.14 % (0-0.07) H 03/21/18 08:46
[2018-04-07] MEDS: BABY ASPIRIN PO SCH (10:56)
[2018-04-07] MEDS: FOLVITE PO SCH (10:56)
[2018-04-07] MEDS: HABITROL TD SCH (10:56)
[2018-04-07] MEDS: VITAMIN B-1 PO SCH (10:57)
[2018-04-07] MEDS: THERAGRAN Tab PO SCH (10:57)
[2018-04-07] MEDS ORDERED: ATIVAN PO ONE (22:11)
[2018-04-07] MEDS: LOVENOX SUB-Q SCH (22:13)
[2018-04-08] MEDS: TESSALON PERLES PO SCH (06:28)
[2018-04-08] MEDS: BROVANA NEBU IH SCH (07:42)
[2018-04-08] MEDS: PULMICORT IH SCH (07:42)
[2018-04-08] MEDS: DUONEB *Not for PRN Use IH SCH ×2 (07:42→13:10)
[2018-04-08 08:55] VITALS: BP 125/78
--- NOTE | 2018-04-08 09:40 | Discharge Summary ---
Providers - Providers Date of Admission: 03/21/18 08:47 Date of discharge: 04/08/18 Attending physician: VIDHYA OLGUIN 03/22/18 10:32 Physical Therapy Evaluation and Treat [CONS] Routine Comment: Reason For Exam: debility 03/26/18 11:14 Physical Therapy Evaluation and Treat [CONS] Routine Comment: Reason For Exam: debility Primary care physician: [employer] Hospitalization Condition: Fair Disposition: DC-01 TO HOME OR SELFCARE Core Measure Documentation - Palliative Care Palliative Care/ Comfort Measures: Not Applicable - Core Measures Any of the following diagnoses?: none Exam - Constitutional Vitals: Temp Pulse Resp BP Pulse Ox 98.7 F 103 H 20 125/78 90 04/08/18 07:50 04/08/18 08:04 04/08/18 08:04 04/08/18 07:50 04/08/18 07:50 Plan Activity: advance as tolerated Diet: regular Additional Instructions: 1. Follow up wioth PCP or [facility] in 1 week. 2. Avoid alcohol Follow up with: PRIMARY CARE, [Primary Care Provider] - 3-5 Days Prescriptions: ALBUTEROL Inhaler [ProAir HFA Inhaler] 2 puff IH Q4-6H PRN #1 pump PRN Reason: Shortness Of Breath Folic Acid [Folvite] 1 mg PO DAILY #30 tablet Multivitamin Tab [Multiple Vitamin TAB (Theragran)] 1 each PO DAILY #30 tablet Thiamine [Vitamin B-1] 100 mg PO QDAY #30 tablet
[2018-04-08] MEDS: VITAMIN B-1 PO SCH (10:45)
[2018-04-08] MEDS: BABY ASPIRIN PO SCH (10:45)
[2018-04-08] MEDS: THERAGRAN Tab PO SCH (10:45)
[2018-04-08] MEDS: HABITROL TD SCH (10:45)
[2018-04-08] MEDS: FOLVITE PO SCH (10:45)
== END 2018-04-08 17:45 | disposition home or self-care (01) | DRG 190 ==
LOC: ED 23:29 → 4A 03-21 08:47 → 3A 03-22 20:52
PROVIDERS: ADMIT Family Medicine; ATTEND Internal Medicine
PROC: 4A033R1 Measurement of Arterial Saturation, Peripheral, Percutaneous Approach (ICD-10-PCS; principal; 2018-03-21)
DX: J44.1 Chronic obstructive pulmonary disease with (acute) exacerbation (principal); N17.0 Acute kidney failure with tubular necrosis; F10.239 Alcohol dependence with withdrawal, unspecified; M62.82 Rhabdomyolysis; J96.11 Chronic respiratory failure with hypoxia; Z88.8 Allergy status to other drugs, medicaments and biological substances; W18.39XA Other fall on same level, initial encounter; Y93.89 Activity, other specified; Y92.89 Other specified places as the place of occurrence of the external cause; Y99.8 Other external cause status; I10 Essential (primary) hypertension; F17.200 Nicotine dependence, unspecified, uncomplicated; Z59.0 Homelessness; M25.512 Pain in left shoulder; M25.511 Pain in right shoulder; M25.532 Pain in left wrist; R73.9 Hyperglycemia, unspecified; R07.9 Chest pain, unspecified
CPT/HCPCS: 36415; 36600; 70450; 71045; 71046; 78452; 80048; 80053; 80074; 80320; 82140; 82550; 82553; 82803; 82962; 83036; 83735; 84100; 84484; 85007; 85025; 85027; 90471; 90715; 93005; 93010; 93017; 93306; 94640; 94760; 99406; A9270-GY; A9502; G0480; J0360; J0610; J1650; J2060; J2785; J2920; J3411; J7030

== ENCOUNTER 2018-06-04 21:15 | Emergency (ER) | payer SELFPAY ==
--- NOTE | 2018-06-05 00:01 | XRay Report ---
FINAL REPORT EXAM: XR FOREARM RT HISTORY: Rt forearm pain post fall COMPARISON: None available. FINDINGS: Two views of right forearm obtained. Bony structures are intact. Joint spaces are preserved. No acute fracture dislocation. IMPRESSION: No acute bony abnormality.
--- NOTE | 2018-06-05 00:03 | XRay Report ---
FINAL REPORT EXAM: XR FINGER(S) 2+V RT HISTORY: Right pinky finger post fall COMPARISON: Right forearm from the same date. FINDINGS: There is an oblique nondisplaced fracture through the mid aspect of the 5th proximal phalanx. Mild narrowing hypertrophic spurring of the interphalangeal joints. IMPRESSION: Oblique nondisplaced fracture through the mid aspect of the 5th proximal phalanx.
--- NOTE | 2018-06-05 03:47 | Emergency Department Report ---
ED Laceration HPI - HPI Chief Complaint: Wound/Laceration Stated Complaint: LACERATION Time Seen by Provider: 06/05/18 03:40 Occurred When: Yesterday Severity: mild Tetanus Status: Not up to Date Laceration Symptoms: Yes Pain, No Foreign Body Sensation, No Numbness, No Weakness Other History: 58-year-old homeless male comes into the emergency room complaining of right arm laceration and right pinky finger pain 8 out of 10 status post falling [place] the [place] station today. Per EMS patient cut his right arm on trash bin. Per review of chart patient has a history of COPD and hypertension. As well as alcohol abuse. ED Review of Systems ROS: Stated complaint: LACERATION Other details as noted in HPI Skin: other (cut to right forearm and scratched to right pinky) ED Past Medical Hx - Past Medical History Hx Hypertension: Yes Hx Congestive Heart Failure: No Hx Diabetes: No Hx Arthritis: Yes Hx Asthma: No Hx COPD: Yes (no home O2) Hx Tuberculosis: No Hx HIV: No Additional medical history: snake bite - Surgical History Additional Surgical History: Right knee surgery/tendon repair - Social History Smoking Status: Current Every Day Smoker Substance Use Type: Alcohol - Medications Home Medications: Home Medications Medication Instructions Recorded Confirmed Last Taken Type ALBUTEROL Inhaler [ProAir HFA 2 puff IH Q4-6H PRN #1 pump 04/08/18 Unknown Rx Inhaler] Folic Acid [Folvite] 1 mg PO DAILY #30 tablet 04/08/18 Unknown Rx Multivitamin Tab [Multiple Vitamin 1 each PO DAILY #30 tablet 04/08/18 Unknown Rx TAB (Theragran)] Thiamine [Vitamin B-1] 100 mg PO QDAY #30 tablet 04/08/18 Unknown Rx Sulfamethoxazole/Trimethoprim 1 each PO BID #14 tablet 06/05/18 Unknown Rx [Bactrim Ds Tablet] Laceration Physical Exam - Exam General: Vital signs noted. No distress. Alert and acting appropriately. Patient smells of alcohol and very unkept. Patient has multiple bags/garbage bags of things Laceration Location: Other (right forearm 2 cm laceration with no active bleeding surrounding ecchymosis) Laceration Exam: Yes Normal Distal CMS, No Foreign Body, No Exposed Tendon, Vessel, or Nerve, No Tendon Injury ED Course Vital Signs 06/04/18 22:06 Temperature 98.2 F Pulse Rate 120 H Respiratory 14 Rate Blood Pressure 102/75 [Left] O2 Sat by Pulse 90 Oximetry - Laceration /Wound Repair Right Volar Arm Wound Location: upper extremity Wound Length (cm): 2 (right foot large arm) Wound's Depth, Shape: superficial Wound Explored: clean Irrigated w/ Saline (ccs): 45 Betadine Prep?: Yes Wound Repaired With: Steri-strips, Dermabond Progress: Patient tolerated procedure well ED Medical Decision Making - Medical Decision Making Patient has been evaluated by this provider fast track. Suture repair performed on right forearm and abrasion to right pinky. Patient's given tetanus booster. Patient was given 2 things of apple juice. Patient will be discharged on antibiotics. Patient has a history of gastritis saw I will avoid ibuprofen or discharge Patient has history of alcohol abuse will recommend [id number] Tylenol every 6-8 hours as needed for pain. Critical care attestation.: If time is entered above; I have spent that time in minutes in the direct care of this critically ill patient, excluding procedure time. ED Disposition Clinical Impression: Laceration of forearm, right Qualifiers: Encounter type: initial encounter Qualified Code(s): S51.811A - Laceration without foreign body of right forearm, initial encounter Disposition: DC-01 TO HOME OR SELFCARE Is pt being admited?: No Does the pt Need Aspirin: No Condition: Stable Instructions: Skin Adhesive Care (ED), Laceration (ED) Additional Instructions: You can take [id number] Tylenol every 6-8 hours for pain for no more than 3 days. Prescriptions: Sulfamethoxazole/Trimethoprim [Bactrim Ds Tablet] 1 each PO BID #14 tablet Referrals: PRIMARY CARE, [Primary Care Provider] - 3-5 Days
[2018-06-05] MEDS ORDERED: MOTRIN PO ONE (03:48)
[2018-06-05] MEDS ORDERED: BOOSTRIX IM ONE (03:54)
[2018-06-05 04:27] VITALS: BP 124/72
== END 2018-06-05 05:00 | disposition home or self-care (01) ==
LOC: ED 21:15
DX: S51.811A Laceration without foreign body of right forearm, initial encounter (principal); I10 Essential (primary) hypertension; M19.90 Unspecified osteoarthritis, unspecified site; J44.9 Chronic obstructive pulmonary disease, unspecified; F17.200 Nicotine dependence, unspecified, uncomplicated; Z88.1 Allergy status to other antibiotic agents; W19.XXXA Unspecified fall, initial encounter; Y93.89 Activity, other specified; Y92.524 Gas station as the place of occurrence of the external cause; Y99.8 Other external cause status
CPT/HCPCS: 90471; 90715; 99284

== ENCOUNTER 2018-06-17 10:21 | Inpatient (IN) | payer OTHER ==
[2018-06-17 11:28] LABS: Hematocrit 46.1 % (35.5-45.6); Hemoglobin 16.5 gm/dl (11.8-15.2); Mean Corpuscular HGB Conc 36 % (32-34); Mean Corpuscular Hemoglobin 35 pg (28-32); Mean Corpuscular Volume 97 fl (84-94); Platelet Count 103 K/mm3 (140-440); Red Blood Count 4.77 M/mm3 (3.65-5.03); Red Cell Distribution Width 15.9 % (13.2-15.2)
[2018-06-17 11:44] LABS: BUN/Creatinine Ratio 4; Blood Urea Nitrogen 2 mg/dL (9-20); Calcium 8.4 mg/dL (8.4-10.2); Hemolysis Index 15
[2018-06-17 12:04] LABS: Alanine Aminotransferase 62 units/L (7-56); Albumin 3.3 g/dL (3.9-5); Bilirubin,Direct 0.7 mg/dL (0-0.2)
--- NOTE | 2018-06-17 12:05 | Emergency Department Report ---
HPI - General Chief Complaint: Alcohol Time Seen by Provider: 06/17/18 11:09 - HPI HPI: 58-year-old male presents to the emergency department via EMS with complaint of bilateral lower extremity weakness, some generalized weakness and no longer being able to ambulate has been going on since last night. The patient does admit to being homeless and living outside. He does admit to pretty regular alcohol use. He has a past medical history of non-oxygen dependent COPD, hypertension and arthritis. He does not have a primary care physician. He is a tobacco smoker but denies any illicit drug use. ED Past Medical Hx - Past Medical History Previous Medical History?: Yes Hx Hypertension: Yes Hx Congestive Heart Failure: No Hx Diabetes: No Hx Arthritis: Yes Hx Asthma: No Hx COPD: Yes (no home O2) Hx Tuberculosis: No Hx HIV: No Additional medical history: snake bite - Surgical History Past Surgical History?: Yes Additional Surgical History: Right knee surgery/tendon repair - Social History Smoking Status: Current Every Day Smoker Substance Use Type: Alcohol - Medications Home Medications: Home Medications Medication Instructions Recorded Confirmed Last Taken Type No Known Home Medications [No 06/17/18 06/17/18 Unknown History Reported Home Medications] ED Review of Systems ROS: Stated complaint: WEAKNESS/TACHYCARDIA Other details as noted in HPI Comment: All other systems reviewed and negative Constitutional: weakness. denies: chills, fever Eyes: denies: eye pain, eye discharge, vision change ENT: denies: ear pain, throat pain Respiratory: denies: cough, shortness of breath, wheezing Cardiovascular: denies: chest pain, palpitations Gastrointestinal: denies: abdominal pain, nausea, diarrhea Genitourinary: denies: urgency, dysuria Musculoskeletal: denies: back pain, joint swelling, arthralgia Skin: denies: rash, lesions Neurological: weakness. denies: headache Physical Exam - Physical Exam Physical Exam: GENERAL: Patient has poor hygiene. He is caked with dirt and wearing wet malodorous clothes. HENT: Normocephalic. Atraumatic. Patient has moist mucous membranes. EYES: Extraocular motions are intact. Pupils equal reactive to light bilaterally. NECK: Supple. Trachea is midline. CHEST/LUNGS: Clear to auscultation. There is no respiratory distress noted. HEART/CARDIOVASCULAR: Regular. There is moderate tachycardia. There is no murmur. ABDOMEN: Abdomen is soft, nontender. Patient has normal bowel sounds. There is no abdominal distention. SKIN: Skin is warm and dry. NEURO: The patient is awake, alert, and oriented. The patient is cooperative. The patient has no focal neurologic deficits. The patient has normal speech. Patient is very tremulous. MUSCULOSKELETAL: There is no tenderness or deformity. There is no limitation range of motion. There is no evidence of acute injury. ED Medical Decision Making - Lab Data Result diagrams: 06/17/18 11:06 06/17/18 11:06 - EKG Data -: EKG Interpreted by Ny EKG shows normal: sinus rhythm (PACs), axis (right axis deviation), intervals, QRS complexes (Q waves to the septal leads), ST-T waves Rate: tachycardia (134 bpm) - EKG Data When compared to previous EKG there are: previous EKG unavailable Interpretation: other (sinus tachycardia, PACs, right axis deviation, Q waves to the septal leads) - Radiology Data Radiology results: report reviewed CT HEAD WITHOUT CONTRAST: HISTORY: . TECHNIQUE: Sequential CT images without contrast. FINDINGS: Images obtained show bilateral prominence of the sulci and ventricles. There are no abnormal intra- or extra-axial blood or fluid collections. There are no focal masses or evidence of mass effect. The gonzalez white matter differentiation appears within normal limits. Regions of periventricular decreased attenuation are consistent with microangiopathic ischemic disease. The posterior fossa structures including the fourth ventricle, cerebellum, and brainstem appear normal. The left maxillary sinus is occluded. The remaining visualized sinuses and mastoid air cell are well-aerated. IMPRESSION: Evidence of atrophy and microangiopathic ischemic disease. No acute intracranial process noted. Left maxillary sinus disease, likely chronic. Transcribed By: TTR Dictated By: WYATT DOWNING JR, MD Electronically Authenticated By: WYATT DOWNING JR, MD Signed Date/Time: 06/17/18 1246 - Medical Decision Making Patient presents by ambulance from the street with what appears to be alcohol withdrawal but with a complaint of weakness including trouble ambulating. CT head did not show any bleed, shift, mass or any other acute process. The patient is tremulous and does display some lower extremity weakness. However there is no obvious last known well time and the patient does not appear to be a candidate for TPA. His labs show a urinary tract infection, hyponatremia and some elevated liver enzymes and a ratio consistent with alcohol use/abuse. Current blood alcohol level is negative. He was started on the alcohol withdrawal protocol and has received some Ativan. He is also getting IV fluid resuscitation with vitamins and thiamine. The patient will be admitted to the hospital for further evaluation and treatment was accepted for admission by the hospitalist, Dr. Stephenson. - Differential Diagnosis alcohol withdrawal, CVA, TIA, dysrhythmia, sepsis Critical Care Time: No Critical care attestation.: If time is entered above; I have spent that time in minutes in the direct care of this critically ill patient, excluding procedure time. ED Disposition Clinical Impression: Generalized weakness, Hyponatremia Alcohol withdrawal Qualifiers: Complication of substance-induced condition: with unspecified complication Qualified Code(s): F10.239 - Alcohol dependence with withdrawal, unspecified Alcohol dependence Qualifiers: Substance use status: in withdrawal Complication of substance-induced condition : with unspecified complication Qualified Code(s): F10.239 - Alcohol dependence with withdrawal, unspecified Disposition: DC-09 OP ADMIT IP TO THIS HOSP Is pt being admited?: Yes Condition: Fair Referrals: PRIMARY CARE, [Primary Care Provider] - 3-5 Days Time of Disposition: 15:20
[2018-06-17] MEDS ORDERED: ATIVAN IV PRN ×2 (12:14)
[2018-06-17] MEDS ORDERED: VITAMIN B-1 100 MG, FOLVITE 1 MG, INFUVITE 10 ML in NACL 0.9% 1000 ML 1,000 ML IV ONE (12:44)
--- NOTE | 2018-06-17 12:52 | Cat Scan Report ---
CT HEAD WITHOUT CONTRAST: HISTORY: . TECHNIQUE: Sequential CT images without contrast. FINDINGS: Images obtained show bilateral prominence of the sulci and ventricles. There are no abnormal intra- or extra-axial blood or fluid collections. There are no focal masses or evidence of mass effect. The gonzalez white matter differentiation appears within normal limits. Regions of periventricular decreased attenuation are consistent with microangiopathic ischemic disease. The posterior fossa structures including the fourth ventricle, cerebellum, and brainstem appear normal. The left maxillary sinus is occluded. The remaining visualized sinuses and mastoid air cell are well-aerated. IMPRESSION: Evidence of atrophy and microangiopathic ischemic disease. No acute intracranial process noted. Left maxillary sinus disease, likely chronic.
[2018-06-17] MEDS ORDERED: THERAGRAN Tab PO ONE (13:16)
--- NOTE | 2018-06-17 13:16 | History and Physical Report ---
History of Present Illness Chief complaint: Im weak History of present illness: 58 YO Male with ETOH Dependence, HTN, COPD, OA presents to ED for evaluation. Pt seen and evaluated. Neurologic workup negative. Pt medically optimized and no acute medical findings. Pt treated with diet, IVF resuscitation, thiamine, folic acid, and multivitamin. Pt medically optimized. Pt discharged and instructed to f/u pcp 1wk for further care, and to f/u with AA at discharge. Past History Past Medical History: COPD, hypertension Past Surgical History: No surgical history, Other (reviewed) Social history: single, alcohol abuse Family history: no significant family history ([place]) Medications and Allergies Allergies Allergy/AdvReac Type Severity Reaction Status Date / Time cephalexin [From Keflex] Allergy Hives Verified 06/04/18 22:02 Cephalosporins Allergy Anaphylaxis Verified 06/17/17 18:14 Home Medications Medication Instructions Recorded Confirmed Last Taken Type Ciprofloxacin HCl [Ciprofloxacin 500 mg PO Q12H #14 tab 06/17/18 Unknown Rx TAB] Folic Acid 1 tab PO QDAY #30 tab 06/17/18 Unknown Rx Multivitamin Tab [Multiple Vitamin 1 each PO QDAY #30 tablet 06/17/18 Unknown Rx TAB (Theragran)] Thiamine [Vitamin B-1] 100 mg PO QDAY #30 tablet 06/17/18 Unknown Rx Active Meds: Active Medications Thiamine HCl 100 mg/ Folic Acid 1 mg/ Multivitamins/Minerals 10 ml/ Sodium Chloride 1,011.2 mls @ 250 mls/hr IV ONCE ONE Stop: 06/17/18 16:46 Last Admin: 06/17/18 12:45 Dose: 250 mls/hr Lorazepam (Ativan) 2 mg IV Q1HR PRN PRN Reason: CIWA-Ar 8-15 Lorazepam (Ativan) 4 mg IV Q1HR PRN PRN Reason: CIWA-Ar 16-25 Lorazepam (Ativan) 4 mg IV Q15MIN PRN PRN Reason: CIWA-Ar >25 Review of Systems Constitutional: weakness, no weight loss, no weight gain, no fever, no chills Ears, nose, mouth and throat: no ear pain, no ear discharge, no tinnitis, no decreased hearing, no nose pain, no nasal congestion Cardiovascular: no chest pain, no orthopnea, no palpitations, no rapid/ irregular heart beat, no edema, no syncope Respiratory: no cough, no cough with sputum, no excessive sputum, no hemoptysis Gastrointestinal: no nausea, no vomiting, no diarrhea, no constipation Genitourinary Male: no hematuria, no flank pain, no discharge, no urinary frequency, no urinary hesitancy Rectal: no pain, no incontinence, no bleeding Musculoskeletal: no neck stiffness, no neck pain, no shooting arm pain, no arm numbness/tingling, no low back pain, no shooting leg pain Integumentary: no rash, no pruritis, no redness, no sores, no wounds Neurological: no head injury, no transient paralysis, no paralysis, no weakness , no parathesias, no numbness, no tingling Psychiatric: no anxiety, no memory loss, no change in sleep habits, no sleep disturbances, no insomnia, no hypersomnia Endocrine: no cold intolerance, no heat intolerance, no polyphagia, no excessive thirst, no polydipsia, no polyuria, no nocturia Hematologic/Lymphatic: no easy bruising, no easy bleeding, no lymphadenopathy, no lymphedema Allergic/Immunologic: no urticaria, no allergic rhinitis, no wheezing Exam - Constitutional Vitals: Temp Pulse Resp BP Pulse Ox 99.1 F 132 H 20 143/82 96 06/17/18 12:09 06/17/18 12:09 06/17/18 12:09 06/17/18 12:00 06/17/18 12:09 General appearance: Present: disheveled, malodorous - EENT Eyes: Present: PERRL ENT: hearing intact, clear oral mucosa - Neck Neck: Present: supple, normal ROM - Respiratory Respiratory effort: normal Respiratory: bilateral: CTA - Cardiovascular Heart Sounds: Present: S1 & S2. Absent: rub, click - Extremities Extremities: pulses symmetrical, No edema Peripheral Pulses: within normal limits - Abdominal General gastrointestinal: Present: soft, non-tender, non-distended, normal bowel sounds Male genitourinary: Present: normal - Integumentary Integumentary: Present: clear, warm, dry - Musculoskeletal Musculoskeletal: gait normal, strength equal bilaterally - Psychiatric Psychiatric: appropriate mood/affect, intact judgment & insight - Neurologic Neurologic: CNII-XII intact, moves all extremities Results - Labs CBC & Chem 7: 06/17/18 11:06 06/17/18 11:06 Labs: Abnormal lab results 06/17/18 06/17/18 06/17/18 Range/Units 11:06 11:06 11:06 Hgb 16.5 H (11.8-15.2) gm/dl Hct 46.1 H (35.5-45.6) % MCV 97 H (84-94) fl MCH 35 H (28-32) pg MCHC 36 H (32-34) % RDW 15.9 H (13.2-15.2) % Plt Count 103 L (140-440) K/mm3 Sodium 127 L (137-145) mmol/L Chloride 87.3 L (98-107) mmol/L BUN 2 L (9-20) mg/dL Creatinine 0.5 L (0.8-1.5) mg/dL Glucose 136 H (75-100) mg/dL Total Bilirubin 1.80 H (0.1-1.2) mg/dL Direct Bilirubin 0.7 H (0-0.2) mg/dL AST 129 H (5-40) units/L ALT 62 H (7-56) units/L Albumin 3.3 L (3.9-5) g/dL Assessment and Plan - Patient Problems (1) UTI (urinary tract infection) Current Visit: Yes Status: Acute Qualifiers: Encounter type: initial encounter Plan to address problem: antibiotics, (2) Alcohol dependence Current Visit: Yes Status: Acute Qualifiers: Substance use status: in withdrawal Complication of substance-induced condition: with unspecified complication Qualified Code(s): F10.239 - Alcohol dependence with withdrawal, unspecified Plan to address problem: AA at Discharge, Thiamine, Folic Acid, multivitamin (3) Generalized weakness Current Visit: Yes Status: Acute Plan to address problem: Secondary to chronic ETOH use. Increased protein diet, ETOH cessation
[2018-06-17] MEDS ORDERED: NACL 0.9% 1000 ML 2,000 ML IV ONE (13:17)
[2018-06-17] MEDS: ATIVAN IV PRN ×2 (14:16→18:00)
[2018-06-17 14:47] LABS: Bacteria,Urine 1+ /HPF (Negative); Bilirubin,Urine NEG (Negative); Blood,Urine SM (Negative); Color,Urine Amber (Yellow); Hyaline Casts,Urine 4 /LPF; Mucus,Urine FEW /HPF
[2018-06-17 15:01] LABS: Amphetamine Screen,Urine PRESUMPTIVE NEGATIVE; Benzodiazepines Screen,Urine PRESUMPTIVE NEGATIVE; Cannabinoid Screen,Urine PRESUMPTIVE NEGATIVE; Cocaine Screen,Urine PRESUMPTIVE NEGATIVE; Methadone Screen,Urine PRESUMPTIVE NEGATIVE; Opiate Screen,Urine PRESUMPTIVE NEGATIVE
[2018-06-17] MEDS: MACROBID PO SCH ×2 (17:05→23:20)
[2018-06-17] MEDS ORDERED: NACL 0.9% 1000 ML 1,000 ML IV ONE (17:12)
[2018-06-17] MEDS ORDERED: LEVAQUIN PO ONE (18:59)
[2018-06-18] MEDS ORDERED: ATIVAN IV ONE (08:42)
[2018-06-18] MEDS ORDERED: NACL 0.9% 1000 ML 1,000 ML IV ONE (08:42)
--- NOTE | 2018-06-18 08:56 | Emergency Department Report ---
HPI - General Chief Complaint: Alcohol Time Seen by Provider: 06/17/18 11:09 - HPI HPI: Patient came in for alcohol intoxication was initially discharged by the hospitalist Dr. Stephenson. This morning he started having withdrawal symptoms, with tremors and unsteady gait. Patient is actively going through alcohol withdrawal. After my reassessment this morning, I decided to call the hospitalist doctor supervisor air conditioning installer Dr Slater and he agreed to admit the patient for further medical management. Patient was admitted to Dr. Kd Suarez. ED Past Medical Hx - Past Medical History Previous Medical History?: Yes Hx Hypertension: Yes Hx Congestive Heart Failure: No Hx Diabetes: No Hx Arthritis: Yes Hx Asthma: No Hx COPD: Yes (no home O2) Hx Tuberculosis: No Hx HIV: No Additional medical history: snake bite - Surgical History Past Surgical History?: Yes Additional Surgical History: Right knee surgery/tendon repair - Social History Smoking Status: Current Every Day Smoker Substance Use Type: Alcohol - Medications Home Medications: Home Medications Medication Instructions Recorded Confirmed Last Taken Type Ciprofloxacin HCl [Ciprofloxacin 500 mg PO Q12H #14 tab 06/17/18 Unknown Rx TAB] Folic Acid 1 tab PO QDAY #30 tab 06/17/18 Unknown Rx Multivitamin Tab [Multiple Vitamin 1 each PO QDAY #30 tablet 06/17/18 Unknown Rx TAB (Theragran)] Thiamine [Vitamin B-1] 100 mg PO QDAY #30 tablet 06/17/18 Unknown Rx ED Review of Systems ROS: Stated complaint: WEAKNESS/TACHYCARDIA Other details as noted in HPI Constitutional: weakness. denies: chills, fever Eyes: denies: eye pain, eye discharge, vision change ENT: denies: ear pain, throat pain Respiratory: denies: cough, shortness of breath, wheezing Cardiovascular: denies: chest pain, palpitations Gastrointestinal: denies: abdominal pain, nausea, diarrhea Genitourinary: denies: urgency, dysuria Musculoskeletal: denies: back pain, joint swelling, arthralgia Skin: denies: rash, lesions Neurological: weakness. denies: headache Physical Exam - Physical Exam Vital Signs: Vital Signs 06/17/18 06/17/18 06/17/18 11:41 11:46 12:00 Temperature Pulse Rate Respiratory Rate Blood Pressure 143/82 143/82 Blood Pressure [Left] O2 Sat by Pulse 91 95 96 Oximetry 06/17/18 06/17/18 06/17/18 12:09 12:34 12:45 Temperature 99.1 F Pulse Rate 132 H 131 H 138 H Respiratory 20 22 20 Rate Blood Pressure 143/82 137/73 Blood Pressure [Left] O2 Sat by Pulse 96 96 92 Oximetry 06/17/18 06/17/18 06/17/18 13:00 13:15 13:30 Temperature Pulse Rate 125 H 126 H 123 H Respiratory 26 H 24 24 Rate Blood Pressure 126/83 133/85 142/76 Blood Pressure [Left] O2 Sat by Pulse 92 92 93 Oximetry 06/17/18 06/17/18 06/17/18 13:45 14:00 14:15 Temperature Pulse Rate 119 H 130 H 128 H Respiratory 26 H 21 25 H Rate Blood Pressure 136/71 140/75 153/87 Blood Pressure [Left] O2 Sat by Pulse 94 94 95 Oximetry 06/17/18 06/17/18 06/17/18 14:30 14:46 15:00 Temperature Pulse Rate 120 H 126 H 123 H Respiratory 16 23 19 Rate Blood Pressure 155/83 150/79 160/85 Blood Pressure [Left] O2 Sat by Pulse 95 96 94 Oximetry 06/17/18 06/17/18 06/17/18 15:15 15:30 15:45 Temperature Pulse Rate 128 H 118 H 118 H Respiratory 18 33 H 29 H Rate Blood Pressure 147/89 139/79 140/85 Blood Pressure [Left] O2 Sat by Pulse 97 94 95 Oximetry 06/17/18 06/17/18 06/17/18 16:00 16:16 16:30 Temperature Pulse Rate 118 H 123 H 120 H Respiratory 22 28 H 32 H Rate Blood Pressure 141/83 148/84 126/71 Blood Pressure [Left] O2 Sat by Pulse 94 90 92 Oximetry 06/17/18 06/17/18 06/17/18 16:45 17:00 17:06 Temperature 97.9 F Pulse Rate 122 H 115 H Respiratory 27 H 24 Rate Blood Pressure 135/83 140/79 Blood Pressure [Left] O2 Sat by Pulse 94 94 Oximetry 06/17/18 06/17/18 06/17/18 17:30 18:00 18:30 Temperature Pulse Rate 119 H 122 H 114 H Respiratory 27 H 29 H 29 H Rate Blood Pressure 134/83 140/88 152/90 Blood Pressure [Left] O2 Sat by Pulse 93 93 94 Oximetry 06/17/18 06/17/18 06/18/18 19:00 19:30 07:30 Temperature Pulse Rate 120 H 127 H 121 H Respiratory 29 H 22 22 Rate Blood Pressure 153/92 152/92 Blood Pressure 127/74 [Left] O2 Sat by Pulse 94 94 96 Oximetry ED Course Vital Signs 06/17/18 06/17/18 06/17/18 11:41 11:46 12:00 Temperature Pulse Rate Respiratory Rate Blood Pressure 143/82 143/82 Blood Pressure [Left] O2 Sat by Pulse 91 95 96 Oximetry 06/17/18 06/17/18 06/17/18 12:09 12:34 12:45 Temperature 99.1 F Pulse Rate 132 H 131 H 138 H Respiratory 20 22 20 Rate Blood Pressure 143/82 137/73 Blood Pressure [Left] O2 Sat by Pulse 96 96 92 Oximetry 06/17/18 06/17/18 06/17/18 13:00 13:15 13:30 Temperature Pulse Rate 125 H 126 H 123 H Respiratory 26 H 24 24 Rate Blood Pressure 126/83 133/85 142/76 Blood Pressure [Left] O2 Sat by Pulse 92 92 93 Oximetry 06/17/18 06/17/18 06/17/18 13:45 14:00 14:15 Temperature Pulse Rate 119 H 130 H 128 H Respiratory 26 H 21 25 H Rate Blood Pressure 136/71 140/75 153/87 Blood Pressure [Left] O2 Sat by Pulse 94 94 95 Oximetry 06/17/18 06/17/18 06/17/18 14:30 14:46 15:00 Temperature Pulse Rate 120 H 126 H 123 H Respiratory 16 23 19 Rate Blood Pressure 155/83 150/79 160/85 Blood Pressure [Left] O2 Sat by Pulse 95 96 94 Oximetry 06/17/18 06/17/18 06/17/18 15:15 15:30 15:45 Temperature Pulse Rate 128 H 118 H 118 H Respiratory 18 33 H 29 H Rate Blood Pressure 147/89 139/79 140/85 Blood Pressure [Left] O2 Sat by Pulse 97 94 95 Oximetry 06/17/18 06/17/18 06/17/18 16:00 16:16 16:30 Temperature Pulse Rate 118 H 123 H 120 H Respiratory 22 28 H 32 H Rate Blood Pressure 141/83 148/84 126/71 Blood Pressure [Left] O2 Sat by Pulse 94 90 92 Oximetry 06/17/18 06/17/18 06/17/18 16:45 17:00 17:06 Temperature 97.9 F Pulse Rate 122 H 115 H Respiratory 27 H 24 Rate Blood Pressure 135/83 140/79 Blood Pressure [Left] O2 Sat by Pulse 94 94 Oximetry 06/17/18 06/17/18 06/17/18 17:30 18:00 18:30 Temperature Pulse Rate 119 H 122 H 114 H Respiratory 27 H 29 H 29 H Rate Blood Pressure 134/83 140/88 152/90 Blood Pressure [Left] O2 Sat by Pulse 93 93 94 Oximetry 06/17/18 06/17/18 06/18/18 19:00 19:30 07:30 Temperature Pulse Rate 120 H 127 H 121 H Respiratory 29 H 22 22 Rate Blood Pressure 153/92 152/92 Blood Pressure 127/74 [Left] O2 Sat by Pulse 94 94 96 Oximetry ED Medical Decision Making - Lab Data Result diagrams: 06/17/18 11:06 06/17/18 11:06 Critical care attestation.: If time is entered above; I have spent that time in minutes in the direct care of this critically ill patient, excluding procedure time. ED Disposition Clinical Impression: Generalized weakness, Hyponatremia, Alcohol abuse Alcohol withdrawal Qualifiers: Complication of substance-induced condition: with unspecified complication Qualified Code(s): F10.239 - Alcohol dependence with withdrawal, unspecified Alcohol dependence Qualifiers: Substance use status: unspecified alcohol-induced disorder Qualified Code(s): F10.29 - Alcohol dependence with unspecified alcohol-induced disorder UTI (urinary tract infection) Qualifiers: Indwelling urinary catheter type: unspecified Encounter type: initial encounter Disposition: OP ADMIT IP TO THIS HOSP Is pt being admited?: Yes Does the pt Need Aspirin: No Condition: Fair Prescriptions: Ciprofloxacin HCl [Ciprofloxacin TAB] 500 mg PO Q12H #14 tab Folic Acid 1 tab PO QDAY #30 tab Multivitamin Tab [Multiple Vitamin TAB (Theragran)] 1 each PO QDAY #30 tablet Thiamine [Vitamin B-1] 100 mg PO QDAY #30 tablet Referrals: PRIMARY CARE, [Primary Care Provider] - 3-5 Days Time of Disposition: 08:56
[2018-06-18] MEDS: MACROBID PO SCH ×2 (13:27→23:25)
[2018-06-18] MEDS: FOLVITE PO SCH (13:28)
[2018-06-18] MEDS ORDERED: ATIVAN IV PRN (14:21)
--- NOTE | 2018-06-18 14:26 | Progress Note ---
Assessment and Plan - UTI (urinary tract infection) Follow-up urine culture commenced antibiotics Levaquin - Alcohol dependence with Alcohol dependence with withdrawal, unspecified Thiamine, Folic Acid, multivitamin CIWA protocol with ativan AA at Discharge, - Hyponatremia Supplements - Alcohol abuse Drinks 6 packs daily for many years in addition to ANUP (for Vance Valentine) and TK for Counselling on Alsohol cessation done - Hyperglycemia Obtain A1c - Hyperbilirubinemia Alcohol induce Continu with iv hydration recheck - Polycythermiarubra vera Commence low dose ASA - Generalized weakness likely secondary to alcohol Secondary to chronic ETOH use. Increased protein diet, ETOH cessation counseling was done - DVT prophylaxis with Lovenox and GI Pepcid Subjective Date of service: 06/18/18 Principal diagnosis: UTI, alcohol withdrawal Interval history: Patient seen and examined. No seizure activities. Still feeling weak. No fever. Reviewed laboratory and radiological data Objective - Exam Narrative Exam: Constitutional: Well-nourished well-developed. In no distress Head: Normocephalic atraumatic Eyes: Pupils are equal round and reactive to light Nose: No enlarged turbinates, no septal deviation. Mouth: Moist mucous membranes. Neck: Supple no thyromegaly. No bruit. No JVD Heart: Regular rate and rhythm, S1-S2 abnormal. No rubs murmurs or gallop Lungs: Clear to auscultation bilaterally no rales or rhonchi Abdomen: Soft, nontender. Bowel sound are present. Extremities: No edema no cyanosis and no clubbing. Neuro: Alert oriented Oriented x3. No focal sensory or motor deficit. Skin: No rashes no hyperemic spots Psychiatry: Euthymic. Calm. - Constitutional Vitals: Vital Signs - 12hr 06/18/18 06/18/18 06/18/18 02:21 02:30 02:41 Temperature Pulse Rate 124 H 124 H 127 H Respiratory 24 24 21 Rate Blood Pressure 124/79 138/81 138/81 Blood Pressure [Left] O2 Sat by Pulse 98 96 98 Oximetry 06/18/18 06/18/18 06/18/18 02:51 03:00 03:11 Temperature Pulse Rate 127 H 132 H 130 H Respiratory 22 22 25 H Rate Blood Pressure 138/81 134/87 134/87 Blood Pressure [Left] O2 Sat by Pulse 98 96 98 Oximetry 06/18/18 06/18/18 06/18/18 03:21 03:30 03:41 Temperature Pulse Rate 131 H 131 H 128 H Respiratory 21 19 14 Rate Blood Pressure 134/87 144/87 144/87 Blood Pressure [Left] O2 Sat by Pulse 97 98 95 Oximetry 06/18/18 06/18/18 06/18/18 03:51 04:00 04:11 Temperature Pulse Rate 126 H 131 H 126 H Respiratory 23 24 26 H Rate Blood Pressure 144/87 141/83 141/83 Blood Pressure [Left] O2 Sat by Pulse 95 94 96 Oximetry 06/18/18 06/18/18 06/18/18 04:21 04:31 04:41 Temperature Pulse Rate 126 H 133 H 125 H Respiratory 15 20 20 Rate Blood Pressure 141/83 141/83 146/83 Blood Pressure [Left] O2 Sat by Pulse 96 96 98 Oximetry 06/18/18 06/18/18 06/18/18 04:51 05:00 05:11 Temperature Pulse Rate 134 H 128 H 126 H Respiratory 20 22 22 Rate Blood Pressure 146/83 141/83 141/83 Blood Pressure [Left] O2 Sat by Pulse 98 98 97 Oximetry 06/18/18 06/18/18 06/18/18 05:21 05:30 05:41 Temperature Pulse Rate 130 H 127 H 126 H Respiratory 20 20 21 Rate Blood Pressure 141/83 136/75 136/75 Blood Pressure [Left] O2 Sat by Pulse 97 96 96 Oximetry 06/18/18 06/18/18 06/18/18 05:51 06:00 06:11 Temperature Pulse Rate 125 H 128 H 126 H Respiratory 20 21 17 Rate Blood Pressure 136/75 126/77 126/77 Blood Pressure [Left] O2 Sat by Pulse 97 95 96 Oximetry 06/18/18 06/18/18 06/18/18 06:21 06:30 06:41 Temperature Pulse Rate 128 H 128 H 127 H Respiratory 15 22 17 Rate Blood Pressure 126/77 131/80 131/80 Blood Pressure [Left] O2 Sat by Pulse 97 94 96 Oximetry 06/18/18 06/18/18 06/18/18 06:51 07:00 07:11 Temperature Pulse Rate 126 H 131 H 126 H Respiratory 24 21 25 H Rate Blood Pressure 131/80 134/79 131/80 Blood Pressure [Left] O2 Sat by Pulse 96 93 93 Oximetry 0806/18/18 06/18/18 07:21 07:30 07:41 Temperature Pulse Rate 124 H 125 H 124 H Respiratory 24 37 H 20 Rate Blood Pressure 131/80 127/74 127/74 Blood Pressure 127/74 [Left] O2 Sat by Pulse 93 92 95 Oximetry 06/18/18 06/18/18 06/18/18 07:51 08:00 08:11 Temperature Pulse Rate 125 H 125 H 124 H Respiratory 24 19 18 Rate Blood Pressure 127/74 134/66 134/66 Blood Pressure [Left] O2 Sat by Pulse 97 97 99 Oximetry 06/18/18 06/18/18 06/18/18 08:21 08:30 08:41 Temperature Pulse Rate 120 H 122 H 114 H Respiratory 23 20 20 Rate Blood Pressure 134/66 126/70 126/70 Blood Pressure [Left] O2 Sat by Pulse 99 98 98 Oximetry 06/18/18 06/18/18 06/18/18 08:51 09:00 09:11 Temperature Pulse Rate 133 H 118 H 114 H Respiratory 21 25 H 23 Rate Blood Pressure 126/70 138/75 138/75 Blood Pressure [Left] O2 Sat by Pulse 97 98 100 Oximetry 06/18/18 06/18/18 06/18/18 09:21 09:25 10:28 Temperature 99.5 F Pulse Rate 109 H 118 H 110 H Respiratory 12 25 H 20 Rate Blood Pressure 138/75 128/77 Blood Pressure 138/75 [Left] O2 Sat by Pulse 100 98 96 Oximetry 06/18/18 06/18/18 06/18/18 10:42 12:23 14:11 Temperature 99.5 F 99.5 F Pulse Rate 110 H 110 H Respiratory 20 20 Rate Blood Pressure Blood Pressure 128/77 128/77 [Left] O2 Sat by Pulse 95 95 95 Oximetry - Labs CBC & Chem 7: 06/17/18 11:06 06/17/18 11:06 Labs: Abnormal lab results 06/17/18 Range/Units 14:24 Urine WBC (Auto) 21.0 H (0.0-6.0) /HPF
[2018-06-18] MEDS ORDERED: LEVAQUIN 750MG/150ML 750 MG/150 ML BAG IV SCH (15:00)
[2018-06-18] MEDS: LEVAQUIN PO SCH (16:32)
[2018-06-18] MEDS: NACL 0.9% 1000 ML 1,000 ML IV SCH (16:33)
[2018-06-18] MEDS: LOVENOX SUB-Q SCH (23:25)
[2018-06-18] MEDS: BABY ASPIRIN PO SCH (23:25)
[2018-06-19] MEDS: NACL 0.9% 1000 ML 1,000 ML IV SCH ×2 (02:35→23:41)
[2018-06-19 08:08] LABS: Basophils # (Auto) 0.1 K/mm3 (0.0-0.1); Eosinophils # (Auto) 0.3 K/mm3 (0.0-0.4); Eosinophils % (Auto) 3.9 % (0.0-4.3); Hematocrit 42.5 % (35.5-45.6); Hemoglobin 14.7 gm/dl (11.8-15.2); Lymphocytes % (Auto) 27.8 % (13.4-35.0); Mean Corpuscular HGB Conc 35 % (32-34); Mean Corpuscular Hemoglobin 34 pg (28-32); Mean Corpuscular Volume 97 fl (84-94); Monocytes # (Auto) 0.8 K/mm3 (0.0-0.8); Monocytes % (Auto) 11.8 % (0.0-7.3); Red Blood Count 4.37 M/mm3 (3.65-5.03); Red Cell Distribution Width 15.6 % (13.2-15.2)
[2018-06-19 08:34] LABS: Alanine Aminotransferase 47 units/L (7-56); Albumin 2.8 g/dL (3.9-5); BUN/Creatinine Ratio 10; Blood Urea Nitrogen 3 mg/dL (9-20); Calcium 7.9 mg/dL (8.4-10.2); Hemolysis Index 15
[2018-06-19 08:37] LABS: Platelet Count 99 K/mm3 (140-440)
[2018-06-19] MEDS: FOLVITE PO SCH (11:22)
[2018-06-19] MEDS: BABY ASPIRIN PO SCH (11:22)
--- NOTE | 2018-06-19 14:29 | Progress Note ---
Assessment and Plan - UTI (urinary tract infection) Follow-up urine culture commenced antibiotics Levaquin - Alcohol dependence with Alcohol dependence with withdrawal, unspecified Thiamine, Folic Acid, multivitamin CIWA protocol with ativan AA at Discharge, - Hyponatremia - improved Supplements - Hypokalemia and hypomagnesemia Will supplement - Alcohol abuse Drinks 6 packs daily for many years in addition to ANUP (for Vance Valentine) and TK for Counselling on Also[place] cessation done - Hyperglycemia Obtain A1c - Hyperbilirubinemia Alcohol induce Continu with iv hydration recheck - Polycythermiarubra vera Commence low dose ASA - Generalized weakness likely secondary to alcohol Secondary to chronic ETOH use. Increased protein diet, ETOH cessation counseling was done - DVT prophylaxis with Lovenox and GI Pepcid -Discussed plan plan with the pat and his manny of which expressed understanding Subjective Date of service: 06/19/18 Principal diagnosis: UTI, alcohol withdrawal Interval history: Patient seen and examined. No seizure activities. No fever. Reviewed laboratory and radiological data Objective - Exam Narrative Exam: Constitutional: Well-nourished well-developed.In no distress Head: Normocephalic atraumatic Eyes: Pupils are equal round and reactive to light Nose: No enlarged turbinates, no septal deviation. Mouth: Moist mucous membranes. Neck: Supple no thyromegaly. No bruit. No JVD Heart: Regular rate and rhythm, S1-S2 abnormal. No rubs murmurs or gallop Lungs: Clear to auscultation bilaterally no rales or rhonchi Abdomen: Soft, nontender. Bowel sound are present. Extremities: No edema no cyanosis and no clubbing. Neuro: Alert oriented Oriented x3. No focal sensory or motor deficit. Skin: No rashes no hyperemic spots Psychiatry: Euthymic. Calm. - Constitutional Vitals: Vital Signs - 12hr 06/19/18 06/19/18 06/19/18 07:29 08:39 11:14 Temperature 98.4 F 97.9 F Pulse Rate 114 H 112 H Respiratory 20 20 Rate Blood Pressure 141/91 154/90 O2 Sat by Pulse 95 96 95 Oximetry - Labs CBC & Chem 7: 06/19/18 07:48 06/19/18 07:48 Labs: Abnormal lab results 06/19/18 06/19/18 Range/Units 07:48 07:48 MCV 97 H (84-94) fl MCH 34 H (28-32) pg MCHC 35 H (32-34) % RDW 15.6 H (13.2-15.2) % Plt Count 99 L (140-440) K/mm3 [place] % (Auto) 11.8 H (0.0-7.3) % Sodium 136 L D (137-145) mmol/L Potassium 3.1 L D (3.6-5.0) mmol/L Chloride 89.9 L (98-107) mmol/L BUN 3 L (9-20) mg/dL Creatinine 0.3 L (0.8-1.5) mg/dL Glucose 61 L (75-100) mg/dL Calcium 7.9 L (8.4-10.2) mg/dL Phosphorus 2.20 L (2.5-4.5) mg/dL Magnesium 1.50 L (1.7-2.3) mg/dL Total Bilirubin 1.60 H (0.1-1.2) mg/dL AST 103 H (5-40) units/L Total Protein 6.2 L (6.3-8.2) g/dL Albumin 2.8 L (3.9-5) g/dL
[2018-06-19] MEDS: LEVAQUIN PO SCH (16:06)
[2018-06-19] MEDS ORDERED: MAGNESIUM SULFATE 4GM/100ML 4 GM/100 ML BAG IV ONE (17:00)
[2018-06-19] MEDS: KCL 20MEQ/100ML 20 MEQ/100 ML BAG IV SCH ×2 (18:07→20:00)
[2018-06-19] MEDS: LOVENOX SUB-Q SCH (23:42)
[2018-06-20 06:55] LABS: Basophils # (Auto) 0.1 K/mm3 (0.0-0.1); Eosinophils # (Auto) 0.3 K/mm3 (0.0-0.4); Eosinophils % (Auto) 4.2 % (0.0-4.3); Hemoglobin 14.8 gm/dl (11.8-15.2); Lymphocytes # (Auto) 1.6 K/mm3 (1.2-5.4); Lymphocytes % (Auto) 25.5 % (13.4-35.0); Mean Corpuscular HGB Conc 34 % (32-34); Mean Corpuscular Hemoglobin 33 pg (28-32); Mean Corpuscular Volume 99 fl (84-94); Monocytes # (Auto) 0.9 K/mm3 (0.0-0.8); Monocytes % (Auto) 13.7 % (0.0-7.3); Platelet Count 133 K/mm3 (140-440); Red Blood Count 4.44 M/mm3 (3.65-5.03); Red Cell Distribution Width 15.3 % (13.2-15.2)
[2018-06-20 07:09] LABS: Alanine Aminotransferase 52 units/L (7-56); Albumin 2.9 g/dL (3.9-5); BUN/Creatinine Ratio 15; Blood Urea Nitrogen 6 mg/dL (9-20); Calcium 8.1 mg/dL (8.4-10.2); Hemolysis Index 9
[2018-06-20] MEDS: BABY ASPIRIN PO SCH (10:20)
[2018-06-20] MEDS: FOLVITE PO SCH (10:20)
--- NOTE | 2018-06-20 13:46 | Progress Note ---
Assessment and Plan - UTI (urinary tract infection) Follow-up urine culture commenced antibiotics Levaquin - Alcohol dependence with Alcohol dependence with withdrawal, unspecified Thiamine, Folic Acid, multivitamin CIWA protocol with atcarole AA at Discharge, - Hyponatremia - improved Supplements - Hypokalemia and hypomagnesemia Will supplement further - Alcohol abuse Drinks 6 packs daily for many years in addition to ANUP (for Vance Valentine) and TK for Counselling on Also[place] cessation done - Hyperglycemia Obtain A1c - Hyperbilirubinemia Alcohol induce Continu with iv hydration recheck - Polycythermiarubra vera Commence low dose ASA - Generalized weakness likely secondary to alcohol Secondary to chronic ETOH use. Increased protein diet, ETOH cessation counseling was done - DVT prophylaxis with Lovenox and GI Pepcid -Discussed plan plan with the pat and his manny of which expressed understanding Subjective Date of service: 06/20/18 Principal diagnosis: UTI, alcohol withdrawal Interval history: Patient seen and examined. No seizure activities. No fever.Reviewed laboratory and radiological data Objective - Exam Narrative Exam: Constitutional: Well-nourished well-developed. In no distress Head: Normocephalic atraumatic Eyes: Pupils are equal round and reactive to light Nose: No enlarged turbinates, no septal deviation. Mouth: Moist mucous membranes. Neck: Supple no thyromegaly. No bruit. No JVD Heart: Regular rate and rhythm, S1-S2 abnormal. No rubs murmurs or gallop Lungs: Clear to auscultation bilaterally no rales or rhonchi Abdomen: Soft, nontender. Bowel sound are present. Extremities: No edema no cyanosis and no clubbing. Neuro: Alert oriented Oriented x3. No focal sensory or motor deficit. Skin: No rashes no hyperemic spots Psychiatry: Euthymic. Calm. - Constitutional Vitals: Vital Signs - 12hr 06/20/18 06/20/18 06/20/18 04:00 04:41 07:37 Temperature 98.6 F Pulse Rate 108 H 111 H 109 H Respiratory 20 20 Rate Blood Pressure 122/84 140/90 O2 Sat by Pulse 96 95 Oximetry 06/20/18 11:53 Temperature 98.0 F Pulse Rate 108 H Respiratory 18 Rate Blood Pressure 146/84 O2 Sat by Pulse 97 Oximetry - Labs CBC & Chem 7: 06/20/18 05:49 06/20/18 05:49 Labs: Abnormal lab results 06/20/18 06/20/18 Range/Units 05:49 05:49 MCV 99 H (84-94) fl MCH 33 H (28-32) pg RDW 15.3 H (13.2-15.2) % Plt Count 133 L (140-440) K/mm3 [place] % (Auto) 13.7 H (0.0-7.3) % [place] # 0.9 H (0.0-0.8) K/mm3 Sodium 135 L (137-145) mmol/L Potassium 3.1 L (3.6-5.0) mmol/L Chloride 91.2 L (98-107) mmol/L BUN 6 L (9-20) mg/dL Creatinine 0.4 L (0.8-1.5) mg/dL Glucose 69 L (75-100) mg/dL Calcium 8.1 L (8.4-10.2) mg/dL Phosphorus 2.40 L (2.5-4.5) mg/dL Magnesium 2.80 H (1.7-2.3) mg/dL Total Bilirubin 1.60 H (0.1-1.2) mg/dL AST 112 H (5-40) units/L Albumin 2.9 L (3.9-5) g/dL
[2018-06-20] MEDS: LEVAQUIN PO SCH (17:11)
[2018-06-20] MEDS: NACL 0.9% 1000 ML 1,000 ML IV SCH (21:08)
[2018-06-20] MEDS: LOVENOX SUB-Q SCH (21:09)
[2018-06-21] MEDS: KCL 10MEQ/100ML 10 MEQ/100 ML BAG IV SCH (00:14)
[2018-06-21] MEDS: FOLVITE PO SCH (09:52)
[2018-06-21] MEDS: BABY ASPIRIN PO SCH (09:52)
[2018-06-21 10:28] LABS: Basophils # (Auto) 0.1 K/mm3 (0.0-0.1); Basophils % (Auto) 1.7 % (0.0-1.8); Eosinophils # (Auto) 0.3 K/mm3 (0.0-0.4); Hematocrit 43.4 % (35.5-45.6); Hemoglobin 14.6 gm/dl (11.8-15.2); Lymphocytes # (Auto) 1.1 K/mm3 (1.2-5.4); Lymphocytes % (Auto) 22.4 % (13.4-35.0); Mean Corpuscular HGB Conc 34 % (32-34); Mean Corpuscular Hemoglobin 33 pg (28-32); Mean Corpuscular Volume 99 fl (84-94); Monocytes # (Auto) 0.8 K/mm3 (0.0-0.8); Monocytes % (Auto) 15.7 % (0.0-7.3); Platelet Count 145 K/mm3 (140-440); Red Cell Distribution Width 15.5 % (13.2-15.2)
[2018-06-21 10:40] LABS: Alanine Aminotransferase 51 units/L (7-56); Albumin 2.9 g/dL (3.9-5); BUN/Creatinine Ratio 20; Blood Urea Nitrogen 8 mg/dL (9-20); Calcium 8.1 mg/dL (8.4-10.2); Hemolysis Index 7
[2018-06-21] MEDS ORDERED: K-DUR PO ONE (10:50)
--- NOTE | 2018-06-21 10:52 | Progress Note ---
Assessment and Plan - UTI (urinary tract infection) Follow-up urine culture commenced antibiotics Levaquin - Alcohol dependence with Alcohol dependence with withdrawal, unspecified Thiamine, Folic Acid, multivitamin CIWA protocol with ativan AA at Discharge, - Hyponatremia - improved Supplements - Hypokalemia and hypomagnesemia Will supplement further - Alcohol abuse Drinks 6 packs daily for many years in addition to [facility] (for Vance Valentine) and TK for Counselling on [place] cessation done - Hyperglycemia Obtain A1c - Hyperbilirubinemia Alcohol induce Continu with iv hydration recheck - Polycythermiarubra vera Commence low dose ASA - Generalized weakness likely secondary to alcohol Secondary to chronic ETOH use. Increased protein diet, ETOH cessation counseling was done - DVT prophylaxis with Lovenox and GI Pepcid Physical exam: Constitutional: Well-nourished well-developed. In no distress Head: Normocephalic atraumatic Eyes: Pupils are equal round and reactive to light Nose: No enlarged turbinates, no septal deviation. Mouth: Moist mucous membranes. Neck: Supple no thyromegaly. No bruit. No JVD Heart: Regular rate and rhythm, S1-S2 abnormal. No rubs murmurs or gallop Lungs: Clear to auscultation bilaterally no rales or rhonchi Abdomen: Soft, nontender. Bowel sound are present. Extremities: No edema no cyanosis and no clubbing. Neuro: Alert oriented Oriented x3. No focal sensory or motor deficit. Skin: No rashes no hyperemic spots Psychiatry: Euthymic. Calm. Subjective Date of service: 06/21/18 Principal diagnosis: UTI, alcohol withdrawal Interval history: Patient seen and examined. No seizure activities. No fever. Reviewed laboratory and radiological data C/o generalized weakness Objective - Constitutional Vitals: Vital Signs - 12hr 06/21/18 06/21/18 06/21/18 00:15 04:45 07:29 Temperature 98.1 F 98.0 F 98.0 F Pulse Rate 107 H 104 H 107 H Respiratory 18 18 18 Rate Blood Pressure 141/85 140/74 124/81 O2 Sat by Pulse 94 94 93 Oximetry - Labs CBC & Chem 7: 06/21/18 09:54 06/22/18 15:39 Labs: Abnormal lab results 06/21/18 06/21/18 Range/Units 09:54 09:54 MCV 99 H (84-94) fl MCH 33 H (28-32) pg RDW 15.5 H (13.2-15.2) % Bee % (Auto) 15.7 H (0.0-7.3) % Eos % (Auto) 6.0 H (0.0-4.3) % Lymph # 1.1 L (1.2-5.4) K/mm3 Sodium 135 L (137-145) mmol/L Potassium 3.2 L (3.6-5.0) mmol/L Chloride 93.8 L (98-107) mmol/L BUN 8 L (9-20) mg/dL Creatinine 0.4 L (0.8-1.5) mg/dL Glucose 116 H (75-100) mg/dL Calcium 8.1 L (8.4-10.2) mg/dL Total Bilirubin 1.30 H (0.1-1.2) mg/dL AST 94 H (5-40) units/L Total Protein 6.2 L (6.3-8.2) g/dL Albumin 2.9 L (3.9-5) g/dL
[2018-06-21] MEDS: LEVAQUIN PO SCH (16:07)
[2018-06-21] MEDS: LOVENOX SUB-Q SCH (22:25)
[2018-06-22] MEDS: FOLVITE PO SCH (09:00)
[2018-06-22] MEDS: BABY ASPIRIN PO SCH (09:00)
[2018-06-22] MEDS: LEVAQUIN PO SCH (15:53)
[2018-06-23] MEDS: LOVENOX SUB-Q SCH ×2 (00:02→22:47)
--- NOTE | 2018-06-23 00:43 | Progress Note ---
Assessment and Plan - UTI (urinary tract infection) Follow-up urine culture commenced antibiotics Levaquin for total 5 days - Alcohol dependence with Alcohol dependence with withdrawal, unspecified Thiamine, Folic Acid, multivitamin CIWA protocol placed with tapering dose of ativan AA at Discharge, - Hyponatremia - improved Supplements - Hypokalemia and hypomagnesemia Will supplement further - Alcohol abuse Drinks 6 packs daily for many years in addition to [facility] (for Vance Valentine) and TK for Counselling on [place] cessation done - Hyperglycemia Obtain A1c - Hyperbilirubinemia Alcohol induce Continu with iv hydration recheck - Polycythermiarubra vera Commence low dose ASA - Generalized weakness likely secondary to alcohol Secondary to chronic ETOH use. Increased protein diet, ETOH cessation counseling was done - DVT prophylaxis with Lovenox and GI Pepcid Physical exam: Constitutional: Well-nourished well-developed. In no distress Head: Normocephalic atraumatic Eyes: Pupils are equal round and reactive to light Nose: No enlarged turbinates, no septal deviation. Mouth: Moist mucous membranes. Neck: Supple no thyromegaly. No bruit. No JVD Heart: Regular rate and rhythm, S1-S2 abnormal. No rubs murmurs or gallop Lungs: Clear to auscultation bilaterally no rales or rhonchi Abdomen: Soft, nontender. Bowel sound are present. Extremities: No edema no cyanosis and no clubbing. Neuro: Alert oriented Oriented x3. No focal sensory or motor deficit. Skin: No rashes no hyperemic spots Psychiatry: Euthymic. Calm. Subjective Date of service: 06/22/18 Principal diagnosis: UTI, alcohol withdrawal Interval history: Patient seen and examined. No seizure activities. No fever. Reviewed laboratory and radiological data Continue to c/o generalized weakness, ask for help for ambulation Objective - Constitutional Vitals: Vital Signs - 12hr 06/22/18 06/22/18 06/22/18 17:12 19:05 19:10 Temperature 97.9 F 98.4 F Pulse Rate 74 109 H 103 H Respiratory 20 20 Rate Blood Pressure Blood Pressure 140/80 134/80 [Left] O2 Sat by Pulse 96 97 96 Oximetry 06/22/18 06/22/18 22:55 22:57 Temperature 98.3 F Pulse Rate 105 H Respiratory Rate Blood Pressure 140/77 Blood Pressure [Left] O2 Sat by Pulse 95 Oximetry - Labs CBC & Chem 7: 06/21/18 09:54 06/23/18 07:31 Labs: Abnormal lab results 06/22/18 Range/Units 15:39 Potassium 3.4 L (3.6-5.0) mmol/L
[2018-06-23 08:19] LABS: BUN/Creatinine Ratio 33; Blood Urea Nitrogen 13 mg/dL (9-20); Calcium 8.3 mg/dL (8.4-10.2); Hemolysis Index 14
[2018-06-23] MEDS: BABY ASPIRIN PO SCH (10:05)
[2018-06-23] MEDS: FOLVITE PO SCH (10:05)
[2018-06-23] MEDS: LEVAQUIN PO SCH (15:35)
--- NOTE | 2018-06-23 17:40 | Progress Note ---
Assessment and Plan - UTI (urinary tract infection) Follow-up urine culture commenced antibiotics Levaquin for total 5 days - Alcohol dependence with Alcohol dependence with withdrawal, unspecified Thiamine, Folic Acid, multivitamin CIWA protocol placed with tapering dose of ativan AA at Discharge, - Hyponatremia - improved Supplements - Hypokalemia and hypomagnesemia Will supplement further - Alcohol abuse Drinks 6 packs daily for many years in addition to [facility] (for Vance Valentine) and TK for Counselling on [place] cessation done - Hyperglycemia Obtain A1c - Hyperbilirubinemia Alcohol induce Continu with iv hydration recheck - Polycythermiarubra vera Commence low dose ASA - Generalized weakness likely secondary to alcohol Secondary to chronic ETOH use. Increased protein diet, ETOH cessation counseling was done - DVT prophylaxis with Lovenox and GI Pepcid Physical exam: Constitutional: Well-nourished well-developed. In no distress Head: Normocephalic atraumatic Eyes: Pupils are equal round and reactive to light Nose: No enlarged turbinates, no septal deviation. Mouth: Moist mucous membranes. Neck: Supple no thyromegaly. No bruit. No JVD Heart: Regular rate and rhythm, S1-S2 abnormal. No rubs murmurs or gallop Lungs: Clear to auscultation bilaterally no rales or rhonchi Abdomen: Soft, nontender. Bowel sound are present. Extremities: No edema no cyanosis and no clubbing. Neuro: Alert oriented Oriented x3. No focal sensory or motor deficit. Skin: No rashes no hyperemic spots Psychiatry: Euthymic. Calm. Subjective Date of service: 06/23/18 Principal diagnosis: UTI, alcohol withdrawal Interval history: Patient seen and examined. No seizure activities. No fever. Reviewed laboratory and radiological data Continue to c/o generalized weakness, ask for help for ambulation Objective - Constitutional Vitals: Vital Signs - 12hr 06/23/18 06/23/18 06/23/18 07:47 10:00 10:42 Temperature 98.1 F Pulse Rate 100 H 94 H Respiratory 18 20 Rate Blood Pressure 131/85 O2 Sat by Pulse 96 96 Oximetry 06/23/18 06/23/18 11:32 15:45 Temperature 97.9 F 98.3 F Pulse Rate 107 H 98 H Respiratory 20 20 Rate Blood Pressure 121/72 119/70 O2 Sat by Pulse 96 97 Oximetry - Labs CBC & Chem 7: 06/21/18 09:54 06/23/18 07:31 Labs: Abnormal lab results 06/23/18 Range/Units 07:31 Creatinine 0.4 L (0.8-1.5) mg/dL Calcium 8.3 L (8.4-10.2) mg/dL
[2018-06-24] MEDS: FOLVITE PO SCH (10:26)
[2018-06-24] MEDS: BABY ASPIRIN PO SCH (10:26)
--- NOTE | 2018-06-24 15:00 | Progress Note ---
Assessment and Plan - UTI (urinary tract infection) Follow-up urine culture commenced antibiotics Levaquin for total 5 days - Alcohol dependence with Alcohol dependence with withdrawal, unspecified Thiamine, Folic Acid, multivitamin CIWA protocol placed with tapering dose of ativan AA at Discharge, - Hyponatremia - improved Supplements - Hypokalemia and hypomagnesemia Will supplement further - Alcohol abuse Drinks 6 packs daily for many years in addition to [facility] (for Vance Valentine) and TK for Counselling on [place] cessation done - Hyperglycemia Obtain A1c - Hyperbilirubinemia Alcohol induce Continu with iv hydration recheck - Polycythermiarubra vera Commence low dose ASA - Generalized weakness likely secondary to alcohol Secondary to chronic ETOH use. Increased protein diet, ETOH cessation counseling was done - DVT prophylaxis with Lovenox and GI Pepcid Physical exam: Constitutional: Well-nourished well-developed. In no distress Head: Normocephalic atraumatic Eyes: Pupils are equal round and reactive to light Nose: No enlarged turbinates, no septal deviation. Mouth: Moist mucous membranes. Neck: Supple no thyromegaly. No bruit. No JVD Heart: Regular rate and rhythm, S1-S2 abnormal. No rubs murmurs or gallop Lungs: Clear to auscultation bilaterally no rales or rhonchi Abdomen: Soft, nontender. Bowel sound are present. Extremities: No edema no cyanosis and no clubbing. Neuro: Alert oriented Oriented x3. No focal sensory or motor deficit. Skin: No rashes no hyperemic spots Psychiatry: Euthymic. Calm. Subjective Date of service: 06/24/18 Principal diagnosis: UTI, alcohol withdrawal Interval history: Patient seen and examined. No seizure activities. No fever. Reviewed laboratory and radiological data Continue to c/o generalized weakness, ask for help for ambulation Objective - Constitutional Vitals: Vital Signs - 12hr 06/24/18 06/24/18 06/24/18 04:37 07:38 09:09 Temperature 98.0 F 97.6 F Pulse Rate 99 H 101 H 98 H Respiratory 20 20 Rate Blood Pressure 141/72 129/87 Blood Pressure [Left] O2 Sat by Pulse 96 93 Oximetry 06/24/18 06/24/18 09:16 11:35 Temperature 97.6 F 97.7 F Pulse Rate 101 H 99 H Respiratory 20 20 Rate Blood Pressure 115/70 Blood Pressure 129/87 [Left] O2 Sat by Pulse 94 96 Oximetry - Labs CBC & Chem 7: 06/21/18 09:54 06/23/18 07:31
[2018-06-24] MEDS: LOVENOX SUB-Q SCH (23:25)
[2018-06-25] MEDS: FOLVITE PO SCH (09:30)
[2018-06-25] MEDS: BABY ASPIRIN PO SCH (09:30)
--- NOTE | 2018-06-25 11:50 | Progress Note ---
Assessment and Plan - UTI (urinary tract infection) commenced antibiotics Levaquin for total 5 days - Alcohol dependence with Alcohol dependence with withdrawal, unspecified Drinks 6 packs daily for many years in addition to [facility] (for Vance Valentine) and TK Continue Thiamine, Folic Acid, multivitamin CIWA protocol placed with tapering dose of ativan AA at Discharge, counseling done - Hyponatremia - improved - Hypokalemia and hypomagnesemia Supplemented - Hyperbilirubinemia Alcohol induce, continue to monitor -Polycythemia Commence low dose ASA - Generalized weakness likely secondary to alcohol Secondary to chronic ETOH use. Increased protein diet, ETOH cessation counseling was done PT following - DVT prophylaxis with Lovenox and GI Pepcid Disposition: Once cleared by PT Physical exam: Constitutional:.Elderly male, nomocephalic atraumatic Eyes: Pupils are equal round and reactive to light Nose: No enlarged turbinates, no septal deviation. Mouth: Moist mucous membranes. Neck: Supple no thyromegaly. No bruit. No JVD Heart: Regular rate and rhythm, S1-S2 abnormal. No rubs murmurs or gallop Lungs: Clear to auscultation bilaterally no rales or rhonchi Abdomen: Soft, nontender. Bowel sound are present. Extremities: No edema no cyanosis and no clubbing. Neuro: Alert oriented Oriented x3. No focal sensory or motor deficit. Skin: No rashes no hyperemic spots Psychiatry: Euthymic. Calm. Subjective Date of service: 06/25/18 Principal diagnosis: UTI, alcohol withdrawal Interval history: Patient seen and examined. No seizure activities. No fever. Reviewed laboratory and radiological data Continue to c/o generalized weakness, ask for assistance for ambulation PT eval ongoing Objective - Constitutional Vitals: Vital Signs - 12hr 06/25/18 06/25/18 06/25/18 00:30 03:49 07:50 Temperature 97.8 F 98.5 F 97.9 F Pulse Rate 96 H 83 87 Respiratory 16 18 18 Rate Blood Pressure 109/65 116/68 137/73 O2 Sat by Pulse 95 94 96 Oximetry - Labs CBC & Chem 7: 06/21/18 09:54 06/23/18 07:31
[2018-06-25] MEDS: LOVENOX SUB-Q SCH (21:28)
[2018-06-26] MEDS: BABY ASPIRIN PO SCH (09:22)
[2018-06-26] MEDS: FOLVITE PO SCH (09:25)
--- NOTE | 2018-06-26 15:01 | Progress Note ---
Assessment and Plan - UTI (urinary tract infection) commenced antibiotics Levaquin for total 5 days - Alcohol dependence with Alcohol dependence with withdrawal, unspecified Drinks 6 packs daily for many years in addition to [facility] (for Vance Valentine) and TK Continue Thiamine, Folic Acid, multivitamin Placed on CIWA protocol with tapering dose of ativan AA at Discharge, counseling done - Hyponatremia - improved - Hypokalemia and hypomagnesemia Supplemented - Hyperbilirubinemia Alcohol induce, continue to monitor -Polycythemia Commence low dose ASA - Generalized weakness likely secondary to alcohol Secondary to chronic ETOH use. Increased protein diet, ETOH cessation counseling was done PT following - DVT prophylaxis with Lovenox and GI Pepcid Disposition: homeless, risky to d/c longterm with unsteady gait. encouraged ambulation. Had same presentation during last admission. patient is medically stable for discharge Physical exam: Constitutional:.Elderly male, nomocephalic atraumatic Eyes: Pupils are equal round and reactive to light Nose: No enlarged turbinates, no septal deviation. Mouth: Moist mucous membranes. Neck: Supple no thyromegaly. No bruit. No JVD Heart: Regular rate and rhythm, S1-S2 abnormal. No rubs murmurs or gallop Lungs: Clear to auscultation bilaterally no rales or rhonchi Abdomen: Soft, nontender. Bowel sound are present. Extremities: No edema no cyanosis and no clubbing. Neuro: Alert oriented Oriented x3. No focal sensory or motor deficit. Skin: No rashes no hyperemic spots Psychiatry: Euthymic. Calm. Subjective Date of service: 06/26/18 Principal diagnosis: UTI, alcohol withdrawal Interval history: Patient seen and examined. No seizure activities. No fever. Reviewed laboratory and radiological data Continue to c/o generalized weakness, ask for assistance for ambulation PT eval ongoing. encouraged ambulation, had similar presentation during last admission Objective - Constitutional Vitals: Vital Signs - 12hr 06/26/18 06/26/18 06/26/18 04:34 07:53 09:31 Temperature 98.0 F 98.0 F Pulse Rate 85 90 95 H Pulse Rate [ Right Radial] Respiratory 17 18 Rate Blood Pressure 119/67 115/77 O2 Sat by Pulse 96 95 Oximetry 06/26/18 06/26/18 09:33 13:26 Temperature 98.1 F Pulse Rate 98 H Pulse Rate [ 94 H Right Radial] Respiratory 16 Rate Blood Pressure 125/69 O2 Sat by Pulse 96 Oximetry - Labs CBC & Chem 7: 06/21/18 09:54 06/23/18 07:31
[2018-06-26] MEDS: LOVENOX SUB-Q SCH (22:10)
[2018-06-27] MEDS: FOLVITE PO SCH (12:08)
[2018-06-27] MEDS: BABY ASPIRIN PO SCH (12:08)
--- NOTE | 2018-06-27 18:27 | Progress Note ---
Assessment and Plan - UTI (urinary tract infection) commenced antibiotics Levaquin for total 5 days - Alcohol dependence with Alcohol dependence with withdrawal, unspecified Drinks 6 packs daily for many years in addition to [facility] (for Vance Valentine) and TK Continue Thiamine, Folic Acid, multivitamin Placed on CIWA protocol with tapering dose of ativan AA at Discharge, counseling done - Hyponatremia - improved - Hypokalemia and hypomagnesemia Supplemented - Hyperbilirubinemia Alcohol induce, continue to monitor -Polycythemia Commence low dose ASA - Generalized weakness likely secondary to alcohol Secondary to chronic ETOH use. Increased protein diet, ETOH cessation counseling was done PT following - DVT prophylaxis with Lovenox and GI Pepcid Disposition: homeless, risky to d/c jail with unsteady gait. encouraged ambulation. Had same presentation during last admission. patient is medically stable for discharge. D/c when ambulatory w/o assistance. Physical exam: Constitutional:.Elderly male, nomocephalic atraumatic Eyes: Pupils are equal round and reactive to light Nose: No enlarged turbinates, no septal deviation. Mouth: Moist mucous membranes. Neck: Supple no thyromegaly. No bruit. No JVD Heart: Regular rate and rhythm, S1-S2 abnormal. No rubs murmurs or gallop Lungs: Clear to auscultation bilaterally no rales or rhonchi Abdomen: Soft, nontender. Bowel sound are present. Extremities: No edema no cyanosis and no clubbing. Neuro: Alert oriented Oriented x3. No focal sensory or motor deficit. Skin: No rashes no hyperemic spots Psychiatry: Euthymic. Calm. Subjective Date of service: 06/27/18 Principal diagnosis: UTI, alcohol withdrawal Interval history: Patient seen and examined. No seizure activities. No fever. Reviewed laboratory and radiological data PT eval ongoing. encouraged ambulation, Objective - Constitutional Vitals: Vital Signs - 12hr 06/27/18 06/27/18 06/27/18 07:37 11:36 16:21 Temperature 98.6 F 98.1 F 98.5 F Pulse Rate 90 89 97 H Respiratory 20 20 18 Rate Blood Pressure 129/79 116/65 137/75 O2 Sat by Pulse 94 95 95 Oximetry - Labs CBC & Chem 7: 06/21/18 09:54 06/23/18 07:31
[2018-06-27] MEDS: LOVENOX SUB-Q SCH (22:19)
[2018-06-28] MEDS: BABY ASPIRIN PO SCH (11:06)
[2018-06-28] MEDS: FOLVITE PO SCH (11:06)
--- NOTE | 2018-06-28 14:20 | Progress Note ---
Assessment and Plan - Alcohol dependence with Alcohol dependence with withdrawal, unspecified Drinks 6 packs daily for many years in addition to [facility] (for Vance Valentine) and TK Continue Thiamine, Folic Acid, multivitamin Placed on CIWA protocol with tapering dose of ativan AA at Discharge, counseling done - UTI (urinary tract infection) commenced antibiotics Levaquin for total 5 days - Hyponatremia - improved - Hypokalemia and hypomagnesemia Supplemented - Hyperbilirubinemia Alcohol induce, continue to monitor -Polycythemia Commence low dose ASA - Generalized weakness likely secondary to alcohol Secondary to chronic ETOH use. Increased protein diet, ETOH cessation counseling was done PT following - DVT prophylaxis with Lovenox and GI Pepcid Disposition: homeless, risky to d/c assisted with unsteady gait. encouraged ambulation. Had same presentation during last admission. patient is medically stable for discharge. D/c when ambulatory w/o assistance. Physical exam: Constitutional:.Elderly male, nomocephalic atraumatic Eyes: Pupils are equal round and reactive to light Nose: No enlarged turbinates, no septal deviation. Mouth: Moist mucous membranes. Neck: Supple no thyromegaly. No bruit. No JVD Heart: Regular rate and rhythm, S1-S2 abnormal. No rubs murmurs or gallop Lungs: Clear to auscultation bilaterally no rales or rhonchi Abdomen: Soft, nontender. Bowel sound are present. Extremities: No edema no cyanosis and no clubbing. Neuro: Alert oriented Oriented x3. No focal sensory or motor deficit. Skin: No rashes no hyperemic spots Psychiatry: Euthymic. Calm. Subjective Date of service: 06/28/18 Principal diagnosis: UTI, alcohol withdrawal Interval history: Patient seen and examined. No seizure activities. No fever. Reviewed laboratory and radiological data PT eval ongoing. encouraged ambulation, Objective - Constitutional Vitals: Vital Signs - 12hr 06/28/18 06/28/18 06/28/18 04:57 07:51 11:40 Temperature 97.4 F L 98.1 F 98.0 F Pulse Rate 95 H 92 H 99 H Respiratory 16 18 18 Rate Blood Pressure 103/63 125/74 109/66 O2 Sat by Pulse 97 97 98 Oximetry - Labs CBC & Chem 7: 06/21/18 09:54 06/23/18 07:31
[2018-06-28] MEDS: LOVENOX SUB-Q SCH (22:39)
[2018-06-29] MEDS: FOLVITE PO SCH (10:49)
[2018-06-29] MEDS: BABY ASPIRIN PO SCH (10:49)
--- NOTE | 2018-06-29 16:26 | Progress Note ---
Assessment and Plan - Alcohol dependence with Alcohol dependence with withdrawal, unspecified Drinks 6 packs daily for many years in addition to [facility] (for Vance Valentine) and TK Continue Thiamine, Folic Acid, multivitamin Placed on CIWA protocol with tapering dose of ativan AA at Discharge, counseling done - UTI (urinary tract infection) commenced antibiotics Levaquin for total 5 days - Hyponatremia - improved - Hypokalemia and hypomagnesemia Supplemented - Hyperbilirubinemia Alcohol induce, continue to monitor -Polycythemia Commence low dose ASA - Generalized weakness likely secondary to alcohol Secondary to chronic ETOH use. Increased protein diet, ETOH cessation counseling was done PT following - DVT prophylaxis with Lovenox and GI Pepcid Disposition: homeless, risky to d/c retirement with unsteady gait. encouraged ambulation. Had same presentation during last admission. patient is medically stable for discharge. D/c when ambulatory w/o assistance. Physical exam: Constitutional:.Elderly male, nomocephalic atraumatic Eyes: Pupils are equal round and reactive to light Nose: No enlarged turbinates, no septal deviation. Mouth: Moist mucous membranes. Neck: Supple no thyromegaly. No bruit. No JVD Heart: Regular rate and rhythm, S1-S2 abnormal. No rubs murmurs or gallop Lungs: Clear to auscultation bilaterally no rales or rhonchi Abdomen: Soft, nontender. Bowel sound are present. Extremities: No edema no cyanosis and no clubbing. Neuro: Alert oriented Oriented x3. No focal sensory or motor deficit. Skin: No rashes no hyperemic spots Psychiatry: Euthymic. Calm. Subjective Date of service: 06/29/18 Principal diagnosis: UTI, alcohol withdrawal Interval history: Patient seen and examined. No seizure activities. No fever. Reviewed laboratory and radiological data PT eval ongoing. encouraged ambulation, Objective - Constitutional Vitals: Vital Signs - 12hr 06/29/18 06/29/18 06/29/18 05:02 06:38 07:20 Temperature 97.2 F L 97.6 F Pulse Rate 85 85 86 Respiratory 16 14 Rate Blood Pressure 123/74 Blood Pressure 106/67 [Left] O2 Sat by Pulse 97 85 97 Oximetry 06/29/18 06/29/18 08:00 11:37 Temperature 97.9 F Pulse Rate 92 H 98 H Respiratory 14 Rate Blood Pressure 125/66 Blood Pressure [Left] O2 Sat by Pulse 96 Oximetry - Labs CBC & Chem 7: 06/21/18 09:54 06/23/18 07:31
[2018-06-29] MEDS: LOVENOX SUB-Q SCH (23:09)
[2018-06-30] MEDS: FOLVITE PO SCH (10:32)
[2018-06-30] MEDS: BABY ASPIRIN PO SCH (10:32)
--- NOTE | 2018-06-30 14:27 | Progress Note ---
Assessment and Plan - Alcohol dependence with Alcohol dependence with withdrawal, unspecified Drinks 6 packs daily for many years in addition to [facility] (for Vance Valentine) and TK Continue Thiamine, Folic Acid, multivitamin Placed on CIWA protocol with tapering dose of ativan AA at Discharge, counseling done - UTI (urinary tract infection) commenced antibiotics Levaquin for total 5 days - Hyponatremia - improved - Hypokalemia and hypomagnesemia Supplemented - Hyperbilirubinemia Alcohol induce, continue to monitor -Polycythemia Commence low dose ASA - Generalized weakness likely secondary to alcohol Secondary to chronic ETOH use. Increased protein diet, ETOH cessation counseling was done PT following - DVT prophylaxis with Lovenox and GI Pepcid Disposition: homeless, risky to d/c residential with unsteady gait. encouraged ambulation. Had same presentation during last admission. patient is medically stable for discharge. But still require assistance for ambulation due to unstrady gait. D/c when ambulatory w/o assistance and clears by PT. Physical exam: Constitutional:.Elderly male, nomocephalic atraumatic Eyes: Pupils are equal round and reactive to light Nose: No enlarged turbinates, no septal deviation. Mouth: Moist mucous membranes. Neck: Supple no thyromegaly. No bruit. No JVD Heart: Regular rate and rhythm, S1-S2 abnormal. No rubs murmurs or gallop Lungs: Clear to auscultation bilaterally no rales or rhonchi Abdomen: Soft, nontender. Bowel sound are present. Extremities: No edema no cyanosis and no clubbing. Neuro: Alert oriented Oriented x3. No focal sensory or motor deficit. Skin: No rashes no hyperemic spots Psychiatry: Euthymic. Calm. Subjective Date of service: 06/30/18 Principal diagnosis: UTI, alcohol withdrawal Interval history: Patient seen and examined. No seizure activities. No fever. Reviewed laboratory and radiological data PT eval ongoing. encouraged ambulation, Objective - Constitutional Vitals: Vital Signs - 12hr 06/30/18 08:03 Pulse Rate 103 H - Labs CBC & Chem 7: 06/21/18 09:54 06/23/18 07:31
[2018-06-30] MEDS: LOVENOX SUB-Q SCH (22:00)
[2018-07-01] MEDS: FOLVITE PO SCH (10:03)
[2018-07-01] MEDS: BABY ASPIRIN PO SCH (10:03)
--- NOTE | 2018-07-01 12:49 | Progress Note ---
Assessment and Plan - Alcohol dependence with Alcohol dependence with withdrawal, unspecified Drinks 6 packs daily for many years in addition to ANUP (for Vance Valentine) and TK Continue Thiamine, Folic Acid, multivitamin Placed on CIWA protocol with tapering dose of ativan AA at Discharge, counseling done - UTI (urinary tract infection) commenced antibiotics Levaquin for total 5 days - Hyponatremia - improved - Hypokalemia and hypomagnesemia Supplemented - Hyperbilirubinemia Alcohol induce, continue to monitor -Polycythemia Commence low dose ASA - Generalized weakness likely secondary to alcohol Secondary to chronic ETOH use. Increased protein diet, ETOH cessation counseling was done PT following - DVT prophylaxis with Lovenox and GI Pepcid Disposition: homeless, risky to d/c [facility] with unsteady gait. encouraged ambulation. Had same presentation during last admission. patient is medically stable for discharge. But still require assistance for ambulation due to unstrady gait. D/c when ambulatory w/o assistance and clears by PT. patient cannot go to [facility] with walker. Physical exam: Constitutional:.Elderly male, nomocephalic atraumatic Eyes: Pupils are equal round and reactive to light Nose: No enlarged turbinates, no septal deviation. Mouth: Moist mucous membranes. Neck: Supple no thyromegaly. No bruit. No JVD Heart: Regular rate and rhythm, S1-S2 abnormal. No rubs murmurs or gallop Lungs: Clear to auscultation bilaterally no rales or rhonchi Abdomen: Soft, nontender. Bowel sound are present. Extremities: No edema no cyanosis and no clubbing. Neuro: Alert oriented Oriented x3. No focal sensory or motor deficit. Skin: No rashes no hyperemic spots Psychiatry: Euthymic. Calm. Subjective Date of service: 07/01/18 Principal diagnosis: UTI, alcohol withdrawal Interval history: Patient seen and examined. No seizure activities. No fever. Reviewed laboratory and radiological data PT eval ongoing. encouraged ambulation, Pt recommended walker Objective - Constitutional Vitals: Vital Signs - 12hr 07/01/18 07/01/18 00:54 06:04 Temperature 98.9 F 97.6 F Pulse Rate 87 84 Respiratory 18 18 Rate Blood Pressure 134/86 121/68 [Left] O2 Sat by Pulse 98 96 Oximetry - Labs CBC & Chem 7: 06/21/18 09:54 06/23/18 07:31
[2018-07-01] MEDS: LOVENOX SUB-Q SCH (21:35)
--- NOTE | 2018-07-02 11:56 | Progress Note ---
Assessment and Plan - Alcohol dependence with Alcohol dependence with withdrawal, unspecified Drinks 6 packs daily for many years in addition to ANUP (for Vance Valentine) and TK Continue Thiamine, Folic Acid, multivitamin Placed on CIWA protocol with tapering dose of ativan AA at Discharge, counseling done - UTI (urinary tract infection) commenced antibiotics Levaquin for total 5 days - Hyponatremia - improved - Hypokalemia and hypomagnesemia Supplemented - Hyperbilirubinemia Alcohol induce, continue to monitor -Polycythemia Commence low dose ASA - Generalized weakness likely secondary to alcohol Secondary to chronic ETOH use. Increased protein diet, ETOH cessation counseling was done PT following - DVT prophylaxis with Lovenox and GI Pepcid Disposition: homeless, risky to d/c jail with unsteady gait. encouraged ambulation. Had same presentation during last admission. patient is medically stable for discharge. But still require assistance for ambulation due to unstrady gait. D/c when ambulatory w/o assistance and clears by PT. patient cannot go to jail with walker. Physical exam: Constitutional:.Elderly male, nomocephalic atraumatic Eyes: Pupils are equal round and reactive to light Nose: No enlarged turbinates, no septal deviation. Mouth: Moist mucous membranes. Neck: Supple no thyromegaly. No bruit. No JVD Heart: Regular rate and rhythm, S1-S2 abnormal. No rubs murmurs or gallop Lungs: Clear to auscultation bilaterally no rales or rhonchi Abdomen: Soft, nontender. Bowel sound are present. Extremities: No edema no cyanosis and no clubbing. Neuro: Alert oriented Oriented x3. No focal sensory or motor deficit. Skin: No rashes no hyperemic spots Psychiatry: Euthymic. Calm. Subjective Date of service: 07/02/18 Principal diagnosis: UTI, alcohol withdrawal Interval history: Patient seen and examined. No seizure activities. No fever. Reviewed laboratory and radiological data PT eval ongoing. encouraged ambulation, Pt recommended walker Objective - Constitutional Vitals: Vital Signs - 12hr 07/02/18 01:24 Pulse Rate 87 - Labs CBC & Chem 7: 06/21/18 09:54 06/23/18 07:31
[2018-07-02] MEDS: FOLVITE PO SCH (12:27)
[2018-07-02] MEDS: BABY ASPIRIN PO SCH (12:28)
[2018-07-02] MEDS: LOVENOX SUB-Q SCH (21:15)
[2018-07-02] MEDS: MUCINEX ER PO SCH (21:15)
[2018-07-02] MEDS: TESSALON PERLES PO SCH (22:23)
[2018-07-03] MEDS: TESSALON PERLES PO SCH ×3 (06:02→20:39)
[2018-07-03] MEDS: BABY ASPIRIN PO SCH (11:03)
[2018-07-03] MEDS: MUCINEX ER PO SCH ×2 (11:04→20:39)
[2018-07-03] MEDS: FOLVITE PO SCH (11:04)
[2018-07-03] MEDS: TYLENOL PO PRN ×2 (11:05→20:38)
--- NOTE | 2018-07-03 16:12 | Progress Note ---
Assessment and Plan - Alcohol dependence with Alcohol dependence with withdrawal, unspecified Drinks 6 packs daily for many years in addition to ANUP (for Vance Valentine) and TK Continue Thiamine, Folic Acid, multivitamin Placed on CIWA protocol with tapering dose of ativan AA at Discharge, counseling done - UTI (urinary tract infection) commenced antibiotics Levaquin for total 5 days - Hyponatremia - improved - Hypokalemia and hypomagnesemia Supplemented - Hyperbilirubinemia Alcohol induce, continue to monitor -Polycythemia Commence low dose ASA - Generalized weakness likely secondary to alcohol Secondary to chronic ETOH use. Increased protein diet, ETOH cessation counseling was done PT following - DVT prophylaxis with Lovenox and GI Pepcid Disposition: homeless, risky to d/c skilled nursing with unsteady gait. encouraged ambulation. Had same presentation during last admission. patient is medically stable for discharge. But still require assistance for ambulation due to unstrady gait. D/c when ambulatory w/o assistance and clears by PT. patient cannot go to skilled nursing with walker. Physical exam: Constitutional:.Elderly male, nomocephalic atraumatic Eyes: Pupils are equal round and reactive to light Nose: No enlarged turbinates, no septal deviation. Mouth: Moist mucous membranes. Neck: Supple no thyromegaly. No bruit. No JVD Heart: Regular rate and rhythm, S1-S2 abnormal. No rubs murmurs or gallop Lungs: Clear to auscultation bilaterally no rales or rhonchi Abdomen: Soft, nontender. Bowel sound are present. Extremities: No edema no cyanosis and no clubbing. Neuro: Alert oriented Oriented x3. No focal sensory or motor deficit. Skin: No rashes no hyperemic spots Psychiatry: Euthymic. Calm. Subjective Date of service: 07/03/18 Principal diagnosis: UTI, alcohol withdrawal Interval history: Patient seen and examined. No seizure activities. No fever. Reviewed laboratory and radiological data PT eval ongoing. encouraged ambulation, Pt recommended walker, need to reassess if patient cam ambulate with cane as he cannot go to skilled nursing with walker Objective - Constitutional Vitals: Vital Signs - 12hr 07/03/18 07/03/18 07/03/18 05:21 08:19 10:00 Temperature 98.6 F 98.0 F Pulse Rate 89 88 Respiratory 18 18 16 Rate Blood Pressure 116/77 Blood Pressure 121/64 [Left] O2 Sat by Pulse 99 96 96 Oximetry - Labs CBC & Chem 7: 06/21/18 09:54 06/23/18 07:31
[2018-07-03] MEDS: LOVENOX SUB-Q SCH (20:39)
[2018-07-04] MEDS: TESSALON PERLES PO SCH ×4 (00:04→20:59)
[2018-07-04] MEDS: MUCINEX ER PO SCH ×3 (00:04→20:59)
[2018-07-04] MEDS: LOVENOX SUB-Q SCH ×2 (00:04→20:59)
[2018-07-04] MEDS: TYLENOL PO PRN ×2 (06:09→20:59)
[2018-07-04] MEDS: FOLVITE PO SCH (12:21)
[2018-07-04] MEDS: BABY ASPIRIN PO SCH (12:21)
--- NOTE | 2018-07-04 15:37 | Progress Note ---
Assessment and Plan - Alcohol dependence with Alcohol dependence with withdrawal, unspecified Drinks 6 packs daily for many years in addition to ANUP (for Vance Valentine) and TK Continue Thiamine, Folic Acid, multivitamin Placed on CIWA protocol with tapering dose of ativan AA at Discharge, counseling done - UTI (urinary tract infection) commenced antibiotics Levaquin for total 5 days - Hyponatremia - improved - Hypokalemia and hypomagnesemia Supplemented - Hyperbilirubinemia Alcohol induce, continue to monitor -Polycythemia Commence low dose ASA - Generalized weakness likely secondary to alcohol Secondary to chronic ETOH use. Increased protein diet, ETOH cessation counseling was done PT following - DVT prophylaxis with Lovenox and GI Pepcid Disposition: homeless, risky to d/c [facility] with unsteady gait. encouraged ambulation. Had same presentation during last admission. patient is medically stable for discharge. But still require assistance for ambulation due to unstrady gait. D/c when ambulatory w/o assistance and clears by PT. patient cannot go to [facility] with walker. Physical exam: Constitutional:.Elderly male, nomocephalic atraumatic Eyes: Pupils are equal round and reactive to light Nose: No enlarged turbinates, no septal deviation. Mouth: Moist mucous membranes. Neck: Supple no thyromegaly. No bruit. No JVD Heart: Regular rate and rhythm, S1-S2 abnormal. No rubs murmurs or gallop Lungs: Clear to auscultation bilaterally no rales or rhonchi Abdomen: Soft, nontender. Bowel sound are present. Extremities: No edema no cyanosis and no clubbing. Neuro: Alert oriented Oriented x3. No focal sensory or motor deficit. Skin: No rashes no hyperemic spots Psychiatry: Euthymic. Calm. Subjective Date of service: 07/04/18 Principal diagnosis: UTI, alcohol withdrawal Interval history: Patient seen and examined. No seizure activities. No fever. Reviewed laboratory and radiological data PT eval ongoing. encouraged ambulation, Pt recommended walker, need to reassess if patient cam ambulate with cane as he cannot go to [facility] with walker Objective - Constitutional Vitals: Vital Signs - 12hr 07/04/18 07/04/18 07/04/18 05:46 06:09 07:42 Temperature 98.1 F 97.4 F L Pulse Rate 95 H 87 Respiratory 20 18 18 Rate Blood Pressure 131/85 131/78 O2 Sat by Pulse 97 98 Oximetry 07/04/18 07/04/18 09:10 09:23 Temperature Pulse Rate 85 Respiratory 17 Rate Blood Pressure O2 Sat by Pulse 96 Oximetry - Labs CBC & Chem 7: 06/21/18 09:54 06/23/18 07:31
[2018-07-05] MEDS: TESSALON PERLES PO SCH ×3 (07:53→21:19)
[2018-07-05] MEDS: BABY ASPIRIN PO SCH (09:47)
[2018-07-05] MEDS: TYLENOL PO PRN ×2 (09:47→23:05)
[2018-07-05] MEDS: MUCINEX ER PO SCH ×2 (09:47→21:19)
[2018-07-05] MEDS: FOLVITE PO SCH (09:47)
--- NOTE | 2018-07-05 17:00 | Progress Note ---
Assessment and Plan - Alcohol dependence with Alcohol dependence with withdrawal, unspecified Drinks 6 packs daily for many years in addition to ANUP (for Vance Valentine) and TK Continue Thiamine, Folic Acid, multivitamin Placed on CIWA protocol with tapering dose of ativan AA at Discharge, counseling done - UTI (urinary tract infection) commenced antibiotics Levaquin for total 5 days - Hyponatremia - improved - Hypokalemia and hypomagnesemia Supplemented - Hyperbilirubinemia Alcohol induce, continue to monitor -Polycythemia Commence low dose ASA - Generalized weakness likely secondary to alcohol Secondary to chronic ETOH use. Increased protein diet, ETOH cessation counseling was done PT following - DVT prophylaxis with Lovenox and GI Pepcid Disposition: homeless, risky to d/c [facility] with unsteady gait. encouraged ambulation. Had same presentation during last admission. patient is medically stable for discharge. But still require assistance for ambulation due to unstrady gait. D/c when ambulatory w/o assistance and clears by PT. patient cannot go to [facility] with walker. Physical exam: Constitutional:.Elderly male, nomocephalic atraumatic Eyes: Pupils are equal round and reactive to light Nose: No enlarged turbinates, no septal deviation. Mouth: Moist mucous membranes. Neck: Supple no thyromegaly. No bruit. No JVD Heart: Regular rate and rhythm, S1-S2 abnormal. No rubs murmurs or gallop Lungs: Clear to auscultation bilaterally no rales or rhonchi Abdomen: Soft, nontender. Bowel sound are present. Extremities: No edema no cyanosis and no clubbing. Neuro: Alert oriented Oriented x3. No focal sensory or motor deficit. Skin: No rashes no hyperemic spots Psychiatry: Euthymic. Calm. Subjective Date of service: 07/05/18 Principal diagnosis: UTI, alcohol withdrawal Interval history: Patient seen and examined. No seizure activities. No fever. Reviewed laboratory and radiological data PT eval ongoing. encouraged ambulation, Pt recommended walker, need to reassess if patient cam ambulate with cane as he cannot go to [facility] with walker Objective - Constitutional Vitals: Vital Signs - 12hr 07/05/18 07/05/18 07/05/18 05:18 07:40 07:58 Temperature 98.9 F 98.0 F Pulse Rate 80 96 H Respiratory 20 16 Rate Blood Pressure Blood Pressure 132/76 109/53 [Left] O2 Sat by Pulse 96 95 95 Oximetry 07/05/18 07/05/18 07/05/18 09:47 11:59 12:05 Temperature Pulse Rate 86 89 Respiratory 16 18 Rate Blood Pressure 120/68 Blood Pressure [Left] O2 Sat by Pulse 97 Oximetry - Labs CBC & Chem 7: 06/21/18 09:54 06/23/18 07:31
[2018-07-05] MEDS: LOVENOX SUB-Q SCH (21:18)
[2018-07-06] MEDS: TESSALON PERLES PO SCH ×3 (06:42→21:24)
[2018-07-06] MEDS: MUCINEX ER PO SCH ×2 (10:19→21:24)
[2018-07-06] MEDS: BABY ASPIRIN PO SCH (10:19)
[2018-07-06] MEDS: FOLVITE PO SCH (10:20)
--- NOTE | 2018-07-06 13:13 | Progress Note ---
Assessment and Plan - Alcohol dependence with Alcohol dependence with withdrawal, unspecified Drinks 6 packs daily for many years in addition to ANUP (for Vance Valentine) and TK Continue Thiamine, Folic Acid, multivitamin Placed on CIWA protocol with tapering dose of ativan AA at Discharge, counseling done - UTI (urinary tract infection) commenced antibiotics Levaquin for total 5 days - Hyponatremia - improved - Hypokalemia and hypomagnesemia Supplemented - Hyperbilirubinemia Alcohol induce, continue to monitor -Polycythemia Commence low dose ASA - Generalized weakness likely secondary to alcohol Secondary to chronic ETOH use. Increased protein diet, ETOH cessation counseling was done PT following - DVT prophylaxis with Lovenox and GI Pepcid Disposition: homeless, risky to d/c snf with unsteady gait. encouraged ambulation. Had same presentation during last admission. patient is medically stable for discharge. But still require assistance for ambulation due to unstrady gait. D/c when ambulatory w/o assistance and clears by PT. patient cannot go to snf with walker. Physical exam: Constitutional:.Elderly male, nomocephalic atraumatic Eyes: Pupils are equal round and reactive to light Nose: No enlarged turbinates, no septal deviation. Mouth: Moist mucous membranes. Neck: Supple no thyromegaly. No bruit. No JVD Heart: Regular rate and rhythm, S1-S2 abnormal. No rubs murmurs or gallop Lungs: Clear to auscultation bilaterally no rales or rhonchi Abdomen: Soft, nontender. Bowel sound are present. Extremities: No edema no cyanosis and no clubbing. Neuro: Alert oriented Oriented x3. No focal sensory or motor deficit. Skin: No rashes no hyperemic spots Psychiatry: Euthymic. Calm. Subjective Date of service: 07/06/18 Principal diagnosis: UTI, alcohol withdrawal Interval history: Patient seen and examined. No seizure activities. No fever. Reviewed laboratory and radiological data PT eval ongoing. encouraged ambulation, Pt recommended walker, need to reassess if patient cam ambulate with cane as he cannot go to sn[facility] with walker Objective - Constitutional Vitals: Vital Signs - 12hr 07/06/18 07/06/18 07/06/18 05:06 05:41 08:04 Temperature 97.4 F L 98.4 F Pulse Rate 85 86 83 Respiratory 18 18 Rate Blood Pressure 130/83 126/74 O2 Sat by Pulse 97 97 Oximetry 07/06/18 11:56 Temperature 98.9 F Pulse Rate 92 H Respiratory 18 Rate Blood Pressure 122/74 O2 Sat by Pulse 95 Oximetry - Labs CBC & Chem 7: 06/21/18 09:54 06/23/18 07:31
[2018-07-06] MEDS: TYLENOL PO PRN (13:26)
[2018-07-06] MEDS: LOVENOX SUB-Q SCH (21:24)
[2018-07-07] MEDS: TESSALON PERLES PO SCH (05:26)
[2018-07-07 08:46] VITALS: BP 114/80
[2018-07-07] MEDS: BABY ASPIRIN PO SCH (11:10)
[2018-07-07] MEDS: FOLVITE PO SCH (11:11)
[2018-07-07] MEDS: MUCINEX ER PO SCH (11:11)
--- NOTE | 2018-07-07 13:41 | Discharge Summary ---
Providers - Providers Date of Admission: 06/18/18 09:06 Date of discharge: 07/14/18 Attending physician: MANJEET BRADLEY 06/18/18 06:36 Consult to Case Management [CONS] Routine Services Needed at Discharge: Other Notified:: case management 06/18/18 17:07 Consult to Wound/ET Nurse [CONS] Routine Reason For Exam: wound eval:skin to both sole of feet peeling. 06/22/18 14:26 Physical Therapy Evaluation and Treat [CONS] Routine Comment: Reason For Exam: ambulate with cane Primary care physician: NOZZLE WORKER Hospitalization Condition: Fair Hospital course: Discharge diagnosis; - Alcohol dependence with Alcohol dependence with withdrawal, unspecified Drinks 6 packs daily for many years in addition to ANUP (for Vance Valentine) and TK Continue Thiamine, Folic Acid, multivitamin Placed on CIWA protocol with tapering dose of ativan AA at Discharge, counseling done - UTI (urinary tract infection) commenced antibiotics Levaquin for total 5 days - Hyponatremia - improved - Hypokalemia and hypomagnesemia Supplemented - Hyperbilirubinemia Alcohol induce, continue to monitor -Polycythemia Commence low dose ASA - Generalized weakness likely secondary to alcohol Secondary to chronic ETOH use. Increased protein diet, ETOH cessation counseling was done PT following - DVT prophylaxis with Lovenox and GI Pepcid Disposition: homeless, was risky to d/c senior living with unsteady gait. encouraged ambulation. Had same presentation during last admission. patient is medically stable for discharge. But was requiring assistance for ambulation due to unstrady gait. Initially PT recommended walker but patient cannot go to senior living with walker. He was clinically improved and was able to ambulate 80ft with cane. ANNY/HH not possible as he was unfunded. Patient was willing to leave the hospital and stated he will be fine if he gets a cane. He was then discharged in stable condition. Counseled for alcohol cessation. Physical exam: Constitutional:.Elderly male, nomocephalic atraumatic Eyes: Pupils are equal round and reactive to light Nose: No enlarged turbinates, no septal deviation. Mouth: Moist mucous membranes. Neck: Supple no thyromegaly. No bruit. No JVD Heart: Regular rate and rhythm, S1-S2 abnormal. No rubs murmurs or gallop Lungs: Clear to auscultation bilaterally no rales or rhonchi Abdomen: Soft, nontender. Bowel sound are present. Extremities: No edema no cyanosis and no clubbing. Neuro: Alert oriented Oriented x3. No focal sensory or motor deficit. Skin: No rashes no hyperemic spots Psychiatry: Euthymic. Calm. Disposition: DC-01 TO HOME OR SELFCARE Time spent for discharge: 34 minutes Core Measure Documentation - Palliative Care Palliative Care/ Comfort Measures: Not Applicable - Core Measures Any of the following diagnoses?: none Exam - Constitutional Vitals: Temp Pulse Resp BP Pulse Ox 97.9 F 100 H 20 114/80 96 07/07/18 08:00 07/07/18 08:00 07/07/18 08:00 07/07/18 08:00 07/07/18 08:00 Plan Activity: fall precautions, other (ambulate with cane) Diet: regular Special Instructions: smoking cessation Durable Medical Equipment Needed Upon Discharge: Cane Additional Instructions: f/u at [facility] in one week Follow up with: PRIMARY CARE, [Primary Care Provider] - 3-5 Days Prescriptions: Folic Acid [Folvite] 1 mg PO QDAY #60 tablet Thiamine [Vitamin B-1] 100 mg PO QDAY #30 tablet
== END 2018-07-07 13:17 | disposition home or self-care (01) | DRG 690 ==
LOC: ED 10:21 → 4A 06-18 09:06
PROVIDERS: ADMIT Family Medicine; ATTEND Internal Medicine
DX: N39.0 Urinary tract infection, site not specified (principal); F10.239 Alcohol dependence with withdrawal, unspecified; E87.1 Hypo-osmolality and hyponatremia; E87.6 Hypokalemia; E83.42 Hypomagnesemia; E80.6 Other disorders of bilirubin metabolism; D75.1 Secondary polycythemia; R73.9 Hyperglycemia, unspecified; M19.90 Unspecified osteoarthritis, unspecified site; J44.9 Chronic obstructive pulmonary disease, unspecified; F17.200 Nicotine dependence, unspecified, uncomplicated; I10 Essential (primary) hypertension; Z71.41 Alcohol abuse counseling and surveillance of alcoholic; Z79.899 Other long term (current) drug therapy
CPT/HCPCS: 36415; 70450; 80048; 80053; 80074; 80307; 80320; 81001; 83735; 84100; 84132; 84443; 84484; 85025; 85027; 87086; 93005; 93010; 94760; 96361; 96365; 96367; 96375; G0480; J1650; J2060; J3411; J3475; J3480; J7030

== ENCOUNTER 2018-07-30 13:54 | Inpatient (IN) | payer SELFPAY ==
[2018-07-30 14:55] LABS: Basophils # (Auto) 0.1 K/mm3 (0.0-0.1); Basophils % (Auto) 0.9 % (0.0-1.8); Eosinophils # (Auto) 0.2 K/mm3 (0.0-0.4); Eosinophils % (Auto) 3.9 % (0.0-4.3); Hematocrit 46.4 % (35.5-45.6); Hemoglobin 15.8 gm/dl (11.8-15.2); Lymphocytes # (Auto) 2.4 K/mm3 (1.2-5.4); Lymphocytes % (Auto) 42.5 % (13.4-35.0); Mean Corpuscular HGB Conc 34 % (32-34); Mean Corpuscular Hemoglobin 33 pg (28-32); Mean Corpuscular Volume 98 fl (84-94); Monocytes # (Auto) 0.5 K/mm3 (0.0-0.8); Monocytes % (Auto) 8.4 % (0.0-7.3); Platelet Count 118 K/mm3 (140-440); Red Blood Count 4.73 M/mm3 (3.65-5.03); Red Cell Distribution Width 14.6 % (13.2-15.2)
[2018-07-30 15:02] LABS: INR 0.93 (0.87-1.13); Partial Thromboplastin Time 24.4 Sec. (24.2-36.6)
[2018-07-30 15:06] LABS: BUN/Creatinine Ratio 6; Blood Urea Nitrogen 3 mg/dL (9-20); Hemolysis Index 8
[2018-07-30 15:10] LABS: Albumin 3.6 g/dL (3.9-5); Bilirubin,Direct 0.2 mg/dL (0-0.2)
--- NOTE | 2018-07-30 15:11 | XRay Report ---
FINAL REPORT EXAM: XR CHEST 1V AP HISTORY: SOB TECHNIQUE: Chest, portable upright PRIORS: 03/30/2018 FINDINGS: The heart size is normal. Mediastinal contours are normal. Pulmonary vasculature is not congested. The lungs are clear. There are no pleural effusion seen. There is no evidence of pneumothorax. IMPRESSION: There is no acute abnormality identified.
[2018-07-30] MEDS ORDERED: VITAMIN B-1 100 MG, FOLVITE 1 MG, INFUVITE 10 ML in NACL 0.9% 1000 ML 1,000 ML IV ONE (16:00)
--- NOTE | 2018-07-30 17:30 | Emergency Department Report ---
HPI - General Chief Complaint: Dyspnea/Respdistress Time Seen by Provider: 07/30/18 14:35 - HPI HPI: 58-year-old male presents to the emergency department with a complaint of shortness of breath, weakness and now having the inability to ambulate. Patient admits to being homeless and also admits to drinking alcohol. He denies daily alcohol use. However the patient is well-known to myself in this department and the patient does have history of alcohol abuse, withdrawal. He has a history of COPD but is not oxygen dependent, hypertension. He does not have a primary care physician. He did not take anything for his symptoms. Presentation. He denies any headache, slurred speech, vision change. ED Past Medical Hx - Past Medical History Hx Hypertension: Yes Hx Congestive Heart Failure: No Hx Diabetes: No Hx Arthritis: Yes Hx Asthma: No Hx COPD: Yes (no home O2) Hx Tuberculosis: No Hx HIV: No Additional medical history: snake bite - Surgical History Additional Surgical History: Right knee surgery/tendon repair - Social History Smoking Status: Current Every Day Smoker Substance Use Type: Alcohol - Medications Home Medications: Home Medications Medication Instructions Recorded Confirmed Last Taken Type Folic Acid [Folvite] 1 mg PO QDAY #60 tablet 07/06/18 Unknown Rx Thiamine [Vitamin B-1] 100 mg PO QDAY #30 tablet 07/06/18 Unknown Rx ED Review of Systems ROS: Stated complaint: OREN Other details as noted in HPI Constitutional: weakness. denies: fever Eyes: denies: eye pain, eye discharge, vision change ENT: denies: ear pain, throat pain Respiratory: cough, shortness of breath Cardiovascular: denies: chest pain, edema Gastrointestinal: denies: abdominal pain, nausea, diarrhea Genitourinary: denies: urgency, dysuria Musculoskeletal: denies: back pain, joint swelling, arthralgia Skin: denies: rash, lesions Neurological: weakness. denies: headache Physical Exam - Physical Exam Vital Signs: Vital Signs 07/30/18 07/30/18 07/30/18 14:11 15:30 15:45 Temperature 97.9 F Pulse Rate 114 H 99 H 99 H Respiratory 20 16 21 Rate Blood Pressure 96/36 Blood Pressure 97/72 108/72 [Left] O2 Sat by Pulse 93 95 96 Oximetry 07/30/18 07/30/18 16:00 16:30 Temperature Pulse Rate 99 H 97 H Respiratory 20 15 Rate Blood Pressure Blood Pressure 122/71 120/67 [Left] O2 Sat by Pulse 96 92 Oximetry Physical Exam: GENERAL: has a disheveled appearance. HENT: Normocephalic. Atraumatic. Patient has moist mucous membranes. EYES: Extraocular motions are intact. Pupils equal reactive to light bilaterally. Fatigable horizontal nystagmus. NECK: Supple. Trachea is midline. CHEST/LUNGS: Clear to auscultation. There is no respiratory distress noted. HEART/CARDIOVASCULAR: Regular. There is no tachycardia. There is no murmur. ABDOMEN: Abdomen is soft, nontender. Patient has normal bowel sounds. There is no abdominal distention. SKIN: Skin is warm and dry. NEURO: The patient is awake, alert, and oriented. The patient is cooperative. The patient has no focal neurologic deficits. The patient has normal speech. No pronator drift. No dysmetria. No facial asymmetry. Cranial nerves II-12 grossly intact. MUSCULOSKELETAL: There is no tenderness or deformity. There is no evidence of acute injury. ED Course Vital Signs 07/30/18 07/30/18 07/30/18 14:11 15:30 15:45 Temperature 97.9 F Pulse Rate 114 H 99 H 99 H Respiratory 20 16 21 Rate Blood Pressure 96/36 Blood Pressure 97/72 108/72 [Left] O2 Sat by Pulse 93 95 96 Oximetry 07/30/18 07/30/18 16:00 16:30 Temperature Pulse Rate 99 H 97 H Respiratory 20 15 Rate Blood Pressure Blood Pressure 122/71 120/67 [Left] O2 Sat by Pulse 96 92 Oximetry ED Medical Decision Making - Lab Data Result diagrams: 07/30/18 14:40 07/30/18 14:40 - EKG Data -: EKG Interpreted by Me EKG shows normal: sinus rhythm, axis, intervals, QRS complexes (q waves to the septal leads) Rate: tachycardia (102 bpm) - EKG Data When compared to previous EKG there are: no significant change Interpretation: unchanged when compared t (06/17/18) - Radiology Data Radiology results: report reviewed, image reviewed interpreted by me: Chest x-ray does not show any acute process. There are no pleural effusions, obvious pneumonia and there is no pneumothorax. EXAM: CT HEAD/BRAIN WO CON HISTORY: Weakness TECHNIQUE: CT examination of the head without IV contrast PRIORS: 06/17/2018 FINDINGS: Interval decrease left maxillary sinus opacity with residual moderate mucosal thickening. Minimal mucosal thickening left ethmoid sinus centrally. Other paranasal sinuses clear as are the mastoid air cells and middle ear cavities. No acute air-fluid level visualized in the included air-filled sinuses. Bone windows demonstrate no acute fracture. There is ventricular and sulcal prominence compatible with global cerebrocortical atrophy. The brain contains no mass, mass effect, hemorrhage, or acute infarct. There is no extra-axial intracranial bleed, brain bleed, or midline shift. IMPRESSION: No acute CVA, intracranial bleed, or brain mass Transcribed By: BAL Dictated By: RANULFO STEWART MD Electronically Authenticated By: RANULFO STEWART MD Signed Date/Time: 07/30/18 1820 - Medical Decision Making This patient presents with a complaint of some weakness that started sometime earlier this morning and says that he is having trouble walking. Despite the patient saying that he has not been drinking much she ended up having a blood alcohol of 0.25. He was started on a banana bag. As a few hours past the patient has started to have tremors and appears to be starting to withdraw. He was placed on withdrawal protocols. CT head did not show any bleed, shift, mass , ischemia or any other acute processes. Otherwise the rest labs are mostly unremarkable. Vital signs stable throughout his ED course. The patient does not appear to have any focal deficits and his cranial nerves are intact. It appears that the patient's trouble walking and her weakness is mostly when he is upright bearing weight. Even if this was some type of TIA or strokelike symptoms, which I do not believe it to be, the patient is a 0 on the stroke scale currently and there is no last known well time that he would not be a TPA candidate. However the patient will be admitted to the hospital for further evaluation and treatment. This case has been given to the admitting hospitalist who is going to be passing along to the nighttime hospitalist, Dr. Chou. - Differential Diagnosis electrolyte abnormalitie, alcohol intoxication, alcohol withdrawal, dysrhyt Critical Care Time: No Critical care attestation.: If time is entered above; I have spent that time in minutes in the direct care of this critically ill patient, excluding procedure time. ED Disposition Clinical Impression: Homeless, Generalized weakness Alcohol withdrawal Qualifiers: Complication of substance-induced condition: with unspecified complication Qualified Code(s): F10.239 - Alcohol dependence with withdrawal, unspecified Alcohol dependence Qualifiers: Substance use status: in withdrawal Complication of substance-induced condition : with unspecified complication Qualified Code(s): F10.239 - Alcohol dependence with withdrawal, unspecified Disposition: DC09 OP ADMIT IP TO THIS HOSP Is pt being admited?: Yes Condition: Fair Referrals: PRIMARY CARE, [Primary Care Provider] - 3-5 Days Time of Disposition: 20:21 - Assessment Assessment Interval: Baseline - Level of Consciousness 1a. Level of Consciousness: alert/keenly responsive - LOC Questions 1b. LOC Questions: answers both correctly - LOC Command 1c. LOC Commands: performs tasks correctly - Best Gaze 2. Best Gaze: normal - Visual 3. Visual: no visual loss - Facial Palsy 4. Facial Palsy: normal symmetrical movement - Motor Arm 5b. Motor Arm Right: no drift 5a. Motor Arm Left: no drift - Motor Leg 6a. Motor Leg Left: no drift 6b. Motor Leg Right: no drift - Limb Ataxia 7. Limb Ataxia: absent - Sensory 8. Sensory: normal - Best Language 9. Best Language: no aphasia - Dysarthria 10. Dysarthria: normal - Extinction and Inattention 11. Extinction/Inattention: no abnormality - Scoring Total Score: 0 Stroke Severity: No Stroke Symptoms
--- NOTE | 2018-07-30 18:21 | Cat Scan Report ---
FINAL REPORT EXAM: CT HEAD/BRAIN WO CON HISTORY: Weakness TECHNIQUE: CT examination of the head without IV contrast PRIORS: 06/17/2018 FINDINGS: Interval decrease left maxillary sinus opacity with residual moderate mucosal thickening. Minimal mucosal thickening left ethmoid sinus centrally. Other paranasal sinuses clear as are the mastoid air cells and middle ear cavities. No acute air-fluid level visualized in the included air-filled sinuses. Bone windows demonstrate no acute fracture. There is ventricular and sulcal prominence compatible with global cerebrocortical atrophy. The brain contains no mass, mass effect, hemorrhage, or acute infarct. There is no extra-axial intracranial bleed, brain bleed, or midline shift. IMPRESSION: No acute CVA, intracranial bleed, or brain mass
[2018-07-30] MEDS ORDERED: ATIVAN IV PRN ×3 (19:11)
[2018-07-30 19:25] LABS: Amphetamine Screen,Urine PRESUMPTIVE NEGATIVE; Benzodiazepines Screen,Urine PRESUMPTIVE NEGATIVE; Cannabinoid Screen,Urine PRESUMPTIVE NEGATIVE; Cocaine Screen,Urine PRESUMPTIVE NEGATIVE; Methadone Screen,Urine PRESUMPTIVE NEGATIVE; Opiate Screen,Urine PRESUMPTIVE NEGATIVE
[2018-07-30] MEDS ORDERED: PROVENTIL IH PRN (22:09)
[2018-07-30] MEDS ORDERED: TYLENOL PO PRN (22:17)
[2018-07-30] MEDS ORDERED: ZOFRAN PO PRN (22:18)
[2018-07-30] MEDS ORDERED: MORPHINE IV PRN (22:19)
[2018-07-31] MEDS ORDERED: ZOFRAN IV PRN (07:39)
[2018-07-31] MEDS: VITAMIN B-1 PO SCH (10:18)
[2018-07-31] MEDS: HEPARIN SUB-Q SCH ×2 (10:18→21:47)
[2018-07-31] MEDS: FOLVITE PO SCH (10:18)
--- NOTE | 2018-07-31 10:22 | History and Physical Report ---
CHIEF COMPLAINT: Difficulty in breathing. OTHER COMPLAINT: Include inability to ambulate. HISTORY OF PRESENT ILLNESS: The patient is a 58-year-old male who is known to be abusing alcohol, presenting with shortness of breath and difficulty with ambulation. The patient said he has been drinking daily and started shaking. There is no history of chest pain, no history of fever or chills, and the patient was admitted to having nausea and vomiting and said, he is not able to walk around. PAST MEDICAL HISTORY: Pertinent for hypertension, arthritis, COPD, home O2 dependent, alcohol abuse, snake bite. PAST SURGICAL HISTORY: Pertinent for right knee surgery and tendon repair. FAMILY HISTORY: Noncontributory. SOCIAL HISTORY: The patient drinks on a regular basis, smokes cigarettes, and does not use illicit drugs. MEDICATIONS: The patient is on folic acid 1 mg by mouth daily, thiamine 100 mg by mouth daily. ALLERGIES: The patient is allergic to CEPHALEXIN and CEPHALOSPORINS in general. REVIEW OF SYSTEMS: CONSTITUTIONAL: There is no fever, no chills, no diaphoresis. HEENT: There is no headache or sore throat. CARDIOVASCULAR SYSTEM: There is no chest pain or orthopnea. RESPIRATORY SYSTEM: Shortness of breath is present. No cough. GASTROINTESTINAL SYSTEM: There is nausea, vomiting, no abdominal pain, no diarrhea or constipation. NEUROLOGICAL SYSTEM: There is difficulty with ambulation, with no numbness, no dizziness, no altered mental status. MUSCULOSKELETAL SYSTEM: There is no joint pain or swelling. DERMATOLOGICAL SYSTEM: There is no skin rash or itching. GENITOURINARY SYSTEM: There is no dysuria, hematuria, or flank pain. Rest of system review is normal. PHYSICAL EXAMINATION: GENERAL: At the time of exam, the patient was found to also be alert, oriented x 3, and not in acute distress. VITAL SIGNS: Initially when the patient presented showed temperature of 97.9 degrees Fahrenheit, pulse of 114, respiration 20, blood pressure 96/36, O2 sat of 93% on room air. HEENT: Exam show pupils to be equal, round, reactive to light and accommodation. Extraocular muscles are intact. NECK: Supple with no JVD or carotid bruit. CARDIOVASCULAR SYSTEM: Showed normal first and second heart sounds with no gallops or murmur. RESPIRATORY SYSTEM: Show good air entry on both sides of the lung with no abnormal breath sounds. GASTROINTESTINAL SYSTEM: Show abdomen to be full, soft, nontender, with no organomegaly or rigidity. NEUROLOGIC: Shows no focal deficit. MUSCULOSKELETAL SYSTEM: Show no joint swelling or tenderness. DERMATOLOGICAL SYSTEM: Show no skin rash. GENITOURINARY SYSTEM: Showing no costovertebral angle tenderness. PERTINENT LABORATORY AND IMAGING STUDIES: The patient had a CT of the head done without contrast that shows no acute intracranial abnormality. The patient also had chest x-ray done that shows no acute abnormality. The patient's lab results shows a normal white count with elevated hemoglobin with a value of 15.8, and elevated hematocrit with a value of 46.4, and high MCV of 98, with platelet count of 118,000. CBC differential showed elevated lymphocyte count of 42.5, and elevated monocyte count of 8.4. The patient's showed unremarkable renal function. The patient's liver transaminases show a normal ALT with elevated AST 61, consistent with alcohol abuse. The patient had toxicology done with elevated alcohol level of 0.25. DIAGNOSIS: 1. Alcohol abuse and withdrawal. 2. Dyspnea. PLAN: The patient will be admitted to medical floor on telemetry. We will continue Alcohol Withdrawal Assessment Scoring Guidelines protocol, started in the Emergency Room. The patient will be on as needed medications like Tylenol 650 mg by mouth every 4 hours for fever and headache and Zofran 4 mg intravenous as needed for nausea and vomiting. The patient will be on intravenous morphine 2 mg every 4 hours as needed for pain and will be placed on albuterol nebulizer 2.5 mg inhalation every 6 hours as needed for shortness of breath. The patient's deep venous thrombosis prophylaxis will be through heparin 5000 units subcutaneous every 12 hours. The patient will have a dose of banana bag, which consist of thiamine 100 mg, folic acid 1 mg one ampule of multivitamin and 2 g magnesium sulfate mixed in 1 liter of normal saline. The patient's home medications will be started as shown in the medication reconciliation sheet. JOB# [id number] OCN/NTS
--- NOTE | 2018-07-31 13:02 | Progress Note ---
Assessment and Plan Assessment and plan: Patient is a 58 yo man who is Homeless with a history of copd, OA, hypertension , alcohol abuse and tobacco dependency who presents to ED with multiple somatic complaints including shortness of breath, weakness, numbness left arm, abd. pains and inability to ambulate. He was admitted for ETOH withdrawal symptoms. * EKG ST 102 sinus rhythm, q waves to the septal leads, unchanged compared to 2017 EKG * pCXR does not show any acute process. There are no pleural effusions, obvious pneumonia and there is no pneumothorax. * CT head wo contrast IMPRESSION: No acute CVA, intracranial bleed, or brain mass -Acute Alcohol Intoxication with Withdrawal: treat with CIWA protocol -Ambulatory dysfunction: consult PT/OT -COPD, not in exacerbation: treat with neb, O2 -Tobacco dependency: cosmetic counselor on stopping, offered nicotine patch -Alcholol abuse: counseling done, treat with thiamine -Homeless with multiple hospital admission: I advise patient find a PCP, consult case management/social service History Interval history: Patient was seen and examined. Follow-up on current diagnosis of chest pains/ bilateral abd pains and inability to walk. Overnight uneventful. Patient denies any chest pain, shortness breath, nausea/vomiting or severe headaches. Imaging, nursing note, chart, labs and old chart reviewed. Discussed with patient. Hospitalist Physical - Physical exam Narrative exam: GEN: WDWN, unkempt, NAD, Awake, Alert, Orientated x 3 HEENT: NCAT, EOMI, PERRL, OP Clear NECK: supple, no adenopathy, no thyromegaly, no JVD CVS/HEART: RRR, normal S1S2, pulses present bilaterally CHEST/LUNGS: CTA B, Symmetrical chest expansion, good air entry bilaterally GI/Abdomen: soft, NTND, good bowel sounds, no guarding or rebound /Bladder: no suprapubic tenderness, no CVA or paraspinal tenderness EXT/Skin: no c/c/e, no obvious rash MSK: FROM x 4 Neuro: CN 2-12 grossly intact, no new focal deficits, pseudocooperative with exam Psych: calm - Constitutional Vitals: Temp Pulse Resp BP Pulse Ox 99.6 F 113 H 20 141/85 93 07/31/18 05:43 07/31/18 05:43 07/31/18 05:43 07/31/18 05:43 07/31/18 05:43 Results - Labs CBC & Chem 7: 07/30/18 14:40 07/30/18 14:40 Labs: Laboratory Last Values WBC 5.6 K/mm3 (4.5-11.0) 07/30/18 14:40 RBC 4.73 M/mm3 (3.65-5.03) 07/30/18 14:40 Hgb 15.8 gm/dl (11.8-15.2) H 07/30/18 14:40 Hct 46.4 % (35.5-45.6) H 07/30/18 14:40 MCV 98 fl (84-94) H 07/30/18 14:40 MCH 33 pg (28-32) H 07/30/18 14:40 MCHC 34 % (32-34) 07/30/18 14:40 RDW 14.6 % (13.2-15.2) 07/30/18 14:40 Plt Count 118 K/mm3 (140-440) L 07/30/18 14:40 Lymph % (Auto) 42.5 % (13.4-35.0) H 07/30/18 14:40 [place] % (Auto) 8.4 % (0.0-7.3) H 07/30/18 14:40 Eos % (Auto) 3.9 % (0.0-4.3) 07/30/18 14:40 Baso % (Auto) 0.9 % (0.0-1.8) 07/30/18 14:40 Lymph # 2.4 K/mm3 (1.2-5.4) 07/30/18 14:40 [place] # 0.5 K/mm3 (0.0-0.8) 07/30/18 14:40 Eos # 0.2 K/mm3 (0.0-0.4) 07/30/18 14:40 Baso # 0.1 K/mm3 (0.0-0.1) 07/30/18 14:40 Seg Neutrophils % 44.3 % (40.0-70.0) 07/30/18 14:40 Seg Neutrophils # 2.5 K/mm3 (1.8-7.7) 07/30/18 14:40 PT 12.9 Sec. (12.2-14.9) 07/30/18 14:40 INR 0.93 (0.87-1.13) 07/30/18 14:40 APTT 24.4 Sec. (24.2-36.6) 07/30/18 14:40 Sodium 140 mmol/L (137-145) 07/30/18 14:40 Potassium 3.9 mmol/L (3.6-5.0) 07/30/18 14:40 Chloride 100.7 mmol/L (98-107) 07/30/18 14:40 Carbon Dioxide 22 mmol/L (22-30) 07/30/18 14:40 Anion Gap 21 mmol/L 07/30/18 14:40 BUN 3 mg/dL (9-20) L 07/30/18 14:40 Creatinine 0.5 mg/dL (0.8-1.5) L 07/30/18 14:40 Estimated GFR > 60 ml/min 07/30/18 14:40 BUN/Creatinine Ratio 6 % 07/30/18 14:40 Glucose 76 mg/dL (75-100) 07/30/18 14:40 Calcium 8.0 mg/dL (8.4-10.2) L 07/30/18 14:40 Total Bilirubin 0.60 mg/dL (0.1-1.2) 07/30/18 14:40 Direct Bilirubin 0.2 mg/dL (0-0.2) 07/30/18 14:40 Indirect Bilirubin 0.4 mg/dL 07/30/18 14:40 AST 61 units/L (5-40) H 07/30/18 14:40 ALT 30 units/L (7-56) 07/30/18 14:40 Alkaline Phosphatase 82 units/L (35-129) 07/30/18 14:40 Troponin T < 0.010 ng/mL (0.00-0.029) 07/30/18 14:40 NT-Pro-B Natriuret Pep 79.11 pg/mL (0-900) 07/30/18 14:40 Total Protein 6.9 g/dL (6.3-8.2) 07/30/18 14:40 Albumin 3.6 g/dL (3.9-5) L 07/30/18 14:40 Albumin/Globulin Ratio 1.1 % 07/30/18 14:40 Urine Opiates Screen Presumptive negative 07/30/18 19:10 Urine Methadone Screen Presumptive negative 07/30/18 19:10 Ur Barbiturates Screen Presumptive negative 07/30/18 19:10 Ur Phencyclidine Scrn Presumptive negative 07/30/18 19:10 Ur Amphetamines Screen Presumptive negative 07/30/18 19:10 U Benzodiazepines Scrn Presumptive negative 07/30/18 19:10 Urine Cocaine Screen Presumptive negative 07/30/18 19:10 U Marijuana (THC) Screen Presumptive negative 07/30/18 19:10 Drugs of Abuse Note Disclamer 07/30/18 19:10 Plasma/Serum Alcohol 0.25 % (0-0.07) H 07/30/18 15:19
[2018-08-01 08:12] LABS: Hematocrit 46.5 % (35.5-45.6); Hemoglobin 15.9 gm/dl (11.8-15.2); Mean Corpuscular HGB Conc 34 % (32-34); Mean Corpuscular Hemoglobin 33 pg (28-32); Mean Corpuscular Volume 98 fl (84-94); Platelet Count 105 K/mm3 (140-440); Red Blood Count 4.76 M/mm3 (3.65-5.03); Red Cell Distribution Width 14.3 % (13.2-15.2)
[2018-08-01 08:49] LABS: BUN/Creatinine Ratio 8; Blood Urea Nitrogen 4 mg/dL (9-20); Calcium 8.5 mg/dL (8.4-10.2); Hemolysis Index 5
[2018-08-01] MEDS: HEPARIN SUB-Q SCH (09:34)
[2018-08-01] MEDS: FOLVITE PO SCH (09:34)
[2018-08-01] MEDS: VITAMIN B-1 PO SCH (09:34)
--- NOTE | 2018-08-01 13:25 | Progress Note ---
Assessment and Plan Assessment and plan: Patient is a 58 yo man who is Homeless with a history of copd, OA, hypertension , alcohol abuse and tobacco dependency who presents to ED with multiple somatic complaints including shortness of breath, weakness, numbness left arm, abd. pains and inability to ambulate. He was admitted for ETOH withdrawal symptoms. * EKG ST 102 sinus rhythm, q waves to the septal leads, unchanged compared to 2017 EKG * pCXR does not show any acute process. There are no pleural effusions, obvious pneumonia and there is no pneumothorax. * CT head wo contrast IMPRESSION: No acute CVA, intracranial bleed, or brain mass -Alcohol Abuse with Withdrawal: treat with CIWA protocol, still tachycardic -Ambulatory dysfunction: consulted PT/OT -COPD, not in exacerbation: treat with neb, O2 -Tobacco dependency: camp counselor on stopping, offered nicotine patch -Alcholol abuse: counseling done, treat with thiamine -Homeless with multiple hospital admission: I advise patient find a PCP, consulted case management/social service -DVT prophylaxis: scd only due to the thrombocytopenia -Diarrhea, poa: ordered C. diffe full code Disposition: continue inpatient care, d/c once Etoh withdrawal symptoms resolved. C.diff pending. discharge planning very difficult because pt is homeless and unfunded. See last admission. Most Shelters usually will not take a patient who is not ambulatory. History Interval history: Patient was seen and examined. Follow-up on current diagnosis of chest pains/ bilateral abd pains and inability to walk. Overnight uneventful. Patient denies any chest pain, shortness breath, nausea/vomiting or severe headaches. Imaging, nursing note, chart, labs and old chart reviewed. Discussed with patient. Hospitalist Physical - Physical exam Narrative exam: GEN: WDWN, unkempt, NAD, Awake, Alert, Orientated x 3 HEENT: NCAT, EOMI, PERRL, OP Clear NECK: supple, no adenopathy, no thyromegaly, no JVD CVS/HEART: RRR, normal S1S2, pulses present bilaterally CHEST/LUNGS: CTA B, Symmetrical chest expansion, good air entry bilaterally GI/Abdomen: soft, NTND, good bowel sounds, no guarding or rebound /Bladder: no suprapubic tenderness, no CVA or paraspinal tenderness EXT/Skin: no c/c/e, no obvious rash MSK: FROM x 4 Neuro: CN 2-12 grossly intact, no new focal deficits, pseudocooperative with exam Psych: calm - Constitutional Vitals: Temp Pulse Resp BP Pulse Ox 98.0 F 102 H 18 138/88 95 08/01/18 12:00 08/01/18 12:00 08/01/18 12:00 08/01/18 12:00 08/01/18 09:39 Results - Labs CBC & Chem 7: 08/01/18 07:08 08/01/18 07:08 Labs: Laboratory Last Values WBC 5.3 K/mm3 (4.5-11.0) 08/01/18 07:08 RBC 4.76 M/mm3 (3.65-5.03) 08/01/18 07:08 Hgb 15.9 gm/dl (11.8-15.2) H 08/01/18 07:08 Hct 46.5 % (35.5-45.6) H 08/01/18 07:08 MCV 98 fl (84-94) H 08/01/18 07:08 MCH 33 pg (28-32) H 08/01/18 07:08 MCHC 34 % (32-34) 08/01/18 07:08 RDW 14.3 % (13.2-15.2) 08/01/18 07:08 Plt Count 105 K/mm3 (140-440) L 08/01/18 07:08 Lymph % (Auto) 42.5 % (13.4-35.0) H 07/30/18 14:40 [place] % (Auto) 8.4 % (0.0-7.3) H 07/30/18 14:40 Eos % (Auto) 3.9 % (0.0-4.3) 07/30/18 14:40 Baso % (Auto) 0.9 % (0.0-1.8) 07/30/18 14:40 Lymph # 2.4 K/mm3 (1.2-5.4) 07/30/18 14:40 [place] # 0.5 K/mm3 (0.0-0.8) 07/30/18 14:40 Eos # 0.2 K/mm3 (0.0-0.4) 07/30/18 14:40 Baso # 0.1 K/mm3 (0.0-0.1) 07/30/18 14:40 Seg Neutrophils % 44.3 % (40.0-70.0) 07/30/18 14:40 Seg Neutrophils # 2.5 K/mm3 (1.8-7.7) 07/30/18 14:40 PT 12.9 Sec. (12.2-14.9) 07/30/18 14:40 INR 0.93 (0.87-1.13) 07/30/18 14:40 APTT 24.4 Sec. (24.2-36.6) 07/30/18 14:40 Sodium 138 mmol/L (137-145) 08/01/18 07:08 Potassium 3.4 mmol/L (3.6-5.0) L 08/01/18 07:08 Chloride 97.9 mmol/L (98-107) L 08/01/18 07:08 Carbon Dioxide 26 mmol/L (22-30) 08/01/18 07:08 Anion Gap 18 mmol/L 08/01/18 07:08 BUN 4 mg/dL (9-20) L 08/01/18 07:08 Creatinine 0.5 mg/dL (0.8-1.5) L 08/01/18 07:08 Estimated GFR > 60 ml/min 08/01/18 07:08 BUN/Creatinine Ratio 8 % 08/01/18 07:08 Glucose 76 mg/dL (75-100) 08/01/18 07:08 Calcium 8.5 mg/dL (8.4-10.2) 08/01/18 07:08 Total Bilirubin 0.60 mg/dL (0.1-1.2) 07/30/18 14:40 Direct Bilirubin 0.2 mg/dL (0-0.2) 07/30/18 14:40 Indirect Bilirubin 0.4 mg/dL 07/30/18 14:40 AST 61 units/L (5-40) H 07/30/18 14:40 ALT 30 units/L (7-56) 07/30/18 14:40 Alkaline Phosphatase 82 units/L (35-129) 07/30/18 14:40 Troponin T < 0.010 ng/mL (0.00-0.029) 07/30/18 14:40 NT-Pro-B Natriuret Pep 79.11 pg/mL (0-900) 07/30/18 14:40 Total Protein 6.9 g/dL (6.3-8.2) 07/30/18 14:40 Albumin 3.6 g/dL (3.9-5) L 07/30/18 14:40 Albumin/Globulin Ratio 1.1 % 07/30/18 14:40 Urine Opiates Screen Presumptive negative 07/30/18 19:10 Urine Methadone Screen Presumptive negative 07/30/18 19:10 Ur Barbiturates Screen Presumptive negative 07/30/18 19:10 Ur Phencyclidine Scrn Presumptive negative 07/30/18 19:10 Ur Amphetamines Screen Presumptive negative 07/30/18 19:10 U Benzodiazepines Scrn Presumptive negative 07/30/18 19:10 Urine Cocaine Screen Presumptive negative 07/30/18 19:10 U Marijuana (THC) Screen Presumptive negative 07/30/18 19:10 Drugs of Abuse Note Disclamer 07/30/18 19:10 Plasma/Serum Alcohol 0.25 % (0-0.07) H 07/30/18 15:19
[2018-08-02 06:37] LABS: Hemoglobin 16.6 gm/dl (11.8-15.2); Mean Corpuscular HGB Conc 34 % (32-34); Mean Corpuscular Hemoglobin 33 pg (28-32); Mean Corpuscular Volume 98 fl (84-94); Platelet Count 116 K/mm3 (140-440); Red Blood Count 5.01 M/mm3 (3.65-5.03); Red Cell Distribution Width 14.5 % (13.2-15.2)
[2018-08-02 07:00] LABS: BUN/Creatinine Ratio 15; Blood Urea Nitrogen 9 mg/dL (9-20); Calcium 8.8 mg/dL (8.4-10.2); Hemolysis Index 11
[2018-08-02] MEDS: VITAMIN B-1 PO SCH (10:28)
[2018-08-02] MEDS: FOLVITE PO SCH (10:29)
--- NOTE | 2018-08-02 12:23 | Consultation ---
History of Present Illness Consult date: 08/02/18 Consult reason: tachycardia History of present illness: The patient is a 58-year-old man who is currently homeless, has chronic alcohol abuse and COPD. He was admitted to the hospital after he presented to the emergency room with multiple constitutional complaints, and was found with elevated alcohol levels. He is currently on the medical floor, and is being managed for symptoms of alcohol withdrawal. Cardiology consult is requested for tachycardia on telemetry monitoring. Telemetry strips show a persistent, mild sinus tachycardia with a short burst of wide complex tachycardia which appears likely an atrial tachycardia with aberrancy. Patient has no cardiac symptoms, no chest pain, no unusual shortness of breath, no palpitations, no dizziness and no lower extremity edema. He has had extensive previous cardiac evaluation including echocardiogram and thallium stress test done just 4 months ago in this hospital. The echo perfusion study was normal, an echocardiogram reported a left ventricle systolic ejection fraction 50-55%. On his current laboratory exams, the potassium is normal, but the magnesium level is pending. Past History Past Medical History: COPD, other (alcohol abuse) Medications and Allergies Allergies Allergy/AdvReac Type Severity Reaction Status Date / Time cephalexin [From Keflex] Allergy Hives Verified 06/04/18 22:02 Cephalosporins Allergy Anaphylaxis Verified 06/17/17 18:14 Home Medications Medication Instructions Recorded Confirmed Last Taken Type Folic Acid [Folvite] 1 mg PO QDAY #60 tablet 07/06/18 Unknown Rx Thiamine [Vitamin B-1] 100 mg PO QDAY #30 tablet 07/06/18 Unknown Rx Active Meds: Active Medications Acetaminophen (Tylenol) 650 mg PO Q4H PRN PRN Reason: Fever >101 Albuterol (Proventil) 2.5 mg IH Q6H PRN PRN Reason: Shortness Of Breath Folic Acid (Folvite) 1 mg PO QDAY NATHALIA Last Admin: 08/02/18 10:29 Dose: 1 mg Lorazepam (Ativan) 2 mg IV Q1HR PRN PRN Reason: CIWA-Ar 8-15 Last Admin: 07/30/18 20:25 Dose: 2 mg Lorazepam (Ativan) 4 mg IV Q1HR PRN PRN Reason: CIWA-Ar 16-25 Lorazepam (Ativan) 4 mg IV Q15MIN PRN PRN Reason: CIWA-Ar >25 Morphine Sulfate (Morphine) 2 mg IV Q4H PRN PRN Reason: Pain, Moderate (4-6) Ondansetron HCl (Zofran) 4 mg IV Q8H PRN PRN Reason: Nausea And Vomiting Thiamine HCl (Vitamin B-1) 100 mg PO QDAY NATHALIA Last Admin: 08/02/18 10:28 Dose: 100 mg Review of Systems Cardiovascular: shortness of breath, no chest pain, no orthopnea, no palpitations, no rapid/irregular heart beat, no edema, no syncope, no lightheadedness Physical Examination Vital Signs Temp Pulse Resp BP Pulse Ox 97.9 F 114 H 20 96/36 93 07/30/18 14:11 07/30/18 14:11 07/30/18 14:11 07/30/18 14:11 07/30/18 14:11 General appearance: no acute distress HEENT: Positive: PERRL Neck: Positive: neck supple Cardiac: Positive: Regular Rhythm Lungs: Positive: Decreased Breath Sounds Neuro: Positive: Grossly Intact Abdomen: Positive: Soft Male genitourinary: Positive: deferred Skin: Positive: Clear Extremities: Absent: edema Results 08/02/18 05:46 08/02/18 05:46 CBC 08/02/18 Range/Units 05:46 WBC 6.3 (4.5-11.0) K/mm3 RBC 5.01 (3.65-5.03) M/mm3 Hgb 16.6 H (11.8-15.2) gm/dl Hct 49.0 H (35.5-45.6) % Plt Count 116 L (140-440) K/mm3 Comprehensive Metabolic Panel 08/02/18 Range/Units 05:46 Sodium 137 (137-145) mmol/L Potassium 3.9 (3.6-5.0) mmol/L Chloride 98.1 (98-107) mmol/L Carbon Dioxide 28 (22-30) mmol/L BUN 9 (9-20) mg/dL Creatinine 0.6 L (0.8-1.5) mg/dL Glucose 80 (75-100) mg/dL Calcium 8.8 (8.4-10.2) mg/dL EKG interpretations - Telemetry EKG Rhythm: Sinus Tachycardia Assessment and Plan - Patient Problems (1) Tachycardia Current Visit: Yes Status: Acute Plan to address problem: Patient has a mild sinus tachycardia likely associated with his acute alcohol withdrawal, with an intercurrent, short burst of an atrial tachycardia. Recent echocardiogram was limited to ejection fraction 50-55%, and thallium stress test was negative. Recommend addition of beta shanti therapy, and a baby aspirin to his regimen. Otherwise conservative cardiac management.
[2018-08-02] MEDS: TENORMIN PO SCH (14:02)
[2018-08-02] MEDS: HALFPRIN EC PO SCH (14:03)
--- NOTE | 2018-08-02 17:10 | Progress Note ---
Assessment and Plan Assessment and plan: Patient is a 58 yo man who is Homeless with a history of copd, OA, hypertension , alcohol abuse and tobacco dependency who presents to ED with multiple somatic complaints including shortness of breath, weakness, numbness left arm, abd. pains and inability to ambulate. He was admitted for ETOH withdrawal symptoms. * EKG ST 102 sinus rhythm, q waves to the septal leads, unchanged compared to 2017 EKG * pCXR does not show any acute process. There are no pleural effusions, obvious pneumonia and there is no pneumothorax. * CT head wo contrast IMPRESSION: No acute CVA, intracranial bleed, or brain mass On 08/02/18. Patient had 13 beats of V. tach at 5:50 AM Vtach, 13 beats; consulted cardiology, keep on tele, electrolytes wnl, recent echo shows preserved EF -Alcohol Abuse with Withdrawal: treat with CIWA protocol, still tachycardic -Ambulatory dysfunction: consulted PT/OT -COPD, not in exacerbation: treat with neb, O2 -Tobacco dependency: scholarship counselor on stopping, offered nicotine patch -Alcholol abuse: counseling done, treat with thiamine -Homeless with multiple hospital admission: I advise patient find a PCP, consulted case management/social service -DVT prophylaxis: scd only due to the thrombocytopenia -Diarrhea, poa: ordered C. diffe full code Tentative dc tomorrow if ok by cardiology History Interval history: The nurse reported V. tach, 13 beats at 5:58 aM, she reported feeling palpitations around that time Review of systems Constitutional: No fevers, no malaise, no joint pains CVS: No chest pain, no orthopnea, no dyspnea on exertion, no pedal edema GI: No abdominal pain, no diarrhea, no vomiting, no constipation Respiratory: No shortness of breath, no wheezing, no coughing Hospitalist Physical - Physical exam Narrative exam: General.: Appears well, no distress, nontoxic HEENT: Moist mucous membranes, extraocular muscles intact, no lymphadenopathy Neck: supple Cardiac: S1-S2 heard Lungs: clear to auscultation bilaterally Abdomen: soft , nontender, nondistended, bowel sounds positive Extremities: no edema clubbing or cyanosis Skin: no rash or lesions Neurologic: no gross focal deficits Psych: appropriate behavior, appropriate mood, corporative, judgment intact - Constitutional Vitals: Temp Pulse Resp BP Pulse Ox 98.0 F 117 H 16 100/72 96 08/02/18 12:21 08/02/18 14:02 08/02/18 12:21 08/02/18 14:02 08/02/18 12:21 General appearance: Present: no acute distress Results - Labs CBC & Chem 7: 08/02/18 05:46 08/02/18 05:46 Labs: Laboratory Last Values WBC 6.3 K/mm3 (4.5-11.0) 08/02/18 05:46 RBC 5.01 M/mm3 (3.65-5.03) 08/02/18 05:46 Hgb 16.6 gm/dl (11.8-15.2) H 08/02/18 05:46 Hct 49.0 % (35.5-45.6) H 08/02/18 05:46 MCV 98 fl (84-94) H 08/02/18 05:46 MCH 33 pg (28-32) H 08/02/18 05:46 MCHC 34 % (32-34) 08/02/18 05:46 RDW 14.5 % (13.2-15.2) 08/02/18 05:46 Plt Count 116 K/mm3 (140-440) L 08/02/18 05:46 Lymph % (Auto) 42.5 % (13.4-35.0) H 07/30/18 14:40 [place] % (Auto) 8.4 % (0.0-7.3) H 07/30/18 14:40 Eos % (Auto) 3.9 % (0.0-4.3) 07/30/18 14:40 Baso % (Auto) 0.9 % (0.0-1.8) 07/30/18 14:40 Lymph # 2.4 K/mm3 (1.2-5.4) 07/30/18 14:40 [place] # 0.5 K/mm3 (0.0-0.8) 07/30/18 14:40 Eos # 0.2 K/mm3 (0.0-0.4) 07/30/18 14:40 Baso # 0.1 K/mm3 (0.0-0.1) 07/30/18 14:40 Seg Neutrophils % 44.3 % (40.0-70.0) 07/30/18 14:40 Seg Neutrophils # 2.5 K/mm3 (1.8-7.7) 07/30/18 14:40 PT 12.9 Sec. (12.2-14.9) 07/30/18 14:40 INR 0.93 (0.87-1.13) 07/30/18 14:40 APTT 24.4 Sec. (24.2-36.6) 07/30/18 14:40 Sodium 137 mmol/L (137-145) 08/02/18 05:46 Potassium 3.9 mmol/L (3.6-5.0) 08/02/18 05:46 Chloride 98.1 mmol/L (98-107) 08/02/18 05:46 Carbon Dioxide 28 mmol/L (22-30) 08/02/18 05:46 Anion Gap 15 mmol/L 08/02/18 05:46 BUN 9 mg/dL (9-20) 08/02/18 05:46 Creatinine 0.6 mg/dL (0.8-1.5) L 08/02/18 05:46 Estimated GFR > 60 ml/min 08/02/18 05:46 BUN/Creatinine Ratio 15 % 08/02/18 05:46 Glucose 80 mg/dL (75-100) 08/02/18 05:46 Calcium 8.8 mg/dL (8.4-10.2) 08/02/18 05:46 Magnesium 1.90 mg/dL (1.7-2.3) 08/02/18 15:04 Total Bilirubin 0.60 mg/dL (0.1-1.2) 07/30/18 14:40 Direct Bilirubin 0.2 mg/dL (0-0.2) 07/30/18 14:40 Indirect Bilirubin 0.4 mg/dL 07/30/18 14:40 AST 61 units/L (5-40) H 07/30/18 14:40 ALT 30 units/L (7-56) 07/30/18 14:40 Alkaline Phosphatase 82 units/L (35-129) 07/30/18 14:40 Troponin T < 0.010 ng/mL (0.00-0.029) 07/30/18 14:40 NT-Pro-B Natriuret Pep 79.11 pg/mL (0-900) 07/30/18 14:40 Total Protein 6.9 g/dL (6.3-8.2) 07/30/18 14:40 Albumin 3.6 g/dL (3.9-5) L 07/30/18 14:40 Albumin/Globulin Ratio 1.1 % 07/30/18 14:40 Urine Opiates Screen Presumptive negative 07/30/18 19:10 Urine Methadone Screen Presumptive negative 07/30/18 19:10 Ur Barbiturates Screen Presumptive negative 07/30/18 19:10 Ur Phencyclidine Scrn Presumptive negative 07/30/18 19:10 Ur Amphetamines Screen Presumptive negative 07/30/18 19:10 U Benzodiazepines Scrn Presumptive negative 07/30/18 19:10 Urine Cocaine Screen Presumptive negative 07/30/18 19:10 U Marijuana (THC) Screen Presumptive negative 07/30/18 19:10 Drugs of Abuse Note Disclamer 07/30/18 19:10 Plasma/Serum Alcohol 0.25 % (0-0.07) H 07/30/18 15:19 C. difficile Toxin A&B Negative (Negative) 08/01/18 13:35
[2018-08-03 06:14] LABS: Hematocrit 46.1 % (35.5-45.6); Hemoglobin 15.8 gm/dl (11.8-15.2); Mean Corpuscular HGB Conc 34 % (32-34); Mean Corpuscular Hemoglobin 34 pg (28-32); Mean Corpuscular Volume 98 fl (84-94); Platelet Count 124 K/mm3 (140-440); Red Blood Count 4.69 M/mm3 (3.65-5.03); Red Cell Distribution Width 14.5 % (13.2-15.2)
[2018-08-03 06:29] LABS: BUN/Creatinine Ratio 24; Blood Urea Nitrogen 12 mg/dL (9-20); Calcium 8.5 mg/dL (8.4-10.2); Hemolysis Index 5
--- NOTE | 2018-08-03 09:40 | Progress Note ---
Assessment and Plan Alcohol abuse Tachycardia, mild likely associated with his acute alcohol withdrawal, with a short burst of an atrial tachycardia. Cardiac test 03/2018: Echocardiogram reports an LVEF 50-55%. Thallium stress test was negative. Recommend: Continue beta shanti therapy for suppression of paroxysmal atrial tachcardia. Otherwise conservative cardiac management. Subjective Date of service: 08/03/18 Interval history: Patient is resting in bed. He has no cardiac complaints. No reported events on telemetry monitoring overnight. Objective Vital Signs Temp Pulse Pulse Resp BP Pulse Ox 08/03/18 06:22 97.8 F 94 H 18 107/59 94 08/03/18 00:10 98.7 F 79 18 102/72 94 08/02/18 22:00 79 16 08/02/18 18:19 98.7 F 90 16 108/74 97 08/02/18 14:02 117 H 100/72 08/02/18 12:21 98.0 F 117 H 16 100/72 96 08/02/18 10:00 20 96 - Physical Examination General: No Apparent Distress HEENT: Positive: PERRL Neck: Positive: trachea midline Cardiac: Positive: Reg Rate and Rhythm Lungs: Positive: Decreased Breath Sounds Neuro: Positive: Grossly Intact, Weakness Extremities: Absent: edema - Labs and Meds CBC 08/03/18 Range/Units 05:34 WBC 5.6 (4.5-11.0) K/mm3 RBC 4.69 (3.65-5.03) M/mm3 Hgb 15.8 H (11.8-15.2) gm/dl Hct 46.1 H (35.5-45.6) % Plt Count 124 L (140-440) K/mm3 Comprehensive Metabolic Panel 08/03/18 Range/Units 05:34 Sodium 138 (137-145) mmol/L Potassium 3.9 (3.6-5.0) mmol/L Chloride 99.8 (98-107) mmol/L Carbon Dioxide 27 (22-30) mmol/L BUN 12 (9-20) mg/dL Creatinine 0.5 L (0.8-1.5) mg/dL Glucose 80 (75-100) mg/dL Calcium 8.5 (8.4-10.2) mg/dL
[2018-08-03] MEDS: FOLVITE PO SCH (10:00)
[2018-08-03] MEDS: HALFPRIN EC PO SCH (10:00)
[2018-08-03] MEDS: VITAMIN B-1 PO SCH (10:00)
[2018-08-03] MEDS: TENORMIN PO SCH (10:01)
--- NOTE | 2018-08-03 17:21 | Discharge Summary ---
Providers - Providers Date of Admission: 07/30/18 22:06 Attending physician: JOCE MARIANO MD 07/31/18 13:08 Consult to Case Management [CONS] Routine Services Needed at Discharge: [employer] Investigator Notified:: left copy for cm Additional Physician Instructions: SNF Placement as per family request: Please send out [facility]. Occupational Therapy Evaluate and Treat [CONS] Routine Comment: Reason For Exam: ADLs evaluation Physical Therapy Evaluation and Treat [CONS] Routine Comment: Reason For Exam: gait evaluation/ambulatory dysfunction 08/02/18 15:22 Consult to Physician [CONS] Routine Comment: Consulting Provider: JOSE F SOTO Physician Instructions: Reason For Exam: vtach Primary care physician: FUDGER Hospitalization Condition: Fair Exam - Constitutional Vitals: Temp Pulse Resp BP Pulse Ox 98.0 F 83 16 94/68 95 08/03/18 11:42 08/03/18 11:42 08/03/18 11:42 08/03/18 11:42 08/03/18 11:42 Plan Follow up with: PRIMARY MD MADONNA [Primary Care Provider] - 3-5 Days Prescriptions: Atenolol [Tenormin] 50 mg PO QDAY #30 tablet
--- NOTE | 2018-08-03 22:13 | Progress Note ---
Assessment and Plan Assessment and plan: Patient is a 58 yo man who is Homeless with a history of copd, OA, hypertension , alcohol abuse and tobacco dependency who presents to ED with multiple somatic complaints including shortness of breath, weakness, numbness left arm, abd. pains and inability to ambulate. He was admitted for ETOH withdrawal symptoms. * EKG ST 102 sinus rhythm, q waves to the septal leads, unchanged compared to 2017 EKG * pCXR does not show any acute process. There are no pleural effusions, obvious pneumonia and there is no pneumothorax. * CT head wo contrast IMPRESSION: No acute CVA, intracranial bleed, or brain mass On 08/02/18. Patient had 13 beats of V. tach at 5:50 AM on 06/01 Vtach, 13 beats; consulted cardiology, keep on tele, electrolytes wnl, recent echo shows preserved EF, added betablocker for paroxysmal Atrial tachycardia -Alcohol Abuse with Withdrawal: treat with CIWA protocol, still tachycardic -Ambulatory dysfunction: consulted PT/OT -COPD, not in exacerbation: treat with neb, O2 -Tobacco dependency: counseling department chair on stopping, offered nicotine patch -Alcholol abuse: counseling done, treat with thiamine -Homeless with multiple hospital admission: I advise patient find a PCP, consulted case management/social service -DVT prophylaxis: scd only due to the thrombocytopenia -Diarrhea, poa: ordered C. diffe full code Tentative dc tomorrow if ok by cardiology History Interval history: Review of systems Constitutional: No fevers, no malaise, no joint pains CVS: No chest pain, no orthopnea, no dyspnea on exertion, no pedal edema GI: No abdominal pain, no diarrhea, no vomiting, no constipation Respiratory: No shortness of breath, no wheezing, no coughing Hospitalist Physical - Physical exam Narrative exam: General.: Appears well, no distress, nontoxic HEENT: Moist mucous membranes, extraocular muscles intact, no lymphadenopathy Neck: supple Cardiac: S1-S2 heard Lungs: clear to auscultation bilaterally Abdomen: soft , nontender, nondistended, bowel sounds positive Extremities: no edema clubbing or cyanosis Skin: no rash or lesions Neurologic: no gross focal deficits Psych: appropriate behavior, appropriate mood, corporative, judgment intact - Constitutional Vitals: Temp Pulse Resp BP Pulse Ox 98.9 F 89 18 100/67 95 08/03/18 17:22 08/03/18 17:22 08/03/18 17:22 08/03/18 17:22 08/03/18 17:22 General appearance: Present: no acute distress Results - Labs CBC & Chem 7: 08/03/18 05:34 08/03/18 05:34 Labs: Laboratory Last Values WBC 5.6 K/mm3 (4.5-11.0) 08/03/18 05:34 RBC 4.69 M/mm3 (3.65-5.03) 08/03/18 05:34 Hgb 15.8 gm/dl (11.8-15.2) H 08/03/18 05:34 Hct 46.1 % (35.5-45.6) H 08/03/18 05:34 MCV 98 fl (84-94) H 08/03/18 05:34 MCH 34 pg (28-32) H 08/03/18 05:34 MCHC 34 % (32-34) 08/03/18 05:34 RDW 14.5 % (13.2-15.2) 08/03/18 05:34 Plt Count 124 K/mm3 (140-440) L 08/03/18 05:34 Lymph % (Auto) 42.5 % (13.4-35.0) H 07/30/18 14:40 [place] % (Auto) 8.4 % (0.0-7.3) H 07/30/18 14:40 Eos % (Auto) 3.9 % (0.0-4.3) 07/30/18 14:40 Baso % (Auto) 0.9 % (0.0-1.8) 07/30/18 14:40 Lymph # 2.4 K/mm3 (1.2-5.4) 07/30/18 14:40 [place] # 0.5 K/mm3 (0.0-0.8) 07/30/18 14:40 Eos # 0.2 K/mm3 (0.0-0.4) 07/30/18 14:40 Baso # 0.1 K/mm3 (0.0-0.1) 07/30/18 14:40 Seg Neutrophils % 44.3 % (40.0-70.0) 07/30/18 14:40 Seg Neutrophils # 2.5 K/mm3 (1.8-7.7) 07/30/18 14:40 PT 12.9 Sec. (12.2-14.9) 07/30/18 14:40 INR 0.93 (0.87-1.13) 07/30/18 14:40 APTT 24.4 Sec. (24.2-36.6) 07/30/18 14:40 Sodium 138 mmol/L (137-145) 08/03/18 05:34 Potassium 3.9 mmol/L (3.6-5.0) 08/03/18 05:34 Chloride 99.8 mmol/L (98-107) 08/03/18 05:34 Carbon Dioxide 27 mmol/L (22-30) 08/03/18 05:34 Anion Gap 15 mmol/L 08/03/18 05:34 BUN 12 mg/dL (9-20) 08/03/18 05:34 Creatinine 0.5 mg/dL (0.8-1.5) L 08/03/18 05:34 Estimated GFR > 60 ml/min 08/03/18 05:34 BUN/Creatinine Ratio 24 % 08/03/18 05:34 Glucose 80 mg/dL (75-100) 08/03/18 05:34 Calcium 8.5 mg/dL (8.4-10.2) 08/03/18 05:34 Magnesium 1.90 mg/dL (1.7-2.3) 08/02/18 15:04 Total Bilirubin 0.60 mg/dL (0.1-1.2) 07/30/18 14:40 Direct Bilirubin 0.2 mg/dL (0-0.2) 07/30/18 14:40 Indirect Bilirubin 0.4 mg/dL 07/30/18 14:40 AST 61 units/L (5-40) H 07/30/18 14:40 ALT 30 units/L (7-56) 07/30/18 14:40 Alkaline Phosphatase 82 units/L (35-129) 07/30/18 14:40 Troponin T < 0.010 ng/mL (0.00-0.029) 07/30/18 14:40 NT-Pro-B Natriuret Pep 79.11 pg/mL (0-900) 07/30/18 14:40 Total Protein 6.9 g/dL (6.3-8.2) 07/30/18 14:40 Albumin 3.6 g/dL (3.9-5) L 07/30/18 14:40 Albumin/Globulin Ratio 1.1 % 07/30/18 14:40 Urine Opiates Screen Presumptive negative 07/30/18 19:10 Urine Methadone Screen Presumptive negative 07/30/18 19:10 Ur Barbiturates Screen Presumptive negative 07/30/18 19:10 Ur Phencyclidine Scrn Presumptive negative 07/30/18 19:10 Ur Amphetamines Screen Presumptive negative 07/30/18 19:10 U Benzodiazepines Scrn Presumptive negative 07/30/18 19:10 Urine Cocaine Screen Presumptive negative 07/30/18 19:10 U Marijuana (THC) Screen Presumptive negative 07/30/18 19:10 Drugs of Abuse Note Disclamer 07/30/18 19:10 Plasma/Serum Alcohol 0.25 % (0-0.07) H 07/30/18 15:19 C. difficile Toxin A&B Negative (Negative) 08/01/18 13:35
[2018-08-04] MEDS: FOLVITE PO SCH (09:21)
[2018-08-04] MEDS: VITAMIN B-1 PO SCH (09:21)
[2018-08-04] MEDS: TENORMIN PO SCH (09:21)
[2018-08-04] MEDS: HALFPRIN EC PO SCH (09:22)
--- NOTE | 2018-08-04 09:52 | Progress Note ---
Assessment and Plan Alcohol abuse Tachycardia, mild likely associated with his acute alcohol withdrawal, with a short burst of an atrial tachycardia. on atenolol for suppression Cardiac test 03/2018: Echocardiogram reports an LVEF 50-55%. Thallium stress test was negative. Recommend: Continue beta shanti therapy for suppression of paroxysmal atrial tachycardia. Otherwise conservative cardiac management. Subjective Date of service: 08/04/18 Interval history: Patient is resting in bed. He has no cardiac complaints. No reported events on telemetry monitoring overnight. Objective Vital Signs Temp Pulse Resp BP Pulse Ox 08/04/18 09:21 86 115/69 08/04/18 06:12 98.4 F 104 H 18 98/66 96 08/03/18 23:44 98.7 F 91 H 16 114/77 96 08/03/18 17:22 98.9 F 89 18 100/67 95 08/03/18 11:42 98.0 F 83 16 94/68 95 08/03/18 10:01 90 98/61 - Physical Examination General: No Apparent Distress HEENT: Positive: PERRL Neck: Positive: trachea midline Cardiac: Positive: Reg Rate and Rhythm Neuro: Positive: Grossly Intact, Weakness Extremities: Absent: edema
[2018-08-04 17:53] VITALS: BP 117/71
== END 2018-08-04 18:08 | disposition home or self-care (01) | DRG 309 ==
LOC: ED 13:54 → 3A 22:06
PROVIDERS: ADMIT Internal Medicine; ATTEND Internal Medicine
DX: I47.1 Supraventricular tachycardia (principal); F10.239 Alcohol dependence with withdrawal, unspecified; I10 Essential (primary) hypertension; J44.9 Chronic obstructive pulmonary disease, unspecified; F10.229 Alcohol dependence with intoxication, unspecified; M19.90 Unspecified osteoarthritis, unspecified site; Z99.81 Dependence on supplemental oxygen; Z88.1 Allergy status to other antibiotic agents; Z59.0 Homelessness
CPT/HCPCS: 36415; 70450; 71045; 80048; 80074; 80307; 80320; 83735; 83880; 84484; 85025; 85027; 85610; 85730; 87324; 93005; 93010; 96365; 96366; 96375; G0480; J1644; J2060; J3411; J7030

== ENCOUNTER 2018-08-23 20:59 | Inpatient (IN) | payer SELFPAY ==
[2018-08-23 22:49] LABS: Hematocrit 44.9 % (35.5-45.6); Hemoglobin 15.3 gm/dl (11.8-15.2); Mean Corpuscular HGB Conc 34 % (32-34); Mean Corpuscular Hemoglobin 34 pg (28-32); Mean Corpuscular Volume 100 fl (84-94); Platelet Count 135 K/mm3 (140-440); Red Blood Count 4.49 M/mm3 (3.65-5.03); Red Cell Distribution Width 14.6 % (13.2-15.2)
[2018-08-23 23:07] LABS: Alanine Aminotransferase 41 units/L (7-56); Albumin 3.8 g/dL (3.9-5); BUN/Creatinine Ratio 10; Blood Urea Nitrogen 4 mg/dL (9-20); Calcium 8.1 mg/dL (8.4-10.2); Hemolysis Index 10
[2018-08-23 23:38] LABS: Platelet Estimate Consistent w Auto; Total Cells Counted 100
[2018-08-24 02:12] LABS: Bilirubin,Urine NEG (Negative); Blood,Urine NEG (Negative); Color,Urine Yellow (Yellow); Mucus,Urine FEW /HPF; Protein,Urine <15 mg/dL mg/dL (Negative); Urobilinogen,Urine < 2.0 mg/dL (<2.0); WBC,Urine < 1.0 /HPF (0.0-6.0)
[2018-08-24 02:29] LABS: Amphetamine Screen,Urine PRESUMPTIVE NEGATIVE; Benzodiazepines Screen,Urine PRESUMPTIVE NEGATIVE; Cannabinoid Screen,Urine PRESUMPTIVE NEGATIVE; Cocaine Screen,Urine PRESUMPTIVE NEGATIVE; Methadone Screen,Urine PRESUMPTIVE NEGATIVE; Opiate Screen,Urine PRESUMPTIVE NEGATIVE
[2018-08-24] MEDS ORDERED: VITAMIN B-1 100 MG, FOLVITE 1 MG, INFUVITE 10 ML in NACL 0.9% 1000 ML 1,000 ML IV ONE (02:31)
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
[2018-08-24] MEDS ORDERED: NACL 0.9% 1000 ML 1,000 ML IV ONE (06:52)
[2018-08-24 07:40] LABS: Creatine Kinase MB 1.4 ng/mL (0.0-4.0)
--- NOTE | 2018-08-24 07:40 | XRay Report ---
CHEST XRAY, 2 VIEWS: History: Chest pain, cough. Findings: There is mild diffuse interstitial coarsening. The lungs are hyperexpanded but clear. No infiltrate, pleural fluid or pneumothorax is detected. The cardiac silhouette and pulmonary vasculature are within normal limits for technique. The bony thorax is unremarkable. IMPRESSION: Changes consistent with COPD. No acute cardiopulmonary process. No significant change since 07/30/18.
--- NOTE | 2018-08-24 07:41 | XRay Report ---
BILATERAL HIPS WITH PELVIS, 3 VIEWS: History: Pain. Findings: Bone mineralization is within normal limits. There is no evidence for fracture, dislocation or pelvic diastasis. No advanced joint pathology is detected. The soft tissues are unremarkable. Impression: Unremarkable exam.
[2018-08-24] MEDS ORDERED: SOLU-Medrol IV ONE (08:57)
[2018-08-24] MEDS ORDERED: DUONEB *Not for PRN Use IH ONE (08:57)
[2018-08-24] MEDS ORDERED: LEVAQUIN 500MG/100ML 500 MG/100 ML BAG IV ONE ×2 (08:57→09:46)
[2018-08-24] MEDS ORDERED: SOLU-Medrol ONE (09:46)
[2018-08-24] MEDS ORDERED: ATIVAN IV PRN (10:13)
[2018-08-24] MEDS ORDERED: ATIVAN ONE (10:35)
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
[2018-08-24] MEDS ORDERED: ZOFRAN IV PRN (11:29)
[2018-08-24] MEDS ORDERED: TYLENOL PO PRN (11:29)
[2018-08-24] MEDS ORDERED: SODIUM CHLORIDE FLUSH SYRINGE 10 ML IV PRN (11:29)
[2018-08-24] MEDS: LOPRESSOR PO SCH ×2 (12:00→20:47)
[2018-08-24] MEDS: ATIVAN IV PRN ×2 (13:09→20:48)
[2018-08-24] MEDS: SODIUM CHLORIDE FLUSH SYRINGE 10 ML IV SCH (21:30)
[2018-08-25] MEDS: LOPRESSOR PO SCH ×3 (00:02→21:22)
[2018-08-25] MEDS: D5/0.45NS 1,000 ML IV SCH ×2 (02:11→21:21)
[2018-08-25 06:01] LABS: BUN/Creatinine Ratio 18; Blood Urea Nitrogen 9 mg/dL (9-20); Calcium 7.7 mg/dL (8.4-10.2); Hemolysis Index 4
[2018-08-25] MEDS ORDERED: ATIVAN PO PRN ×2 (07:10)
[2018-08-25] MEDS ORDERED: ATIVAN IV PRN (07:10)
[2018-08-25 08:30] LABS: BUN/Creatinine Ratio 23; Blood Urea Nitrogen 9 mg/dL (9-20); Calcium 7.8 mg/dL (8.4-10.2); Hemolysis Index 14
--- NOTE | 2018-08-25 11:01 | Consultation ---
History of Present Illness Consult date: 08/25/18 Consult reason: tachycardia History of present illness: Mr Saldaña is a 58 year old male who is currently homeless, has chronic alcohol abuse and COPD. He was admitted to the hospital after he presented to the emergency room with inability to ambulate and was found with elevated alcohol levels. Admission requested. Cardiology consult is requested for history of paroxysmal atrial tachycardia. His EKG shows mild sinus tachycardia, rate 104. Telemetry strips shows sinus rhythm. No arrhythmias seen thus far. There are no reports of chest pain, unusual shortness of breath, or palpitations. He has had extensive previous cardiac evaluation including echocardiogram and thallium stress test done just 5 months ago in this hospital. The stress thallium test was normal. An echocardiogram reported a left ventricle systolic ejection fraction 50-55%. Medications and Allergies Allergies Allergy/AdvReac Type Severity Reaction Status Date / Time cephalexin [From Keflex] Allergy Hives Verified 06/04/18 22:02 Cephalosporins Allergy Anaphylaxis Verified 06/17/17 18:14 Home Medications Medication Instructions Recorded Confirmed Last Taken Type No Known Home Medications [No 08/24/18 08/24/18 Unknown History Reported Home Medications] Active Meds: Active Medications Acetaminophen (Tylenol) 650 mg PO Q4H PRN PRN Reason: Pain MILD(1-3)/Fever >100.5/DAVISON Chlordiazepoxide HCl (Librium) 50 mg PO Q8H NATHALIA Stop: 08/26/18 00:01 Chlordiazepoxide HCl (Librium) 25 mg PO Q8H PRN PRN Reason: Anxiety Enoxaparin Sodium (Lovenox) 40 mg SUB-Q QDAY@2200 NATHALIA Folic Acid (Folvite) 1 mg PO QDAY NATHALIA Dextrose/Sodium Chloride (D5/0.45ns) 1,000 mls @ 42 mls/hr IV DIRECT NATHALIA Last Admin: 08/25/18 02:11 Dose: 42 mls/hr Lorazepam (Ativan) 2 mg IV Q1HR PRN PRN Reason: CIWA-Ar 8-15 Lorazepam (Ativan) 2 mg PO Q1H PRN PRN Reason: CIWA-Ar 8-15 Lorazepam (Ativan) 4 mg PO Q1H PRN PRN Reason: CIWA-Ar 16-25 Lorazepam (Ativan) 4 mg IV Q15MIN PRN PRN Reason: CIWA-Ar >25 Metoprolol Tartrate (Lopressor) 25 mg PO BID [facility] Last Admin: 08/25/18 09:36 Dose: 25 mg Nicotine (Habitrol) 14 mg TD QDAY [facility] Ondansetron HCl (Zofran) 4 mg IV Q8H PRN PRN Reason: Nausea And Vomiting Last Admin: 08/24/18 20:48 Dose: 4 mg Sodium Chloride (Sodium Chloride Flush Syringe 10 Ml) 10 ml IV BID [facility] Last Admin: 08/24/18 21:30 Dose: 10 ml Sodium Chloride (Sodium Chloride Flush Syringe 10 Ml) 10 ml IV PRN PRN PRN Reason: LINE FLUSH Thiamine HCl (Vitamin B-1) 100 mg PO QDAY [facility] Physical Examination Vital Signs Temp Pulse Resp BP Pulse Ox 98 F 95 H 18 127/87 92 08/23/18 21:57 08/23/18 21:57 08/23/18 21:57 08/23/18 21:57 08/23/18 21:57 General appearance: no acute distress HEENT: Positive: PERRL Cardiac: Positive: Reg Rate and Rhythm Lungs: Positive: Decreased Breath Sounds Results 08/23/18 22:31 08/25/18 07:41 Cardiac Enzymes 08/23/18 08/23/18 08/23/18 Range/Units 01:40 01:40 22:31 WBC 7.5 (4.5-11.0) K/mm3 RBC 4.49 (3.65-5.03) M/mm3 Hgb 15.3 H (11.8-15.2) gm/dl Hct 44.9 (35.5-45.6) % MCV 100 H (84-94) fl MCH 34 H (28-32) pg MCHC 34 (32-34) % RDW 14.6 (13.2-15.2) % Plt Count 135 L (140-440) K/mm3 Add Manual Diff Complete Total Counted 100 Seg Neutrophils % Customer Support Consultant Seg Neuts % (Manual) 31.0 L (40.0-70.0) % Band Neutrophils % 0 % Lymphocytes % (Manual) 60.0 H (13.4-35.0) % Reactive Lymphs % (Man) 0 % Monocytes % (Manual) 5.0 (0.0-7.3) % Eosinophils % (Manual) 2.0 (0.0-4.3) % Basophils % (Manual) 2.0 H (0.0-1.8) % Metamyelocytes % 0 % Myelocytes % 0 % Promyelocytes % 0 % Blast Cells % 0 % Nucleated RBC % Not Reportable Seg Neutrophils # Man 2.3 (1.8-7.7) K/mm3 Band Neutrophils # 0.0 K/mm3 Lymphocytes # (Manual) 4.5 (1.2-5.4) K/mm3 Abs React Lymphs (Man) 0.0 K/mm3 Monocytes # (Manual) 0.4 (0.0-0.8) K/mm3 Eosinophils # (Manual) 0.2 (0.0-0.4) K/mm3 Basophils # (Manual) 0.2 H (0.0-0.1) K/mm3 Metamyelocytes # 0.0 K/mm3 Myelocytes # 0.0 K/mm3 Promyelocytes # 0.0 K/mm3 Blast Cells # 0.0 K/mm3 WBC Morphology Not Reportable Hypersegmented Neuts Not Reportable Hyposegmented Neuts Not Reportable Hypogranular Neuts Not Reportable Smudge Cells Not Reportable Toxic Granulation Not Reportable Toxic Vacuolation Not Reportable Dohle Bodies Not Reportable Pelger-Huet Anomaly Not Reportable Octavio Rods Not Reportable Platelet Estimate Consistent w auto Clumped Platelets Not Reportable Plt Clumps, EDTA Not Reportable Large Platelets Not Reportable Giant Platelets Not Reportable Platelet Satelliting Not Reportable Plt Morphology Comment Not Reportable RBC Morphology Not Reportable Dimorphic RBCs Not Reportable Polychromasia Not Reportable Hypochromasia Not Reportable Poikilocytosis Not Reportable Anisocytosis Not Reportable Microcytosis Not Reportable Macrocytosis Not Reportable Spherocytes Not Reportable Pappenheimer Bodies Not Reportable Sickle Cells Not Reportable Target Cells Not Reportable Tear Drop Cells Not Reportable Ovalocytes Not Reportable Helmet Cells Not Reportable [place] Bodies Not Reportable [place] Rings Not Reportable [place] Cells Not Reportable Bite Cells Not Reportable Crenated Cell Not Reportable Elliptocytes Not Reportable Acanthocytes (Spur) Not Reportable Rouleaux Not Reportable Hemoglobin C Crystals Not Reportable Schistocytes Not Reportable Malaria parasites Not Reportable Valentin Bodies Not Reportable Hem Pathologist Commnt No Sodium (137-145) mmol/L Potassium (3.6-5.0) mmol/L Chloride (98-107) mmol/L Carbon Dioxide (22-30) mmol/L Anion Gap mmol/L BUN (9-20) mg/dL Creatinine (0.8-1.5) mg/dL Estimated GFR ml/min BUN/Creatinine Ratio % Glucose (75-100) mg/dL Calcium (8.4-10.2) mg/dL Phosphorus (2.5-4.5) mg/dL Magnesium (1.7-2.3) mg/dL Total Bilirubin (0.1-1.2) mg/dL ALT (7-56) units/L Alkaline Phosphatase (35-129) units/L Total Creatine Kinase (55-170) units/L CK-MB (CK-2) Rel Index (0-4) Troponin T (0.00-0.029) ng/mL Total Protein (6.3-8.2) g/dL Albumin (3.9-5) g/dL Albumin/Globulin Ratio % Urine Color Yellow (Yellow) Urine Turbidity Clear (Clear) Urine pH 5.0 (5.0-7.0) Ur Specific [place] 1.006 (1.003-1.030) Urine Protein <15 mg/dl (Negative) mg/dL Urine Glucose (UA) Neg (Negative) mg/dL Urine Ketones Neg (Negative) mg/dL Urine Blood Neg (Negative) Urine Nitrite Neg (Negative) Urine Bilirubin Neg (Negative) Urine Urobilinogen < 2.0 (<2.0) mg/dL Ur Leukocyte Esterase Neg (Negative) Urine WBC (Auto) < 1.0 (0.0-6.0) /HPF Urine RBC (Auto) 3.0 (0.0-6.0) /HPF U Epithel Cells (Auto) 1.0 (0-13.0) /HPF Urine Mucus Few /HPF Urine Opiates Screen Presumptive negative Urine Methadone Screen Presumptive negative Ur Barbiturates Screen Presumptive negative Ur Phencyclidine Scrn Presumptive negative Ur Amphetamines Screen Presumptive negative U Benzodiazepines Scrn Presumptive negative Urine Cocaine Screen Presumptive negative U Marijuana (THC) Screen Presumptive negative Drugs of Abuse Note Disclamer Plasma/Serum Alcohol (0-0.07) % 10/09/18 10/09/18 10/10/18 Range/Units 22:31 22:31 06:45 WBC (4.5-11.0) K/mm3 RBC (3.65-5.03) M/mm3 Hgb (11.8-15.2) gm/dl Hct (35.5-45.6) % MCV (84-94) fl MCH (28-32) pg MCHC (32-34) % RDW (13.2-15.2) % Plt Count (140-440) K/mm3 Add Manual Diff Total Counted Seg Neutrophils % Seg Neuts % (Manual) (40.0-70.0) % Band Neutrophils % % Lymphocytes % (Manual) (13.4-35.0) % Reactive Lymphs % (Man) % Monocytes % (Manual) (0.0-7.3) % Eosinophils % (Manual) (0.0-4.3) % Basophils % (Manual) (0.0-1.8) % Metamyelocytes % % Myelocytes % % Promyelocytes % % Blast Cells % % Nucleated RBC % Seg Neutrophils # Man (1.8-7.7) K/mm3 Band Neutrophils # K/mm3 Lymphocytes # (Manual) (1.2-5.4) K/mm3 Abs React Lymphs (Man) K/mm3 Monocytes # (Manual) (0.0-0.8) K/mm3 Eosinophils # (Manual) (0.0-0.4) K/mm3 Basophils # (Manual) (0.0-0.1) K/mm3 Metamyelocytes # K/mm3 Myelocytes # K/mm3 Promyelocytes # K/mm3 Blast Cells # K/mm3 WBC Morphology Hypersegmented Neuts Hyposegmented Neuts Hypogranular Neuts Smudge Cells Toxic Granulation Toxic Vacuolation Dohle Bodies Pelger-Huet Anomaly Octavio Rods Platelet Estimate Clumped Platelets Plt Clumps, EDTA Large Platelets Giant Platelets Platelet Satelliting Plt Morphology Comment RBC Morphology Dimorphic RBCs Polychromasia Hypochromasia Poikilocytosis Anisocytosis Microcytosis Macrocytosis Spherocytes Pappenheimer Bodies Sickle Cells Target Cells Tear Drop Cells Ovalocytes Helmet Cells [place] Bodies [place] Rings [place] Cells Bite Cells Crenated Cell Elliptocytes Acanthocytes (Spur) Rouleaux Hemoglobin C Crystals Schistocytes Malaria parasites Valentin Bodies Hem Pathologist Commnt Sodium 142 (137-145) mmol/L Potassium 4.4 (3.6-5.0) mmol/L Chloride 103.7 (98-107) mmol/L Carbon Dioxide 25 (22-30) mmol/L Anion Gap 18 mmol/L BUN 4 L (9-20) mg/dL Creatinine 0.4 L (0.8-1.5) mg/dL Estimated GFR > 60 ml/min BUN/Creatinine Ratio 10 % Glucose 70 L (75-100) mg/dL Calcium 8.1 L (8.4-10.2) mg/dL Phosphorus (2.5-4.5) mg/dL Magnesium (1.7-2.3) mg/dL Total Bilirubin 0.30 (0.1-1.2) mg/dL ALT 41 (7-56) units/L Alkaline Phosphatase 80 (35-129) units/L Total Creatine Kinase 58 (55-170) units/L CK-MB (CK-2) Rel Index 2.4 (0-4) Troponin T < 0.010 (0.00-0.029) ng/mL Total Protein 7.1 (6.3-8.2) g/dL Albumin 3.8 L (3.9-5) g/dL Albumin/Globulin Ratio 1.2 % Urine Color (Yellow) Urine Turbidity (Clear) Urine pH (5.0-7.0) Ur Specific [place] (1.003-1.030) Urine Protein (Negative) mg/dL Urine Glucose (UA) (Negative) mg/dL Urine Ketones (Negative) mg/dL Urine Blood (Negative) Urine Nitrite (Negative) Urine Bilirubin (Negative) Urine Urobilinogen (<2.0) mg/dL Ur Leukocyte Esterase (Negative) Urine WBC (Auto) (0.0-6.0) /HPF Urine RBC (Auto) (0.0-6.0) /HPF U Epithel Cells (Auto) (0-13.0) /HPF Urine Mucus /HPF Urine Opiates Screen Urine Methadone Screen Ur Barbiturates Screen Ur Phencyclidine Scrn Ur Amphetamines Screen U Benzodiazepines Scrn Urine Cocaine Screen U Marijuana (THC) Screen Drugs of Abuse Note Plasma/Serum Alcohol 0.35 H (0-0.07) % 08/25/18 08/25/18 Range/Units 05:01 07:41 WBC (4.5-11.0) K/mm3 RBC (3.65-5.03) M/mm3 Hgb (11.8-15.2) gm/dl Hct (35.5-45.6) % MCV (84-94) fl MCH (28-32) pg MCHC (32-34) % RDW (13.2-15.2) % Plt Count (140-440) K/mm3 Add Manual Diff Total Counted Seg Neutrophils % Seg Neuts % (Manual) (40.0-70.0) % Band Neutrophils % % Lymphocytes % (Manual) (13.4-35.0) % Reactive Lymphs % (Man) % Monocytes % (Manual) (0.0-7.3) % Eosinophils % (Manual) (0.0-4.3) % Basophils % (Manual) (0.0-1.8) % Metamyelocytes % % Myelocytes % % Promyelocytes % % Blast Cells % % Nucleated RBC % Seg Neutrophils # Man (1.8-7.7) K/mm3 Band Neutrophils # K/mm3 Lymphocytes # (Manual) (1.2-5.4) K/mm3 Abs React Lymphs (Man) K/mm3 Monocytes # (Manual) (0.0-0.8) K/mm3 Eosinophils # (Manual) (0.0-0.4) K/mm3 Basophils # (Manual) (0.0-0.1) K/mm3 Metamyelocytes # K/mm3 Myelocytes # K/mm3 Promyelocytes # K/mm3 Blast Cells # K/mm3 WBC Morphology Hypersegmented Neuts Hyposegmented Neuts Hypogranular Neuts Smudge Cells Toxic Granulation Toxic Vacuolation Dohle Bodies Pelger-Huet Anomaly Octavio Rods Platelet Estimate Clumped Platelets Plt Clumps, EDTA Large Platelets Giant Platelets Platelet Satelliting Plt Morphology Comment RBC Morphology Dimorphic RBCs Polychromasia Hypochromasia Poikilocytosis Anisocytosis Microcytosis Macrocytosis Spherocytes Pappenheimer Bodies Sickle Cells Target Cells Tear Drop Cells Ovalocytes Helmet Cells [place] Bodies [place] Rings [place] Cells Bite Cells Crenated Cell Elliptocytes Acanthocytes (Spur) Rouleaux Hemoglobin C Crystals Schistocytes Malaria parasites Valentin Bodies Hem Pathologist Commnt Sodium 137 137 (137-145) mmol/L Potassium 3.5 L D 3.5 L (3.6-5.0) mmol/L Chloride 100.3 101.1 (98-107) mmol/L Carbon Dioxide 24 24 (22-30) mmol/L Anion Gap 16 15 mmol/L BUN 9 9 (9-20) mg/dL Creatinine 0.5 L 0.4 L (0.8-1.5) mg/dL Estimated GFR > 60 > 60 ml/min BUN/Creatinine Ratio 18 23 % Glucose 136 H 117 H (75-100) mg/dL Calcium 7.7 L 7.8 L (8.4-10.2) mg/dL Phosphorus 3.10 (2.5-4.5) mg/dL Magnesium 1.70 1.70 (1.7-2.3) mg/dL Total Bilirubin (0.1-1.2) mg/dL ALT (7-56) units/L Alkaline Phosphatase (35-129) units/L Total Creatine Kinase (55-170) units/L CK-MB (CK-2) Rel Index (0-4) Troponin T (0.00-0.029) ng/mL Total Protein (6.3-8.2) g/dL Albumin (3.9-5) g/dL Albumin/Globulin Ratio % Urine Color (Yellow) Urine Turbidity (Clear) Urine pH (5.0-7.0) Ur Specific [place] (1.003-1.030) Urine Protein (Negative) mg/dL Urine Glucose (UA) (Negative) mg/dL Urine Ketones (Negative) mg/dL Urine Blood (Negative) Urine Nitrite (Negative) Urine Bilirubin (Negative) Urine Urobilinogen (<2.0) mg/dL Ur Leukocyte Esterase (Negative) Urine WBC (Auto) (0.0-6.0) /HPF Urine RBC (Auto) (0.0-6.0) /HPF U Epithel Cells (Auto) (0-13.0) /HPF Urine Mucus /HPF Urine Opiates Screen Urine Methadone Screen Ur Barbiturates Screen Ur Phencyclidine Scrn Ur Amphetamines Screen U Benzodiazepines Scrn Urine Cocaine Screen U Marijuana (THC) Screen Drugs of Abuse Note Plasma/Serum Alcohol (0-0.07) % Comprehensive Metabolic Panel 08/25/18 08/25/18 Range/Units 05:01 07:41 Sodium 137 137 (137-145) mmol/L Potassium 3.5 L D 3.5 L (3.6-5.0) mmol/L Chloride 100.3 101.1 (98-107) mmol/L Carbon Dioxide 24 24 (22-30) mmol/L BUN 9 9 (9-20) mg/dL Creatinine 0.5 L 0.4 L (0.8-1.5) mg/dL Glucose 136 H 117 H (75-100) mg/dL Calcium 7.7 L 7.8 L (8.4-10.2) mg/dL Assessment and Plan Alcohol abuse Hx of Paroxysmal Atrial Tachycardia currently in sinus rhythm on beta blockers for suppression Cardiac test 03/2018: Echocardiogram reports an LVEF 50-55%. Thallium stress test was negative. Recommend: Continue beta shanti therapy for suppression of paroxysmal atrial tachycardia. Otherwise conservative cardiac management.
--- NOTE | 2018-08-25 11:34 | Progress Note ---
Assessment and Plan Assessment and plan: Patient is a 58 yo man who is Homeless with a history of copd, OA, hypertension , alcohol abuse , paroxysmal atrial tachycardia and tobacco dependency who presents with inability to ambulate, chest pain and productive cough --Paroxysmal atrial tachycardia; recent echo shows preserved EF, continue metoprolol, bethany heart consulted --Alcohol Abuse with Withdrawal: treat with CIWA protocol, and librium taper --Unsteady gait ;Ambulatory dysfunction: Probably secondary to chronic alcoholism, PTOT --COPD; well compensated continue , nebulizers as needed --Tobacco dependency: Smoking cessation counseling, nicotine patch as needed --Alcholol abuse: Advised to quit alcohol intake, recommend alcohol rehabilitation upon discharge, --Homeless with multiple hospital admission: DC planning. Case management , placement --left hip stage 2 decub ulcer; wound consult placed --dvt ppx- lovenox Closely monitor the patient and adjust management as needed History Interval history: Patient seen and examined medical records reviewed Admitted with alcohol withdrawal symptoms and tachycardia Patient is on CIWA protocol Very mild tremulousness Vital signs noted Hospitalist Physical - Constitutional Vitals: Temp Pulse Resp BP Pulse Ox 98.3 F 97 H 16 116/69 92 08/25/18 08:00 08/25/18 08:00 08/25/18 08:00 08/25/18 08:00 08/25/18 08:00 General appearance: Present: no acute distress, cachectic, disheveled, other ( mild tremulousness) - EENT Eyes: Present: PERRL, EOM intact - Neck Neck: Present: supple, normal ROM - Respiratory Respiratory effort: normal Respiratory: bilateral: diminished, rales, negative: rhonchi, wheezing - Cardiovascular Rhythm: regular Heart Sounds: Present: S1 & S2 - Extremities Extremities: no ischemia, No edema - Abdominal General gastrointestinal: soft, non-tender, normal bowel sounds - Integumentary Integumentary: Present: clear, warm - Psychiatric Psychiatric: appropriate mood/affect, cooperative - Neurologic Neurologic: moves all extremities Results - Labs CBC & Chem 7: 08/23/18 22:31 08/25/18 07:41 Labs: Laboratory Last Values WBC 7.5 K/mm3 (4.5-11.0) 08/23/18 22:31 RBC 4.49 M/mm3 (3.65-5.03) 08/23/18 22:31 Hgb 15.3 gm/dl (11.8-15.2) H 08/23/18 22: Hct 44.9 % (35.5-45.6) 08/23/18 22: MCV 100 fl (84-94) H 08/23/18 22:31 MCH 34 pg (28-32) H 08/23/18 22: MCHC 34 % (32-34) 08/23/18 22: RDW 14.6 % (13.2-15.2) 08/23/18 22: Plt Count 135 K/mm3 (140-440) L 08/23/18 22: Add Manual Diff Complete 08/23/18 22: Total Counted 100 08/23/18 22: Seg Neutrophils % Network Analyst 08/23/18 22: Seg Neuts % (Manual) 31.0 % (40.0-70.0) L 08/23/18 22: Band Neutrophils % 0 % 08/23/18 22: Lymphocytes % (Manual) 60.0 % (13.4-35.0) H 08/23/18 22:31 Reactive Lymphs % (Man) 0 % 08/23/18 22: Monocytes % (Manual) 5.0 % (0.0-7.3) 08/23/18 22: Eosinophils % (Manual) 2.0 % (0.0-4.3) 08/23/18 22: Basophils % (Manual) 2.0 % (0.0-1.8) H 08/23/18 22: Metamyelocytes % 0 % 08/23/18 22: Myelocytes % 0 % 08/23/18 22:31 Promyelocytes % 0 % 08/23/18 22:31 Blast Cells % 0 % 08/23/18 22:31 Nucleated RBC % Not Reportable 08/23/18 22: Seg Neutrophils # Man 2.3 K/mm3 (1.8-7.7) 08/23/18 22: Band Neutrophils # 0.0 K/mm3 08/23/18 22: Lymphocytes # (Manual) 4.5 K/mm3 (1.2-5.4) 08/23/18 22: Abs React Lymphs (Man) 0.0 K/mm3 08/23/18 22:31 Monocytes # (Manual) 0.4 K/mm3 (0.0-0.8) 08/23/18 22:31 Eosinophils # (Manual) 0.2 K/mm3 (0.0-0.4) 08/23/18 22:31 Basophils # (Manual) 0.2 K/mm3 (0.0-0.1) H 08/23/18 22:31 Metamyelocytes # 0.0 K/mm3 08/23/18 22:31 Myelocytes # 0.0 K/mm3 08/23/18 22:31 Promyelocytes # 0.0 K/mm3 08/23/18 22:31 Blast Cells # 0.0 K/mm3 08/23/18 22:31 WBC Morphology Not Reportable 08/23/18 22:31 Hypersegmented Neuts Not Reportable 08/23/18 22:31 Hyposegmented Neuts Not Reportable 08/23/18 22:31 Hypogranular Neuts Not Reportable 08/23/18 22:31 Smudge Cells Not Reportable 08/23/18 22:31 Toxic Granulation Not Reportable 08/23/18 22:31 Toxic Vacuolation Not Reportable 08/23/18 22:31 Dohle Bodies Not Reportable 08/23/18 22:31 Pelger-Huet Anomaly Not Reportable 08/23/18 22:31 Octavio Rods Not Reportable 08/23/18 22:31 Platelet Estimate Consistent w auto 08/23/18 22:31 Clumped Platelets Not Reportable 08/23/18 22:31 Plt Clumps, EDTA Not Reportable 08/23/18 22:31 Large Platelets Not Reportable 08/23/18 22:31 Giant Platelets Not Reportable 08/23/18 22:31 Platelet Satelliting Not Reportable 08/23/18 22:31 Plt Morphology Comment Not Reportable 08/23/18 22:31 RBC Morphology Not Reportable 08/23/18 22:31 Dimorphic RBCs Not Reportable 08/23/18 22:31 Polychromasia Not Reportable 08/23/18 22:31 Hypochromasia Not Reportable 08/23/18 22:31 Poikilocytosis Not Reportable 08/23/18 22:31 Anisocytosis Not Reportable 08/23/18 22:31 Microcytosis Not Reportable 08/23/18 22:31 Macrocytosis Not Reportable 08/23/18 22:31 Spherocytes Not Reportable 08/23/18 22:31 Pappenheimer Bodies Not Reportable 08/23/18 22:31 Sickle Cells Not Reportable 08/23/18 22:31 Target Cells Not Reportable 08/23/18 22:31 Tear Drop Cells Not Reportable 08/23/18 22:31 Ovalocytes Not Reportable 08/23/18 22:31 Helmet Cells Not Reportable 08/23/18 22:31 Vicente-[place] Bodies Not Reportable 08/23/18 22:31 [place] Rings Not Reportable 08/23/18 22:31 [place] Cells Not Reportable 08/23/18 22:31 Bite Cells Not Reportable 08/23/18 22:31 Crenated Cell Not Reportable 08/23/18 22:31 Elliptocytes Not Reportable 08/23/18 22:31 Acanthocytes (Spur) Not Reportable 08/23/18 22:31 Rouleaux Not Reportable 08/23/18 22:31 Hemoglobin C Crystals Not Reportable 08/23/18 22:31 Schistocytes Not Reportable 08/23/18 22:31 Malaria parasites Not Reportable 08/23/18 22:31 Valentin Bodies Not Reportable 08/23/18 22:31 Hem Pathologist Commnt No 08/23/18 22:31 Sodium 137 mmol/L (137-145) 08/25/18 07:41 Potassium 3.5 mmol/L (3.6-5.0) L 08/25/18 07:41 Chloride 101.1 mmol/L (98-107) 08/25/18 07:41 Carbon Dioxide 24 mmol/L (22-30) 08/25/18 07:41 Anion Gap 15 mmol/L 08/25/18 07:41 BUN 9 mg/dL (9-20) 08/25/18 07:41 Creatinine 0.4 mg/dL (0.8-1.5) L 08/25/18 07:41 Estimated GFR > 60 ml/min 08/25/18 07:41 BUN/Creatinine Ratio 23 % 08/25/18 07:41 Glucose 117 mg/dL (75-100) H 08/25/18 07:41 Calcium 7.8 mg/dL (8.4-10.2) L 08/25/18 07:41 Phosphorus 3.10 mg/dL (2.5-4.5) 08/25/18 07:41 Magnesium 1.70 mg/dL (1.7-2.3) 08/25/18 07:41 Total Bilirubin 0.30 mg/dL (0.1-1.2) 08/23/18 22:31 AST 62 units/L (5-40) H 08/23/18 22:31 ALT 41 units/L (7-56) 08/23/18 22:31 Alkaline Phosphatase 80 units/L (35-129) 08/23/18 22:31 Total Creatine Kinase 58 units/L (55-170) 08/24/18 06:45 CK-MB (CK-2) 1.4 ng/mL (0.0-4.0) 08/24/18 06:45 CK-MB (CK-2) Rel Index 2.4 (0-4) 08/24/18 06:45 Troponin T < 0.010 ng/mL (0.00-0.029) 08/24/18 06:45 Total Protein 7.1 g/dL (6.3-8.2) 08/23/18 22:31 Albumin 3.8 g/dL (3.9-5) L 08/23/18 22:31 Albumin/Globulin Ratio 1.2 % 08/23/18 22:31 Urine Color Yellow (Yellow) 08/23/18 01:40 Urine Turbidity Clear (Clear) 08/23/18 01:40 Urine pH 5.0 (5.0-7.0) 08/23/18 01:40 Ur Specific [place] 1.006 (1.003-1.030) 08/23/18 01:40 Urine Protein <15 mg/dl mg/dL (Negative) 08/23/18 01:40 Urine Glucose (UA) Neg mg/dL (Negative) 08/23/18 01:40 Urine Ketones Neg mg/dL (Negative) 08/23/18 01:40 Urine Blood Neg (Negative) 08/23/18 01:40 Urine Nitrite Neg (Negative) 08/23/18 01:40 Urine Bilirubin Neg (Negative) 08/23/18 01:40 Urine Urobilinogen < 2.0 mg/dL (<2.0) 08/23/18 01:40 Ur Leukocyte Esterase Neg (Negative) 08/23/18 01:40 Urine WBC (Auto) < 1.0 /HPF (0.0-6.0) 08/23/18 01:40 Urine RBC (Auto) 3.0 /HPF (0.0-6.0) 08/23/18 01:40 U Epithel Cells (Auto) 1.0 /HPF (0-13.0) 08/23/18 01:40 Urine Mucus Few /HPF 08/23/18 01:40 Urine Opiates Screen Presumptive negative 08/23/18 01:40 Urine Methadone Screen Presumptive negative 08/23/18 01:40 Ur Barbiturates Screen Presumptive negative 08/23/18 01:40 Ur Phencyclidine Scrn Presumptive negative 08/23/18 01:40 Ur Amphetamines Screen Presumptive negative 08/23/18 01:40 U Benzodiazepines Scrn Presumptive negative 08/23/18 01:40 Urine Cocaine Screen Presumptive negative 08/23/18 01:40 U Marijuana (THC) Screen Presumptive negative 08/23/18 01:40 Drugs of Abuse Note Disclamer 08/23/18 01:40 Plasma/Serum Alcohol 0.35 % (0-0.07) H 08/23/18 22:31
[2018-08-25] MEDS: VITAMIN B-1 PO SCH (13:00)
[2018-08-25] MEDS: FOLVITE PO SCH (13:00)
[2018-08-25] MEDS: LIBRIUM PO SCH ×2 (13:00→21:22)
[2018-08-25] MEDS: HABITROL TD SCH (13:00)
[2018-08-25] MEDS: SODIUM CHLORIDE FLUSH SYRINGE 10 ML IV SCH (21:23)
[2018-08-25] MEDS ORDERED: LOVENOX SUB-Q SCH (22:00)
[2018-08-26] MEDS: LIBRIUM PO SCH (05:12)
[2018-08-26 05:57] LABS: Basophils % (Auto) 0.5 % (0.0-1.8); Eosinophils # (Auto) 0.2 K/mm3 (0.0-0.4); Eosinophils % (Auto) 2.3 % (0.0-4.3); Hematocrit 46.3 % (35.5-45.6); Lymphocytes # (Auto) 3.2 K/mm3 (1.2-5.4); Lymphocytes % (Auto) 39.4 % (13.4-35.0); Mean Corpuscular HGB Conc 35 % (32-34); Mean Corpuscular Hemoglobin 34 pg (28-32); Mean Corpuscular Volume 99 fl (84-94); Monocytes # (Auto) 0.5 K/mm3 (0.0-0.8); Monocytes % (Auto) 6.4 % (0.0-7.3); Platelet Count 124 K/mm3 (140-440); Red Blood Count 4.68 M/mm3 (3.65-5.03); Red Cell Distribution Width 14.3 % (13.2-15.2)
[2018-08-26 06:18] LABS: BUN/Creatinine Ratio 14; Blood Urea Nitrogen 7 mg/dL (9-20); Calcium 8.5 mg/dL (8.4-10.2); Hemolysis Index 10
[2018-08-26] MEDS ORDERED: LIBRIUM PO PRN (07:31)
[2018-08-26] MEDS: HABITROL TD SCH (09:18)
[2018-08-26] MEDS: LOPRESSOR PO SCH (09:18)
[2018-08-26] MEDS: FOLVITE PO SCH (10:35)
[2018-08-26] MEDS: VITAMIN B-1 PO SCH (10:35)
[2018-08-26] MEDS: SODIUM CHLORIDE FLUSH SYRINGE 10 ML IV SCH (10:35)
[2018-08-26] MEDS ORDERED: K-DUR PO ONE (11:30)
--- NOTE | 2018-08-26 14:44 | Discharge Summary ---
Providers - Providers Date of Admission: 08/24/18 09:00 Date of discharge: 08/26/18 Attending physician: POLI MULLER 08/24/18 Consult to Case Management [CONS] Routine Services Needed at Discharge: Physical Therapy Notified:: case management Additional Physician Instructions: need pT cant walk 08/24/18 11:31 Consult to Wound/ET Nurse [CONS] Routine Reason For Exam: wound eval Physical Therapy Evaluation and Treat [CONS] Routine Comment: Reason For Exam: ataxia Primary care physician: SLAG DUMPER Hospitalization Condition: Serious Disposition: DC-01 TO HOME OR SELFCARE Time spent for discharge: 31 min Core Measure Documentation - Palliative Care Palliative Care/ Comfort Measures: Not Applicable - Core Measures Any of the following diagnoses?: none Exam - Constitutional Vitals: Temp Pulse Resp BP Pulse Ox 98.0 F 120 H 18 121/82 91 08/26/18 11:41 08/26/18 11:41 08/26/18 11:41 08/26/18 11:41 08/26/18 11:41 General appearance: Present: no acute distress, well-nourished - EENT Eyes: Present: PERRL, EOM intact - Neck Neck: Present: supple, normal ROM - Respiratory Respiratory effort: normal Respiratory: bilateral: diminished, negative: rales, rhonchi, wheezing - Cardiovascular Rhythm: regular Heart Sounds: Present: S1 & S2 - Extremities Extremities: no ischemia, No edema - Abdominal General gastrointestinal: Present: soft, non-tender, non-distended, normal bowel sounds - Integumentary Integumentary: Present: clear, warm - Musculoskeletal Musculoskeletal: strength equal bilaterally - Psychiatric Psychiatric: appropriate mood/affect, cooperative - Neurologic Neurologic: moves all extremities Plan Activity: advance as tolerated, no driving until cleared by PCP (did not drink and drive), fall precautions Diet: regular Special Instructions: smoking cessation Additional Instructions: Advised smoking cessation. Advised to quit alcohol intake. Strongly advised to seek alcohol rehabilitation. Did not drive or operate heavy machinery under the influence of alcohol. Fall precautions Prescriptions: Folic Acid [Folvite] 1 mg PO QDAY #30 tablet Metoprolol [Lopressor TAB] 25 mg PO BID #60 tablet Nicotine [Habitrol] 14 mg TD QDAY #30 patch Thiamine [Vitamin B-1] 100 mg PO QDAY #30 tablet
[2018-08-26 15:43] VITALS: BP 108/75
== END 2018-08-26 15:50 | disposition home or self-care (01) | DRG 309 ==
LOC: ED 20:59 → 4A 08-24 09:00
PROVIDERS: ADMIT Internal Medicine; ATTEND Internal Medicine
DX: I47.1 Supraventricular tachycardia (principal); F10.239 Alcohol dependence with withdrawal, unspecified; M19.90 Unspecified osteoarthritis, unspecified site; I10 Essential (primary) hypertension; F17.200 Nicotine dependence, unspecified, uncomplicated; R26.81 Unsteadiness on feet; L89.222 Pressure ulcer of left hip, stage 2; J44.9 Chronic obstructive pulmonary disease, unspecified; M25.551 Pain in right hip; Z71.6 Tobacco abuse counseling; Z71.41 Alcohol abuse counseling and surveillance of alcoholic; Z59.0 Homelessness; Z72.89 Other problems related to lifestyle
CPT/HCPCS: 36415; 71046; 73521; 80048; 80053; 80307; 80320; 81001; 82550; 82553; 83735; 84100; 84484; 85007; 85025; 93005; 93010; 94640; 94760; 96365; 96375; G0480; J1650; J1956; J2060; J2405; J2930; J3411; J7030

== ENCOUNTER 2019-02-04 11:48 | Emergency (ER) | payer SELFPAY ==
[2019-02-04] MEDS ORDERED: VITAMIN B-1 PO ONE (12:16)
--- NOTE | 2019-02-04 12:17 | Emergency Department Report ---
ED Chest Pain HPI - General Chief Complaint: Chest Pain Stated Complaint: CHEST PAIN Time Seen by Provider: 02/04/19 12:05 Source: patient, EMS, old records reviewed Mode of arrival: Stretcher Limitations: No Limitations - History of Present Illness Initial Comments: 58-year-old male with a past medical history of alcohol abuse, COPD with continued tobacco use, hypertension, paroxysmal atrial fibrillation and hypertension presents to the hospital with complaints chest pain started 2 hours prior to arrival. Pain is at the sternal area, constant, rated 5/10 in intensity, described as "someone standing on his chest". Patient has intermittent jolting pain to his chest. Patient denies aggravating or alleviating factors, shortness of breath, nausea, vomiting, diaphoresis, calf tenderness, history of PE/DVT, or recent long distance travel. Patient also states he's had a worsening cough recently productive of green sputum without fever. Patient is not currently taking any medication and he is homeless. Last alcohol drink was at 7:30 AM. He denies a history of alcohol withdrawal tremors or seizures. Previous medical record reviewed. Patient had an echocardiogram on 04/05/2018 showing EF of 50-55% and abnormal left left ventricular diastolic filling. He had a thallium stress test the same day that was normal. Severity scale (0 -10): 5 - Related Data Previous Rx's Medication Instructions Recorded Last Taken Type Folic Acid [Folvite] 1 mg PO QDAY #30 tablet 08/26/18 Unknown Rx Metoprolol [Lopressor TAB] 25 mg PO BID #60 tablet 08/26/18 Unknown Rx Nicotine [Habitrol] 14 mg TD QDAY #30 patch 08/26/18 Unknown Rx Thiamine [Vitamin B-1] 100 mg PO QDAY #30 tablet 08/26/18 Unknown Rx Famotidine [Pepcid] 20 mg PO BID #20 tablet 02/04/19 Unknown Rx Ibuprofen [Motrin] 600 mg PO Q8H PRN #20 tablet 02/04/19 Unknown Rx Allergies Allergy/AdvReac Type Severity Reaction Status Date / Time cephalexin [From Keflex] Allergy Hives Verified 02/04/19 14:10 Cephalosporins Allergy Anaphylaxis Verified 02/04/19 14:10 Penicillins Allergy Unknown Verified 02/04/19 14:10 acetaminophen [From Percocet] AdvReac Unknown Verified 02/04/19 14:10 oxycodone [From Percocet] AdvReac Unknown Verified 02/04/19 14:10 Heart Score - HEART Score History: Slightly suspicious EKG: Normal Age: 45-65 Risk factors: 1-2 risk factors Troponin: < normal limit HEART Score: 2 ED Review of Systems ROS: Stated complaint: CHEST PAIN Other details as noted in HPI Comment: All other systems reviewed and negative ED Past Medical Hx - Past Medical History Hx Hypertension: Yes Hx Heart Attack/AMI: No Hx Congestive Heart Failure: No Hx Diabetes: No Hx Deep Vein Thrombosis: No Hx Pulmonary Embolism: No Hx Liver Disease: No Hx Renal Disease: No Hx Sickle Cell Disease: No Hx Arthritis: Yes Hx Kidney Stones: No Hx Asthma: No Hx COPD: Yes (no home O2) Hx Tuberculosis: No Hx Dementia: No Hx HIV: No Additional medical history: snake bite - Surgical History Hx Coronary Stent: No Hx Open Heart Surgery: No Hx Internal Defibrillator: No Hx Cholecystectomy: No Hx Appendectomy: No Hx Breast Surgery: No Additional Surgical History: Right knee surgery/tendon repair, tonsillectomy, left foot surgery - Social History Smoking Status: Current Every Day Smoker Substance Use Type: Alcohol - Medications Home Medications: Home Medications Medication Instructions Recorded Confirmed Last Taken Type Folic Acid [Folvite] 1 mg PO QDAY #30 tablet 08/26/18 Unknown Rx Metoprolol [Lopressor TAB] 25 mg PO BID #60 tablet 08/26/18 Unknown Rx Nicotine [Habitrol] 14 mg TD QDAY #30 patch 08/26/18 Unknown Rx Thiamine [Vitamin B-1] 100 mg PO QDAY #30 tablet 08/26/18 Unknown Rx Famotidine [Pepcid] 20 mg PO BID #20 tablet 02/04/19 Unknown Rx Ibuprofen [Motrin] 600 mg PO Q8H PRN #20 tablet 02/04/19 Unknown Rx ED Physical Exam - General Limitations: No Limitations - Other Other exam information: General: No limitations, patient is alert in no acute distress Head exam: Atraumatic, normocephalic Eyes exam: Normal appearance, pupils equal reactive to light, extraocular movements intact ENT: Moist mucous membrane Neck exam: Normal inspection, full range of motion, no meningismus nontender Respiratory exam: Clear to auscultation bilateral, no wheezes, rales, crackles Cardiovascular: Normal rate and rhythm, normal heart sounds, tenderness to the lower mid sternal area Abdomen: Soft, nondistended, and nontender, with normal bowel sounds, no rebound, or guarding Extremity: Full range of motion normal inspection no deformity, no calf tenderness or edema Back: Normal Inspection, full range of motion, no tenderness Neurologic: Alert, oriented x3, cranial nerves intact, no motor or sensory deficit, no tremor Psychiatric: normal affect, normal mood Skin: Warm, dry, intact ED Course Vital Signs 02/04/19 02/04/19 02/04/19 11:59 12:00 12:15 Temperature 97.7 F Pulse Rate 95 H 104 H Respiratory 20 20 22 Rate Blood Pressure 114/71 114/71 O2 Sat by Pulse 99 94 Oximetry 02/04/19 02/04/19 02/04/19 12:31 12:45 13:00 Temperature Pulse Rate 100 H 95 H 106 H Respiratory 22 23 21 Rate Blood Pressure 114/71 114/71 114/71 O2 Sat by Pulse 78 L 100 94 Oximetry 02/04/19 02/04/19 13:03 13:15 Temperature Pulse Rate 98 H Respiratory 18 21 Rate Blood Pressure 114/71 O2 Sat by Pulse 98 Oximetry ANDREW score - Andrew Score Age > 65: (0) No Aspirin use within the Past 7 Days: (0) No 3 or more CAD Risk Factors: (0) No 2 or more Angina events in past 24 hrs: (0) No Known CAD with more than 50% Stenosis: (0) No Elevated Cardiac Markers: (0) No ST Deviation Greater than 0.5mm: (0) No ANDREW Score: 0 ED Medical Decision Making - Lab Data Result diagrams: 02/04/19 12:24 02/04/19 12:24 Lab Results 02/04/19 02/04/19 02/04/19 Range/Units 12:24 12:24 12:24 WBC 7.8 (4.5-11.0) K/mm3 RBC 4.97 (3.65-5.03) M/mm3 Hgb 16.1 H (11.8-15.2) gm/dl Hct 46.6 H (35.5-45.6) % MCV 94 (84-94) fl MCH 32 (28-32) pg MCHC 35 H (32-34) % RDW 12.0 L (13.2-15.2) % Plt Count 303 (140-440) K/mm3 Lymph % (Auto) 39.2 H (13.4-35.0) % Custer % (Auto) 5.6 (0.0-7.3) % Eos % (Auto) 1.8 (0.0-4.3) % Baso % (Auto) 1.2 (0.0-1.8) % Lymph # 3.1 (1.2-5.4) K/mm3 Custer # 0.4 (0.0-0.8) K/mm3 Eos # 0.1 (0.0-0.4) K/mm3 Baso # 0.1 (0.0-0.1) K/mm3 Seg Neutrophils % 52.2 (40.0-70.0) % Seg Neutrophils # 4.1 (1.8-7.7) K/mm3 PT 12.3 (12.2-14.9) Sec. INR 0.87 (0.87-1.13) APTT 24.6 (24.2-36.6) Sec. Sodium 139 (137-145) mmol/L Potassium 4.0 (3.6-5.0) mmol/L Chloride 98.8 (98-107) mmol/L Carbon Dioxide 22 (22-30) mmol/L Anion Gap 22 mmol/L BUN 8 L (9-20) mg/dL Creatinine 0.5 L (0.8-1.5) mg/dL Estimated GFR > 60 ml/min BUN/Creatinine Ratio 16 % Glucose 68 L (75-100) mg/dL Calcium 8.7 (8.4-10.2) mg/dL Magnesium 2.10 (1.7-2.3) mg/dL Total Bilirubin 0.40 (0.1-1.2) mg/dL AST 26 (5-40) units/L ALT 23 (7-56) units/L Alkaline Phosphatase 82 (35-129) units/L Troponin T < 0.010 (0.00-0.029) ng/mL Total Protein 7.9 (6.3-8.2) g/dL Albumin 4.3 (3.9-5) g/dL Albumin/Globulin Ratio 1.2 % Urine Opiates Screen Urine Methadone Screen Ur Barbiturates Screen Ur Phencyclidine Scrn Ur Amphetamines Screen U Benzodiazepines Scrn Urine Cocaine Screen U Marijuana (THC) Screen Drugs of Abuse Note Plasma/Serum Alcohol (0-0.07) % 02/04/19 02/04/19 02/04/19 Range/Units 12:24 13:07 14:55 WBC (4.5-11.0) K/mm3 RBC (3.65-5.03) M/mm3 Hgb (11.8-15.2) gm/dl Hct (35.5-45.6) % MCV (84-94) fl MCH (28-32) pg MCHC (32-34) % RDW (13.2-15.2) % Plt Count (140-440) K/mm3 Lymph % (Auto) (13.4-35.0) % Custer % (Auto) (0.0-7.3) % Eos % (Auto) (0.0-4.3) % Baso % (Auto) (0.0-1.8) % Lymph # (1.2-5.4) K/mm3 Custer # (0.0-0.8) K/mm3 Eos # (0.0-0.4) K/mm3 Baso # (0.0-0.1) K/mm3 Seg Neutrophils % (40.0-70.0) % Seg Neutrophils # (1.8-7.7) K/mm3 PT (12.2-14.9) Sec. INR (0.87-1.13) APTT (24.2-36.6) Sec. Sodium (137-145) mmol/L Potassium (3.6-5.0) mmol/L Chloride (98-107) mmol/L Carbon Dioxide (22-30) mmol/L Anion Gap mmol/L BUN (9-20) mg/dL Creatinine (0.8-1.5) mg/dL Estimated GFR ml/min BUN/Creatinine Ratio % Glucose (75-100) mg/dL Calcium (8.4-10.2) mg/dL Magnesium (1.7-2.3) mg/dL Total Bilirubin (0.1-1.2) mg/dL AST (5-40) units/L ALT (7-56) units/L Alkaline Phosphatase (35-129) units/L Troponin T < 0.010 (0.00-0.029) ng/mL Total Protein (6.3-8.2) g/dL Albumin (3.9-5) g/dL Albumin/Globulin Ratio % Urine Opiates Screen Presumptive negative Urine Methadone Screen Presumptive negative Ur Barbiturates Screen Presumptive negative Ur Phencyclidine Scrn Presumptive negative Ur Amphetamines Screen Presumptive negative U Benzodiazepines Scrn Presumptive negative Urine Cocaine Screen Presumptive negative U Marijuana (THC) Screen Presumptive negative Drugs of Abuse Note Disclamer Plasma/Serum Alcohol 0.21 H (0-0.07) % - EKG Data -: EKG Interpreted by Me EKG shows normal: sinus rhythm, axis (qrs 82), QRS complexes (qrsd 81), ST-T waves (no stmei/t inv) Rate: normal (87) - EKG Data When compared to previous EKG there are: no significant change 02/04/19 15:42 repeat Ekg: rate 89, qrs 79, qrsd 79, no stemi/t inv - Radiology Data Radiology results: report reviewed PROCEDURE: XR CHEST 1V AP TECHNIQUE: Chest radiograph, portable upright AP view. HISTORY: Chest Pain COMPARISONS: Chest x-ray March 30, 2018. FINDINGS: Cardiac silhouette is within normal limits. Aortic calcifications. There is no effusion. There is no pneumothorax. There is no consolidation. Stable right apical pleural thickening. There are no suspicious osseous lesions. IMPRESSION: * No acute cardiopulmonary findings. - Medical Decision Making neg ed workup neg stress test within 1 year neg trop and ekg x2 + etoh abuse pt will be d/mahesh home with f/u - Differential Diagnosis musculoskeletal chest pain, pneumonia, COPD, PR, unstable angina Critical Care Time: No Critical care attestation.: If time is entered above; I have spent that time in minutes in the direct care of this critically ill patient, excluding procedure time. ED Disposition Clinical Impression: Gastritis, Alcohol intoxication Disposition: DC-01 TO HOME OR SELFCARE Is pt being admited?: No Does the pt Need Aspirin: No Condition: Stable Instructions: Chest Pain (ED), Abuse of Alcohol (ED) Additional Instructions: Take the medication as prescribed. Follow up with your doctor or the clinic/doctor provided. Return if symptoms worsen as indicated by your discharge instructions Prescriptions: Ibuprofen [Motrin] 600 mg PO Q8H PRN #20 tablet PRN Reason: Pain Famotidine [Pepcid] 20 mg PO BID #20 tablet Referrals: PRIMARY CARE, [Primary Care Provider] - 3-5 Days [facility] [Provider Group] - 3-5 Days Time of Disposition: 17:20
[2019-02-04] MEDS ORDERED: MORPHINE IV ONE (12:52)
[2019-02-04] MEDS ORDERED: ZOFRAN IV ONE (12:52)
[2019-02-04 12:54] LABS: Basophils # (Auto) 0.1 K/mm3 (0.0-0.1); Basophils % (Auto) 1.2 % (0.0-1.8); Eosinophils # (Auto) 0.1 K/mm3 (0.0-0.4); Eosinophils % (Auto) 1.8 % (0.0-4.3); Hematocrit 46.6 % (35.5-45.6); Hemoglobin 16.1 gm/dl (11.8-15.2); Lymphocytes # (Auto) 3.1 K/mm3 (1.2-5.4); Lymphocytes % (Auto) 39.2 % (13.4-35.0); Mean Corpuscular HGB Conc 35 % (32-34); Mean Corpuscular Volume 94 fl (84-94); Monocytes # (Auto) 0.4 K/mm3 (0.0-0.8); Monocytes % (Auto) 5.6 % (0.0-7.3); Platelet Count 303 K/mm3 (140-440); Red Blood Count 4.97 M/mm3 (3.65-5.03)
[2019-02-04 13:06] LABS: INR 0.87 (0.87-1.13); Partial Thromboplastin Time 24.6 Sec. (24.2-36.6)
[2019-02-04 13:10] LABS: Alanine Aminotransferase 23 units/L (7-56); Albumin 4.3 g/dL (3.9-5); BUN/Creatinine Ratio 16; Blood Urea Nitrogen 8 mg/dL (9-20); Calcium 8.7 mg/dL (8.4-10.2); Hemolysis Index 14
[2019-02-04] MEDS ORDERED: ASPIRIN PO ONE (13:18)
[2019-02-04 13:24] LABS: Amphetamine Screen,Urine PRESUMPTIVE NEGATIVE; Benzodiazepines Screen,Urine PRESUMPTIVE NEGATIVE; Cannabinoid Screen,Urine PRESUMPTIVE NEGATIVE; Cocaine Screen,Urine PRESUMPTIVE NEGATIVE; Methadone Screen,Urine PRESUMPTIVE NEGATIVE; Opiate Screen,Urine PRESUMPTIVE NEGATIVE
[2019-02-04] MEDS ORDERED: FOLVITE ONE (14:28)
--- NOTE | 2019-02-04 15:05 | XRay Report ---
PROCEDURE: XR CHEST 1V AP TECHNIQUE: Chest radiograph, portable upright AP view. HISTORY: Chest Pain COMPARISONS: Chest x-ray March 30, 2018. FINDINGS: Cardiac silhouette is within normal limits. Aortic calcifications. There is no effusion. There is no pneumothorax. There is no consolidation. Stable right apical pleura l thickening. There are no suspicious osseous lesions. IMPRESSION: * No acute cardiopulmonary findings. This document is electronically signed by Gabriel Hogan MD., February 04 2019 03:03:49 PM ET
[2019-02-04] MEDS ORDERED: PEPCID IV ONE (17:36)
[2019-02-04] MEDS ORDERED: TORADOL IV ONE (17:36)
[2019-02-04 18:27] VITALS: BP 105/62
[2019-02-05] MEDS ORDERED: FOLVITE PO ONE (12:16)
== END 2019-02-04 18:28 | disposition home or self-care (01) ==
LOC: ED 11:48
DX: K29.20 Alcoholic gastritis without bleeding (principal); I10 Essential (primary) hypertension; M19.90 Unspecified osteoarthritis, unspecified site; J44.9 Chronic obstructive pulmonary disease, unspecified; F17.200 Nicotine dependence, unspecified, uncomplicated; Z90.89 Acquired absence of other organs; Z88.1 Allergy status to other antibiotic agents; Z88.0 Allergy status to penicillin; Z88.6 Allergy status to analgesic agent; Z88.5 Allergy status to narcotic agent
CPT/HCPCS: 36415; 71045; 80053; 80307; 83735; 84484; 85025; 85610; 85730; 93005; 93010; 96374; 96375; 99284; G0480; J1885; J2270; J2405; 80320